=== PATIENT | female | born 1965 | race Caucasian/White ===

== ENCOUNTER 2017-11-12 02:37 | Inpatient (IN) | payer SELFPAY ==
[~2017-11-12] VITALS: Ht 167.6 cm; Wt 82.9 kg
[2017-11-12] VITALS (7 sets, daily range): BP systolic 87–134; BP diastolic 57–77; PULSE 89–107; RESP 18–20; TEMP 97.2–99.3; O2SAT 90–98
[~2017-11-12 02:37] MED LIST: FOLI400T PO; LEVA500T33 PO; METH2.5T PO; METO1TAB42 PO; PRED1 PO
[2017-11-12] MEDS ORDERED: NALOXONE HCL 0.4 MG/ML AMP IV PUSH PRN (02:45)
[2017-11-12] MEDS ORDERED: ACETAMINOPHEN 325 MG TAB PO PRN (02:45)
[2017-11-12] MEDS ORDERED: LEVOFLOXACIN 750 MG PREMIX INJ 150 ML IV SCH (02:45)
[2017-11-12] MEDS ORDERED: PILL SPLITTER OTHER PRN (03:15)
[2017-11-12] MEDS: RESP: ALBUTEROL 2.5 MG/IPRATROPIUM 0.5 MG NEB (SCH) NEB ×4 (04:00→21:08)
[2017-11-12] MEDS ORDERED: methylPREDNISolone SOD SUCC 40 MG/1 ML VIAL IV PUSH SCH (06:00)
[2017-11-12] MEDS: SODIUM CHLORIDE 0.9% FLUSH 10 ML FLUSH IV FLUSH SCH ×2 (08:05→19:53)
[2017-11-12] MEDS: FAMOTIDINE 20 MG TAB PO SCH ×2 (08:08→21:22)
[2017-11-12] MEDS: METOPROLOL SUCCINATE 25 MG EXTENDED RELEASE TAB PO SCH (08:25)
[2017-11-12] MEDS: SODIUM CHLOR 0.9% 1000 ML INJ 1,000 ML IV SCH ×3 (08:29→22:42)
[2017-11-12] MEDS ORDERED: AZTREONAM INJ 2,000 MG in SODIUM CHLORIDE 0.9% INJ 100 ML IV SCH (09:00)
[2017-11-12] MEDS ORDERED: ENOXAPARIN SODIUM 40 MG/0.4 ML SYRINGE SQ SCH (09:00)
[2017-11-12 09:07] LABS: AUTOMATED NEUTROPHIL # 9.4 TH/MM3 (1.8-7.7); BASOPHIL % 0.3 % (0.0-2.0); HEMATOCRIT 45.2 % (35.0-46.0); LYMPH % 11.7 % (9.0-44.0); LYMPHOCYTE # 1.3 TH/MM3 (1.0-4.8); MEAN CELL VOLUME 89.7 FL (80.0-100.0); MEAN CORPUSCULAR HEMOGLOBIN 29.8 PG (27.0-34.0); MEAN CORPUSCULAR HGB CONC 33.2 % (32.0-36.0); MEAN PLATELET VOLUME 8.8 FL (7.0-11.0); MONO % 4.1 % (0.0-8.0); MONOCYTE # 0.5 TH/MM3 (0-0.9); NEUT % 83.9 % (16.0-70.0); PLATELET COUNT 138 TH/MM3 (150-450); RED BLOOD COUNT 5.03 MIL/MM3 (4.00-5.30); RED CELL DISTRIBUTION WIDTH 13.4 % (11.6-17.2); WHITE BLOOD COUNT 11.2 TH/MM3 (4.0-11.0)
[2017-11-12 09:10] LABS: CALCIUM 8.3 MG/DL (8.5-10.1)
[2017-11-12 09:11] LABS: BICARBONATE 22.7 MEQ/L (21.0-32.0)
[2017-11-12 09:14] LABS: CREATININE 0.76 MG/DL (0.50-1.00)
--- NOTE | 2017-11-12 09:28 | HHI.HP ---
[facility] No Primary Care Physician Admission Diagnosis Diagnoses: Chief Complaint: Fever Travel History International Travel<30 Days: No Contact w/Intl Traveler <30 Da: No History of Present Illness 52-year-old female admitted for sepsis secondary to pneumonia. Patient was in her usual state of health until about a week ago when she began experiencing subjective fevers chills sweats as well as URI symptoms including rhinorrhea. This was associated with increasing shortness of breath and wheezing. The patient states that she has asthma and started taking her albuterol inhaler to no avail. She says that she took some prednisone that she had left over (for her rheumatoid arthritis) 5 mg for 2 days again providing no avail. This she went to the urgent care where she was diagnosed with the flu apparently without getting a flu swab. She was sent home with Tamiflu which she took for the next 3 days but due to the persistence in her symptoms she decided to come to the ER department. She does report having some nausea but no vomiting. In the emergency department to obtain a chest x-ray which I am attempting to review independently but the film was not showing up; radiology read reports patchy infiltrates suggestive of bronchopneumonia. Was reported to have saturations of 89-90% on room air and was placed on oxygen. Patient was started on Levaquin and aztreonam. Received 2 L of normal saline bolus as well as Solu- Medrol. Past medical history includes rheumatoid arthritis and asthma. Social history includes that the patient has been smoking for over 20 years. 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 No significant family history per patient. Review of Systems Except as stated in HPI: all other systems reviewed are Neg Past Family Social History Allergies: Coded Allergies: Penicillins (Verified Allergy, Severe, 11/11/17) aspirin (Verified Allergy, Severe, 11/11/17) morphine (Verified Adverse Reaction, Mild, Itching, 11/12/17) Physical Exam Physical Exam VS: afebrile GENERAL: Lying in bed, no acute distress SKIN: Warm and dry. EYES: No scleral icterus. No injection or drainage. ENT: No nasal bleeding or discharge. CARDIOVASCULAR: Regular rate and rhythm. no murmurs RESPIRATORY: No accessory muscle use. Rhonchi crackles and wheezing heard in the expiratory phase in the left lung field, right side sounds almost clear GASTROINTESTINAL: Abdomen soft, non-tender, nondistended. Extremities: No clubbing, cyanosis, or edema. No obvious deformities. MUSCULOSKELETAL: adequate muscle bulk and tone for age and habitus NEUROLOGICAL: Awake and alert. No obvious cranial nerve deficits. No facial droop nor slurred speech noted. PSYCHIATRIC: Appropriate mood and affect; insight and judgment normal. Laboratory Laboratory Tests Test 11/12/17 08:40 White Blood Count 11.2 Red Blood Count 5.03 Hemoglobin 15.0 Hematocrit 45.2 Mean Corpuscular Volume 89.7 Mean Corpuscular Hemoglobin 29.8 Mean Corpuscular Hemoglobin Concent 33.2 Red Cell Distribution Width 13.4 Platelet Count 138 Mean Platelet Volume 8.8 Neutrophils (%) (Auto) 83.9 Lymphocytes (%) (Auto) 11.7 Monocytes (%) (Auto) 4.1 Eosinophils (%) (Auto) 0.0 Basophils (%) (Auto) 0.3 Neutrophils # (Auto) 9.4 Lymphocytes # (Auto) 1.3 Monocytes # (Auto) 0.5 Eosinophils # (Auto) 0.0 Basophils # (Auto) 0.0 CBC Comment DIFF FINAL Differential Comment Blood Urea Nitrogen 14 Creatinine 0.76 Random Glucose 135 Calcium Level 8.3 Sodium Level 137 Potassium Level 4.1 Chloride Level 106 Carbon Dioxide Level 22.7 Anion Gap 8 Estimat Glomerular Filtration Rate 80 Date/Time Source Procedure Growth Status 11/12/17 08:40 Blood Peripheral Aerobic Blood Culture Pending Received 11/12/17 08:40 Blood Peripheral Anaerobic Blood Culture Pending Received Caprini VTE Risk Assessment Caprini VTE Risk Assessment: Mod/High Risk (score >= 2) Caprini Risk Assessment Model Point Value = 1 Point Value = 2 Point Value = 3 Point Value = 5 Age 41-60 Minor surgery BMI > 25 kg/m2 Swollen legs Varicose veins or History of unexplained or recurrent spontaneous Oral contraceptives or hormone replacement Sepsis (< 1 month) Serious lung disease, including pneumonia (< 1 month) Abnormal pulmonary function Acute myocardial infarction Congestive heart failure (< 1 month) History of inflammatory bowel disease Medical patient at bed rest Age 61-74 Arthroscopic surgery Major open surgery (> 45 min) Laparoscopic surgery (> 45 min) Malignancy Confined to bed (> 72 hours) Immobilizing plaster cast Central venous access Age >= 75 History of VTE Family history of VTE Factor V Leiden Prothrombin [id number] Lupus anticoagulant Anticardiolipin antibodies Elevated serum homocysteine Heparin-induced thrombocytopenia Other congenital or acquired thrombophilia Stroke (< 1 month) Elective arthroplasty Hip, pelvis, or leg fracture Acute spinal cord injury (< 1 month) Prophylaxis Regimen Total Risk Factor Score Risk Level Prophylaxis Regimen 0-1 Low Early ambulation 2 Moderate Order ONE of the following: *Sequential Compression Device (SCD) *Heparin 5000 units SQ BID 3-4 Higher Order ONE of the following medications: *Heparin 5000 units SQ TID *Enoxaparin/Lovenox 40 mg SQ daily (WT < 150 kg, CrCl > 30 mL/min) *Enoxaparin/Lovenox 30 mg SQ daily (WT < 150 kg, CrCl > 10-29 mL/min) *Enoxaparin/Lovenox 30 mg SQ BID (WT < 150 kg, CrCl > 30 mL/min) AND/OR *Sequential Compression Device (SCD) 5 or more Highest Order ONE of the following medications: *Heparin 5000 units SQ TID (Preferred with Epidurals) *Enoxaparin/Lovenox 40 mg SQ daily (WT < 150 kg, CrCl > 30 mL/min) *Enoxaparin/Lovenox 30 mg SQ daily (WT < 150 kg, CrCl > 10-29 mL/min) *Enoxaparin/Lovenox 30 mg SQ BID (WT < 150 kg, CrCl > 30 mL/min) AND *Sequential Compression Device (SCD) Assessment and Plan Assessment and Plan Sepsis secondary to bronchopneumonia resulting in asthma exacerbation - Received 2 L normal saline bolus, continue with IV fluids and IV antibiotics - Blood cultures ordered (were obtained after abx administered at ER) - See treatment below for pneumonia; fevers have stopped. Initially had temps > 102 in [place] ER w/ HR > 100. Pneumonia - Continue with Levaquin, obtaining urinary pneumococcal antigen, stopping aztreonam Asthma exacerbation - Likely from pneumonia/viral bronchitis, continue with IV Solu-Medrol and DuoNeb's Hypoxia - Possibly from pneumonia and sloughing; continue duo nebs and possible Mucomyst HTN - continue home toprol Lovenox Addendum: Patient complaining of a possible knot in her abdomen as well as abdominal pain with coughing. I palpated the abdomen, actually has multiple diffuse scattered depressible masses that are very suggestive of stool retention. Patient does affirm that she has a bowel movement about once or twice a week. Starting the patient on promethazine/codeine for cough suppressant and oral MiraLAX and rectal suppository. Physician Certification 2 Midnight Certification Type: Admission for Inpatient Services Order for Inpatient Services The services are ordered in accordance with Medicare regulations or non- Medicare payer requirements, as applicable. In the case of services not specified as inpatient-only, they are appropriately provided as inpatient services in accordance with the 2-midnight benchmark. Estimated LOS (days): 2 2 days is the estimated time the patient will need to remain in the hospital, assuming treatment plan goals are met and no additional complications. Post-Hospital Plan: Home Bishop Xiao MD Nov 12, 2017 09:28
[2017-11-12] MEDS ORDERED: RESP: ACETYLCYSTEINE 10% 10 ML NEB NEB PRN (09:30)
[2017-11-12] MEDS ORDERED: methylPREDNISolone SOD SUCC 125 MG/2 ML VIAL IV PUSH ONE ×2 (10:00→19:00)
[2017-11-12] MEDS ORDERED: BENZONATATE 100 MG CAP PO PRN (13:00)
[2017-11-12] MEDS ORDERED: METHOTREXATE 2.5 MG TAB PO SCH (15:00)
[2017-11-12] MEDS: RESP: ACETYLCYSTEINE 10% 30 ML NEB NEB PRN ×2 (15:56→21:08)
[2017-11-12] MEDS ORDERED: PROMETHAZINE/CODEINE 6.25 MG/10 MG/5 ML CUP PO PRN (16:30)
[2017-11-12] MEDS ORDERED: METH2.5T PO (16:36)
[2017-11-12] MEDS ORDERED: BISACODYL 10 MG SUPP RECTAL ONE (17:00)
[2017-11-12] MEDS ORDERED: METHYLNALTREXONE BROMIDE 12 MG/0.6 ML VIAL SQ ONE (17:00)
[2017-11-12] MEDS: POLYETHYLENE GLYCOL 17 GM PKG PO SCH (17:00)
[2017-11-13] VITALS (17 sets, daily range): BP systolic 106–130; BP diastolic 62–72; PULSE 88–109; RESP 18–42; TEMP 97.7–100.3; O2SAT 88–100
[2017-11-13] MEDS: LEVOFLOXACIN 750 MG PREMIX INJ 150 ML IV SCH (01:00)
[2017-11-13] MEDS: RESP: ALBUTEROL 2.5 MG/IPRATROPIUM 0.5 MG NEB (SCH) NEB ×4 (03:06→22:00)
[2017-11-13] MEDS: ACETAMINOPHEN 325 MG TAB PO PRN ×2 (03:27→16:53)
[2017-11-13] MEDS ORDERED: IOHEXOL 350 MG/ML 10 ML VIAL (for RAD DIAG) IVCONTRAST ONE (03:54)
--- NOTE | 2017-11-13 04:09 | RADRPT ---
EXAM DATE/TIME: 11/13/2017 03:47 [place] COMPARISON: No previous studies available for comparison. INDICATIONS : Short of breath. IV CONTRAST: 75 cc Omnipaque 350 (iohexol) IV RADIATION DOSE: 19.74 CTDIvol (mGy) MEDICAL HISTORY : Asthma. SURGICAL HISTORY : Appendectomy. section. ENCOUNTER: Initial ACUITY: 1 week PAIN SCALE: 0/10 LOCATION: Bilateral chest TECHNIQUE: Volumetric scanning of the chest was performed using a pulmonary embolism protocol MIP images were re constructed. Using automated exposure control and adjustment of the mA and/or kV according to patien t size, radiation dose was kept as low as reasonably achievable to obtain optimal diagnostic quality images. DICOM format image data is available electronically for review and comparison. Follow-up recommendations for detected pulmonary nodules are based at a minimum on nodule size and pa tient risk factors according to Fleischner Society Guidelines. FINDINGS: There is bilateral airspace disease which is predominantly groundglass and slightly worse in the omid hilar regions and upper lungs. There is mediastinal and hilar adenopathy with AP window lymph node me asuring up to 1.2 x 2.3 cm. No filling defects to suggest pulmonary embolism. No pleural or pericardial effusion. No acute findin gs in the upper abdomen. CONCLUSION: 1. Negative for pulmonary embolus. 2. Bilateral airspace disease, predominantly groundglass slight upper lobe predominance with adenopat hy. Differential diagnosis includes bronchopneumonia or. Recommend short-term followup to follow adeline opathy and ensure resolution. Elieser Villalobos MD on November 13, 2017 at 4:03 Board Certified Radiologist. This report was verified electronically.
[2017-11-13] MEDS ORDERED: methylPREDNISolone SOD SUCC 125 MG/2 ML VIAL IV PUSH SCH (06:00)
[2017-11-13] MEDS: RESP: ALBUTEROL 2.5 MG/IPRATROPIUM 0.5 MG NEB (PRN) NEB (07:25)
[2017-11-13] MEDS ORDERED: Vancomycin Consult Pharmacy 1 EA OTHER SCH (08:15)
[2017-11-13] MEDS: SODIUM CHLOR 0.9% 1000 ML INJ 1,000 ML IV SCH ×2 (08:34→16:53)
[2017-11-13] MEDS: SODIUM CHLORIDE 0.9% FLUSH 10 ML FLUSH IV FLUSH SCH ×2 (08:35→20:45)
[2017-11-13] MEDS: METOPROLOL SUCCINATE 25 MG EXTENDED RELEASE TAB PO SCH (08:35)
[2017-11-13] MEDS: ENOXAPARIN SODIUM 30 MG/0.3 ML SYRINGE SQ SCH (08:35)
[2017-11-13] MEDS: FAMOTIDINE 20 MG TAB PO SCH ×2 (08:36→20:45)
[2017-11-13] MEDS: POLYETHYLENE GLYCOL 17 GM PKG PO SCH (08:40)
[2017-11-13] MEDS ORDERED: BISACODYL 10 MG SUPP RECTAL ONE (09:00)
[2017-11-13] MEDS ORDERED: METHOTREXATE 2.5 MG TAB PO SCH (09:00)
--- NOTE | 2017-11-13 09:16 | HHI.PR ---
Subjective Remarks Nursing reports that the patient did have a deterioration since last night where she did have a desaturation and required more oxygen. RTC specified that she was down into the 80s on her saturations while on 6 L (yesterday she was on 2 L earlier in the morning in the mid 90s). Patient states that during this time at night however symptomatically she had no change in her symptoms. This morning she says she also felt okay, unchanged in her respiratory distress from admission, but says that whenever she exerts herself going to the bathroom or getting out of bed she is very winded. She did have some persistent abdominal pain yesterday that was mild with transient relief after having a bowel movement after receiving a suppository and oral laxatives. Objective Vital Signs Date Time Temp Pulse Resp B/P (MAP) Pulse Ox O2 Delivery O2 Flow Rate FiO2 11/13/17 07:50 99.0 98 20 114/72 (86) 95 11/13/17 07:28 95 Partial Rebreather 10.00 11/13/17 04:00 97.7 100 18 106/68 (81) 97 11/13/17 03:20 95 Partial Rebreather 15.00 11/13/17 02:18 91 11/13/17 00:00 100.1 106 18 129/67 (87) 88 11/12/17 21:08 91 Nasal Cannula 6.00 11/12/17 20:00 99.3 100 18 126/77 (93) 90 11/12/17 15:50 98.1 107 20 134/71 (92) 91 11/12/17 11:50 98.9 90 20 101/57 (72) 92 I/O 11/12/17 11/12/17 11/12/17 11/13/17 11/13/17 11/13/17 07:00 15:00 23:00 07:00 15:00 23:00 Intake Total 785 ml 781 ml 960 ml Balance 785 ml 781 ml 960 ml Intake Oral 300 ml 960 ml IV Total 785 ml 481 ml # Voids 21 4 # Bowel Movements 3 Result Diagram: 11/12/1740 11/12/17 0840 Objective Remarks Junky breath sounds bilaterally with minimally labored breathing On nonrebreather currently Abdomen soft, nondistended, no rebound, minimal tenderness to palpation on the left side upper and lower quadrants A/P Assessment and Plan Sepsis secondary to pneumonia - CT angiogram which was obtained since last night showed no pulmonary malaise and, I independently reviewed it and see severe infiltrates bilaterally all throughout lung reese. Discussed case with intensivists, will do stat transfer to [facility]. I have added on Azactam and vancomycin. Continuing Tamiflu ( for previously made clinical diagnosis of flu). continue duonebs, steroids Abdominal pain - Continue with oral laxatives and rectal suppository, if no improvement, can consider CT abdomen continue home methotrexate for RA/lupus Bishop Cabral MD Nov 13, 2017 09:16
[2017-11-13 09:37] LABS: AUTOMATED NEUTROPHIL # 15.3 TH/MM3 (1.8-7.7); BASOPHIL # 0.1 TH/MM3 (0-0.2); BASOPHIL % 0.7 % (0.0-2.0); LYMPH % 7.4 % (9.0-44.0); LYMPHOCYTE # 1.3 TH/MM3 (1.0-4.8); MEAN CELL VOLUME 89.9 FL (80.0-100.0); MEAN CORPUSCULAR HEMOGLOBIN 29.9 PG (27.0-34.0); MEAN CORPUSCULAR HGB CONC 33.3 % (32.0-36.0); MEAN PLATELET VOLUME 8.7 FL (7.0-11.0); MONO % 1.8 % (0.0-8.0); MONOCYTE # 0.3 TH/MM3 (0-0.9); NEUT % 90.1 % (16.0-70.0); PLATELET COUNT 129 TH/MM3 (150-450); RED BLOOD COUNT 4.68 MIL/MM3 (4.00-5.30); RED CELL DISTRIBUTION WIDTH 13.6 % (11.6-17.2)
[2017-11-13 09:47] LABS: CALCIUM 8.6 MG/DL (8.5-10.1)
[2017-11-13 09:48] LABS: BICARBONATE 26.6 MEQ/L (21.0-32.0)
[2017-11-13 09:52] LABS: CREATININE 0.76 MG/DL (0.50-1.00)
[2017-11-13] MEDS: OSELTAMIVIR PHOSPHATE 75 MG CAP PO SCH (09:52)
[2017-11-13] MEDS: RESP: ACETYLCYSTEINE 10% 30 ML NEB NEB PRN (09:58)
[2017-11-13] MEDS ORDERED: VANCOMYCIN INJ 2,000 MG in SODIUM CHLORID 0.9% 500 ML INJ 500 ML IV ONE (10:00)
[2017-11-13] MEDS ORDERED: AZTREONAM INJ 2,000 MG in SODIUM CHLORIDE 0.9% INJ 100 ML IV SCH (11:00)
--- NOTE | 2017-11-13 13:56 | PD.CONS ---
[facility] Service Critical Care Medicine Consult Requested By Dr. Xiao Reason for Consult Acute hypoxemic respiratory failure Bilateral pneumonia, ? 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 with week long history of fevers chills and URI symptoms. This was associated with increasing shortness of breath and wheezing. Not improving with inhaled albuterol or prednisone which patient takes intermittently for rheumatoid arthritis flare up. About 3 days prior to ER visit patient was placed on Tamiflu by urgent care facility based on clinical symptoms. CXR at [place] emergency department showed bilateral patchy infiltrates. Patient was admitted to the [facility] facility under the hospitalist and was placed on IV Solu- Medrol breathing treatments, IV Levaquin and Tamiflu. Overnight patient had clinical deterioration was on 6 L nasal cannula with desaturation into the low 80s and patient was placed on a nonrebreather. An ABG done on 6 L showed severe AA gradient and a PO2 of 55. 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 Because of hypoxemic respiratory failure, extensive pulmonary infiltrates and risk of worsening ARDS patient was emergently transferred to the [place] [facility] ICU I immediately evaluated the patient in the ICU. She is on partial nonrebreather oxygen saturation above 90%. The patient is tachypneic using accessory muscles. BiPAP ordered. Clinical presentation is concerning for influenza with secondary bacterial pneumonia. Because of her history of on and off chronic steroids and rheumatoid arthritis I will check for Pneumocystis jiroveci staining, LDH. Also ID consulted. A limited bedside echo showed normal ejection fraction. We will continue Tamiflu, IV Levaquin and vancomycin plus Azactam. If LDH is elevated start empiric coverage with IV Bactrim. Continue IV Solu-Medrol increased to 60 mg every 6 hours. ID consulted and discussed with Dr. Pinto Review of Systems ROS Limitations: Other ( PER HPI) Past Family Social History Allergies: Coded Allergies: Penicillins (Verified Allergy, Severe, 11/11/17) aspirin (Verified Allergy, Severe, 2/9/18) morphine (Verified Adverse Reaction, Mild, Itching, 11/12/17) Past Medical History Rheumatoid architis Probable Lupus Bronchial asthma Past Surgical History Appendectomy Fibroid removal Reported Medications Prednisone 1 Mg Tab 1 Mg PO DAILY Folic Acid 0.4 Mg Tab 400 Mcg PO DAILY Metoprolol Succinate ER 24 HR (Metoprolol Succinate) 25 Mg Tab 12.5 Mg PO DAILY Methotrexate 2.5 Mg Tab 2.5 Mg PO Q7D Active Ordered Medications Reviewed Family History Mother has diabetes Social History Smokes half packs of cigarettes a day No alcohol or tobacco Physical Exam Vital Signs Vital Signs Date Time Temp Pulse Resp B/P (MAP) Pulse Ox O2 Delivery O2 Flow Rate FiO2 11/13/17 12:00 100 11/13/17 12:00 100.0 100 24 123/62 (82) 95 11/13/17 11:08 100.0 109 28 130/70 (90) 96 11/13/17 11:04 95 Partial Rebreather 13.00 11/13/17 09:33 96 High Flow Nasal Cannula 30.00 11/13/17 07:50 99.0 98 20 114/72 (86) 95 11/13/17 07:28 95 Partial Rebreather 10.00 11/13/17 04:00 97.7 100 18 106/68 (81) 97 11/13/17 03:20 95 Partial Rebreather 15.00 11/13/17 02:18 91 11/13/17 00:00 100.1 106 18 129/67 (87) 88 11/12/17 21:08 91 Nasal Cannula 6.00 11/12/17 20:00 99.3 100 18 126/77 (93) 90 11/12/17 15:50 98.1 107 20 134/71 (92) 91 Physical Exam GENERAL: Lying in bed, moderate distress using accessory muscle SKIN: Warm and dry. EYES: No scleral icterus. No injection or drainage. ENT: No nasal bleeding or discharge. NECK: Supple, JVD plus CARDIOVASCULAR: Regular rate and rhythm. no murmurs RESPIRATORY: Tachypneic in mid 30s, using accessory muscle use. Fine crackles and wheezing heard in bilateral lung reese anteriorly and posteriorly GASTROINTESTINAL: Abdomen soft, non-tender, nondistended. EXT: No clubbing, cyanosis, or edema. No obvious deformities. NEUROLOGICAL: Awake and alert. No obvious cranial nerve deficits. Normal muscle strength Laboratory Laboratory Tests Test 11/13/17 02:58 11/13/17 09:25 Blood Gas Puncture Site RT BRACHIAL Blood Gas Patient Temperature 98.6 Blood Gas HCO3 22 Blood Gas Base Excess -2.2 Blood Gas Oxygen Saturation 87 Arterial Blood pH 7.39 Arterial Blood Partial Pressure CO2 37 Arterial Blood Partial Pressure O2 55 Arterial Blood Oxygen Content 17.1 Arterial Blood Carboxyhemoglobin 1.3 Arterial Blood Methemoglobin 1.2 Blood Gas Hemoglobin 14.0 Oxygen Delivery Device NASAL CANNULA Blood Gas Liter Flow 6 White Blood Count 17.0 Red Blood Count 4.68 Hemoglobin 14.0 Hematocrit 42.0 Mean Corpuscular Volume 89.9 Mean Corpuscular Hemoglobin 29.9 Mean Corpuscular Hemoglobin Concent 33.3 Red Cell Distribution Width 13.6 Platelet Count 129 Mean Platelet Volume 8.7 Neutrophils (%) (Auto) 90.1 Lymphocytes (%) (Auto) 7.4 Monocytes (%) (Auto) 1.8 Eosinophils (%) (Auto) 0.0 Basophils (%) (Auto) 0.7 Neutrophils # (Auto) 15.3 Lymphocytes # (Auto) 1.3 Monocytes # (Auto) 0.3 Eosinophils # (Auto) 0.0 Basophils # (Auto) 0.1 CBC Comment DIFF FINAL Differential Comment Blood Urea Nitrogen 8 Creatinine 0.76 Random Glucose 180 Calcium Level 8.6 Sodium Level 141 Potassium Level 4.1 Chloride Level 106 Carbon Dioxide Level 26.6 Anion Gap 8 Estimat Glomerular Filtration Rate 80 Date/Time Source Procedure Growth Status 11/12/17 08:40 Blood Peripheral Aerobic Blood Culture - Preliminary NO GROWTH IN 1 DAY Resulted 11/12/17 08:40 Blood Peripheral Anaerobic Blood Culture - Final QNS - SEE AEROBE REPORT Resulted 11/13/17 06:30 Urine Random Urine Legionella Antigen Pending Received Result Diagram: 11/13/1792411/13/[address] CHEST: Bilateral airspace disease, predominantly ground glass slight upper lobe predominance with adenopathy. Differential diagnosis includes bronchopneumonia or. Recommend short-term followup to follow adenopathy and ensure resolution. Septic Shock Reassessment Septic shock perfusion: reassessment completed Assessment and Plan Assessment and Plan ASSESSMENT: Acute hypoxemic respiratory failure Bilateral pneumonia, ? 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 ID: -Patient appears to have bilateral pneumonia most likely atypical -Check for repeat influenza, PGP stain, check LDH, sputum culture and blood culture, urine for Legionella and pneumococcal antigen -Continue broad-spectrum antibiotics with vancomycin, Azactam, Levaquin and Tamiflu -Infectious disease consult -LDH elevated start empiric Bactrim IV for PJP coverage HEME: -Monitor CBC, CMP, coags ENDO: -Mild hyperglycemia secondary to steroids -Sliding scale insulin if needed MSK -Hold methotrexate due to an acute infection -Continue IV Solu-Medrol PROPH: Bilateral lower extremity SCDs/JESSICA. Lovenox, Famotidine LINES: Utilize peripheral IVs, central line if needed CC time 45 min Code Status Full Discussed Condition With Phi Aguilera MD Nov 13, 2017 13:56
[2017-11-13] MEDS: AZTREONAM INJ 2,000 MG in SODIUM CHLORIDE 0.9% INJ 100 ML IV SCH ×2 (14:00→23:59)
[2017-11-13] MEDS: methylPREDNISolone SOD SUCC 125 MG/2 ML VIAL IV PUSH SCH ×2 (16:52→23:59)
[2017-11-13] MEDS: SULFAMETHOX IV SCH ×2 (20:45)
[2017-11-13] MEDS: TRIMETHOPRIM IV SCH ×2 (20:45)
[2017-11-13] MEDS: DEXTROSE 5% IV SCH ×2 (20:45)
[2017-11-13] MEDS: WATE IV SCH ×2 (20:45)
[2017-11-13] MEDS: ALPRAZolam 1 MG TAB PO PRN (21:03)
--- NOTE | 2017-11-13 21:43 | PD.ID.CON ---
History of Present Illness Service ID Consult Requested By Reason for Consult Evaluation and mment of Pneumonia in an Immune compromised patient. Primary Care Physician No Primary Care Physician Diagnoses: History of Present Illness Ms. Boyd is a 60 y/o female with PMHx significant for rheumatoid arthritis and possibly lupus who is on methotrexate and intermittently on steroids. Her PMHx is also significant for Bronchial asthma and she admits to smoking 1 ppd for many years. 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 She denies any fungal pneumonia. She denies exposure to people with TB or positive PPD. She thinks she uses a nebulizer which may have mold deposits. She reports her home is her truck. She lives in motels at times. Patient reports her symptoms started off with a fever she presented at an ED or urgent care was diagnosed with Flu and started on Tamiflu approximately 1 week TEST RIDER. She then presented to the [facility] ED with fever 103 F, tachycardia and Pneumonia on CXR on 11/11/2017. Flu antigen at this point after being treated with tamiflu was negative. She was transferred to [facility] due to increasing Shortness of breath and wheezing. She was reportedly getting worse despite taking her steroids at home which she intermittently takes for her RA. Patient was admitted to the [facility] facility under the hospitalist and was placed on IV Solu-Medrol breathing treatments, IV Levaquin and Tamiflu. Overnight patient had clinical deterioration was on 6 L nasal cannula with desaturation into the low 80s and patient was placed on a nonrebreather. An ABG done on 6 L showed severe AA gradient and a PO2 of 55. 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 Due to worsening shortness of breath, hypoxemic respiratory failure, extensive pulmonary infiltrates and risk of worsening ARDS patient was emergently transferred to the [place] [facility]. 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 The patient is tachypneic using accessory muscles. BiPAP ordered earlier but patient prefers not to use it. Patient is currently on Tamiflu, IV Levaquin, Azactam IV and IV vancomycin. Due to concern for PCP LDH was checked and patient started on empiric Bactrim IV.Patient is on IV Solu- Medrol increased to 60 mg every 6 hours. ID consulted for evaluation and Mment of Pneumonia in an Immune compromised patient. Review of Systems Constitutional: COMPLAINS OF: Fever, Chills, DENIES: Diaphoretic episodes, Fatigue, Weight gain, Weight loss, Dizziness, Change in appetite, Night Sweats Endocrine: DENIES: Abnorml menstrual pattern, Heat/cold intolerance, Polydipsia , Polyuria, Polyphagia Eyes: DENIES: Blurred vision, Diplopia, Eye inflammation, Eye pain, Vision loss , Photosensitivity, Double Vision Ears, nose, mouth, throat: DENIES: Tinnitus, Hearing loss, Vertigo, Nasal discharge, Oral lesions, Throat pain, Hoarseness, Ear Pain, Running Nose, Epistaxis, Sinus Pain, Toothache, Odynophagia Respiratory: COMPLAINS OF: Cough, Wheezing, Shortness of breath, DENIES: Apneas , Snoring, Hemoptysis, Sputum production Cardiovascular: DENIES: Chest pain, Palpitations, Syncope, Dyspnea on Exertion , PND, Lower Extremity Edema, Orthopnea, Claudication Gastrointestinal: DENIES: Abdominal pain, Black stools, Bloody stools, Constipation, Diarrhea, Nausea, Vomiting, Difficulty Swallowing, Anorexia Genitourinary: DENIES: Abnormal vaginal bleeding, Dysmenorrhea, Dyspareunia, Sexual dysfunction, Urinary frequency, Urinary incontinence, Urgency, Hematuria , Dysuria, Nocturia, Vaginal discharge Musculoskeletal: COMPLAINS OF: Joint pain, DENIES: Muscle aches, Stiffness, Joint Swelling, Back pain, Neck pain Integumentary: DENIES: Abnormal pigmentation, Pruritus, Rash, Nail changes, Breast masses, Breast skin changes, Nipple discharge Hematologic/lymphatic: DENIES: Bruising, Lymphadenopathy Immunologic/allergic: DENIES: Eczema, Urticaria Neurologic: DENIES: Abnormal gait, Headache, Localized weakness, Paresthesias, Seizures, Speech Problems, Tremor, Poor Balance Psychiatric: DENIES: Anxiety, Confusion, Mood changes, Depression, Hallucinations, Agitation, Suicidal Ideation, Homicidal Ideation, Delusions Except as stated in HPI: all other systems reviewed are Neg Past Family Social History Allergies: Coded Allergies: Penicillins (Verified Allergy, Severe, Swelling, 11/13/17) Has tolerated Keflex as outpatient. aspirin (Verified Allergy, Severe, 11/11/17) morphine (Verified Adverse Reaction, Mild, Itching, 11/12/17) Past Medical History Rheumatoid arthritis Probable Lupus Bronchial asthma Past Surgical History Appendectomy Fibroid removal Reported Medications Reported Meds & Active Scripts Active Reported Methotrexate 2.5 Mg Tab 15 Mg PO Q7D Prednisone 1 Mg Tab 1 Mg PO DAILY Folic Acid 0.4 Mg Tab 400 Mcg PO DAILY Metoprolol Succinate ER 24 HR (Metoprolol Succinate) 25 Mg Tab 12.5 Mg PO DAILY Active Ordered Medications Current Medications Medications (Trade) Dose Ordered Sig/Maribell Route Start Time Stop Time Status Last Admin Sodium Chloride 1,000 ml @ 100 mls/hr Q10H IV 11/12/17 02:42 11/13/17 16:53 (NS Flush) 2 ml UNSCH PRN IV FLUSH 11/12/17 02:45 (NS Flush) 2 ml BID IV FLUSH 11/12/17 09:00 11/13/17 20:45 (Narcan Inj) 0.4 mg UNSCH PRN IV PUSH 11/12/17 02:45 (Duoneb Neb) 1 ampule Q4HR NEB PRN NEB 11/12/17 02:45 11/13/17 07:25 (Duoneb Neb) 1 ampule Q6HR NEB NEB 11/12/17 04:00 11/13/17 14:40 (Pepcid) 20 mg BID PO 11/12/17 09:00 11/13/17 20:45 (Toprol Xl) 12.5 mg DAILY PO 11/12/17 09:00 11/13/17 08:35 Levofloxacin/ Dextrose 150 ml @ 100 mls/hr Q24H IV 11/13/17 01:00 11/13/17 01:00 (Pill Splitter) 1 ea UNSCH PRN OTHER 11/12/17 03:15 (Lovenox Inj) 30 mg Q24H SQ 11/13/17 09:00 11/13/17 08:35 (Mucomyst 10% Neb) 2 ml Q4HR WHILE AWAKE NEB PRN NEB 11/12/17 11:00 11/13/17 09:58 (Tessalon) 100 mg TID PRN PO 11/12/17 13:00 11/12/17 13:15 (Phenergan-Codeine Liq) 5 ml Q4H PRN PO 11/12/17 16:30 (Miralax) 17 gm DAILY PO 11/12/17 17:00 11/13/17 08:40 (Rheumatrex) 15 mg Q7D PO 11/13/17 09:00 Future Hold 11/13/17 08:37 (Tylenol) 650 mg Q4H PRN PO 11/13/17 02:30 11/13/17 16:53 (Tamiflu) 75 mg DAILY PO 11/13/17 09:00 11/13/17 09:52 Aztreonam 2000 mg/ Sodium Chloride 100 ml @ 200 mls/hr Q8H IV 11/13/17 14:00 11/13/17 14:00 (Folate) 0.5 mg DAILY PO 11/14/17 09:00 (SoluMEDROL INJ) 60 mg Q6H IV PUSH 11/13/17 18:00 11/13/17 16:52 Miscellaneous Information SPECIFIC LAB TO BE ... ONCE ONCE .XX 11/14/17 21:45 11/14/17 21:46 Trimethoprim/ Sulfamethoxazole 464 mg/Dextrose 529 ml @ 352.667 mls/hr Q6H IV 11/13/17 20:00 11/13/17 20:45 (Xanax) 1 mg Q8H PRN PO 11/13/17 20:45 11/13/17 21:03 Family History Mother has diabetes. Social History Smokes half packs of cigarettes a day for many years. No alcohol or tobacco. 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 She remembers going to [place] most recently. She denies any illicit drugs. is on way from [place] where he went for a . She has 3 children who are in different states. She would like her to be notified in an emergency. Physical Exam Vital Signs Vital Signs Date Time Temp Pulse Resp B/P (MAP) Pulse Ox O2 Delivery O2 Flow Rate FiO2 11/13/17 18:00 88 11/13/17 17:56 20 11/13/17 16:00 95 11/13/17 16:00 100.3 95 42 130/71 (90) 92 11/13/17 14:51 100 40 11/13/17 14:00 105 11/13/17 12:00 100 11/13/17 12:00 100.0 100 24 123/62 (82) 95 11/13/17 11:08 100.0 109 28 130/70 (90) 96 11/13/17 11:04 95 Partial Rebreather 13.00 11/13/17 09:33 96 High Flow Nasal Cannula 30.00 11/13/17 07:50 99.0 98 20 114/72 (86) 95 11/13/17 07:28 95 Partial Rebreather 10.00 11/13/17 04:00 97.7 100 18 106/68 (81) 97 11/13/17 03:20 95 Partial Rebreather 15.00 11/13/17 02:18 91 11/13/17 00:00 100.1 106 18 129/67 (87) 88 Physical Exam GENERAL: This is a well-nourished, well-developed patient, in moderately severe resp distress, using accessory muscles of respiration, nasal flaring. SKIN: No rashes, ecchymoses or lesions. Cool and dry. HEAD: Atraumatic. Normocephalic. No temporal or scalp tenderness. EYES: Pupils equal round and reactive. Extraocular motions intact. No scleral icterus. No injection or drainage. ENT: Nose without bleeding, purulent drainage or septal hematoma. Throat without erythema, tonsillar hypertrophy or exudate. Uvula midline. Airway patent. NECK: Trachea midline. Supple, nontender, no meningeal signs. CARDIOVASCULAR: HS audible. RESPIRATORY: AE decreased bilaterally. Bilateral wheezes. GASTROINTESTINAL: Abdomen soft, non-tender, nondistended. MUSCULOSKELETAL: Extremities without clubbing, cyanosis, or edema. No joint tenderness, effusion, or edema noted. No calf tenderness. Negative Homans sign bilaterally. NEUROLOGICAL: Awake and alert. Non focal exam Psych cooperative IV line sites with no e.o infection. Laboratory Laboratory Tests Test 11/13/17 02:58 11/13/17 09:25 11/13/17 15:20 11/13/17 15:39 Blood Gas Puncture Site RT BRACHIAL Blood Gas Patient Temperature 98.6 Blood Gas HCO3 22 Blood Gas Base Excess -2.2 Blood Gas Oxygen Saturation 87 Arterial Blood pH 7.39 Arterial Blood Partial Pressure CO2 37 Arterial Blood Partial Pressure O2 55 Arterial Blood Oxygen Content 17.1 Arterial Blood Carboxyhemoglobin 1.3 Arterial Blood Methemoglobin 1.2 Blood Gas Hemoglobin 14.0 Oxygen Delivery Device NASAL CANNULA Blood Gas Liter Flow 6 White Blood Count 17.0 Red Blood Count 4.68 Hemoglobin 14.0 Hematocrit 42.0 Mean Corpuscular Volume 89.9 Mean Corpuscular Hemoglobin 29.9 Mean Corpuscular Hemoglobin Concent 33.3 Red Cell Distribution Width 13.6 Platelet Count 129 Mean Platelet Volume 8.7 Neutrophils (%) (Auto) 90.1 Lymphocytes (%) (Auto) 7.4 Monocytes (%) (Auto) 1.8 Eosinophils (%) (Auto) 0.0 Basophils (%) (Auto) 0.7 Neutrophils # (Auto) 15.3 Lymphocytes # (Auto) 1.3 Monocytes # (Auto) 0.3 Eosinophils # (Auto) 0.0 Basophils # (Auto) 0.1 CBC Comment DIFF FINAL Differential Comment Blood Urea Nitrogen 8 Creatinine 0.76 Random Glucose 180 Calcium Level 8.6 Sodium Level 141 Potassium Level 4.1 Chloride Level 106 Carbon Dioxide Level 26.6 Anion Gap 8 Estimat Glomerular Filtration Rate 80 Lactate Dehydrogenase 568 Lactic Acid Level 2.0 Date/Time Source Procedure Growth Status 11/12/17 08:40 Blood Peripheral Aerobic Blood Culture - Preliminary NO GROWTH IN 1 DAY Resulted 11/12/17 08:40 Blood Peripheral Anaerobic Blood Culture - Final QNS - SEE AEROBE REPORT Resulted 11/13/17 14:45 Nasal Washing Influenza Types A,B Antigen (BEN) - Final NEGATIVE FOR FLU A AND B ANTIGEN.... Complete 11/13/17 06:30 Urine Random Urine Legionella Antigen - Final PRESUMPTIVE NEGATIVE FOR LEGIONELLA P... Complete Result Diagram: 11/13/1725 11/13/[address] Angiography 11/13/17 0000 Signed Impressions: Service Date/Time: Monday, November 13, 2017 03:47 - CONCLUSION: 1. Negative for pulmonary embolus. 2. Bilateral airspace disease, predominantly groundglass slight upper lobe predominance with adenopathy. Differential diagnosis includes bronchopneumonia or. Recommend short-term followup to follow adenopathy and ensure resolution. Elieser Villalobos MD Assessment and Plan Assessment and Plan Severe Sepsis present on admission. Pneumonia in an Immune compromised patient. Ground glass opacities of lung: DDX acute infections, Fungal (crypto, histo), PCP, CMV are some other differentials that will be considered if not responsive to first line treatment. Acute respiratory failure on NRB 100% FiO2. H/o RA, Lupus on MTX and steroids off and on. Immune compromised host Thrombocytopenia: sepsis, meds related. Penicillin Allergy: has tolerated keflex in past. High grade leucocytosis: infection, steroids. Recs: STAT ABG (reviewed and d.w clinically deteriorating and appears to be fatigued: intubation) Continue Azactam IV Vanco IV Dced. Will start Zyvox IV (patient at risk for post influenza necrotizing pneumonia from MSSA and MRSA, Strep. Zyvox has exotoxin neutralizing effect like clindamycin in addition to MRSA coverage) Continue Bactrim IV for now (for PCP) Continue Levaquin IV Check Fungal Abs Check Aspergillus serology Check Crypto serum Ag Check Ur Histo Ag Check Blastomyces Ab. Check viral resp panel PCR (includes influenza PCR). [place] for I/O tracking on potential nephrotoxic agents (bactrim and Vanco IV) UA with reflex to C/S Patient consented to HIV and Hepatitis profile testing prior to intubation in presence of RN taking care of the patient. Check sputum gram stain and Cx, AFB and Fungal with GMS stain for PCP. Recommend a bronchoscopy to assess mediastinal LN etiology appears to have a chronic infectious or Granulomatous process (underlying Rheum conditions) Consult pulmonology for endobronchial biopsies and other workup. Needs outpatient pulmonology established. Critical thinking and decision making. June Pinto MD Nov 13, 2017 21:43
[2017-11-13] MEDS ORDERED: VANCOMYCIN INJ 1,750 MG in SODIUM CHLORID 0.9% 500 ML INJ 500 ML IV SCH (22:00)
[2017-11-13] MEDS ORDERED: SUCCINYLCHOLINE CHLORIDE 200 MG/10 ML VIAL ONE (22:05)
[2017-11-13] MEDS ORDERED: ETOMIDATE 40 MG/20 ML VIAL ONE (22:05)
[2017-11-13] MEDS ORDERED: PROPOFOL 500 MG/50 ML INJ 50 ML ONE (22:10)
--- NOTE | 2017-11-13 22:26 | PD.PROCEDR ---
Procedure Note Procedure Endotracheal Intubation A time-out was completed verifying correct patient, procedure, site, positioning , and special equipment if applicable. The patient was placed in a flat position. Sedation was obtained using Etomidate 20mg. The patient was easily ventilated using an ambu bag. The [employer]/ MAC 4 BLADE was used and inserted into the oropharynx at which time there was a Grade 1 view of the vocal cords. A 8-urdu endotracheal tube was inserted and visualized going through the vocal cords. The stylette was removed. Colorimetric change was visualized on the CO2 meter. Breath sounds were heard in both lung reese equally. The endotracheal tube was placed at 23 cm, measured at the teeth. A chest x-ray was ordered to assess for pneumothorax and verify endotrachealtube placement. Estimated Blood Loss: 0 The patient tolerated the procedure well and there were no complications. Gustavo Anderson MD Nov 13, 2017 10:26 pm
[2017-11-13] MEDS ORDERED: MIDAZOLAM HCL 5 MG/ML VIAL (1 ML) ONE (22:30)
[2017-11-13] MEDS: fentaNYL DRIP 250 ML IV PRN (22:45)
[2017-11-13] MEDS: PROPOFOL 1000 MG/100 ML INJ 100 ML IV PRN (22:46)
[2017-11-13] MEDS ORDERED: MIDAZOLAM HCL 5 MG/5 ML VIAL IV ONE (23:00)
--- NOTE | 2017-11-13 23:00 | RADRPT ---
EXAM DATE/TIME: 11/13/2017 22:32 [facility] COMPARISON: CHEST PA & LAT, November 11, 2017, 23:33. INDICATIONS : E-T tube placement. MEDICAL HISTORY : Rheumatoid arthritis. Lupus. Asthma SURGICAL HISTORY : Appendectomy. ENCOUNTER: Initial ACUITY: 1 day PAIN SCORE: Non-responsive. LOCATION: Bilateral chest FINDINGS: Endotracheal tube tip 1 cm above the zander. Interval development of diffuse patchy airspace opaciti es throughout both lungs without loss of delineation of either hemidiaphragm or in either heart borde r. The heart is normal in size. CONCLUSION: 1. ET tube tip is 1 cm above the zander and needs to be withdrawn at least 1.5 cm. 2. Diffuse patchy airspace opacities throughout both lungs. Armando Donald MD on November 13, 2017 at 22:56 Board Certified Radiologist. This report was verified electronically.
[2017-11-13 23:36] LABS: BILIRUBIN, URINE NEG (NEG); BLOOD, URINE TRACE (NEG); GLUCOSE,URINE NEG (NEG); KETONE, URINE NEG (NEG); NITRITE,URINE NEG (NEG); PH, URINE 6.5 (5.0-8.5); TRANSITIONAL EPI CELLS, URINE <1 /hpf; URINE COLOR LIGHT-YELLOW (YELLW/STRAW); URINE LEUKOCYTE ESTERASE NEG (NEG)
[2017-11-13] MEDS: LINEZOLID 600 MG PREMIX 300 ML IV SCH (23:59)
[2017-11-14] VITALS (19 sets, daily range): BP systolic 86–112; BP diastolic 49–67; PULSE 60–97; RESP 18–25; TEMP 96.5–98.7; O2SAT 92–100
[2017-11-14] MEDS: LEVOFLOXACIN 750 MG PREMIX INJ 150 ML IV SCH (01:46)
[2017-11-14] MEDS: DEXTROSE 5% IV SCH ×8 (02:00→20:30)
[2017-11-14] MEDS: TRIMETHOPRIM IV SCH ×8 (02:00→20:30)
[2017-11-14] MEDS: WATE IV SCH ×8 (02:00→20:30)
[2017-11-14] MEDS: SULFAMETHOX IV SCH ×8 (02:00→20:30)
[2017-11-14] MEDS: PROPOFOL 1000 MG/100 ML INJ 100 ML IV PRN ×3 (03:15→20:42)
[2017-11-14] MEDS: RESP: ALBUTEROL 2.5 MG/IPRATROPIUM 0.5 MG NEB (SCH) NEB ×4 (03:49→20:54)
[2017-11-14] MEDS: SODIUM CHLOR 0.9% 1000 ML INJ 1,000 ML IV SCH ×2 (04:42→14:42)
[2017-11-14] MEDS: methylPREDNISolone SOD SUCC 125 MG/2 ML VIAL IV PUSH SCH ×4 (05:01→23:46)
[2017-11-14] MEDS: AZTREONAM INJ 2,000 MG in SODIUM CHLORIDE 0.9% INJ 100 ML IV SCH ×3 (05:01→20:35)
[2017-11-14] MEDS ORDERED: DEXTROSE 50% IN WATER 50 ML VIAL(D50) IV PUSH PRN (07:45)
[2017-11-14] MEDS ORDERED: GLUCAGON 1 MG/ML VIAL OTHER PRN (07:45)
--- NOTE | 2017-11-14 07:46 | HHI.CCPN ---
Subjective Remarks/Hospital Course Patient is a 60-year-old female with past medical history significant for rheumatoid arthritis on methotrexate and intermittently on steroids, Bronchial asthma, tobacco abuse who was admitted to [facility] with week long history of fevers chills and URI symptoms. This was associated with increasing shortness of breath and wheezing. Not improving with inhaled albuterol or prednisone which patient takes intermittently for rheumatoid arthritis flare up. About 3 days prior to ER visit patient was placed on Tamiflu by urgent care facility based on clinical symptoms. CXR at [place] emergency department showed bilateral patchy infiltrates. Patient was admitted to the [facility] facility under the hospitalist and was placed on IV Solu- Medrol breathing treatments, IV Levaquin and Tamiflu. Overnight patient had clinical deterioration was on 6 L nasal cannula with desaturation into the low 80s and patient was placed on a nonrebreather. An ABG done on 6 L showed severe AA gradient and a PO2 of 55. 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 Because of hypoxemic respiratory failure, extensive pulmonary infiltrates and risk of worsening ARDS patient was emergently transferred to the [place] [facility] I immediately evaluated the patient in the ICU. She is on partial nonrebreather oxygen saturation above 90%. The patient is tachypneic using accessory muscles. BiPAP ordered. Clinical presentation is concerning for influenza with secondary bacterial pneumonia. Because of her history of on and off chronic steroids and rheumatoid arthritis I will check for Pneumocystis jiroveci staining, LDH. Also ID consulted. A limited bedside echo showed normal ejection fraction. We will continue Tamiflu, IV Levaquin and vancomycin plus Azactam. If LDH is elevated start empiric coverage with IV Bactrim. Continue IV Solu-Medrol increased to 60 mg every 6 hours. ID consulted and discussed with Dr. Pinto SUBJ 11/14: Patient was intubated overnight for severe worsening hypoxemic respiratory failure. Chest x-ray postintubation showed worsening bilateral infiltrates. Currently on Zyvox, Azactam, IV Bactrim for PCP, and Levaquin. Pulmonology consulted for BAL if clinical condition permits. Start Nimbex infusion as the patient is on 100% FiO2 to maintain oxygen saturation. PEEP increased to 10. After obtaining BAL consider prolotherapy, if not improving Objective Vital Signs Date Time Temp Pulse Resp B/P (MAP) Pulse Ox O2 Delivery O2 Flow Rate FiO2 11/14/17 06:00 69 11/14/17 04:00 100 11/14/17 04:00 97.9 24 86/53 (64) 97 11/13/17 11:04 Partial Rebreather 13.00 Intake and Output 11/14/17 11/14/17 11/15/17 08:00 16:00 00:00 Intake Total 2798 ml Output Total 1300 ml Balance 1498 ml Result Diagram: 11/13/1792411/13/17924 Other Results Microbiology Date/Time Source Procedure Growth Status 11/13/17 14:45 Nasal Washing Influenza Types A,B Antigen (BEN) - Final NEGATIVE FOR FLU A AND B ANTIGEN.... Complete 11/13/17 06:30 Urine Random Urine Legionella Antigen - Final PRESUMPTIVE NEGATIVE FOR LEGIONELLA P... Complete 11/13/17 06:30 Urine Random Urine Streptococcus pneumoniae Antigen (M - Final PRESUMPTIVE NEGATIVE FOR STREPTOCOCCU... Complete Laboratory Tests Test 11/13/17 21:49 11/14/17 00:46 11/14/17 01:51 11/14/17 07:10 Blood Gas Puncture Site RT RADIAL RT RADIAL RT RADIAL RT RADIAL Blood Gas Patient Temperature 98.6 98.6 98.6 98.6 Blood Gas HCO3 23 mmol/L (22-26) 24 mmol/L (22-26) 22 mmol/L (22-26) 21 mmol/L (22-26) Blood Gas Base Excess -1.5 mmol/L (-2-2) -2.1 mmol/L (-2-2) -2.7 mmol/L (-2-2) -3.3 mmol/L (-2-2) Blood Gas Oxygen Saturation 88 % (90-100) 92 % (90-100) 95 % (90-100) 93 % ( 90-100) Arterial Blood pH 7.35 (7.380-7.420) 7.26 (7.380-7.420) 7.33 (7.380-7.420) 7.37 (7.380-7.420) Arterial Blood Partial Pressure CO2 44 mmHg (38-42) 55 mmHg (38-42) 44 mmHg (38-42) 37 mmHg (38-42) Arterial Blood Partial Pressure O2 60 mmHg (61-120) 77 mmHg (61-120) 90 mmHg (61-120) 71 mmHg (61-120) Arterial Blood Oxygen Content 17.7 Vol % (12.0-20.0) 17.3 Vol % (12.0-20.0) 17.3 Vol % (12.0-20.0) 16.6 Vol % (12.0-20.0) Arterial Blood Carboxyhemoglobin 0.7 % (0-4) 0.8 % (0-4) 0.8 % (0-4) 0.9 % (0-4) Arterial Blood Methemoglobin 1.3 % (0-2) 1.6 % (0-2) 1.4 % (0-2) 1.3 % (0-2) Blood Gas Hemoglobin 14.3 G/DL (12.0-16.0) 13.4 G/DL (12.0-16.0) 13.0 G/DL (12.0-16.0) 12.7 G/DL (12.0-16.0) Oxygen Delivery Device Partial Rebreather VENTILATOR VENTILATOR Blood Gas Ventilator Setting SEE COMMENT SEE COMMENT PC/ACIP26,RATE 20 Blood Gas Inspired Oxygen 100 % 100 % 100 % Imaging CT CHEST: Bilateral airspace disease, predominantly ground glass slight upper lobe predominance with adenopathy. Differential diagnosis includes bronchopneumonia or. Recommend short-term followup to follow adenopathy and ensure resolution. Chest x-ray shows bilateral patchy infiltrates Objective Remarks GENERAL: Lying in bed, intubated heavily sedated slightly hypotensive, clinically SKIN: Warm and dry. EYES: No scleral icterus. No injection or drainage. ENT: No nasal bleeding or discharge. Orotracheally intubated NECK: Supple, + CARDIOVASCULAR: Regular rate and rhythm. no murmurs. Hypotensive RESPIRATORY: On PRVC vent mode, PEEP increased to 10. Fine crackles and wheezing heard in bilateral lung reese anteriorly GASTROINTESTINAL: Abdomen soft, non-tender, nondistended. EXT: No clubbing, cyanosis, or edema. No obvious deformities. NEUROLOGICAL: Intubated heavily sedated for vent synchrony and hypoxia. Moving extremities spontaneously, cough plus A/P Assessment and Plan ASSESSMENT: Acute hypoxemic respiratory failure Severe ARDS Bilateral pneumonia, rule out atypical pneumonia, opportunistic infection Severe sepsis Hypotension Serum LDH elevated at 568 Immunosuppression due to methotrexate and chronic (intermittent) steroid use Bronchial asthma with exacerbation History of rheumatoid arthritis PLAN: NEURO: -Tylenol for fever -Propofol and fentanyl for sedation and intervention pending -Start Nimbex and continue for at least 24 hours for severe ARDS RESP: -Intubated 11/13/17 night due to worsening hypoxemia, severe ARDS -PC/AC. Increase PEEP to 10, increase nighttime to 1 second titrate oxygen to keep saturations more than 90% -Pulmonology Dr. Kuhn consulted for bronch with BAL -Consider prone therapy if not improving the next 12-24 hours, after completion of bronchoscopy -DuoNeb every 6 hours scheduled and as needed -IV Solu Medrol to 60 every 6 -Repeat influenza negative, f/u PJP stain, serum LDH elevated at 568 -See ID section for ABX CV: -Normal saline IV fluids 100 ml per hour, 500 ml bolus -Bedside echo shows normal ejection fraction, check formal echo -Check CVP after central line placemen -Levophed to keep map above 60 GI: -NPO, IV famotidine -Start tube feeds in 24 hours : -Monitor renal function closely. -Machado catheter. Strict I's and O's ID: -Patient appears to have bilateral pneumonia, atypical, she needs to confections needs to be ruled out -Repeat influenza test negative, F/u PJP stain, LDH elevated aqt 568 -F/U sputum culture and blood culture, urine for Legionella and pneumococcal antigen -Pulmonology consulted for BAL -Continue broad-spectrum antibiotics with Zyvox, IV Bactrim, Azactam, Levaquin and Tamiflu -Infectious disease HEME: -Monitor CBC, CMP, coags ENDO: -Mild hyperglycemia secondary to steroids -Sliding scale insulin MSK -Hold methotrexate due to an acute infection -Continue IV Solu-Medrol PROPH: Bilateral lower extremity SCDs/JESSICA. Lovenox, Famotidine LINES: Utilize peripheral IVs, place central line and arterial line today CC time 85 min continuously excluding procedure time Patient discussed extensively with Dr. Pinto and Dr. Rich. Her updated at the bedside Patient remains critically ill currently on full ventilator support and 100% FiO2 and high ventilator setting. made aware of the critical situation. Patient may need roto-prone therapy. Phi Gaston MD Nov 14, 2017 07:46
--- NOTE | 2017-11-14 07:54 | RADRPT ---
EXAM DATE/TIME: 11/14/2017 07:07 [facility] COMPARISON: CT PULMONARY ANGIOGRAM, November 13, 2017, 3:47. CHEST SINGLE AP, November 13, 2017, 22:32. INDICATIONS : Respiratory disease. MEDICAL HISTORY : Rheumatoid arthritis. Lupus. Asthma SURGICAL HISTORY : Appendectomy. ENCOUNTER: Subsequent ACUITY: 2 days PAIN SCORE: Non-responsive. LOCATION: Bilateral chest FINDINGS: Stable ETT. No placement of NGT with tip in the distal stomach. Redemonstration of diffuse patchy air space disease bilaterally. Cardiomedi cell contours are stable. Remainder of the exam is unchanged. CONCLUSION: 1. Stable ETT. NGT in the distal stomach. 2. Stable diffuse patchy airspace disease bilaterally. Gigi Sigala MD on November 14, 2017 at 7:51 Board Certified Radiologist. This report was verified electronically.
[2017-11-14] MEDS: INSULIN ASPART SUPPLEMENTAL SCALE SQ SCH ×5 (08:00→20:30)
[2017-11-14] MEDS ORDERED: TERBUTALINE INJ 1 MG/ML AMP SQ PRN (08:00)
[2017-11-14] MEDS ORDERED: NOREPINEPHRINE INJ 4 MG in SODIUM CHLOR 0.9% 250 ML INJ 246 ML IV PRN (08:00)
[2017-11-14] MEDS: METOPROLOL SUCCINATE 25 MG EXTENDED RELEASE TAB PO SCH (08:22)
[2017-11-14] MEDS: POLYETHYLENE GLYCOL 17 GM PKG PO SCH (08:38)
[2017-11-14] MEDS: OSELTAMIVIR PHOSPHATE 75 MG CAP PO SCH (08:38)
[2017-11-14] MEDS: FAMOTIDINE 20 MG/2 ML VIAL IV PUSH SCH ×2 (08:38→20:35)
[2017-11-14] MEDS: FOLIC ACID 1 MG TAB PO SCH (08:38)
[2017-11-14] MEDS: CHLORHEXIDINE 0.12% (ORAL KIT) 15 ML CUP MT SCH ×2 (08:39→20:30)
[2017-11-14] MEDS: BENEPROTEIN POWDER 1 PACK G-TUBE SCH ×3 (08:39→18:00)
[2017-11-14] MEDS: SODIUM CHLORIDE 0.9% FLUSH 10 ML FLUSH IV FLUSH SCH ×2 (08:39→20:35)
[2017-11-14] MEDS: ENOXAPARIN SODIUM 30 MG/0.3 ML SYRINGE SQ SCH (08:39)
[2017-11-14 09:12] LABS: AUTOMATED NEUTROPHIL # 13.9 TH/MM3 (1.8-7.7); HEMATOCRIT 37.1 % (35.0-46.0); HEMOGLOBIN 12.6 GM/DL (11.6-15.3); LYMPH % 8.6 % (9.0-44.0); LYMPHOCYTE # 1.3 TH/MM3 (1.0-4.8); MEAN CORPUSCULAR HEMOGLOBIN 30.9 PG (27.0-34.0); MEAN PLATELET VOLUME 8.9 FL (7.0-11.0); MONO % 1.7 % (0.0-8.0); MONOCYTE # 0.3 TH/MM3 (0-0.9); NEUT % 89.7 % (16.0-70.0); PLATELET COUNT 137 TH/MM3 (150-450); RED BLOOD COUNT 4.08 MIL/MM3 (4.00-5.30); RED CELL DISTRIBUTION WIDTH 14.8 % (11.6-17.2); WHITE BLOOD COUNT 15.5 TH/MM3 (4.0-11.0)
[2017-11-14 09:35] LABS: ALBUMIN 2.3 GM/DL (3.4-5.0); AST (GOT) 53 U/L (15-37); BLOOD UREA NITROGEN 14 MG/DL (7-18); CALCIUM 8.1 MG/DL (8.5-10.1); CHLORIDE 109 MEQ/L (98-107); CREATININE 1.01 MG/DL (0.50-1.00); GLOMERULAR FILTRATION RATE 58 ML/MIN (>89); GLUCOSE,RANDOM 170 MG/DL (74-106); SODIUM (NA) 142 MEQ/L (136-145)
[2017-11-14 09:39] LABS: ALKALINE PHOSPHATASE 51 U/L (45-117); ALT (GPT) 39 U/L (10-53); TOTAL BILIRUBIN ADULT 0.3 MG/DL (0.2-1.0); TOTAL PROTEIN 5.9 GM/DL (6.4-8.2)
[2017-11-14] MEDS: CISATRACURIUM INJ 100 MG in SODIUM CHLOR 0.9% 250 ML INJ 250 ML IV PRN ×2 (10:00→18:12)
[2017-11-14 10:35] LABS: IMMUNOGLOBULIN A 162 MG/DL (81-446); IMMUNOGLOBULIN G 555 MG/DL (660-1620); IMMUNOGLOBULIN M 88 MG/DL (49-302)
--- NOTE | 2017-11-14 10:42 | PD.PROCEDR ---
Central Line Procedure REASON FOR PROCEDURE Central venous access PROCEDURE PERFORMED Central line placement: R subclavian central line CONSENT Informed consent for procedure was obtained from . The risks and benefits of the procedure were discussed to include but limited to bleeding, clot formation, infection, and even . ANESTHESIA Local injection of 1% Lidocaine DESCRIPTION OF THE PROCEDURE The patient was placed in supine, mild Trendelenburg position. The area was exposed and cleansed with ChloraPrep, times two. Large sterile drape was used to cover the patient, with the site exposed, under sterile conditions including cap, face mask, sterile gown, and sterile gloves. On single attempt, the introducer needle was inserted with negative pressure in syringe and venous flash was obtained. The guide wire was then advanced without any restriction and the needle was removed. The dilator was used without any complications. Using Seldinger technique the 20 CM 7 F catheter was advanced over the guide wire to a depth of 17 centimeters. The guide wire was removed. All ports were aspirated with dark venous blood return and flushed easily with sterile saline. All ports were capped. Antibiotic disc was placed around central line at puncture site. The central line was secured to the skin with two interrupted 2.0 silk sutures. The area was bandaged with sterile see-through central line bandage. COMPLICATIONS: No apparent complications ESTIMATED BLOOD LOSS: Less than 1 cc. Phi Gaston MD Nov 14, 2017 10:42
--- NOTE | 2017-11-14 10:48 | HHI.IDPN ---
Subjective Subjective Remarks Ms. Boyd is a 60 y/o female with PMHx significant for rheumatoid arthritis and possibly lupus who is on methotrexate and intermittently on steroids. Her PMHx is also significant for Bronchial asthma and she admits to smoking 1 ppd for many years. 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 She denies any fungal pneumonia. She denies exposure to people with TB or positive PPD. She thinks she uses a nebulizer which may have mold deposits. She reports her home is her truck. She lives in motels at times. Patient reports her symptoms started off with a fever she presented at an ED or urgent care was diagnosed with Flu and started on Tamiflu approximately 1 week DIETARY COOK. She then presented to the [facility] ED with fever 103 F, tachycardia and Pneumonia on CXR on 11/11/2017. Flu antigen at this point after being treated with tamiflu was negative. She was transferred to [facility] due to increasing Shortness of breath and wheezing. She was reportedly getting worse despite taking her steroids at home which she intermittently takes for her RA. Patient was admitted to the [facility] facility under the hospitalist and was placed on IV Solu-Medrol breathing treatments, IV Levaquin and Tamiflu. Overnight patient had clinical deterioration was on 6 L nasal cannula with desaturation into the low 80s and patient was placed on a nonrebreather. An ABG done on 6 L showed severe AA gradient and a PO2 of 55. 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 Due to worsening shortness of breath, hypoxemic respiratory failure, extensive pulmonary infiltrates and risk of worsening ARDS patient was emergently transferred to the [facility]. 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 The patient is tachypneic using accessory muscles. BiPAP ordered earlier but patient prefers not to use it. Patient is currently on Tamiflu, IV Levaquin, Azactam IV and IV vancomycin. Due to concern for PCP LDH was checked and patient started on empiric Bactrim IV.Patient is on IV Solu- Medrol increased to 60 mg every 6 hours. ID consulted for evaluation and Mment of Pneumonia in an Immune compromised patient. Overnight events reviewed. Intubated overnight for resp distress. Not on pressors. Remains on 100% FiO2, PEEP 10. May need Rotaprone bed. No fever No rash No diarrhea Antibiotics Azactam IV Levaquin Zyvox IV Bactrim IV Tamiflu Lines Line sites with no e.o infection Past Medical History reviewed Allergies: Coded Allergies: Penicillins (Verified Allergy, Severe, Swelling, 11/13/17) Has tolerated Keflex as outpatient. aspirin (Verified Allergy, Severe, 11/11/17) morphine (Verified Adverse Reaction, Mild, Itching, 11/12/17) Objective . Vital Signs Date Time Temp Pulse Resp B/P (MAP) Pulse Ox O2 Delivery O2 Flow Rate FiO2 11/14/17 09:00 90 11/14/17 08:08 97 90 11/14/17 08:00 100 11/14/17 08:00 62 11/14/17 08:00 97.7 62 20 96/52 (67) 98 11/14/17 06:00 69 11/14/17 04:00 66 11/14/17 04:00 100 11/14/17 04:00 97.9 66 24 86/53 (64) 97 11/14/17 03:49 97 100 11/14/17 02:00 71 11/14/17 00:00 98.7 97 25 87/54 (65) 95 11/14/17 00:00 100 11/14/17 00:00 97 11/13/17 23:35 95 100 11/13/17 23:17 100 11/13/17 22:00 99 11/13/17 20:00 98.5 97 41 124/68 (86) 100 11/13/17 20:00 97 11/13/17 18:00 88 11/13/17 17:56 20 11/13/17 16:00 95 11/13/17 16:00 100.3 95 42 130/71 (90) 92 11/13/17 14:51 100 40 11/13/17 14:00 105 11/13/17 12:00 100 11/13/17 12:00 100.0 100 24 123/62 (82) 95 11/13/17 11:08 100.0 109 28 130/70 (90) 96 11/13/17 11:04 95 Partial Rebreather 13.00 . Laboratory Tests Test 11/13/17 09:25 11/14/17 07:05 White Blood Count 17.0 TH/MM3 15.5 TH/MM3 Red Blood Count 4.68 MIL/MM3 4.08 MIL/MM3 Hemoglobin 14.0 GM/DL 12.6 GM/DL Hematocrit 42.0 % 37.1 % Mean Corpuscular Volume 89.9 FL 91.0 FL Mean Corpuscular Hemoglobin 29.9 PG 30.9 PG Mean Corpuscular Hemoglobin Concent 33.3 % 34.0 % Red Cell Distribution Width 13.6 % 14.8 % Platelet Count 129 TH/MM3 137 TH/MM3 Mean Platelet Volume 8.7 FL 8.9 FL Neutrophils (%) (Auto) 90.1 % 89.7 % Lymphocytes (%) (Auto) 7.4 % 8.6 % Monocytes (%) (Auto) 1.8 % 1.7 % Eosinophils (%) (Auto) 0.0 % 0.0 % Basophils (%) (Auto) 0.7 % 0.0 % Neutrophils # (Auto) 15.3 TH/MM3 13.9 TH/MM3 Lymphocytes # (Auto) 1.3 TH/MM3 1.3 TH/MM3 Monocytes # (Auto) 0.3 TH/MM3 0.3 TH/MM3 Eosinophils # (Auto) 0.0 TH/MM3 0.0 TH/MM3 Basophils # (Auto) 0.1 TH/MM3 0.0 TH/MM3 CBC Comment DIFF FINAL DIFF FINAL Differential Comment Laboratory Tests Test 11/13/17 09:25 11/13/17 15:39 11/14/17 07:05 Blood Urea Nitrogen 8 MG/DL 14 MG/DL Creatinine 0.76 MG/DL 1.01 MG/DL Random Glucose 180 MG/DL 170 MG/DL Calcium Level 8.6 MG/DL 8.1 MG/DL Sodium Level 141 MEQ/L 142 MEQ/L Potassium Level 4.1 MEQ/L 3.5 MEQ/L Chloride Level 106 MEQ/L 109 MEQ/L Carbon Dioxide Level 26.6 MEQ/L 23.0 MEQ/L Anion Gap 8 MEQ/L 10 MEQ/L Estimat Glomerular Filtration Rate 80 ML/MIN 58 ML/MIN Lactate Dehydrogenase 568 U/L Lactic Acid Level 2.0 mmol/L Total Protein 5.9 GM/DL Albumin 2.3 GM/DL Alkaline Phosphatase 51 U/L Aspartate Amino Transf (AST/SGOT) 53 U/L Alanine Aminotransferase (ALT/SGPT) 39 U/L Total Bilirubin 0.3 MG/DL Magnesium Level 2.4 MG/DL B-Type Natriuretic Peptide 89 PG/ML Microbiology Date/Time Source Procedure Growth Status 11/12/17 08:40 Blood Peripheral Aerobic Blood Culture - Preliminary NO GROWTH IN 1 DAY Resulted 11/12/17 08:40 Blood Peripheral Anaerobic Blood Culture - Final QNS - SEE AEROBE REPORT Resulted 11/12/17 08:35 Blood Peripheral Aerobic Blood Culture - Preliminary NO GROWTH IN 1 DAY Resulted 11/12/17 08:35 Blood Peripheral Anaerobic Blood Culture - Preliminary NO GROWTH IN 1 DAY Resulted 11/13/17 23:00 Sputum Endotracheal Fungal Smear Pending Received 11/13/17 23:00 Sputum Endotracheal Fungal Culture Pending Received 11/13/17 23:00 Sputum Endotracheal Acid Fast Stain Pending Received 11/13/17 23:00 Sputum Endotracheal Mycobacterial Culture Pending Received 11/13/17 23:00 Sputum Endotracheal Gram Stain - Final Resulted 11/13/17 23:00 Sputum Endotracheal Sputum Culture Pending Resulted 11/13/17 14:45 Nasal Washing Influenza Types A,B Antigen (BEN) - Final NEGATIVE FOR FLU A AND B ANTIGEN.... Complete 11/13/17 06:30 Urine Random Urine Legionella Antigen - Final PRESUMPTIVE NEGATIVE FOR LEGIONELLA P... Complete 11/13/17 06:30 Urine Random Urine Streptococcus pneumoniae Antigen (M - Final PRESUMPTIVE NEGATIVE FOR STREPTOCOCCU... Complete Imaging Last Impressions Chest X-Ray 11/14/17 0000 Signed Impressions: Service Date/Time: Tuesday, November 14, 2017 07:07 - CONCLUSION: 1. Stable ETT. NGT in the distal stomach. 2. Stable diffuse patchy airspace disease bilaterally. Gigi Sigala MD CT Angiography 11/13/17 0000 Signed Impressions: Service Date/Time: Monday, November 13, 2017 03:47 - CONCLUSION: 1. Negative for pulmonary embolus. 2. Bilateral airspace disease, predominantly groundglass slight upper lobe predominance with adenopathy. Differential diagnosis includes bronchopneumonia or. Recommend short-term followup to follow adenopathy and ensure resolution. Elieser Villalobos MD Physical Exam GENERAL: This is a well-nourished, well-developed patient. SKIN: No rashes, ecchymoses or lesions. Cool and dry. HEAD: Atraumatic. Normocephalic. No temporal or scalp tenderness. EYES: Pupils equal round and reactive. Extraocular motions intact. No scleral icterus. No injection or drainage. ENT: Intubated. NECK: Trachea midline. Supple, nontender, no meningeal signs. CARDIOVASCULAR: HS audible. RESPIRATORY: AE decreased bilaterally. Bilateral wheezes. GASTROINTESTINAL: Abdomen soft, non-tender, nondistended. MUSCULOSKELETAL: Extremities without clubbing, cyanosis, or edema. No joint tenderness, effusion, or edema noted. No calf tenderness. Negative Homans sign bilaterally. NEUROLOGICAL: Sedated on vent. Psych cooperative IV line sites with no e.o infection. Assessment & Plan Remarks Severe Sepsis present on admission. Pneumonia in an Immune compromised patient. Ground glass opacities of lung: DDX acute infections, Fungal (crypto, histo), PCP, CMV are some other differentials that are being considered. Acute respiratory failure on NRB 100% FiO2. H/o RA, Lupus on MTX and steroids off and on. Immune compromised host Thrombocytopenia: sepsis, meds related. Penicillin Allergy: has tolerated keflex in past. High grade leucocytosis: infection, steroids. Recs: Continue Azactam IV Continue Zyvox IV (patient at risk for post influenza necrotizing pneumonia from MSSA and MRSA, Strep. Zyvox has exotoxin neutralizing effect like clindamycin in addition to MRSA coverage) Continue Bactrim IV for now (for PCP) Continue Levaquin IV (atypical coverage) Continue Tamiflu oral Follow Fungal Abs, Aspergillus serology. Follow Crypto serum Ag, Ur Histo Ag, Blastomyces Ab. Follow viral resp panel PCR (includes influenza PCR). Follow Hepatitis profile and HIV screen. Recommend a bronchoscopy to assess mediastinal LN etiology appears to have a chronic infectious or Granulomatous process (underlying Rheum conditions) Consult pulmonology for endobronchial biopsies and other workup at some point. guerrero [facility] Critical thinking and decision making. June Pinto MD Nov 14, 2017 10:48
--- NOTE | 2017-11-14 10:57 | RADRPT ---
EXAM DATE/TIME: 11/14/2017 10:31 [facility] COMPARISON: CHEST SINGLE AP, November 14, 2017, 7:07. INDICATIONS : Post central line placement. MEDICAL HISTORY : Rheumatoid arthritis. Lupus. Asthma SURGICAL HISTORY : Appendectomy. ENCOUNTER: Subsequent ACUITY: 2 days PAIN SCORE: Non-responsive. LOCATION: Bilateral chest FINDINGS: Central line in the right in good position. ET tube and nasogastric tube in good position. Patchy a irspace disease in both lungs with minimal improvement. There is no pneumothorax. CONCLUSION: Line in good position. No pneumothorax. Patchy air space disease both lungs. Randy Roberto MD FACR on November 14, 2017 at 10:55 Board Certified Radiologist. This report was verified electronically.
[2017-11-14] MEDS: LINEZOLID 600 MG PREMIX 300 ML IV SCH ×2 (12:31→23:46)
[2017-11-14] MEDS: fentaNYL DRIP 250 ML IV PRN (13:24)
[2017-11-14 13:50] LABS: HEPATITIS A AB IGM NEGATIVE (NEGATIVE); HEPATITIS B CORE AB IGM NEGATIVE (NEGATIVE); HEPATITIS B SURFACE ANTIGEN NEGATIVE (NEGATIVE); HEPATITIS C AB IgG NEGATIVE (NEGATIVE)
--- NOTE | 2017-11-14 18:56 | ECHRPT ---
Indication: SHORTNESS OF BREATH CONCLUSIONS Normal left ventricular size. Wall thickness is normal. Normal LV systolic function (EF 65%). The left atrial size is jour-bo-zxixhjnvyi dilated. The right atrial size is irkq-bh-pfuwvcdzfg dilated. Mild mitral valve regurgitation. There is trace tricuspid valve regurgitation. The estimated pulmonary arterial pressure is 34 mmHg. BP: 86 / 53 HR: 66 Rhythm: Sinus MEASUREMENTS (Male / Female) Normal Values Technical Quality:Fair 2D ECHO LV Diastolic Diameter PLAX 4.6 cm 4.2 - 5.9 / 3.9 - 5.3 cm LV Systolic Diameter PLAX 3.3 cm IVS Diastolic Thickness 0.8 cm 0.6 - 1.0 / 0.6 - 0.9 cm LVPW Diastolic Thickness 0.8 cm 0.6 - 1.0 / 0.6 - 0.9 cm LV Relative Wall Thickness 0.4 RV Internal Dim ED PLAX 2.7 cm LVOT Diameter 2.1 cm Aortic Root Diameter 2.9 cm LA Systolic Diameter LX 3.1 cm 3.0 - 4.0 / 2.7 - 3.8 cm DOPPLER AV Peak Velocity 114.0 cm/s AV Peak Gradient 5.2 mmHg AV Mean Gradient 3.0 mmHg AV Velocity Time Integral 25.0 cm LVOT Peak Velocity 103.0 cm/s LVOT Peak Gradient 4.2 mmHg LVOT Velocity Time Integral 18.5 cm AV Area Cont Eq vti 2.6 cm AV Area Cont Eq pk 3.1 cm Mitral E Point Velocity 103.0 cm/s Mitral A Point Velocity 77.5 cm/s Mitral E to A Ratio 1.3 LV E' Lateral Velocity 10.1 cm/s Mitral E to LV E' Lateral Ratio 10.2 LV E' Septal Velocity 9.1 cm/s Mitral E to LV E' Septal Ratio 11.4 TR Peak Velocity 243.0 cm/s TR Peak Gradient 24.0 mmHg Right Atrial Pressure 10.0 mmHg Pulmonary Artery Systolic Pressu 33.6 mmHg Right Ventricular Systolic Press 33.6 mmHg PV Peak Velocity 45.1 cm/s PV Peak Gradient 0.8 mmHg FINDINGS LEFT VENTRICLE Normal left ventricular size. Wall thickness is normal. The left ventricular systolic function is normal with an estimated ejection fraction in the range of 60-65%. RIGHT VENTRICLE Normal right ventricular size and systolic function. LEFT ATRIUM The left atrial size is iwws-fx-tesdflmikh dilated. RIGHT ATRIUM The right atrial size is mgje-bf-bjlyglhwcq dilated. ATRIAL SEPTUM No atrial level shunt is demonstrated by color flow Doppler interrogation. AORTA The aortic root and proximal ascending aorta are normal in size on limited imaging. MITRAL VALVE Mild mitral valve regurgitation. AORTIC VALVE Trileaflet aortic valve. No aortic valve stenosis or regurgitation. TRICUSPID VALVE There is trace tricuspid valve regurgitation. The estimated pulmonary arterial pressure is 33.6 mmHg. PULMONARY VALVE No pulmonary valve regurgitation or stenosis. VESSELS The inferior vena cava is normal in size. PERICARDIUM No pericardial effusion. Dae Cox MD, FACC (Electronically Signed) Final Date:14 November 2017 18:56
[2017-11-14] MEDS: SODIUM CHLORIDE 0.9% FLUSH 10 ML FLUSH IV FLUSH PRN (20:35)
[2017-11-14] MEDS ORDERED: PHARMACY ORDERED LAB ONE (21:45)
[2017-11-15] VITALS (19 sets, daily range): BP systolic 105–127; BP diastolic 49–78; PULSE 59–91; RESP 18–100; TEMP 97.1–97.8; O2SAT 92–100
[2017-11-15] MEDS: PROPOFOL 1000 MG/100 ML INJ 100 ML IV PRN ×7 (00:04→19:51)
[2017-11-15] MEDS: SODIUM CHLOR 0.9% 1000 ML INJ 1,000 ML IV SCH (00:36)
[2017-11-15] MEDS: LEVOFLOXACIN 750 MG PREMIX INJ 150 ML IV SCH (01:07)
[2017-11-15] MEDS: DEXTROSE 5% IV SCH ×8 (01:56→19:34)
[2017-11-15] MEDS: WATE IV SCH ×8 (01:56→19:34)
[2017-11-15] MEDS: SULFAMETHOX IV SCH ×8 (01:56→19:34)
[2017-11-15] MEDS: TRIMETHOPRIM IV SCH ×8 (01:56→19:34)
[2017-11-15] MEDS: RESP: ALBUTEROL 2.5 MG/IPRATROPIUM 0.5 MG NEB (SCH) NEB ×4 (03:41→20:19)
[2017-11-15] MEDS: CISATRACURIUM INJ 100 MG in SODIUM CHLOR 0.9% 250 ML INJ 250 ML IV PRN ×2 (03:54→05:26)
[2017-11-15] MEDS: INSULIN ASPART SUPPLEMENTAL SCALE SQ SCH ×6 (04:00→20:00)
--- NOTE | 2017-11-15 05:07 | RADRPT ---
EXAM DATE/TIME: 11/15/2017 03:44 [facility] COMPARISON: CHEST SINGLE AP, November 14, 2017, 10:31. INDICATIONS : Short of breath. MEDICAL HISTORY : Rheumatoid arthritis. Lupus. Asthma SURGICAL HISTORY : Appendectomy. ENCOUNTER: Subsequent ACUITY: 1 week PAIN SCORE: 0/10 LOCATION: Bilateral chest FINDINGS: There is no significant interval change in appearance of the chest with bilateral nodular and conflue nt infiltrates bilaterally throughout both lungs. Right subclavian line, endotracheal tube and enteri c tube are noted. Osseous structures are intact. CONCLUSION: No significant change has occurred. Rajiv Llanes MD on November 15, 2017 at 5:04 Board Certified Radiologist. This report was verified electronically.
[2017-11-15] MEDS: fentaNYL DRIP 250 ML IV PRN ×2 (05:26→17:05)
--- NOTE | 2017-11-15 06:47 | MB ---
cc: ErinnFERNANDODEMETRIA DATE OF CONSULTATION 11/14/2017 REASON FOR CONSULTATION Respiratory failure and bilateral pulmonary infiltrates. HISTORY OF PRESENT ILLNESS This is a 60-year-old lady who was admitted through the emergency room with complaints of wheezing, shortness of breath and fevers and upper respiratory symptoms. The patient apparently had these symptoms for more than three days and she started to have increasing shortness of breath with wheezing and does have a history for bronchial asthma. She was treated with prednisone, but failed to improve and was given Tamiflu under the suspicion of flu, but she got worse and thus returned to the emergency room and was noted to be an severe respiratory distress, as well as the chest x-ray showing bilateral pulmonary infiltrates. The patient deteriorated following admission and in spite of being on the nasal cannula, desaturated into the 80's and thus was intubated, and placed on ventilator support. Chest x-ray showed bilateral extensive pulmonary infiltrates consistent with ARDS. The patient is now on 100% FIO2 and PEEP of 10. She is sedated and all the information was obtained from the chart. PAST HISTORY Has included a history of: 1. Bronchial asthma 2. History of rheumatoid arthritis on methotrexate as well as on oral steroids. 3. She has had an appendectomy in the past. 4. 5. A history of removal of fibroids. MEDICATIONS 1. Methotrexate five tablets weekly 2. Metoprolol 4-1/2 mg daily 3. Prednisone 1 mg daily FAMILY HISTORY Significant for diabetes in her mother. HABITS The patient smokes a half pack per day and has done so for 20 years. No significant alcohol. 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 REVIEW OF SYSTEMS The patient is intubated on ventilator support. PHYSICAL EXAMINATION This is a moderately obese middle-aged lady who is intubated, assisting the ventilator, sedated. VITAL SIGNS: Blood pressure 126/80, pulse is 105, respirations 24, temperature 100.2. HEENT: Head normocephalic. Pupils reactive. Sclerae were injected. Throat has secretions. Ears and nose have no inflammation. NECK: Supple. No bruits or thyroid enlargement. CHEST: Equal movements with coarse wheezes throughout both lung reese with crackles extensively in both lung field. HEART: Heart sounds are regular S1 and S2. No S3. No murmur. ABDOMEN: The abdomen soft, obese without masses or organomegaly or tenderness. Bowel sounds are active. EXTREMITIES: No edema. Peripheral pulses are diminished. Reflexes not elicited. The patient is sedated. SKIN: Dry and cool. IMPRESSION 1. Acute hypoxemic respiratory failure. 2. ARDS with possible bilateral pneumonia. 3. History of for rheumatoid arthritis with possible interstitial lung disease. 4. Asthmatic bronchitis with exacerbation. PLAN The patient will be maintained on ventilator support, sedated with propofol and . She has extensive infiltrates and maybe immune compromised and may have atypical infections like Pneumocystis and/or fungal disease and thus a bronchoscopy will be scheduled. The procedure was explained and discussed with Dr. Pinto and Dr. Gaston and we go ahead with bronchoscopy and lavage. Thank you Dr. Gsaton for this consultation. MD ZARI Lawson/IVONNE /7:23 PM /6:29 AM
[2017-11-15 06:50] LABS: BASOPHIL % 0.2 % (0.0-2.0); HEMATOCRIT 36.3 % (35.0-46.0); HEMOGLOBIN 12.6 GM/DL (11.6-15.3); LYMPH % 7.9 % (9.0-44.0); MEAN CELL VOLUME 89.9 FL (80.0-100.0); MEAN CORPUSCULAR HEMOGLOBIN 31.1 PG (27.0-34.0); MEAN CORPUSCULAR HGB CONC 34.6 % (32.0-36.0); MEAN PLATELET VOLUME 9.1 FL (7.0-11.0); MONO % 1.9 % (0.0-8.0); MONOCYTE # 0.2 TH/MM3 (0-0.9); PLATELET COUNT 133 TH/MM3 (150-450); RED BLOOD COUNT 4.04 MIL/MM3 (4.00-5.30); RED CELL DISTRIBUTION WIDTH 14.8 % (11.6-17.2); WHITE BLOOD COUNT 12.2 TH/MM3 (4.0-11.0)
[2017-11-15 07:02] LABS: ALBUMIN 2.3 GM/DL (3.4-5.0); AST (GOT) 35 U/L (15-37); BICARBONATE 19.2 MEQ/L (21.0-32.0); BLOOD UREA NITROGEN 10 MG/DL (7-18); CALCIUM 8.3 MG/DL (8.5-10.1); CHLORIDE 112 MEQ/L (98-107); CREATININE 0.98 MG/DL (0.50-1.00); GLOMERULAR FILTRATION RATE 60 ML/MIN (>89); GLUCOSE,RANDOM 206 MG/DL (74-106); MAGNESIUM 2.5 MG/DL (1.5-2.5); SODIUM (NA) 142 MEQ/L (136-145)
[2017-11-15 07:03] LABS: ALT (GPT) 45 U/L (10-53)
[2017-11-15 07:05] LABS: ALKALINE PHOSPHATASE 65 U/L (45-117); TOTAL BILIRUBIN ADULT 0.2 MG/DL (0.2-1.0); TOTAL PROTEIN 5.8 GM/DL (6.4-8.2)
[2017-11-15] MEDS: AZTREONAM INJ 2,000 MG in SODIUM CHLORIDE 0.9% INJ 100 ML IV SCH ×3 (07:23→21:14)
[2017-11-15] MEDS: methylPREDNISolone SOD SUCC 125 MG/2 ML VIAL IV PUSH SCH ×3 (07:23→17:04)
--- NOTE | 2017-11-15 08:21 | HHI.CCPN ---
Subjective Remarks/Hospital Course Patient is a 60-year-old female with past medical history significant for rheumatoid arthritis on methotrexate and intermittently on steroids, Bronchial asthma, tobacco abuse who was admitted to [facility] with week long history of fevers chills and URI symptoms. This was associated with increasing shortness of breath and wheezing. Not improving with inhaled albuterol or prednisone which patient takes intermittently for rheumatoid arthritis flare up. About 3 days prior to ER visit patient was placed on Tamiflu by urgent care facility based on clinical symptoms. CXR at [place] emergency department showed bilateral patchy infiltrates. Patient was admitted to the [facility] facility under the hospitalist and was placed on IV Solu- Medrol breathing treatments, IV Levaquin and Tamiflu. Overnight patient had clinical deterioration was on 6 L nasal cannula with desaturation into the low 80s and patient was placed on a nonrebreather. An ABG done on 6 L showed severe AA gradient and a PO2 of 55. 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 Because of hypoxemic respiratory failure, extensive pulmonary infiltrates and risk of worsening ARDS patient was emergently transferred to the [facility] ICU I immediately evaluated the patient in the ICU. She is on partial nonrebreather oxygen saturation above 90%. The patient is tachypneic using accessory muscles. BiPAP ordered. Clinical presentation is concerning for influenza with secondary bacterial pneumonia. Because of her history of on and off chronic steroids and rheumatoid arthritis I will check for Pneumocystis jiroveci staining, LDH. Also ID consulted. A limited bedside echo showed normal ejection fraction. We will continue Tamiflu, IV Levaquin and vancomycin plus Azactam. If LDH is elevated start empiric coverage with IV Bactrim. Continue IV Solu-Medrol increased to 60 mg every 6 hours. ID consulted and discussed with Dr. Pinto SUBJ 11/14: Patient was intubated overnight for severe worsening hypoxemic respiratory failure. Chest x-ray postintubation showed worsening bilateral infiltrates. Currently on Zyvox, Azactam, IV Bactrim for PCP, and Levaquin. Pulmonology consulted for BAL if clinical condition permits. Start Nimbex infusion as the patient is on 100% FiO2 to maintain oxygen saturation. PEEP increased to 10. After obtaining BAL consider prolotherapy, if not improving 11/15: Remains intubated sedated and neuromuscularly paralyzed. Remains critical but stabilizing. FiO2 down to 60%. I will attempt weaning PEEP to 10. Discontinue neuromuscular paralysis due to risk of severe neuromuscular weakness, as patient is also on steroids. Chest x-ray remains unchanged. Bronchoscopy and BAL 11/14/17 results pending Objective Vital Signs Date Time Temp Pulse Resp B/P (MAP) Pulse Ox O2 Delivery O2 Flow Rate FiO2 11/15/17 06:00 63 121/76 (91) 122/64 (83) 11/15/17 04:42 60 11/15/17 04:34 98 11/15/17 04:00 97.4 18 11/13/17 11:04 Partial Rebreather 13.00 Intake and Output 11/15/17 11/15/17 11/16/17 08:00 16:00 00:00 Intake Total 3256 ml Output Total 2500 ml Balance 756 ml Result Diagram: 11/15/17 0448 11/15/17 0448 Other Results Microbiology Date/Time Source Procedure Growth Status 11/13/17 14:45 Nasal Washing Influenza Types A,B Antigen (BEN) - Final NEGATIVE FOR FLU A AND B ANTIGEN.... Complete 11/13/17 06:30 Urine Random Urine Legionella Antigen - Final PRESUMPTIVE NEGATIVE FOR LEGIONELLA P... Complete 11/13/17 06:30 Urine Random Urine Streptococcus pneumoniae Antigen (M - Final PRESUMPTIVE NEGATIVE FOR STREPTOCOCCU... Complete Laboratory Tests Test 11/15/17 07:36 Blood Gas Puncture Site ART LINE Blood Gas Patient Temperature 98.6 Blood Gas HCO3 18 mmol/L (22-26) Blood Gas Base Excess -6.2 mmol/L (-2-2) Blood Gas Oxygen Saturation 89 % (90-100) Arterial Blood pH 7.41 (7.380-7.420) Arterial Blood Partial Pressure CO2 28 mmHg (38-42) Arterial Blood Partial Pressure O2 54 mmHG (61-120) Arterial Blood Oxygen Content 14.5 Vol % (12.0-20.0) Arterial Blood Carboxyhemoglobin 1.1 % (0-4) Arterial Blood Methemoglobin 0.8 % (0-2) Blood Gas Hemoglobin 11.6 G/DL (12.0-16.0) Oxygen Delivery Device VENTILATOR Blood Gas Ventilator Setting PC/AC/18/P26/1.2/+12 Blood Gas Inspired Oxygen 50 % Imaging CT CHEST: Bilateral airspace disease, predominantly ground glass slight upper lobe predominance with adenopathy. Differential diagnosis includes bronchopneumonia or. Recommend short-term followup to follow adenopathy and ensure resolution. Chest x-ray shows bilateral patchy infiltrates Objective Remarks GENERAL: Lying in bed, intubated heavily sedated, neuromuscularly paralyzed SKIN: Warm and dry. EYES: No scleral icterus. No injection or drainage. ENT: No nasal bleeding or discharge. Orotracheally intubated NECK: Supple CARDIOVASCULAR: Regular rate and rhythm. no murmurs. Hypotensive RESPIRATORY: On PRVC vent mode, PEEP 12, FiO2 60%. Fine crackles and wheezing heard in bilateral lung reese anteriorly GASTROINTESTINAL: Abdomen soft, non-tender, nondistended. EXT: No clubbing, cyanosis, or edema. No obvious deformities. NEUROLOGICAL: Intubated heavily sedated for vent synchrony and hypoxia. Currently neuromuscularly paralyzed A/P Assessment and Plan ASSESSMENT: Acute hypoxemic respiratory failure Severe ARDS Bilateral pneumonia, rule out atypical pneumonia, opportunistic infection Severe sepsis Hypotension Serum LDH elevated at 568 Immunosuppression due to methotrexate and chronic (intermittent) steroid use Bronchial asthma with exacerbation History of rheumatoid arthritis, possible Lupus PLAN: NEURO: -Tylenol for fever -Propofol and fentanyl for sedation and intervention pending -Discontinue Nimbex 09/14 RESP: -Intubated 11/13/17 night due to worsening hypoxemia, severe ARDS -PC/AC, attempt mode change to ACV. Decrease PEEP to 10, titrate oxygen to keep saturations more than 90% -Pulmonology Dr. Kuhn consulted. s/p Bronch with BAL 11/14 -No prone therapy due to some clinical improvement -DuoNeb every 6 hours scheduled and as needed -IV Solu Medrol to 60 every 6 -Repeat influenza negative, f/u PJP stain, serum LDH elevated at 568 -See ID section for ABX CV: -DCd Normal saline IV fluids -Bedside echo shows normal ejection fraction, 2D Echo EF normal -Diurese to dry weight, currently auto diuresing well GI: -NPO, IV famotidine -Start tube feeds with Glucerna, bowel regimen : -Monitor renal function closely. -Machado catheter. Strict I's and O's ID: -Patient appears to have bilateral pneumonia, atypical, opportunistic infections needs to be ruled out -Repeat influenza test negative, F/u PJP stain, LDH elevated aqt 568. F/u BAL from 11/14 -Neg sputum culture and blood culture, urine for Legionella and pneumococcal antigen -Pulmonology consulted for BAL Dr. Kuhn -Continue broad-spectrum antibiotics with Zyvox, IV Bactrim, Azactam, Levaquin and Tamiflu -Infectious disease HEME: -Monitor CBC, CMP, coags ENDO: -Mild hyperglycemia secondary to steroids -Sliding scale insulin MSK -Hold methotrexate due to an acute infection -Continue IV Solu-Medrol PROPH: Bilateral lower extremity SCDs/JESSICA. Lovenox, Famotidine LINES: Utilize peripheral IVs, place central line and arterial line today CC time 45 min continuously excluding procedure time Patient discussed extensively with Dr. Pinto and Dr. Rich. Her updated at the bedside Patient remains critically ill currently on full ventilator support and 60% FiO2 and high ventilator setting, PEEP 10. made aware of the critical situation. Phi Gaston MD Nov 15, 2017 08:21
[2017-11-15] MEDS: METOPROLOL SUCCINATE 25 MG EXTENDED RELEASE TAB PO SCH (08:23)
[2017-11-15 08:44] LABS: TOXIC GRANULATION 1+ (NORMAL)
[2017-11-15] MEDS: BENEPROTEIN POWDER 1 PACK G-TUBE SCH ×3 (09:00→17:06)
[2017-11-15] MEDS: POLYETHYLENE GLYCOL 17 GM PKG PO SCH (09:00)
[2017-11-15] MEDS: CHLORHEXIDINE 0.12% (ORAL KIT) 15 ML CUP MT SCH ×2 (09:01→20:25)
[2017-11-15] MEDS: FOLIC ACID 1 MG TAB PO SCH (09:02)
[2017-11-15] MEDS: FAMOTIDINE 20 MG/2 ML VIAL IV PUSH SCH ×2 (09:02→19:51)
[2017-11-15] MEDS: OSELTAMIVIR PHOSPHATE 75 MG CAP PO SCH (09:02)
[2017-11-15] MEDS: ENOXAPARIN SODIUM 30 MG/0.3 ML SYRINGE SQ SCH (09:03)
[2017-11-15] MEDS: SODIUM CHLORIDE 0.9% FLUSH 10 ML FLUSH IV FLUSH SCH ×2 (09:03→20:24)
[2017-11-15] MEDS ORDERED: ROCURONIUM INJ 50 MG/5 ML VIAL ONE (09:32)
[2017-11-15] MEDS: MIDAZOLAM 100 MG/100 ML INJ 100 ML IV PRN (11:26)
--- NOTE | 2017-11-15 11:26 | HHI.IDPN ---
Subjective Subjective Remarks Ms. Boyd is a 60 y/o female with PMHx significant for rheumatoid arthritis and possibly lupus who is on methotrexate and intermittently on steroids. Her PMHx is also significant for Bronchial asthma and she admits to smoking 1 ppd for many years. 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 She denies any fungal pneumonia. She denies exposure to people with TB or positive PPD. She thinks she uses a nebulizer which may have mold deposits. She reports her home is her truck. She lives in motels at times. Patient reports her symptoms started off with a fever she presented at an ED or urgent care was diagnosed with Flu and started on Tamiflu approximately 1 week STEWARD/STEW[employer]. She then presented to the [facility] ED with fever 103 F, tachycardia and Pneumonia on CXR on 11/11/2017. Flu antigen at this point after being treated with tamiflu was negative. She was transferred to [facility] due to increasing Shortness of breath and wheezing. She was reportedly getting worse despite taking her steroids at home which she intermittently takes for her RA. Patient was admitted to the [facility] facility under the hospitalist and was placed on IV Solu-Medrol breathing treatments, IV Levaquin and Tamiflu. Overnight patient had clinical deterioration was on 6 L nasal cannula with desaturation into the low 80s and patient was placed on a nonrebreather. An ABG done on 6 L showed severe AA gradient and a PO2 of 55. 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 Due to worsening shortness of breath, hypoxemic respiratory failure, extensive pulmonary infiltrates and risk of worsening ARDS patient was emergently transferred to the [facility]. 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 The patient is tachypneic using accessory muscles. BiPAP ordered earlier but patient prefers not to use it. Patient is currently on Tamiflu, IV Levaquin, Azactam IV and IV vancomycin. Due to concern for PCP LDH was checked and patient started on empiric Bactrim IV.Patient is on IV Solu- Medrol increased to 60 mg every 6 hours. ID consulted for evaluation and Mment of Pneumonia in an Immune compromised patient. Overnight events reviewed. Remains intubated. Resp physiology better today. Secretions small white to whitney. No fever No rash No diarrhea Antibiotics Azactam IV Levaquin Zyvox IV Bactrim IV Tamiflu Lines Line sites with no e.o infection Past Medical History reviewed Allergies: Coded Allergies: Penicillins (Verified Allergy, Severe, Swelling, 11/13/17) Has tolerated Keflex as outpatient. aspirin (Verified Allergy, Severe, 11/11/17) morphine (Verified Adverse Reaction, Mild, Itching, 11/12/17) Objective . Vital Signs Date Time Temp Pulse Resp B/P (MAP) Pulse Ox O2 Delivery O2 Flow Rate FiO2 11/15/17 08:23 92 50 11/15/17 08:00 62 11/15/17 08:00 97.7 62 18 124/78 (93) 92 124/65 (84) 11/15/17 08:00 50 11/15/17 06:00 63 121/76 (91) 122/64 (83) 11/15/17 06:00 63 11/15/17 05:46 63 11/15/17 05:46 64 124/63 (83) 105/50 (68) 11/15/17 04:42 60 11/15/17 04:34 98 65 11/15/17 04:00 65 11/15/17 04:00 65 11/15/17 04:00 97.4 66 18 121/68 (85) 98 116/58 (77) 11/15/17 03:39 96 70 11/15/17 02:00 61 11/15/17 00:00 59 11/15/17 00:00 97.8 61 18 113/73 (86) 96 116/62 (80) 11/15/17 00:00 70 11/14/17 22:00 62 11/14/17 20:13 98 70 11/14/17 20:00 64 106/67 (80) 105/50 (68) 11/14/17 20:00 64 11/14/17 20:00 97.2 64 18 106/67 (80) 100 105/50 (68) 11/14/17 20:00 70 11/14/17 19:10 92 100 11/14/17 18:00 63 11/14/17 18:00 63 102/61 (75) 100/49 (66) 11/14/17 16:40 94 70 11/14/17 16:00 62 11/14/17 16:00 70 11/14/17 16:00 96.5 62 18 111/66 (81) 95 112/53 (72) 11/14/17 14:45 70 11/14/17 14:00 62 11/14/17 12:45 80 11/14/17 12:00 100 11/14/17 12:00 97.5 60 20 99/58 (72) 98 96/49 (65) 11/14/17 12:00 60 11/14/17 11:27 98 100 11/15/17 11/15/17 11/16/17 15:00 23:00 07:00 Intake Total 254 ml Balance 254 ml IV Total 254 ml . Laboratory Tests Test 11/14/17 07:05 11/15/17 04:48 White Blood Count 15.5 TH/MM3 12.2 TH/MM3 Red Blood Count 4.08 MIL/MM3 4.04 MIL/MM3 Hemoglobin 12.6 GM/DL 12.6 GM/DL Hematocrit 37.1 % 36.3 % Mean Corpuscular Volume 91.0 FL 89.9 FL Mean Corpuscular Hemoglobin 30.9 PG 31.1 PG Mean Corpuscular Hemoglobin Concent 34.0 % 34.6 % Red Cell Distribution Width 14.8 % 14.8 % Platelet Count 137 TH/MM3 133 TH/MM3 Mean Platelet Volume 8.9 FL 9.1 FL Neutrophils (%) (Auto) 89.7 % 90.0 % Lymphocytes (%) (Auto) 8.6 % 7.9 % Monocytes (%) (Auto) 1.7 % 1.9 % Eosinophils (%) (Auto) 0.0 % 0.0 % Basophils (%) (Auto) 0.0 % 0.2 % Neutrophils # (Auto) 13.9 TH/MM3 11.0 TH/MM3 Lymphocytes # (Auto) 1.3 TH/MM3 1.0 TH/MM3 Monocytes # (Auto) 0.3 TH/MM3 0.2 TH/MM3 Eosinophils # (Auto) 0.0 TH/MM3 0.0 TH/MM3 Basophils # (Auto) 0.0 TH/MM3 0.0 TH/MM3 CBC Comment DIFF FINAL AUTO DIFF Differential Comment AUTO DIFF CONFIRMED Toxic Granulation 1+ Platelet Estimate LOW Platelet Morphology Comment ENLARGED Laboratory Tests Test 11/13/17 15:39 11/14/17 07:05 11/15/17 04:48 Lactic Acid Level 2.0 mmol/L Blood Urea Nitrogen 14 MG/DL 10 MG/DL Creatinine 1.01 MG/DL 0.98 MG/DL Random Glucose 170 MG/DL 206 MG/DL Total Protein 5.9 GM/DL 5.8 GM/DL Albumin 2.3 GM/DL 2.3 GM/DL Calcium Level 8.1 MG/DL 8.3 MG/DL Alkaline Phosphatase 51 U/L 65 U/L Aspartate Amino Transf (AST/SGOT) 53 U/L 35 U/L Alanine Aminotransferase (ALT/SGPT) 39 U/L 45 U/L Total Bilirubin 0.3 MG/DL 0.2 MG/DL Sodium Level 142 MEQ/L 142 MEQ/L Potassium Level 3.5 MEQ/L 3.2 MEQ/L Chloride Level 109 MEQ/L 112 MEQ/L Carbon Dioxide Level 23.0 MEQ/L 19.2 MEQ/L Anion Gap 10 MEQ/L 11 MEQ/L Estimat Glomerular Filtration Rate 58 ML/MIN 60 ML/MIN Magnesium Level 2.4 MG/DL 2.5 MG/DL B-Type Natriuretic Peptide 89 PG/ML Microbiology Date/Time Source Procedure Growth Status 11/14/17 19:17 Bronchial Washings Bronchial Fungal Smear - Final NO FUNGAL ELEMENTS SEEN. Resulted 11/14/17 19:17 Bronchial Washings Bronchial Fungal Culture Pending Resulted 11/14/17 19:17 Bronchial Washings Bronchial Acid Fast Stain Pending Received 11/14/17 19:17 Bronchial Washings Bronchial Mycobacterial Culture Pending Received 11/14/17 19:17 Bronchial Washings Bronchial Gram Stain - Final Resulted 11/14/17 19:17 Bronchial Washings Bronchial Bronchial Culture Pending Resulted 11/13/17 23:00 Sputum Endotracheal Fungal Smear Pending Received 11/13/17 23:00 Sputum Endotracheal Fungal Culture Pending Received 11/13/17 23:00 Sputum Endotracheal Acid Fast Stain Pending Received 11/13/17 23:00 Sputum Endotracheal Mycobacterial Culture Pending Received 11/13/17 23:00 Sputum Endotracheal Gram Stain - Final Complete 11/13/17 23:00 Sputum Endotracheal Sputum Culture - Final HEAVY GROWTH NORMAL RESPIRATORY MARTÍN Complete 11/13/17 14:45 Nasal Washing Influenza Types A,B Antigen (BEN) - Final NEGATIVE FOR FLU A AND B ANTIGEN.... Complete 11/13/17 06:30 Urine Random Urine Legionella Antigen - Final PRESUMPTIVE NEGATIVE FOR LEGIONELLA P... Complete 11/13/17 06:30 Urine Random Urine Streptococcus pneumoniae Antigen (M - Final PRESUMPTIVE NEGATIVE FOR STREPTOCOCCU... Complete Imaging Last Impressions Chest X-Ray 11/14/17 0000 Signed Impressions: Service Date/Time: Tuesday, November 14, 2017 07:07 - CONCLUSION: 1. Stable ETT. NGT in the distal stomach. 2. Stable diffuse patchy airspace disease bilaterally. Gigi Sigala MD CT Angiography 11/13/17 0000 Signed Impressions: Service Date/Time: Monday, November 13, 2017 03:47 - CONCLUSION: 1. Negative for pulmonary embolus. 2. Bilateral airspace disease, predominantly groundglass slight upper lobe predominance with adenopathy. Differential diagnosis includes bronchopneumonia or. Recommend short-term followup to follow adenopathy and ensure resolution. Elieser Villalobos MD Physical Exam GENERAL: This is a well-nourished, well-developed patient. SKIN: No rashes, ecchymoses or lesions. Cool and dry. HEAD: Atraumatic. Normocephalic. No temporal or scalp tenderness. EYES: Pupils equal round and reactive. Extraocular motions intact. No scleral icterus. No injection or drainage. ENT: Intubated. NECK: Trachea midline. Supple, nontender, no meningeal signs. CARDIOVASCULAR: HS audible. RESPIRATORY: AE decreased bilaterally. Bilateral wheezes. GASTROINTESTINAL: Abdomen soft, non-tender, nondistended. MUSCULOSKELETAL: Extremities without clubbing, cyanosis, or edema. No joint tenderness, effusion, or edema noted. No calf tenderness. Negative Homans sign bilaterally. NEUROLOGICAL: Sedated on vent. Psych cooperative IV line sites with no e.o infection. Assessment & Plan Remarks Severe Sepsis present on admission. Pneumonia in an Immune compromised patient. Influenza pneumonia: PCR positive. Ground glass opacities of lung: DDX acute infections, Fungal (crypto, histo), PCP, CMV are some other differentials that are being considered. Acute respiratory failure on NRB 100% FiO2. H/o RA, Lupus on MTX and steroids off and on. Immune compromised host Thrombocytopenia: sepsis, meds related. Penicillin Allergy: has tolerated keflex in past. High grade leucocytosis: infection, steroids. Recs: Continue Azactam IV Continue Zyvox IV (patient at risk for post influenza necrotizing pneumonia from MSSA and MRSA, Strep. Zyvox has exotoxin neutralizing effect like clindamycin in addition to MRSA coverage) Continue Bactrim IV for now (for PCP) Continue Levaquin IV (atypical coverage) Continue Tamiflu oral Follow Fungal Abs, Aspergillus serology. Follow Crypto serum Ag, Ur Histo Ag, Blastomyces Ab. Follow viral resp panel PCR (includes influenza PCR). Follow Hepatitis profile and HIV screen. Recommend a bronchoscopy to assess mediastinal LN etiology appears to have a chronic infectious or Granulomatous process (underlying Rheum conditions) Consult pulmonology for endobronchial biopsies and other workup at some point. guerrero Dkue Critical thinking and decision making. June Pinto MD Nov 15, 2017 11:26
[2017-11-15] MEDS ORDERED: ROCURONIUM INJ 50 MG/5 ML VIAL IV ONE (11:30)
[2017-11-15] MEDS: LINEZOLID 600 MG PREMIX 300 ML IV SCH ×2 (11:35→22:11)
--- NOTE | 2017-11-15 12:45 | MP ---
cc: DEMETRIA SAM DATE OF SURGERY 11/14/2017 PROCEDURE Fiberoptic bronchoscopy with bronchoalveolar lavage. ANESTHESIA IV propofol and the patient is on Nimbex and is on ventilator support and is intubated. PROCEDURAL PHYSICIAN Dr. Demetria Sam PREOPERATIVE DIAGNOSIS Bilateral lung infiltrates. POSTOPERATIVE DIAGNOSIS Bilateral lung infiltrates. PROCEDURE AND FINDINGS The patient was already intubated with a #8 endotracheal tube and the Olympus IT180 bronchoscope was used to visualize the bronchi. The scope was advanced via the endotracheal tube into the trachea. The trachea and zander appeared normal. The scope was then advanced towards the right mainstem and right upper lobe segmental bronchi. These bronchi demonstrated moderate endobronchitis with mucosal edema and mucoid secretions and plugs. These were suctioned out. Saline washings and lavage were done. There were no endobronchial masses seen here. The scope was then advanced towards the right middle lobe segmental bronchi which demonstrated mucosal edema and moderate endobronchitis with mucoid secretions and plugs. These were suctioned out. Saline lavage was carried out until clear. No endobronchial mass was seen. Next, the right lower lobe segmental bronchi were visualized. These bronchi demonstrated mucoid secretions and mucous plugs with ridging of the mucosa and mucosal edema. No masses were seen. No bleeding was observed. Saline washings and lavage was carried out. The scope was then withdrawn and advanced into the left mainstem and left upper lobe segmental bronchi. These bronchi demonstrated mucoid secretions with mucous plugs and moderate endobronchitis. Saline washings and lavage were done. Next, the left lower lobe segmental bronchi were visualized which demonstrated mucoid secretions and mucous plugs and mucosal edema. Mucoid secretions were suctioned out, lavage was done and the procedure was then terminated. The patient tolerated procedure well and was kept on 100% FIO2 during the procedure. A chest x-ray will be obtained. MD ZARI Lawson/IVONNE /7:28 PM /12:37 PM
[2017-11-15 14:15] LABS: MYCOPLASMA PNEUMONIAE IGG Negative (Negative); MYCOPLASMA PNEUMONIAE IGM Negative (Negative)
--- NOTE | 2017-11-15 19:42 | HHI.PR ---
Subjective Remarks Sedated and on 60 % FIO2 today. Chest Xray shows bilateral infiltrates.Has Flu Positive. Labs weer stable.ABG's improved Objective Vital Signs Date Time Temp Pulse Resp B/P (MAP) Pulse Ox O2 Delivery O2 Flow Rate FiO2 11/15/17 18:00 84 114/58 (76) 109/49 (69) 11/15/17 18:00 84 11/15/17 17:34 70 11/15/17 17:25 100 70 11/15/17 16:00 97.1 80 18 110/64 (79) 100 110/56 (74) 11/15/17 16:00 80 11/15/17 16:00 100 11/15/17 14:00 70 11/15/17 12:00 50 11/15/17 12:00 68 11/15/17 12:00 97.1 68 18 112/65 (81) 95 111/57 (75) 11/15/17 11:43 95 50 11/15/17 10:00 75 11/15/17 08:23 92 50 11/15/17 08:00 62 11/15/17 08:00 97.7 62 18 124/78 (93) 92 124/65 (84) 11/15/17 08:00 50 11/15/17 06:00 63 121/76 (91) 122/64 (83) 11/15/17 06:00 63 11/15/17 05:46 63 11/15/17 05:46 64 124/63 (83) 105/50 (68) 11/15/17 04:42 60 11/15/17 04:34 98 65 11/15/17 04:00 65 11/15/17 04:00 65 11/15/17 04:00 97.4 66 18 121/68 (85) 98 116/58 (77) 11/15/17 03:39 96 70 11/15/17 02:00 61 11/15/17 00:00 59 11/15/17 00:00 97.8 61 18 113/73 (86) 96 116/62 (80) 11/15/17 00:00 70 11/14/17 22:00 62 11/14/17 20:13 98 70 11/14/17 20:00 64 106/67 (80) 105/50 (68) 11/14/17 20:00 64 11/14/17 20:00 97.2 64 18 106/67 (80) 100 105/50 (68) 11/14/17 20:00 70 I/O 11/14/17 11/14/17 11/14/17 11/15/17 11/15/17 11/15/17 06:59 14:59 22:59 06:59 14:59 22:59 Intake Total 3377 ml 608 ml 1877 ml 3256 ml 554 ml 1245 ml Output Total 1300 ml 1475 ml 950 ml 2500 ml 2200 ml Balance 2077 ml -867 ml 927 ml 756 ml 554 ml -955 ml Intake Oral 400 ml 0 ml IV Total 2977 ml 608 ml 1697 ml 3256 ml 554 ml 996 ml Tube Feeding 69 ml Tube Irrigant 180 ml 180 ml Other 0 ml Output Urine Total 1300 ml 1475 ml 950 ml 2500 ml 2200 ml # Bowel Movements 0 0 0 Result Diagram: 11/15/17 0448 11/15/17 1518 Objective Remarks This is a moderately obese middle-aged lady who is intubated, assisting the ventilator, sedated. HEENT: Head normocephalic. Pupils reactive. Sclerae were injected. Throat has secretions. Ears and nose have no inflammation. NECK: Supple. No bruits or thyroid enlargement. CHEST: Equal movements with coarse wheezes throughout both lung reese with crackles in both lung field. HEART: Heart sounds are regular S1 and S2. No S3. No murmur. ABDOMEN: The abdomen soft, obese without masses or organomegaly . Bowel sounds are active. EXTREMITIES: No edema. Peripheral pulses are diminished. Reflexes not elicited. The patient is sedated. SKIN: Dry and cool. Assessment and Plan Assessment and Plan IMPRESSION 1. Acute hypoxemic respiratory failure. 2. ARDS with possible bilateral pneumonia. 3. History of for rheumatoid arthritis with possible interstitial lung disease. 4. Asthmatic bronchitis with exacerbation. 5. Influenza A Plan : 1. Wean Fio2 to Keep sat >92. 2. Nebs q6h , duoneb 3. Keep sedated with Fentanyl/Propofol 4. Continue antibiotics and Tamiflu 5. Wean Paralytics. 6. CXR ,CBC,BMP in am 7. Await Bronch results. Liz Sam MD Nov 15, 2017 19:42
[2017-11-15] MEDS: ROCURONIUM INJ 50 MG/5 ML VIAL IV PUSH PRN (20:24)
[2017-11-16] VITALS (20 sets, daily range): BP systolic 108–137; BP diastolic 52–74; PULSE 86–111; RESP 18–101; TEMP 97.9–98.8; O2SAT 91–100
[2017-11-16] MEDS: PROPOFOL 1000 MG/100 ML INJ 100 ML IV PRN ×7 (00:11→22:39)
[2017-11-16] MEDS: methylPREDNISolone SOD SUCC 125 MG/2 ML VIAL IV PUSH SCH ×5 (00:11→23:57)
[2017-11-16] MEDS: LEVOFLOXACIN 750 MG PREMIX INJ 150 ML IV SCH ×2 (00:13→23:57)
[2017-11-16] MEDS: MIDAZOLAM 100 MG/100 ML INJ 100 ML IV PRN ×2 (01:50→17:41)
[2017-11-16] MEDS: ROCURONIUM INJ 50 MG/5 ML VIAL IV PUSH PRN ×4 (01:56→20:00)
[2017-11-16] MEDS: DEXTROSE 5% IV SCH ×6 (03:15→13:54)
[2017-11-16] MEDS: WATE IV SCH ×6 (03:15→13:54)
[2017-11-16] MEDS: TRIMETHOPRIM IV SCH ×6 (03:15→13:54)
[2017-11-16] MEDS: SULFAMETHOX IV SCH ×6 (03:15→13:54)
[2017-11-16] MEDS: fentaNYL DRIP 250 ML IV PRN ×2 (03:15→14:01)
[2017-11-16] MEDS: RESP: ALBUTEROL 2.5 MG/IPRATROPIUM 0.5 MG NEB (SCH) NEB ×4 (03:56→20:26)
[2017-11-16] MEDS: INSULIN ASPART SUPPLEMENTAL SCALE SQ SCH ×7 (04:00→23:57)
--- NOTE | 2017-11-16 04:34 | RADRPT ---
EXAM DATE/TIME: 11/16/2017 02:45 [facility] COMPARISON: CHEST SINGLE AP, November 15, 2017, 3:44. INDICATIONS : Short of breath. MEDICAL HISTORY : Rheumatoid arthritis. Lupus. Asthma SURGICAL HISTORY : Appendectomy. ENCOUNTER: Subsequent ACUITY: 1 week PAIN SCORE: 0/10 LOCATION: Bilateral chest FINDINGS: Increasing consolidation bilaterally in a diffuse pattern. Endotracheal tube and enteric tube again s een. Right subclavian line again noted. No effusion. Cardiomegaly. CONCLUSION: Worsening appearance of the chest. Rajiv Llanes MD on November 16, 2017 at 4:31 Board Certified Radiologist. This report was verified electronically.
[2017-11-16] MEDS: SODIUM CHLORIDE 0.9% FLUSH 10 ML FLUSH IV FLUSH PRN ×2 (05:20→11:09)
[2017-11-16] MEDS: AZTREONAM INJ 2,000 MG in SODIUM CHLORIDE 0.9% INJ 100 ML IV SCH ×3 (05:21→22:03)
[2017-11-16 05:42] LABS: AUTOMATED NEUTROPHIL # 10.7 TH/MM3 (1.8-7.7); BASOPHIL % 0.1 % (0.0-2.0); HEMATOCRIT 34.2 % (35.0-46.0); HEMOGLOBIN 11.6 GM/DL (11.6-15.3); LYMPH % 6.4 % (9.0-44.0); LYMPHOCYTE # 0.7 TH/MM3 (1.0-4.8); MEAN CELL VOLUME 91.3 FL (80.0-100.0); MEAN CORPUSCULAR HGB CONC 33.9 % (32.0-36.0); MONO % 2.5 % (0.0-8.0); MONOCYTE # 0.3 TH/MM3 (0-0.9); PLATELET COUNT 179 TH/MM3 (150-450); RED BLOOD COUNT 3.75 MIL/MM3 (4.00-5.30); WHITE BLOOD COUNT 11.7 TH/MM3 (4.0-11.0)
[2017-11-16 05:59] LABS: ALBUMIN 2.1 GM/DL (3.4-5.0); ALT (GPT) 45 U/L (10-53); AST (GOT) 22 U/L (15-37); BICARBONATE 19.6 MEQ/L (21.0-32.0); BLOOD UREA NITROGEN 12 MG/DL (7-18); CHLORIDE 111 MEQ/L (98-107); CREATININE 0.97 MG/DL (0.50-1.00); GLOMERULAR FILTRATION RATE 61 ML/MIN (>89); GLUCOSE,RANDOM 263 MG/DL (74-106); SODIUM (NA) 141 MEQ/L (136-145)
[2017-11-16 06:01] LABS: ALKALINE PHOSPHATASE 62 U/L (45-117); TOTAL BILIRUBIN ADULT 0.1 MG/DL (0.2-1.0); TOTAL PROTEIN 5.5 GM/DL (6.4-8.2)
[2017-11-16] MEDS ORDERED: RESP: ACETYLCYSTEINE 10% 30 ML NEB NEB PRN (07:30)
--- NOTE | 2017-11-16 07:40 | HHI.CCPN ---
Subjective Remarks/Hospital Course Patient is a 60-year-old female with past medical history significant for rheumatoid arthritis on methotrexate and intermittently on steroids, Bronchial asthma, tobacco abuse who was admitted to [facility] with week long history of fevers chills and URI symptoms. This was associated with increasing shortness of breath and wheezing. Not improving with inhaled albuterol or prednisone which patient takes intermittently for rheumatoid arthritis flare up. About 3 days prior to ER visit patient was placed on Tamiflu by urgent care facility based on clinical symptoms. CXR at [place] emergency department showed bilateral patchy infiltrates. Patient was admitted to the [facility] facility under the hospitalist and was placed on IV Solu- Medrol breathing treatments, IV Levaquin and Tamiflu. Overnight patient had clinical deterioration was on 6 L nasal cannula with desaturation into the low 80s and patient was placed on a nonrebreather. An ABG done on 6 L showed severe AA gradient and a PO2 of 55. 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 Because of hypoxemic respiratory failure, extensive pulmonary infiltrates and risk of worsening ARDS patient was emergently transferred to the [place] [facility] ICU I immediately evaluated the patient in the ICU. She is on partial nonrebreather oxygen saturation above 90%. The patient is tachypneic using accessory muscles. BiPAP ordered. Clinical presentation is concerning for influenza with secondary bacterial pneumonia. Because of her history of on and off chronic steroids and rheumatoid arthritis I will check for Pneumocystis jiroveci staining, LDH. Also ID consulted. A limited bedside echo showed normal ejection fraction. We will continue Tamiflu, IV Levaquin and vancomycin plus Azactam. If LDH is elevated start empiric coverage with IV Bactrim. Continue IV Solu-Medrol increased to 60 mg every 6 hours. ID consulted and discussed with Dr. Pinto SUBJ 11/14: Patient was intubated overnight for severe worsening hypoxemic respiratory failure. Chest x-ray postintubation showed worsening bilateral infiltrates. Currently on Zyvox, Azactam, IV Bactrim for PCP, and Levaquin. Pulmonology consulted for BAL if clinical condition permits. Start Nimbex infusion as the patient is on 100% FiO2 to maintain oxygen saturation. PEEP increased to 10. After obtaining BAL consider prolotherapy, if not improving 11/15: Remains intubated sedated and neuromuscularly paralyzed. Remains critical but stabilizing. FiO2 down to 60%. I will attempt weaning PEEP to 10. Discontinue neuromuscular paralysis due to risk of severe neuromuscular weakness, as patient is also on steroids. Chest x-ray remains unchanged. Bronchoscopy and BAL 11/14/17 results pending 11/16: Remains intubated sedated. Intermittent ventilatory synchrony with hypoxia worsening requiring rocuronium for neuromuscular paralysis. Currently FiO2 at 55% PEEP at 10. Chest x-ray shows worsening infiltrate and fluid overload. Start careful diuresis with IV Lasix. Influenza pneumonia, PCR positive. Objective Vital Signs Date Time Temp Pulse Resp B/P (MAP) Pulse Ox O2 Delivery O2 Flow Rate FiO2 11/16/17 06:47 50 11/16/17 06:00 98 11/16/17 06:00 115/57 (76) 113/55 (74) 11/16/17 06:00 18 98 11/16/17 04:00 98.1 11/13/17 11:04 Partial Rebreather 13.00 Intake and Output 11/16/17 11/16/17 11/17/17 08:00 16:00 00:00 Intake Total 890 ml Output Total 1400 ml Balance -510 ml Result Diagram: 11/16/17 0430 11/16/17 0430 Other Results Microbiology Date/Time Source Procedure Growth Status 11/13/17 23:00 Sputum Endotracheal Gram Stain - Final Complete 11/13/17 23:00 Sputum Endotracheal Sputum Culture - Final HEAVY GROWTH NORMAL RESPIRATORY MARTÍN Complete 11/13/17 14:45 Nasal Washing Influenza Types A,B Antigen (BEN) - Final NEGATIVE FOR FLU A AND B ANTIGEN.... Complete Laboratory Tests Test 11/15/17 07:36 Blood Gas Puncture Site ART LINE Blood Gas Patient Temperature 98.6 Blood Gas HCO3 18 mmol/L (22-26) Blood Gas Base Excess -6.2 mmol/L (-2-2) Blood Gas Oxygen Saturation 89 % (90-100) Arterial Blood pH 7.41 (7.380-7.420) Arterial Blood Partial Pressure CO2 28 mmHg (38-42) Arterial Blood Partial Pressure O2 54 mmHG (61-120) Arterial Blood Oxygen Content 14.5 Vol % (12.0-20.0) Arterial Blood Carboxyhemoglobin 1.1 % (0-4) Arterial Blood Methemoglobin 0.8 % (0-2) Blood Gas Hemoglobin 11.6 G/DL (12.0-16.0) Oxygen Delivery Device VENTILATOR Blood Gas Ventilator Setting PC/AC/18/P26/1.2/+12 Blood Gas Inspired Oxygen 50 % Imaging CT CHEST: Bilateral airspace disease, predominantly ground glass slight upper lobe predominance with adenopathy. Differential diagnosis includes bronchopneumonia or. Recommend short-term followup to follow adenopathy and ensure resolution. Chest x-ray shows bilateral patchy infiltrates Objective Remarks GENERAL: Lying in bed, intubated heavily sedated SKIN: Warm and dry. EYES: No scleral icterus. No injection or drainage. ENT: No nasal bleeding or discharge. Orotracheally intubated NECK: Supple CARDIOVASCULAR: Regular rate and rhythm. no murmurs. Hypotensive RESPIRATORY: On PRVC vent mode, PEEP 10, FiO2 55%. Fine crackles and wheezing heard in bilateral lung reese anteriorly GASTROINTESTINAL: Abdomen soft, non-tender, nondistended. EXT: No clubbing, cyanosis, or edema. No obvious deformities. NEUROLOGICAL: Intubated heavily sedated for vent synchrony and hypoxia. Intermittently neuromuscularly paralyzed A/P Assessment and Plan ASSESSMENT: Acute hypoxemic respiratory failure Severe ARDS Influenza pneumonia PCR positive. 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 Decreased PEEP to 10, titrate oxygen to keep saturations more than 90% -Pulmonology Dr. Rich consulted. s/p Bronch with BAL 11/14 -No prone therapy due to some clinical improvement -DuoNeb every 6 hours scheduled and as needed -IV Solu Medrol to 60 every 6-reduce to 40 q6h. budesonide inhaled started -Influenza PCR positive, f/u PJP stain, serum LDH elevated at 568 -See ID section for ABX CV: -DCd Normal saline IV fluids -Bedside echo shows normal ejection fraction, 2D Echo EF normal -Diurese to dry weight, start IV Lasix 20 mg every 12 hours GI: -IV famotidine -Tube feeds with Glucerna, bowel regimen with Colace and lactulose : -Monitor renal function closely. IV Lasix as above -Machado catheter. Strict I's and O's ID: -Patient appears to have bilateral pneumonia, atypical, opportunistic infections needs to be ruled out -Influenza PCR positive, F/u PJP stain, LDH elevated aqt 568. F/u BAL from 11/14 -Neg sputum culture and blood culture, urine for Legionella and pneumococcal antigen -Pulmonology Dr. Kuhn -Continue broad-spectrum antibiotics with Zyvox, IV Bactrim, Azactam, Levaquin and Tamiflu -Infectious disease HEME: -Monitor CBC, CMP, coags ENDO: -Mild hyperglycemia secondary to steroids -Sliding scale insulin MSK -Hold methotrexate due to an acute infection -Continue IV Solu-Medrol, reduce to 40 q6 PROPH: Bilateral lower extremity SCDs/JESSICA. Lovenox, Famotidine LINES: Utilize peripheral IVs, placed central line and arterial line CC time 45 min continuously excluding procedure time Patient discussed extensively with Dr. Pinto and Dr. Rich. Her updated at the bedside Patient remains critically ill currently on full ventilator support and 55% FiO2 and high ventilator setting, PEEP 10. made aware of the critical situation. Phi Gaston MD Nov 16, 2017 07:40
[2017-11-16 07:48] LABS: LYMPHOCYTES 1 % (9-44); MONOCYTES 3 % (0-8); MYELOCYTES 2 % (0-0); NEUTROPHIL # MANUAL DIFF 11.2 TH/MM3 (1.8-7.7); POLYS (SEG NEUTROPHILS) 94 % (16-70)
[2017-11-16] MEDS: METOPROLOL SUCCINATE 25 MG EXTENDED RELEASE TAB PO SCH (09:18)
[2017-11-16] MEDS ORDERED: SODIUM BICARBONATE 8.4% SOLN 50 MEQ/50 ML VIAL ONE (09:45)
--- NOTE | 2017-11-16 10:12 | HHI.IDPN ---
Subjective Subjective Remarks Ms. Boyd is a 60 y/o female with PMHx significant for rheumatoid arthritis and possibly lupus who is on methotrexate and intermittently on steroids. Her PMHx is also significant for Bronchial asthma and she admits to smoking 1 ppd for many years. 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 She denies any fungal pneumonia. She denies exposure to people with TB or positive PPD. She thinks she uses a nebulizer which may have mold deposits. She reports her home is her truck. She lives in motels at times. 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 She then presented to the [facility] ED with fever 103 F, tachycardia and Pneumonia on CXR on 11/11/2017. Flu antigen at this point after being treated with tamiflu was negative. She was transferred to [facility] due to increasing Shortness of breath and wheezing. She was reportedly getting worse despite taking her steroids at home which she intermittently takes for her RA. Patient was admitted to the [facility] facility under the hospitalist and was placed on IV Solu-Medrol breathing treatments, IV Levaquin and Tamiflu. Overnight patient had clinical deterioration was on 6 L nasal cannula with desaturation into the low 80s and patient was placed on a nonrebreather. An ABG done on 6 L showed severe AA gradient and a PO2 of 55. 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 Due to worsening shortness of breath, hypoxemic respiratory failure, extensive pulmonary infiltrates and risk of worsening ARDS patient was emergently transferred to the [place] [facility] ICU. 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 The patient is tachypneic using accessory muscles. BiPAP ordered earlier but patient prefers not to use it. Patient is currently on Tamiflu, IV Levaquin, Azactam IV and IV vancomycin. Due to concern for PCP LDH was checked and patient started on empiric Bactrim IV.Patient is on IV Solu- Medrol increased to 60 mg every 6 hours. ID consulted for evaluation and Mment of Pneumonia in an Immune compromised patient. Overnight events reviewed. Remains intubated. FIO2 40%, PEEP 8. Secretions small white to whitney. No fever No rash No diarrhea Antibiotics Azactam IV Levaquin Zyvox IV Bactrim IV Tamiflu Lines Line sites with no e.o infection Past Medical History reviewed Allergies: Coded Allergies: Penicillins (Verified Allergy, Severe, Swelling, 11/13/17) Has tolerated Keflex as outpatient. aspirin (Verified Allergy, Severe, 11/11/17) morphine (Verified Adverse Reaction, Mild, Itching, 11/12/17) Objective . Vital Signs Date Time Temp Pulse Resp B/P (MAP) Pulse Ox O2 Delivery O2 Flow Rate FiO2 11/16/17 08:11 97 50 11/16/17 06:47 50 11/16/17 06:00 98 11/16/17 06:00 98 115/57 (76) 113/55 (74) 11/16/17 06:00 98 18 115/57 (76) 98 113/55 (74) 11/16/17 04:17 95 55 11/16/17 04:00 98.1 91 101 113/58 (76) 95 108/53 (71) 11/16/17 04:00 91 11/16/17 04:00 55 11/16/17 02:00 96 89 116/59 (78) 100 109/55 (73) 11/16/17 02:00 96 11/16/17 01:11 97 55 11/16/17 00:00 86 68 112/57 (75) 99 108/52 (70) 11/16/17 00:00 86 11/16/17 00:00 55 11/15/17 22:00 91 95 115/57 (76) 100 111/52 (71) 11/15/17 22:00 91 11/15/17 22:00 60 11/15/17 20:19 100 70 11/15/17 20:00 97.7 80 100 116/61 (79) 100 127/65 (85) 11/15/17 20:00 70 11/15/17 20:00 80 11/15/17 18:00 84 114/58 (76) 109/49 (69) 11/15/17 18:00 84 11/15/17 17:34 70 11/15/17 17:25 100 70 2/13/18 16:00 97.1 80 18 110/64 (79) 100 110/56 (74) 11/15/17 16:00 80 11/15/17 16:00 100 11/15/17 14:00 70 11/15/17 12:00 50 11/15/17 12:00 68 11/15/17 12:00 97.1 68 18 112/65 (81) 95 111/57 (75) 11/15/17 11:43 95 50 . Laboratory Tests Test 11/15/17 04:48 11/16/17 04:30 White Blood Count 12.2 TH/MM3 11.7 TH/MM3 Red Blood Count 4.04 MIL/MM3 3.75 MIL/MM3 Hemoglobin 12.6 GM/DL 11.6 GM/DL Hematocrit 36.3 % 34.2 % Mean Corpuscular Volume 89.9 FL 91.3 FL Mean Corpuscular Hemoglobin 31.1 PG 31.0 PG Mean Corpuscular Hemoglobin Concent 34.6 % 33.9 % Red Cell Distribution Width 14.8 % 15.0 % Platelet Count 133 TH/MM3 179 TH/MM3 Mean Platelet Volume 9.1 FL 9.0 FL Neutrophils (%) (Auto) 90.0 % 91.0 % Lymphocytes (%) (Auto) 7.9 % 6.4 % Monocytes (%) (Auto) 1.9 % 2.5 % Eosinophils (%) (Auto) 0.0 % 0.0 % Basophils (%) (Auto) 0.2 % 0.1 % Neutrophils # (Auto) 11.0 TH/MM3 10.7 TH/MM3 Lymphocytes # (Auto) 1.0 TH/MM3 0.7 TH/MM3 Monocytes # (Auto) 0.2 TH/MM3 0.3 TH/MM3 Eosinophils # (Auto) 0.0 TH/MM3 0.0 TH/MM3 Basophils # (Auto) 0.0 TH/MM3 0.0 TH/MM3 CBC Comment AUTO DIFF AUTO DIFF Differential Comment AUTO DIFF CONFIRMED FINAL DIFF MANUAL Toxic Granulation 1+ Platelet Estimate LOW NORMAL Platelet Morphology Comment ENLARGED NORMAL Differential Total Cells Counted 100 Neutrophils % (Manual) 94 % Lymphocytes % 1 % Monocytes % 3 % Neutrophils # (Manual) 11.2 TH/MM3 Myelocytes 2 % Red Cell Morphology Comment NORMAL Laboratory Tests Test 11/15/17 04:48 11/15/17 15:18 11/16/17 04:30 Blood Urea Nitrogen 10 MG/DL 12 MG/DL Creatinine 0.98 MG/DL 0.97 MG/DL Random Glucose 206 MG/DL 263 MG/DL Total Protein 5.8 GM/DL 5.5 GM/DL Albumin 2.3 GM/DL 2.1 GM/DL Calcium Level 8.3 MG/DL 8.0 MG/DL Magnesium Level 2.5 MG/DL Alkaline Phosphatase 65 U/L 62 U/L Aspartate Amino Transf (AST/SGOT) 35 U/L 22 U/L Alanine Aminotransferase (ALT/SGPT) 45 U/L 45 U/L Total Bilirubin 0.2 MG/DL 0.1 MG/DL Sodium Level 142 MEQ/L 141 MEQ/L Potassium Level 3.2 MEQ/L 3.7 MEQ/L 3.8 MEQ/L Chloride Level 112 MEQ/L 111 MEQ/L Carbon Dioxide Level 19.2 MEQ/L 19.6 MEQ/L Anion Gap 11 MEQ/L 10 MEQ/L Estimat Glomerular Filtration Rate 60 ML/MIN 61 ML/MIN Microbiology Date/Time Source Procedure Growth Status 11/14/17 19:17 Bronchial Washings Bronchial Fungal Smear - Final NO FUNGAL ELEMENTS SEEN. Resulted 11/14/17 19:17 Bronchial Washings Bronchial Fungal Culture Pending Resulted 11/14/17 19:17 Bronchial Washings Bronchial Acid Fast Stain Pending Received 11/14/17 19:17 Bronchial Washings Bronchial Mycobacterial Culture Pending Received 11/14/17 19:17 Bronchial Washings Bronchial Gram Stain - Final Complete 11/14/17 19:17 Bronchial Washings Bronchial Bronchial Culture - Final NO GROWTH IN 48 HOURS. Complete 11/13/17 23:00 Sputum Endotracheal Fungal Smear - Final NO FUNGAL ELEMENTS SEEN. Resulted 11/13/17 23:00 Sputum Endotracheal Fungal Culture Pending Resulted 11/13/17 23:00 Sputum Endotracheal Acid Fast Stain - Final NO ACID FAST BACILLI SEEN Resulted 11/13/17 23:00 Sputum Endotracheal Mycobacterial Culture Pending Resulted 11/13/17 23:00 Sputum Endotracheal Gram Stain - Final Complete 11/13/17 23:00 Sputum Endotracheal Sputum Culture - Final HEAVY GROWTH NORMAL RESPIRATORY MARTÍN Complete 11/13/17 14:45 Nasal Washing Influenza Types A,B Antigen (BEN) - Final NEGATIVE FOR FLU A AND B ANTIGEN.... Complete Imaging Last Impressions Chest X-Ray 11/14/17 0000 Signed Impressions: Service Date/Time: Tuesday, November 14, 2017 07:07 - CONCLUSION: 1. Stable ETT. NGT in the distal stomach. 2. Stable diffuse patchy airspace disease bilaterally. Gigi Sigala MD CT Angiography 11/13/17 0000 Signed Impressions: Service Date/Time: Monday, November 13, 2017 03:47 - CONCLUSION: 1. Negative for pulmonary embolus. 2. Bilateral airspace disease, predominantly groundglass slight upper lobe predominance with adenopathy. Differential diagnosis includes bronchopneumonia or. Recommend short-term followup to follow adenopathy and ensure resolution. Elieser Villalobos MD Physical Exam GENERAL: This is a well-nourished, well-developed patient. SKIN: No rashes, ecchymoses or lesions. Cool and dry. HEAD: Atraumatic. Normocephalic. No temporal or scalp tenderness. EYES: Pupils equal round and reactive. Extraocular motions intact. No scleral icterus. No injection or drainage. ENT: Intubated. NECK: Trachea midline. Supple, nontender, no meningeal signs. CARDIOVASCULAR: HS audible. RESPIRATORY: AE decreased bilaterally. Bilateral wheezes. GASTROINTESTINAL: Abdomen soft, non-tender, nondistended. MUSCULOSKELETAL: Extremities without clubbing, cyanosis, or edema. No joint tenderness, effusion, or edema noted. No calf tenderness. Negative Homans sign bilaterally. NEUROLOGICAL: Sedated on vent. Psych cooperative IV line sites with no e.o infection. Assessment & Plan Remarks Severe Sepsis present on admission. Pneumonia in an Immune compromised patient. Influenza pneumonia: PCR positive. Ground glass opacities of lung: DDX acute infections, Fungal (crypto, histo), PCP, CMV are some other differentials that are being considered. Acute respiratory failure on NRB 100% FiO2. H/o RA, Lupus on MTX and steroids off and on. Immune compromised host Thrombocytopenia: sepsis, meds related. Penicillin Allergy: has tolerated keflex in past. High grade leucocytosis: infection, steroids. Recs: Continue Azactam IV Continue Bactrim IV for now (for PCP) Continue Levaquin IV (atypical coverage) Continue Tamiflu oral Follow cultures Follow clinically DC Zyvox IV guerrero [facility] Addendum 11/16/2017: GMS stain negative. DC Bactrim IV June Pinto MD Nov 16, 2017 10:12
[2017-11-16] MEDS: OSELTAMIVIR PHOSPHATE 75 MG CAP PO SCH (11:06)
[2017-11-16] MEDS: DOCUSATE SODIUM 100 MG/10 ML UDC PO SCH ×2 (11:06→19:59)
[2017-11-16] MEDS: POTASSIUM CHLORIDE 25 MEQ EFFERVESCENT TAB PO SCH ×2 (11:06→19:59)
[2017-11-16] MEDS: ENOXAPARIN SODIUM 30 MG/0.3 ML SYRINGE SQ SCH (11:06)
[2017-11-16] MEDS: LACTULOSE SYRUP 20 GM/30 ML CUP PO SCH (11:06)
[2017-11-16] MEDS: POLYETHYLENE GLYCOL 17 GM PKG PO SCH (11:06)
[2017-11-16] MEDS: FUROSEMIDE 20 MG/2 ML VIAL IV PUSH SCH ×2 (11:08→17:02)
[2017-11-16] MEDS: BENEPROTEIN POWDER 1 PACK G-TUBE SCH ×3 (11:08→17:13)
[2017-11-16] MEDS: FOLIC ACID 1 MG TAB PO SCH (11:08)
[2017-11-16] MEDS: SODIUM CHLORIDE 0.9% FLUSH 10 ML FLUSH IV FLUSH SCH ×2 (11:09→19:59)
[2017-11-16] MEDS: FAMOTIDINE 20 MG/2 ML VIAL IV PUSH SCH ×2 (11:10→19:58)
[2017-11-16] MEDS: CHLORHEXIDINE 0.12% (ORAL KIT) 15 ML CUP MT SCH ×2 (11:12→20:01)
[2017-11-16 17:23] LABS: HISTOPLASMA ANTIGEN UR RESULT Negative (Negative)
--- NOTE | 2017-11-16 18:54 | HHI.PR ---
Subjective Remarks Sedated and on 45 % FIO2 today.Was on Nimbex. Chest Xray shows bilateral infiltrates. ABG's improved Objective Vital Signs Date Time Temp Pulse Resp B/P (MAP) Pulse Ox O2 Delivery O2 Flow Rate FiO2 11/16/17 18:46 96 40 11/16/17 16:00 98.4 97 20 119/62 (81) 98 116/59 (78) 11/16/17 15:45 91 40 11/16/17 12:00 97.9 100 20 132/74 (93) 100 137/66 (89) 11/16/17 11:48 93 40 11/16/17 08:11 97 50 11/16/17 08:00 98.3 93 20 118/66 (83) 94 117/58 (77) 11/16/17 06:47 50 11/16/17 06:00 98 11/16/17 06:00 98 115/57 (76) 113/55 (74) 11/16/17 06:00 98 18 115/57 (76) 98 113/55 (74) 11/16/17 04:17 95 55 11/16/17 04:00 98.1 91 101 113/58 (76) 95 108/53 (71) 11/16/17 04:00 91 11/16/17 04:00 55 11/16/17 02:00 96 89 116/59 (78) 100 109/55 (73) 11/16/17 02:00 96 11/16/17 01:11 97 55 11/16/17 00:00 86 68 112/57 (75) 99 108/52 (70) 11/16/17 00:00 86 11/16/17 00:00 55 11/15/17 22:00 91 95 115/57 (76) 100 111/52 (71) 11/15/17 22:00 91 11/15/17 22:00 60 11/15/17 20:19 100 70 11/15/17 20:00 97.7 80 100 116/61 (79) 100 127/65 (85) 11/15/17 20:00 70 11/15/17 20:00 80 I/O 11/15/17 11/15/17 11/15/17 11/16/17 11/16/17 11/16/17 07:00 15:00 23:00 07:00 15:00 23:00 Intake Total 3256 ml 554 ml 1974 ml 1190 ml 531 ml Output Total 2500 ml 2200 ml 1400 ml 1500 ml 1050 ml Balance 756 ml 554 ml -226 ml -210 ml -1500 ml -519 ml Intake Oral 0 ml 0 ml 0 ml IV Total 3256 ml 554 ml 1725 ml 750 ml Tube Feeding 69 ml 380 ml 381 ml Tube Irrigant 180 ml 60 ml 150 ml Other 0 ml Output Urine Total 2500 ml 2200 ml 1400 ml 1500 ml 1050 ml # Bowel Movements 0 0 0 0 Result Diagram: 11/16/1742911/16/17429 Objective Remarks This is a moderately obese middle-aged lady who is intubated, assisting the ventilator, sedated. HEENT: Head normocephalic. Pupils reactive. Sclerae were clear. Throat has secretions. Ears and nose have no inflammation. NECK: Supple. No bruits or thyroid enlargement. CHEST: Equal movements with wheezes over both lung reese with crackles in both lung field. HEART: Heart sounds are regular S1 and S2. No S3. No murmur. ABDOMEN: The abdomen soft, obese without masses or organomegaly . Bowel sounds are active. EXTREMITIES: No edema. Peripheral pulses are diminished. Reflexes not elicited. The patient is sedated. SKIN: Dry and cool. Assessment and Plan Assessment and Plan IMPRESSION 1. Acute hypoxemic respiratory failure. 2. ARDS with possible bilateral pneumonia. 3. History of for rheumatoid arthritis with possible interstitial lung disease. 4. Asthmatic bronchitis with exacerbation. 5. Influenza A Plan : 1. Wean Fio2 to Keep sat >92. 2. Nebs q6h , duoneb 3. Keep sedated till am. 4. Continue antibiotics 5. CPAP trial in am. 6. CXR ,CBC,BMP in am 7. Tube feeds at 55 CC 8. Lasix 20 MG IV Liz Sam MD Nov 16, 2017 18:54
[2017-11-16] MEDS: RESP: BUDESONIDE 0.5 MG/2 ML NEB NEB SCH ×2 (20:00→20:26)
[2017-11-17] VITALS (19 sets, daily range): BP systolic 113–132; BP diastolic 56–70; PULSE 88–112; RESP 20–29; TEMP 98.7–99; O2SAT 91–100
[2017-11-17] MEDS: ROCURONIUM INJ 50 MG/5 ML VIAL IV PUSH PRN ×2 (00:52→04:52)
[2017-11-17] MEDS: fentaNYL DRIP 250 ML IV PRN ×3 (01:01→19:53)
[2017-11-17] MEDS: PROPOFOL 1000 MG/100 ML INJ 100 ML IV PRN ×6 (02:23→20:37)
[2017-11-17 03:50] LABS: C PNEUMO IGA <1:16 (<1:16); C PNEUMO IGM <1:10 (<1:10); C PNEUMO INTERPRETATION PAST INFECTION
[2017-11-17] MEDS: INSULIN ASPART SUPPLEMENTAL SCALE SQ SCH ×6 (04:00→23:33)
[2017-11-17] MEDS: RESP: ALBUTEROL 2.5 MG/IPRATROPIUM 0.5 MG NEB (SCH) NEB ×4 (04:18→20:39)
[2017-11-17] MEDS: MIDAZOLAM 100 MG/100 ML INJ 100 ML IV PRN ×2 (04:34→15:55)
[2017-11-17 04:36] LABS: AUTOMATED NEUTROPHIL # 10.2 TH/MM3 (1.8-7.7); BASOPHIL % 0.1 % (0.0-2.0); HEMATOCRIT 35.3 % (35.0-46.0); LYMPH % 7.3 % (9.0-44.0); LYMPHOCYTE # 0.8 TH/MM3 (1.0-4.8); MEAN CELL VOLUME 90.6 FL (80.0-100.0); MEAN CORPUSCULAR HEMOGLOBIN 30.9 PG (27.0-34.0); MEAN CORPUSCULAR HGB CONC 34.1 % (32.0-36.0); MEAN PLATELET VOLUME 8.4 FL (7.0-11.0); MONO % 3.7 % (0.0-8.0); MONOCYTE # 0.4 TH/MM3 (0-0.9); NEUT % 88.9 % (16.0-70.0); PLATELET COUNT 216 TH/MM3 (150-450); RED CELL DISTRIBUTION WIDTH 14.8 % (11.6-17.2); WHITE BLOOD COUNT 11.5 TH/MM3 (4.0-11.0)
--- NOTE | 2017-11-17 04:52 | RADRPT ---
EXAM DATE/TIME: 11/17/2017 03:44 [place] COMPARISON: CHEST SINGLE AP, November 16, 2017, 2:45. INDICATIONS : Shortness of breath, possible pulmonary disease. MEDICAL HISTORY : Rheumatoid arthritis. Lupus. asthma SURGICAL HISTORY : Appendectomy. ENCOUNTER: Subsequent ACUITY: 1 week PAIN SCORE: Non-responsive. LOCATION: Bilateral chest FINDINGS: There is slight improved aeration of both lungs the patchy bilateral diffuse infiltrates remain. Righ t subclavian line and endotracheal tube and enteric tube again seen. Cardiomegaly. CONCLUSION: Improved aeration. Rajiv Llanes MD on November 17, 2017 at 4:50 Board Certified Radiologist. This report was verified electronically.
[2017-11-17 04:55] LABS: ALBUMIN 2.4 GM/DL (3.4-5.0); ALKALINE PHOSPHATASE 66 U/L (45-117); ALT (GPT) 64 U/L (10-53); AST (GOT) 35 U/L (15-37); BICARBONATE 27.5 MEQ/L (21.0-32.0); BLOOD UREA NITROGEN 23 MG/DL (7-18); CALCIUM 8.4 MG/DL (8.5-10.1); CHLORIDE 109 MEQ/L (98-107); CREATININE 0.87 MG/DL (0.50-1.00); GLOMERULAR FILTRATION RATE 69 ML/MIN (>89); GLUCOSE,RANDOM 141 MG/DL (74-106); MAGNESIUM 2.7 MG/DL (1.5-2.5); SODIUM (NA) 142 MEQ/L (136-145); TOTAL BILIRUBIN ADULT 0.2 MG/DL (0.2-1.0)
[2017-11-17] MEDS: AZTREONAM INJ 2,000 MG in SODIUM CHLORIDE 0.9% INJ 100 ML IV SCH ×3 (05:03→22:06)
[2017-11-17] MEDS: methylPREDNISolone SOD SUCC 125 MG/2 ML VIAL IV PUSH SCH (05:03)
[2017-11-17 07:03] LABS: BANDS 3 % (0-6); LYMPHOCYTES 6 % (9-44); METAMYELOCYTES 1 % (0-1); MONOCYTES 5 % (0-8); MYELOCYTES 2 % (0-0); NEUTROPHIL # MANUAL DIFF 10.2 TH/MM3 (1.8-7.7); POLYS (SEG NEUTROPHILS) 83 % (16-70)
[2017-11-17] MEDS: CHLORHEXIDINE 0.12% (ORAL KIT) 15 ML CUP MT SCH ×2 (08:00→20:00)
[2017-11-17] MEDS: RESP: BUDESONIDE 0.5 MG/2 ML NEB NEB SCH ×2 (08:06→20:39)
--- NOTE | 2017-11-17 08:33 | HHI.CCPN ---
Subjective Remarks/Hospital Course Patient is a 60-year-old female with past medical history significant for rheumatoid arthritis on methotrexate and intermittently on steroids, Bronchial asthma, tobacco abuse who was admitted to [facility] with week long history of fevers chills and URI symptoms. This was associated with increasing shortness of breath and wheezing. Not improving with inhaled albuterol or prednisone which patient takes intermittently for rheumatoid arthritis flare up. About 3 days prior to ER visit patient was placed on Tamiflu by urgent care facility based on clinical symptoms. CXR at [place] emergency department showed bilateral patchy infiltrates. Patient was admitted to the [facility] facility under the hospitalist and was placed on IV Solu- Medrol breathing treatments, IV Levaquin and Tamiflu. Overnight patient had clinical deterioration was on 6 L nasal cannula with desaturation into the low 80s and patient was placed on a nonrebreather. An ABG done on 6 L showed severe AA gradient and a PO2 of 55. 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 Because of hypoxemic respiratory failure, extensive pulmonary infiltrates and risk of worsening ARDS patient was emergently transferred to the [facility] I immediately evaluated the patient in the ICU. She is on partial nonrebreather oxygen saturation above 90%. The patient is tachypneic using accessory muscles. BiPAP ordered. Clinical presentation is concerning for influenza with secondary bacterial pneumonia. Because of her history of on and off chronic steroids and rheumatoid arthritis I will check for Pneumocystis jiroveci staining, LDH. Also ID consulted. A limited bedside echo showed normal ejection fraction. We will continue Tamiflu, IV Levaquin and vancomycin plus Azactam. If LDH is elevated start empiric coverage with IV Bactrim. Continue IV Solu-Medrol increased to 60 mg every 6 hours. ID consulted and discussed with Dr. Pinto SUBJ 11/14: Patient was intubated overnight for severe worsening hypoxemic respiratory failure. Chest x-ray postintubation showed worsening bilateral infiltrates. Currently on Zyvox, Azactam, IV Bactrim for PCP, and Levaquin. Pulmonology consulted for BAL if clinical condition permits. Start Nimbex infusion as the patient is on 100% FiO2 to maintain oxygen saturation. PEEP increased to 10. After obtaining BAL consider prolotherapy, if not improving 11/15: Remains intubated sedated and neuromuscularly paralyzed. Remains critical but stabilizing. FiO2 down to 60%. I will attempt weaning PEEP to 10. Discontinue neuromuscular paralysis due to risk of severe neuromuscular weakness, as patient is also on steroids. Chest x-ray remains unchanged. Bronchoscopy and BAL 11/14/17 results pending 11/16: Remains intubated sedated. Intermittent ventilatory synchrony with hypoxia worsening requiring rocuronium for neuromuscular paralysis. Currently FiO2 at 55% PEEP at 10. Chest x-ray shows worsening infiltrate and fluid overload. Start careful diuresis with IV Lasix. Influenza pneumonia, PCR positive. 11/17: Remains intubated heavily sedated intermittently neuromuscularly paralyzed on ventilator synchrony. Chest x-ray shows slight improvement in bilateral infiltrates. FiO2 down to 45%. Urine output adequate on Lasix. K 5.2 , KCL discontinued. Vent changed to ACV from PC/AC. Remains hypercapnic on ABG Objective Vital Signs Date Time Temp Pulse Resp B/P (MAP) Pulse Ox O2 Delivery O2 Flow Rate FiO2 11/17/17 08:08 100 45 11/17/17 06:00 109 120/60 (80) 127/64 (85) 11/17/17 04:00 98.8 23 11/13/17 11:04 Partial Rebreather 13.00 Intake and Output 11/17/17 11/17/17 11/18/17 08:00 16:00 00:00 Intake Total 1482 ml Output Total 1100 ml Balance 382 ml Result Diagram: 11/17/17 0400 11/17/17 0400 Other Results Microbiology Date/Time Source Procedure Growth Status 11/14/17 19:17 Bronchial Washings Bronchial Gram Stain - Final Complete 11/14/17 19:17 Bronchial Washings Bronchial Bronchial Culture - Final NO GROWTH IN 48 HOURS. Complete Laboratory Tests Test 11/16/17 09:02 11/16/17 11:52 11/17/17 08:10 Blood Gas Puncture Site ART LINE ART LINE ART LINE Blood Gas Patient Temperature 98.6 98.6 98.6 Blood Gas HCO3 18 mmol/L (22-26) 22 mmol/L (22-26) 24 mmol/L (22-26) Blood Gas Base Excess -8.7 mmol/L (-2-2) -3.3 mmol/L (-2-2) -1.8 mmol/L (-2-2) Blood Gas Oxygen Saturation 93 % (90-100) 87 % (90-100) 91 % (90-100) Arterial Blood pH 7.19 (7.380-7.420) 7.31 (7.380-7.420) 7.27 (7.380-7.420) Arterial Blood Partial Pressure CO2 49 mmHg (38-42) 45 mmHg (38-42) 55 mmHg (38-42) Arterial Blood Partial Pressure O2 90 mmHg (61-120) 57 mmHg (61-120) 75 mmHg (61-120) Arterial Blood Oxygen Content 16.0 Vol % (12.0-20.0) 14.8 Vol % (12.0-20.0) 16.5 Vol % (12.0-20.0) Arterial Blood Carboxyhemoglobin 0.6 % (0-4) 0.9 % (0-4) 1.1 % (0-4) Arterial Blood Methemoglobin 1.8 % (0-2) 1.7 % (0-2) 1.7 % (0-2) Blood Gas Hemoglobin 12.2 G/DL (12.0-16.0) 12.0 G/DL (12.0-16.0) 12.8 G/DL (12.0-16.0) Oxygen Delivery Device VENTILATOR VENTILATOR VENTILATOR Blood Gas Ventilator Setting PC/18/PS22/1.2/+8 PC: 18/P 22/1.2/+8 AC/18/500/+7/45% Blood Gas Inspired Oxygen 40 % 40 % 45 % Imaging CT CHEST: Bilateral airspace disease, predominantly ground glass slight upper lobe predominance with adenopathy. Differential diagnosis includes bronchopneumonia or. Recommend short-term followup to follow adenopathy and ensure resolution. Chest x-ray shows bilateral patchy infiltrates Objective Remarks GENERAL: Lying in bed, intubated heavily sedated, intermittently paralyzed SKIN: Warm and dry. EYES: No scleral icterus. No injection or drainage. ENT: No nasal bleeding or discharge. Orotracheally intubated NECK: Supple. No JVD CARDIOVASCULAR: Regular rate and rhythm. no murmurs. Hypotensive RESPIRATORY: On PC/AC vent mode, PEEP , FiO2 45%. Fine crackles and wheezing heard in bilateral lung reese anteriorly GASTROINTESTINAL: Abdomen soft, non-tender, nondistended. EXT: No clubbing, cyanosis, or edema. No obvious deformities. NEUROLOGICAL: Intubated heavily sedated for vent synchrony and hypoxia. Intermittently neuromuscularly paralyzed A/P Assessment and Plan ASSESSMENT: Acute hypoxemic respiratory failure Severe ARDS Influenza pneumonia Severe sepsis Bronchial asthma with exacerbation Serum LDH elevated at 568, PJP stain negative Fluid overload Immunosuppression due to methotrexate and chronic (intermittent) steroid use History of rheumatoid arthritis, possible Lupus PLAN: NEURO: -Propofol, Versed and fentanyl for sedation and ventilator synchrony -Discontinued Nimbex 09/14, used as needed rocuronium for ventilator synchrony -Tylenol for fever RESP: -Intubated 11/13/17 night due to worsening hypoxemia, severe ARDS -PC/AC, change to AC/VC. Decreased PEEP to 7, titrate oxygen to keep saturations more than 90%, now at 45% -Pulmonology Dr. Rich. s/p Bronch with BAL 11/14. -Influenza PCR positive -DuoNeb every 6 hours scheduled and as needed -IV Solu Medrol to 40 every q8h. budesonide inhaled started -PJP stain negative, serum LDH elevated at 568 -See ID section for ABX CV: -Bedside echo shows normal ejection fraction, 2D Echo EF normal -Diurese to dry weight, IV Lasix 20 mg every 12 hours, reduce to daily GI: -IV famotidine -Tube feeds with Glucerna, bowel regimen with Colace and lactulose : -Monitor renal function closely. IV Lasix as above -Machado catheter. Strict I's and O's ID: -Patient appears to have bilateral pneumonia, atypical, opportunistic infections needs to be ruled out -Influenza PCR positive, PJP stain negative -Neg sputum culture and blood culture, urine for Legionella and pneumococcal antigen -Continue broad-spectrum antibiotics with Azactam, Levaquin and Tamiflu. Zyvox , and Bactrim DCd 11/16 -Infectious disease HEME: -Monitor CBC, CMP, coags ENDO: -Mild hyperglycemia secondary to steroids -Sliding scale insulin MSK -Holding methotrexate due to an acute infection -Continue IV Solu-Medrol, reduce to 40 q8 PROPH: Bilateral lower extremity SCDs/JESSICA. Lovenox, Famotidine LINES: Utilize peripheral IVs, placed central line and arterial line CC time 35 min continuously excluding procedure time Patient discussed extensively with Dr. Pinto and Dr. Rich. Her updated at the bedside Patient remains critically ill currently on full ventilator support and 45% FiO2 PEEP 7. Remains hypercapnic requiring high minute ventilation. Neuromuscular blockade for ventilator synchrony Phi Gaston MD Nov 17, 2017 08:33
[2017-11-17] MEDS: BENEPROTEIN POWDER 1 PACK G-TUBE SCH ×3 (09:00→17:01)
[2017-11-17] MEDS: SODIUM CHLORIDE 0.9% FLUSH 10 ML FLUSH IV FLUSH SCH ×2 (09:00→21:21)
[2017-11-17] MEDS: FAMOTIDINE 20 MG/2 ML VIAL IV PUSH SCH ×2 (09:16→21:20)
[2017-11-17] MEDS: FUROSEMIDE 20 MG/2 ML VIAL IV PUSH SCH (09:17)
[2017-11-17] MEDS: DOCUSATE SODIUM 100 MG/10 ML UDC PO SCH ×2 (09:17→21:00)
[2017-11-17] MEDS: POLYETHYLENE GLYCOL 17 GM PKG PO SCH (09:18)
[2017-11-17] MEDS: METOPROLOL SUCCINATE 25 MG EXTENDED RELEASE TAB PO SCH (09:18)
[2017-11-17] MEDS: OSELTAMIVIR PHOSPHATE 75 MG CAP PO SCH (09:18)
[2017-11-17] MEDS: LACTULOSE SYRUP 20 GM/30 ML CUP PO SCH (09:18)
[2017-11-17] MEDS: FOLIC ACID 1 MG TAB PO SCH (09:18)
[2017-11-17] MEDS: ENOXAPARIN SODIUM 40 MG/0.4 ML SYRINGE SQ SCH (09:19)
--- NOTE | 2017-11-17 12:55 | HHI.IDPN ---
Subjective Subjective Remarks Ms. Boyd is a 60 y/o female with PMHx significant for rheumatoid arthritis and possibly lupus who is on methotrexate and intermittently on steroids. Her PMHx is also significant for Bronchial asthma and she admits to smoking 1 ppd for many years. 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 She denies any fungal pneumonia. She denies exposure to people with TB or positive PPD. She thinks she uses a nebulizer which may have mold deposits. She reports her home is her truck. She lives in motels at times. 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 She then presented to the [facility] ED with fever 103 F, tachycardia and Pneumonia on CXR on 11/11/2017. Flu antigen at this point after being treated with tamiflu was negative. She was transferred to [facility] due to increasing Shortness of breath and wheezing. She was reportedly getting worse despite taking her steroids at home which she intermittently takes for her RA. Patient was admitted to the [facility] facility under the hospitalist and was placed on IV Solu-Medrol breathing treatments, IV Levaquin and Tamiflu. Overnight patient had clinical deterioration was on 6 L nasal cannula with desaturation into the low 80s and patient was placed on a nonrebreather. An ABG done on 6 L showed severe AA gradient and a PO2 of 55. 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 Due to worsening shortness of breath, hypoxemic respiratory failure, extensive pulmonary infiltrates and risk of worsening ARDS patient was emergently transferred to the [facility]. Patient is currently under the transmitter chief service and is on a partial nonrebreather on 100% FiO2. The patient is tachypneic using accessory muscles. BiPAP ordered earlier but patient prefers not to use it. Patient is currently on Tamiflu, IV Levaquin, Azactam IV and IV vancomycin. Due to concern for PCP LDH was checked and patient started on empiric Bactrim IV.Patient is on IV Solu- Medrol increased to 60 mg every 6 hours. ID consulted for evaluation and Mment of Pneumonia in an Immune compromised patient. Overnight events reviewed. Remains intubated. Secretions small white to whitney. No fever No rash No diarrhea Antibiotics Azactam IV Levaquin Zyvox IV Bactrim IV Tamiflu Lines Line sites with no e.o infection Past Medical History reviewed Allergies: Coded Allergies: Penicillins (Verified Allergy, Severe, Swelling, 11/13/17) Has tolerated Keflex as outpatient. aspirin (Verified Allergy, Severe, 11/11/17) morphine (Verified Adverse Reaction, Mild, Itching, 11/12/17) Objective . Vital Signs Date Time Temp Pulse Resp B/P (MAP) Pulse Ox O2 Delivery O2 Flow Rate FiO2 11/17/17 12:00 45 11/17/17 10:41 95 45 11/17/17 08:26 96 45 11/17/17 08:08 100 45 11/17/17 08:00 45 11/17/17 06:00 109 120/60 (80) 127/64 (85) 11/17/17 06:00 109 11/17/17 04:57 94 45 11/17/17 04:00 112 11/17/17 04:00 45 11/17/17 04:00 98.8 112 23 120/57 (78) 95 125/62 (83) 11/17/17 02:04 91 40 11/17/17 02:00 96 11/17/17 02:00 45 11/17/17 00:00 99 11/17/17 00:00 40 11/17/17 00:00 98.8 99 23 121/69 (86) 94 120/64 (82) 11/16/17 23:29 93 40 11/16/17 22:00 99 11/16/17 20:23 92 40 11/16/17 20:00 40 11/16/17 20:00 98.8 99 20 119/67 (84) 96 116/63 (80) 11/16/17 20:00 99 11/16/17 18:46 96 40 11/16/17 18:00 100 121/68 (85) 120/63 (82) 11/16/17 18:00 100 11/16/17 16:00 40 11/16/17 16:00 97 11/16/17 16:00 98.4 97 20 119/62 (81) 98 116/59 (78) 11/16/17 15:45 91 40 11/16/17 14:00 111 . Laboratory Tests Test 11/16/17 04:30 11/17/17 04:00 White Blood Count 11.7 TH/MM3 11.5 TH/MM3 Red Blood Count 3.75 MIL/MM3 3.90 MIL/MM3 Hemoglobin 11.6 GM/DL 12.0 GM/DL Hematocrit 34.2 % 35.3 % Mean Corpuscular Volume 91.3 FL 90.6 FL Mean Corpuscular Hemoglobin 31.0 PG 30.9 PG Mean Corpuscular Hemoglobin Concent 33.9 % 34.1 % Red Cell Distribution Width 15.0 % 14.8 % Platelet Count 179 TH/MM3 216 TH/MM3 Mean Platelet Volume 9.0 FL 8.4 FL Neutrophils (%) (Auto) 91.0 % 88.9 % Lymphocytes (%) (Auto) 6.4 % 7.3 % Monocytes (%) (Auto) 2.5 % 3.7 % Eosinophils (%) (Auto) 0.0 % 0.0 % Basophils (%) (Auto) 0.1 % 0.1 % Neutrophils # (Auto) 10.7 TH/MM3 10.2 TH/MM3 Lymphocytes # (Auto) 0.7 TH/MM3 0.8 TH/MM3 Monocytes # (Auto) 0.3 TH/MM3 0.4 TH/MM3 Eosinophils # (Auto) 0.0 TH/MM3 0.0 TH/MM3 Basophils # (Auto) 0.0 TH/MM3 0.0 TH/MM3 CBC Comment AUTO DIFF AUTO DIFF Differential Total Cells Counted 100 100 Neutrophils % (Manual) 94 % 83 % Lymphocytes % 1 % 6 % Monocytes % 3 % 5 % Neutrophils # (Manual) 11.2 TH/MM3 10.2 TH/MM3 Myelocytes 2 % 2 % Differential Comment FINAL DIFF MANUAL FINAL DIFF MANUAL Platelet Estimate NORMAL NORMAL Platelet Morphology Comment NORMAL NORMAL Red Cell Morphology Comment NORMAL NORMAL Band Neutrophils % 3 % Metamyelocytes 1 % Laboratory Tests Test 11/15/17 15:18 11/16/17 04:30 11/17/17 04:00 Potassium Level 3.7 MEQ/L 3.8 MEQ/L 5.2 MEQ/L Blood Urea Nitrogen 12 MG/DL 23 MG/DL Creatinine 0.97 MG/DL 0.87 MG/DL Random Glucose 263 MG/DL 141 MG/DL Total Protein 5.5 GM/DL 6.0 GM/DL Albumin 2.1 GM/DL 2.4 GM/DL Calcium Level 8.0 MG/DL 8.4 MG/DL Alkaline Phosphatase 62 U/L 66 U/L Aspartate Amino Transf (AST/SGOT) 22 U/L 35 U/L Alanine Aminotransferase (ALT/SGPT) 45 U/L 64 U/L Total Bilirubin 0.1 MG/DL 0.2 MG/DL Sodium Level 141 MEQ/L 142 MEQ/L Chloride Level 111 MEQ/L 109 MEQ/L Carbon Dioxide Level 19.6 MEQ/L 27.5 MEQ/L Anion Gap 10 MEQ/L 6 MEQ/L Estimat Glomerular Filtration Rate 61 ML/MIN 69 ML/MIN Magnesium Level 2.7 MG/DL Microbiology Date/Time Source Procedure Growth Status 11/14/17 19:17 Bronchial Washings Bronchial Fungal Smear - Final NO FUNGAL ELEMENTS SEEN. Resulted 11/14/17 19:17 Bronchial Washings Bronchial Fungal Culture Pending Resulted 11/14/17 19:17 Bronchial Washings Bronchial Acid Fast Stain - Final NO ACID FAST BACILLI SEEN Resulted 11/14/17 19:17 Bronchial Washings Bronchial Mycobacterial Culture Pending Resulted 11/14/17 19:17 Bronchial Washings Bronchial Gram Stain - Final Complete 11/14/17 19:17 Bronchial Washings Bronchial Bronchial Culture - Final NO GROWTH IN 48 HOURS. Complete Imaging Last Impressions Chest X-Ray 11/14/17 0000 Signed Impressions: Service Date/Time: Tuesday, November 14, 2017 07:07 - CONCLUSION: 1. Stable ETT. NGT in the distal stomach. 2. Stable diffuse patchy airspace disease bilaterally. Gigi Sigala MD CT Angiography 11/13/17 0000 Signed Impressions: Service Date/Time: Monday, November 13, 2017 03:47 - CONCLUSION: 1. Negative for pulmonary embolus. 2. Bilateral airspace disease, predominantly groundglass slight upper lobe predominance with adenopathy. Differential diagnosis includes bronchopneumonia or. Recommend short-term followup to follow adenopathy and ensure resolution. Elieser Villalobos MD Physical Exam GENERAL: This is a well-nourished, well-developed patient. SKIN: No rashes, ecchymoses or lesions. Cool and dry. HEAD: Atraumatic. Normocephalic. No temporal or scalp tenderness. EYES: Pupils equal round and reactive. Extraocular motions intact. No scleral icterus. No injection or drainage. ENT: Intubated. NECK: Trachea midline. Supple, nontender, no meningeal signs. CARDIOVASCULAR: HS audible. RESPIRATORY: AE decreased bilaterally. Bilateral wheezes. GASTROINTESTINAL: Abdomen soft, non-tender, nondistended. MUSCULOSKELETAL: Extremities without clubbing, cyanosis, or edema. No joint tenderness, effusion, or edema noted. No calf tenderness. Negative Homans sign bilaterally. NEUROLOGICAL: Sedated on vent. Psych cooperative IV line sites with no e.o infection. Assessment & Plan Remarks Severe Sepsis present on admission. Pneumonia in an Immune compromised patient. Influenza pneumonia: PCR positive. Ground glass opacities of lung: DDX acute infections, Fungal (crypto, histo), PCP, CMV are some other differentials that are being considered. Acute respiratory failure on NRB 100% FiO2. H/o RA, Lupus on MTX and steroids off and on. Immune compromised host Thrombocytopenia: sepsis, meds related. Penicillin Allergy: has tolerated keflex in past. High grade leucocytosis: infection, steroids. Recs: Continue Azactam IV Continue Levaquin IV (atypical coverage) Continue Tamiflu oral Follow cultures Follow clinically June Puri MD Nov 17, 2017 12:55
[2017-11-17] MEDS: NAPHAZOLINE HCL 0.012% OPHT SOLN 15 ML BOTTLE EACH EYE SCH ×2 (13:00→23:26)
[2017-11-17] MEDS: methylPREDNISolone SOD SUCC 40 MG/1 ML VIAL IV PUSH SCH (16:12)
[2017-11-17] MEDS ORDERED: methylPREDNISolone SOD SUCC 125 MG/2 ML VIAL IV PUSH SCH (18:00)
--- NOTE | 2017-11-17 18:47 | HHI.PR ---
Subjective Remarks Sedated and on 45 % FIO2 and PEEP +8.On A/C rate 20. Chest Xray shows bilateral infiltrates. ABG's show hypercapnia. Objective Vital Signs Date Time Temp Pulse Resp B/P (MAP) Pulse Ox O2 Delivery O2 Flow Rate FiO2 11/17/17 18:00 88 11/17/17 16:07 94 45 11/17/17 16:00 98.8 100 21 113/56 (75) 94 114/62 (79) 11/17/17 16:00 97 11/17/17 16:00 45 11/17/17 14:00 104 11/17/17 12:00 45 11/17/17 12:00 98.9 109 20 117/59 (78) 95 118/67 (84) 11/17/17 12:00 109 11/17/17 10:41 95 45 11/17/17 10:00 110 11/17/17 08:26 96 45 11/17/17 08:08 100 45 11/17/17 08:00 109 11/17/17 08:00 99.0 110 29 129/69 (89) 95 123/64 (83) 11/17/17 08:00 45 11/17/17 06:00 109 120/60 (80) 127/64 (85) 11/17/17 06:00 109 11/17/17 04:57 94 45 11/17/17 04:00 112 11/17/17 04:00 45 11/17/17 04:00 98.8 112 23 120/57 (78) 95 125/62 (83) 11/17/17 02:04 91 40 11/17/17 02:00 96 11/17/17 02:00 45 11/17/17 00:00 99 11/17/17 00:00 40 11/17/17 00:00 98.8 99 23 121/69 (86) 94 120/64 (82) 11/16/17 23:29 93 40 11/16/17 22:00 99 11/16/17 20:23 92 40 11/16/17 20:00 40 11/16/17 20:00 98.8 99 20 119/67 (84) 96 116/63 (80) 11/16/17 20:00 99 11/16/17 18:46 96 40 I/O 11/16/17 11/16/17 11/16/17 11/17/17 11/17/17 11/17/17 07:00 15:00 23:00 07:00 15:00 23:00 Intake Total 1190 ml 100 ml 1360 ml 1482 ml 870 ml Output Total 1400 ml 1500 ml 1050 ml 1100 ml 2550 ml Balance -210 ml -1400 ml 310 ml 382 ml -1680 ml Intake Oral 0 ml 0 ml 0 ml IV Total 750 ml 100 ml 829 ml 911 ml 100 ml Tube Feeding 380 ml 381 ml 471 ml 420 ml Tube Irrigant 60 ml 150 ml 100 ml Other 100 ml 250 ml Output Urine Total 1400 ml 1500 ml 1050 ml 1100 ml 2550 ml # Bowel Movements 0 0 0 2 Result Diagram: 11/17/1739911/17/17399 Objective Remarks This is a moderately obese middle-aged lady who is intubated, assisting the ventilator, sedated. HEENT: Head normocephalic. Pupils reactive. Sclerae were clear. Throat clear. Ears and nose have no inflammation. NECK: Supple. No bruits or thyroid enlargement. CHEST: Equal movements with wheezes over both lung reese with crackles over both lung reese. HEART: Heart sounds are regular S1 and S2. No S3. No murmur. ABDOMEN: The abdomen soft, obese without masses or organomegaly . Bowel sounds are active. EXTREMITIES: No edema. Peripheral pulses are diminished. Reflexes not elicited. The patient is sedated. SKIN: Dry and cool. Assessment and Plan Assessment and Plan IMPRESSION 1. Acute hypoxemic respiratory failure. 2. ARDS with possible bilateral pneumonia. 3. History of for rheumatoid arthritis with possible interstitial lung disease. 4. Asthmatic bronchitis with exacerbation. 5. Influenza A Plan : 1. Wean Fio2 to Keep sat >92. 2. Nebs q6h , duoneb 3. Keep sedated and wean Paralytics 4. Continue antibiotics 5. CPAP trial if tolerating in am 6. CXR ,CBC,BMP in am 7. Tube feeds at 60 CC 8. Lasix 20 MG IV BID Liz Sam MD Nov 17, 2017 18:47
[2017-11-18] VITALS (17 sets, daily range): BP systolic 122–186; BP diastolic 66–102; PULSE 83–120; RESP 20–23; TEMP 98.8–99.4; O2SAT 95–99
[2017-11-18] MEDS: PROPOFOL 1000 MG/100 ML INJ 100 ML IV PRN ×2 (00:20→03:28)
[2017-11-18] MEDS: methylPREDNISolone SOD SUCC 40 MG/1 ML VIAL IV PUSH SCH ×2 (00:20→14:46)
[2017-11-18] MEDS: LEVOFLOXACIN 750 MG PREMIX INJ 150 ML IV SCH (00:20)
[2017-11-18] MEDS: MIDAZOLAM 100 MG/100 ML INJ 100 ML IV PRN (01:44)
[2017-11-18] MEDS: INSULIN ASPART SUPPLEMENTAL SCALE SQ SCH ×4 (04:00→20:00)
[2017-11-18] MEDS: RESP: ALBUTEROL 2.5 MG/IPRATROPIUM 0.5 MG NEB (SCH) NEB ×4 (04:12→22:47)
[2017-11-18] MEDS: AZTREONAM INJ 2,000 MG in SODIUM CHLORIDE 0.9% INJ 100 ML IV SCH ×3 (05:12→23:00)
[2017-11-18] MEDS: fentaNYL DRIP 250 ML IV PRN ×2 (05:46→22:07)
[2017-11-18] MEDS: CHLORHEXIDINE 0.12% (ORAL KIT) 15 ML CUP MT SCH ×2 (08:00→20:00)
[2017-11-18] MEDS: FAMOTIDINE 20 MG/2 ML VIAL IV PUSH SCH ×2 (08:03→20:12)
[2017-11-18] MEDS: SODIUM CHLORIDE 0.9% FLUSH 10 ML FLUSH IV FLUSH SCH ×2 (08:03→20:13)
[2017-11-18] MEDS: NAPHAZOLINE HCL 0.012% OPHT SOLN 15 ML BOTTLE EACH EYE SCH ×4 (08:03→20:13)
[2017-11-18] MEDS: FUROSEMIDE 20 MG/2 ML VIAL IV PUSH SCH (08:03)
[2017-11-18] MEDS: BENEPROTEIN POWDER 1 PACK G-TUBE SCH ×3 (08:03→18:00)
[2017-11-18] MEDS: FOLIC ACID 1 MG TAB PO SCH (08:04)
[2017-11-18] MEDS: OSELTAMIVIR PHOSPHATE 75 MG CAP PO SCH (08:05)
[2017-11-18] MEDS: METOPROLOL SUCCINATE 25 MG EXTENDED RELEASE TAB PO SCH (08:05)
[2017-11-18] MEDS: ENOXAPARIN SODIUM 40 MG/0.4 ML SYRINGE SQ SCH (08:06)
[2017-11-18] MEDS: RESP: BUDESONIDE 0.5 MG/2 ML NEB NEB SCH ×2 (08:12→22:47)
[2017-11-18] MEDS: POLYETHYLENE GLYCOL 17 GM PKG PO SCH (08:32)
[2017-11-18] MEDS: DOCUSATE SODIUM 100 MG/10 ML UDC PO SCH ×2 (08:32→20:13)
[2017-11-18] MEDS: LACTULOSE SYRUP 20 GM/30 ML CUP PO SCH (08:32)
--- NOTE | 2017-11-18 08:52 | RADRPT ---
EXAM DATE/TIME: 11/18/2017 08:21 [place] COMPARISON: CHEST SINGLE AP, November 17, 2017, 3:44. INDICATIONS : Respiratory disease. MEDICAL HISTORY : Rheumatoid arthritis. Lupus. asthma SURGICAL HISTORY : Appendectomy. ENCOUNTER: Subsequent ACUITY: 1 day PAIN SCORE: Non-responsive. LOCATION: Bilateral chest FINDINGS: Stable ETT, right subclavian central line and NGT coursing beyond the GE junction. Mild diffuse inter stitial prominence and patchy perihilar airspace opacities, mildly improved. Cardiomediastinal contou rs are stable. Remainder of exam is unchanged. CONCLUSION: 1. Stable tubes and lines. 2. Improving pulmonary edema pattern. Gigi Sigala MD on November 18, 2017 at 8:49 Board Certified Radiologist. This report was verified electronically.
[2017-11-18] MEDS ORDERED: DEXMEDETOMIDINE INJ 200 MCG in SODIUM CHLORIDE 0.9% INJ 50 ML IV PRN (09:00)
[2017-11-18 09:28] LABS: ALBUMIN 2.6 GM/DL (3.4-5.0); ALKALINE PHOSPHATASE 69 U/L (45-117); ALT (GPT) 59 U/L (10-53); AST (GOT) 21 U/L (15-37); BICARBONATE 33.9 MEQ/L (21.0-32.0); BLOOD UREA NITROGEN 28 MG/DL (7-18); CHLORIDE 99 MEQ/L (98-107); CREATININE 0.78 MG/DL (0.50-1.00); GLOMERULAR FILTRATION RATE 78 ML/MIN (>89); GLUCOSE,RANDOM 123 MG/DL (74-106); SODIUM (NA) 137 MEQ/L (136-145); TOTAL BILIRUBIN ADULT 0.4 MG/DL (0.2-1.0); TOTAL PROTEIN 6.3 GM/DL (6.4-8.2)
--- NOTE | 2017-11-18 09:32 | HHI.CCPN ---
Subjective Remarks/Hospital Course Patient is a 60-year-old female with past medical history significant for rheumatoid arthritis on methotrexate and intermittently on steroids, Bronchial asthma, tobacco abuse who was admitted to [facility] with week long history of fevers chills and URI symptoms. This was associated with increasing shortness of breath and wheezing. Not improving with inhaled albuterol or prednisone which patient takes intermittently for rheumatoid arthritis flare up. About 3 days prior to ER visit patient was placed on Tamiflu by urgent care facility based on clinical symptoms. CXR at [place] emergency department showed bilateral patchy infiltrates. [facility] under the hospitalist and was placed on IV Solu- Medrol breathing treatments, IV Levaquin and Tamiflu. Overnight patient had clinical deterioration was on 6 L nasal cannula with desaturation into the low 80s and patient was placed on a nonrebreather. An ABG done on 6 L showed severe AA gradient and a PO2 of 55. 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 Because of hypoxemic respiratory failure, extensive pulmonary infiltrates and risk of worsening ARDS patient was emergently transferred to the [place] [facility] ICU I immediately evaluated the patient in the ICU. She is on partial nonrebreather oxygen saturation above 90%. The patient is tachypneic using accessory muscles. BiPAP ordered. Clinical presentation is concerning for influenza with secondary bacterial pneumonia. Because of her history of on and off chronic steroids and rheumatoid arthritis I will check for Pneumocystis jiroveci staining, LDH. Also ID consulted. A limited bedside echo showed normal ejection fraction. We will continue Tamiflu, IV Levaquin and vancomycin plus Azactam. If LDH is elevated start empiric coverage with IV Bactrim. Continue IV Solu-Medrol increased to 60 mg every 6 hours. ID consulted and discussed with Dr. Pinto SUBJ 11/14: Patient was intubated overnight for severe worsening hypoxemic respiratory failure. Chest x-ray postintubation showed worsening bilateral infiltrates. Currently on Zyvox, Azactam, IV Bactrim for PCP, and Levaquin. Pulmonology consulted for BAL if clinical condition permits. Start Nimbex infusion as the patient is on 100% FiO2 to maintain oxygen saturation. PEEP increased to 10. After obtaining BAL consider prolotherapy, if not improving 11/15: Remains intubated sedated and neuromuscularly paralyzed. Remains critical but stabilizing. FiO2 down to 60%. I will attempt weaning PEEP to 10. Discontinue neuromuscular paralysis due to risk of severe neuromuscular weakness, as patient is also on steroids. Chest x-ray remains unchanged. Bronchoscopy and BAL 11/14/17 results pending 11/16: Remains intubated sedated. Intermittent ventilatory synchrony with hypoxia worsening requiring rocuronium for neuromuscular paralysis. Currently FiO2 at 55% PEEP at 10. Chest x-ray shows worsening infiltrate and fluid overload. Start careful diuresis with IV Lasix. Influenza pneumonia, PCR positive. 11/17: Remains intubated heavily sedated intermittently neuromuscularly paralyzed on ventilator synchrony. Chest x-ray shows slight improvement in bilateral infiltrates. FiO2 down to 45%. Urine output adequate on Lasix. K 5.2 , KCL discontinued. Vent changed to ACV from PC/AC. Remains hypercapnic on ABG 11/18: Remains intubated chest x-ray shows improving pulmonary edema pattern. remain heavily sedated. K 5.7. Will give 40 mg IV lasix and 30 Gm Kayexalate and repeat at 1500. Start CPAP today Objective Vital Signs Date Time Temp Pulse Resp B/P (MAP) Pulse Ox O2 Delivery O2 Flow Rate FiO2 11/18/17 08:37 40 11/18/17 08:14 96 11/18/17 06:00 85 11/18/17 06:00 131/70 (90) 131/67 (88) 11/18/17 04:00 98.8 20 Intake and Output 11/18/17 11/18/17 11/19/17 08:00 16:00 00:00 Intake Total 1332 ml Output Total 2200 ml Balance -868 ml Result Diagram: 11/17/17 0400 11/18/17 0830 Other Results Laboratory Tests Test 11/17/17 10:40 Blood Gas Puncture Site ART LINE Blood Gas Patient Temperature 98.6 Blood Gas HCO3 25 mmol/L (22-26) Blood Gas Base Excess -0.5 mmol/L (-2-2) Blood Gas Oxygen Saturation 91 % (90-100) Arterial Blood pH 7.31 (7.380-7.420) Arterial Blood Partial Pressure CO2 51 mmHg (38-42) Arterial Blood Partial Pressure O2 73 mmHg (61-120) Arterial Blood Oxygen Content 16.2 Vol % (12.0-20.0) Arterial Blood Carboxyhemoglobin 1.2 % (0-4) Arterial Blood Methemoglobin 1.7 % (0-2) Blood Gas Hemoglobin 12.5 G/DL (12.0-16.0) Oxygen Delivery Device VENTILATOR Blood Gas Ventilator Setting AC RR20/VT550/ PEEP7 Blood Gas Inspired Oxygen 45 % Imaging CT CHEST: Bilateral airspace disease, predominantly ground glass slight upper lobe predominance with adenopathy. Differential diagnosis includes bronchopneumonia or. Recommend short-term followup to follow adenopathy and ensure resolution. Chest x-ray shows bilateral patchy infiltrates Objective Remarks GENERAL: Lying in bed, intubated heavily sedated, SKIN: Warm and dry. EYES: No scleral icterus. No injection or drainage. ENT: No nasal bleeding or discharge. Orotracheally intubated NECK: Supple. No JVD CARDIOVASCULAR: Regular rate and rhythm. no murmurs. Hypotensive RESPIRATORY: On ACV vent mode, PEEP 7, FiO2 40%. Fine crackles and wheezing improved GASTROINTESTINAL: Abdomen soft, non-tender, nondistended. EXT: No clubbing, cyanosis, or edema. No obvious deformities. NEUROLOGICAL: Intubated heavily sedated for vent synchrony and hypoxia. Moves extremities Urinary Catheter: Yes Assessment to: Continue Vascular Central Line Catheter: Yes Assessment to: Continue A/P Assessment and Plan ASSESSMENT: Acute hypoxemic respiratory failure Severe ARDS-improving Influenza pneumonia Severe sepsis Bronchial asthma with exacerbation Serum LDH elevated at 568, PJP stain negative Fluid overload Immunosuppression due to methotrexate and chronic (intermittent) steroid use History of rheumatoid arthritis, possible Lupus PLAN: NEURO: -Propofol, Versed and fentanyl for sedation and ventilator synchrony. -DC Versed and start Precedex to facilitate ventilator weaning -Continue as needed rocuronium for ventilator synchrony -Tylenol for fever RESP: -Intubated 11/13/17 night due to worsening hypoxemia, severe ARDS -AC/VC. Decreased PEEP to 5, titrate oxygen to keep saturations more than 90% -Pulmonology Dr. Rich. s/p Bronch with BAL 11/14. -Influenza PCR positive -DuoNeb every 6 hours scheduled and as needed -IV Solu Medrol to 40 every q12h. budesonide inhaled -PJP stain negative, serum LDH elevated at 568 -See ID section for ABX -CPAP trial starting today CV: -Bedside echo shows normal ejection fraction, 2D Echo EF normal -Diurese to dry weight, IV Lasix 20 mg every daily -Additional 20 mg IV today GI: -IV famotidine -Tube feeds with Glucerna, bowel regimen with Colace and lactulose : -Monitor renal function closely. IV Lasix as above -Machado catheter. Strict I's and O's ID: -Patient appears to have bilateral pneumonia, atypical, opportunistic infections needs to be ruled out -Influenza PCR positive, PJP stain negative -Neg sputum culture and blood culture, urine for Legionella and pneumococcal antigen -Continue broad-spectrum antibiotics with Azactam, Levaquin and Tamiflu. Zyvox , and Bactrim DCd 11/16 -Infectious disease HEME: -Monitor CBC, CMP, coags ENDO: -Mild hyperglycemia secondary to steroids -Sliding scale insulin MSK -Holding methotrexate due to an acute infection -Continue IV Solu-Medrol, reduce to 40 q12 PROPH: Bilateral lower extremity SCDs/JESSICA. Lovenox, Famotidine LINES: Utilize peripheral IVs, placed central line and arterial line Level 3 Phi Gaston MD Nov 18, 2017 09:32
[2017-11-18] MEDS ORDERED: FUROSEMIDE 20 MG/2 ML VIAL IV PUSH ONE (09:45)
[2017-11-18] MEDS ORDERED: SODIUM POLYSTYRENE SULFONATE SUSP 15 GM/60 ML CUP PO ONE (09:45)
--- NOTE | 2017-11-18 14:05 | HHI.IDPN ---
Subjective Subjective Remarks Ms. Boyd is a 60 y/o female with PMHx significant for rheumatoid arthritis and possibly lupus who is on methotrexate and intermittently on steroids. Her PMHx is also significant for Bronchial asthma and she admits to smoking 1 ppd for many years. 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 She denies any fungal pneumonia. She denies exposure to people with TB or positive PPD. She thinks she uses a nebulizer which may have mold deposits. She reports her home is her truck. She lives in motels at times. Patient reports her symptoms started off with a fever she presented at an ED or urgent care was diagnosed with Flu and started on Tamiflu approximately 1 week SANDBLASTER GLASS. She then presented to the [facility] ED with fever 103 F, tachycardia and Pneumonia on CXR on 11/11/2017. Flu antigen at this point after being treated with tamiflu was negative. She was transferred to [facility] due to increasing Shortness of breath and wheezing. She was reportedly getting worse despite taking her steroids at home which she intermittently takes for her RA. Patient was admitted to the [facility] facility under the hospitalist and was placed on IV Solu-Medrol breathing treatments, IV Levaquin and Tamiflu. Overnight patient had clinical deterioration was on 6 L nasal cannula with desaturation into the low 80s and patient was placed on a nonrebreather. An ABG done on 6 L showed severe AA gradient and a PO2 of 55. 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 Due to worsening shortness of breath, hypoxemic respiratory failure, extensive pulmonary infiltrates and risk of worsening ARDS patient was emergently transferred to the [place] [facility] ICU. Patient is currently under the case work aide service and is on a partial nonrebreather on 100% FiO2. The patient is tachypneic using accessory muscles. BiPAP ordered earlier but patient prefers not to use it. Patient is currently on Tamiflu, IV Levaquin, Azactam IV and IV vancomycin. Due to concern for PCP LDH was checked and patient started on empiric Bactrim IV.Patient is on IV Solu- Medrol increased to 60 mg every 6 hours. ID consulted for evaluation and Mment of Pneumonia in an Immune compromised patient. Overnight events reviewed. Remains intubated. On CPAP trials. Secretions small white to whitney. No fever No rash No diarrhea Antibiotics Azactam IV Levaquin Tamiflu Lines Line sites with no e.o infection Past Medical History reviewed Allergies: Coded Allergies: Penicillins (Verified Allergy, Severe, Swelling, 11/13/17) Has tolerated Keflex as outpatient. aspirin (Verified Allergy, Severe, 11/11/17) morphine (Verified Adverse Reaction, Mild, Itching, 11/12/17) Objective . Vital Signs Date Time Temp Pulse Resp B/P (MAP) Pulse Ox O2 Delivery O2 Flow Rate FiO2 11/18/17 12:00 111 11/18/17 12:00 40 11/18/17 12:00 98.8 111 22 130/80 (97) 95 153/88 (109) 11/18/17 11:45 40 11/18/17 11:35 96 40 11/18/17 10:15 40 11/18/17 10:12 40 11/18/17 10:00 92 11/18/17 08:37 40 11/18/17 08:14 96 40 11/18/17 08:00 98.9 83 20 130/69 (89) 97 129/73 (91) 11/18/17 08:00 83 11/18/17 08:00 40 11/18/17 06:00 85 11/18/17 06:00 89 131/70 (90) 131/67 (88) 11/18/17 04:12 95 40 11/18/17 04:00 40 11/18/17 04:00 85 11/18/17 04:00 98.8 85 20 131/70 (90) 95 134/69 (90) 11/18/17 02:00 83 11/18/17 01:12 40 11/18/17 00:00 87 11/18/17 00:00 98.9 87 22 122/66 (84) 96 124/66 (85) 11/18/17 00:00 45 11/17/17 22:00 99 11/17/17 20:39 95 45 11/17/17 20:00 90 11/17/17 20:00 45 11/17/17 20:00 98.7 90 22 125/63 (83) 95 127/64 (85) 11/17/17 18:00 88 11/17/17 18:00 89 125/70 (88) 132/67 (88) 11/17/17 16:07 94 45 11/17/17 16:00 98.8 100 21 113/56 (75) 94 114/62 (79) 11/17/17 16:00 97 11/17/17 16:00 45 . Laboratory Tests Test 11/17/17 04:00 White Blood Count 11.5 TH/MM3 Red Blood Count 3.90 MIL/MM3 Hemoglobin 12.0 GM/DL Hematocrit 35.3 % Mean Corpuscular Volume 90.6 FL Mean Corpuscular Hemoglobin 30.9 PG Mean Corpuscular Hemoglobin Concent 34.1 % Red Cell Distribution Width 14.8 % Platelet Count 216 TH/MM3 Mean Platelet Volume 8.4 FL Neutrophils (%) (Auto) 88.9 % Lymphocytes (%) (Auto) 7.3 % Monocytes (%) (Auto) 3.7 % Eosinophils (%) (Auto) 0.0 % Basophils (%) (Auto) 0.1 % Neutrophils # (Auto) 10.2 TH/MM3 Lymphocytes # (Auto) 0.8 TH/MM3 Monocytes # (Auto) 0.4 TH/MM3 Eosinophils # (Auto) 0.0 TH/MM3 Basophils # (Auto) 0.0 TH/MM3 CBC Comment AUTO DIFF Differential Total Cells Counted 100 Neutrophils % (Manual) 83 % Band Neutrophils % 3 % Lymphocytes % 6 % Monocytes % 5 % Neutrophils # (Manual) 10.2 TH/MM3 Metamyelocytes 1 % Myelocytes 2 % Differential Comment FINAL DIFF MANUAL Platelet Estimate NORMAL Platelet Morphology Comment NORMAL Red Cell Morphology Comment NORMAL Laboratory Tests Test 11/17/17 04:00 11/17/17 15:20 11/18/17 08:30 Blood Urea Nitrogen 23 MG/DL 28 MG/DL Creatinine 0.87 MG/DL 0.78 MG/DL Random Glucose 141 MG/DL 123 MG/DL Total Protein 6.0 GM/DL 6.3 GM/DL Albumin 2.4 GM/DL 2.6 GM/DL Calcium Level 8.4 MG/DL 9.0 MG/DL Magnesium Level 2.7 MG/DL Alkaline Phosphatase 66 U/L 69 U/L Aspartate Amino Transf (AST/SGOT) 35 U/L 21 U/L Alanine Aminotransferase (ALT/SGPT) 64 U/L 59 U/L Total Bilirubin 0.2 MG/DL 0.4 MG/DL Sodium Level 142 MEQ/L 137 MEQ/L Potassium Level 5.2 MEQ/L 5.7 MEQ/L Chloride Level 109 MEQ/L 99 MEQ/L Carbon Dioxide Level 27.5 MEQ/L 33.9 MEQ/L Anion Gap 6 MEQ/L 4 MEQ/L Estimat Glomerular Filtration Rate 69 ML/MIN 78 ML/MIN Procalcitonin 0.05 ng/mL Imaging Last Impressions Chest X-Ray 11/14/17 0000 Signed Impressions: Service Date/Time: Tuesday, November 14, 2017 07:07 - CONCLUSION: 1. Stable ETT. NGT in the distal stomach. 2. Stable diffuse patchy airspace disease bilaterally. Gigi Sigala MD CT Angiography 11/13/17 0000 Signed Impressions: Service Date/Time: Monday, November 13, 2017 03:47 - CONCLUSION: 1. Negative for pulmonary embolus. 2. Bilateral airspace disease, predominantly groundglass slight upper lobe predominance with adenopathy. Differential diagnosis includes bronchopneumonia or. Recommend short-term followup to follow adenopathy and ensure resolution. Elieser Villalobos MD Physical Exam GENERAL: This is a well-nourished, well-developed patient. SKIN: No rashes, ecchymoses or lesions. Cool and dry. HEAD: Atraumatic. Normocephalic. No temporal or scalp tenderness. EYES: Pupils equal round and reactive. Extraocular motions intact. No scleral icterus. No injection or drainage. ENT: Intubated. NECK: Trachea midline. Supple, nontender, no meningeal signs. CARDIOVASCULAR: HS audible. RESPIRATORY: AE decreased bilaterally. Bilateral wheezes. GASTROINTESTINAL: Abdomen soft, non-tender, nondistended. MUSCULOSKELETAL: Extremities without clubbing, cyanosis, or edema. No joint tenderness, effusion, or edema noted. No calf tenderness. Negative Homans sign bilaterally. NEUROLOGICAL: Sedated on vent. Opens eyes spontaneously. Moves all 4 extremities. Psych cooperative IV line sites with no e.o infection. Assessment & Plan Remarks Severe Sepsis present on admission. Pneumonia in an Immune compromised patient. Influenza pneumonia: PCR positive. Ground glass opacities of lung: DDX acute infections, Fungal (crypto, histo), PCP, CMV are some other differentials that are being considered. Acute respiratory failure on NRB 100% FiO2. H/o RA, Lupus on MTX and steroids off and on. Immune compromised host Thrombocytopenia: sepsis, meds related. Penicillin Allergy: has tolerated keflex in past. High grade leucocytosis: infection, steroids. Recs: Continue Azactam IV Continue Levaquin IV (atypical coverage) Continue Tamiflu oral Follow cultures Follow clinically dw Dr.John Mallory covering for me this weekend and available prn. June Pinto MD Nov 18, 2017 14:05
[2017-11-18 19:52] LABS: ASPERGILLUS FLAVUS AB NEGATIVE (NEGATIVE); ASPERGILLUS FUMIGATUS AB NEGATIVE (NEGATIVE); ASPERGILLUS NIGER AB NEGATIVE (NEGATIVE)
--- NOTE | 2017-11-18 20:05 | HHI.PR ---
Subjective Remarks Off Sedation and on 40 % FIO2 and CPAP with PEEP+7.. Chest Xray shows bilateral infiltrates. She seems more awake . Objective Vital Signs Date Time Temp Pulse Resp B/P (MAP) Pulse Ox O2 Delivery O2 Flow Rate FiO2 11/18/17 18:00 89 167/82 (110) 166/89 (114) 11/18/17 18:00 99.4 120 22 186/102 (130) 95 166/89 (114) 11/18/17 18:00 118 11/18/17 16:30 45 11/18/17 16:21 99 45 11/18/17 16:00 40 11/18/17 16:00 120 11/18/17 14:00 110 11/18/17 12:00 111 11/18/17 12:00 40 11/18/17 12:00 98.8 111 22 130/80 (97) 95 153/88 (109) 11/18/17 11:45 40 11/18/17 11:35 96 40 11/18/17 10:15 40 11/18/17 10:12 40 11/18/17 10:00 92 11/18/17 08:37 40 11/18/17 08:14 96 40 11/18/17 08:00 98.9 83 20 130/69 (89) 97 129/73 (91) 11/18/17 08:00 83 11/18/17 08:00 40 11/18/17 06:00 85 11/18/17 06:00 89 131/70 (90) 131/67 (88) 11/18/17 04:12 95 40 11/18/17 04:00 40 11/18/17 04:00 85 11/18/17 04:00 98.8 85 20 131/70 (90) 95 134/69 (90) 11/18/17 02:00 83 11/18/17 01:12 40 11/18/17 00:00 87 11/18/17 00:00 98.9 87 22 122/66 (84) 96 124/66 (85) 11/18/17 00:00 45 11/17/17 22:00 99 11/17/17 20:39 95 45 I/O 11/17/17 11/17/17 11/17/17 11/18/17 11/18/17 11/18/17 07:00 15:00 23:00 07:00 15:00 23:00 Intake Total 1482 ml 1320 ml 1332 ml 784 ml Output Total 1100 ml 2550 ml 2200 ml 4300 ml Balance 382 ml -1230 ml -868 ml -3516 ml Intake Oral 0 ml IV Total 911 ml 550 ml 783 ml 100 ml Tube Feeding 471 ml 420 ml 449 ml 584 ml Tube Irrigant 100 ml Other 100 ml 250 ml 100 ml 100 ml Output Urine Total 1100 ml 2550 ml 2200 ml 4300 ml # Bowel Movements 0 2 2 1 Result Diagram: 11/17/17 0400 11/18/17 1547 Objective Remarks This is a moderately obese middle-aged lady who is intubated, assisting the ventilator. HEENT: Head normocephalic. Pupils reactive. Sclerae were clear. Throat clear. Ears and nose have no inflammation. NECK: Supple. No bruits or thyroid enlargement. CHEST: Equal movements with crackles over both lung bases. HEART: Heart sounds are regular S1 and S2. No S3. No murmur. ABDOMEN: The abdomen soft, obese without masses or organomegaly . Bowel sounds are active. EXTREMITIES: No edema. Peripheral pulses are good . Reflexes not elicited. SKIN: Dry and cool. Assessment and Plan Assessment and Plan IMPRESSION 1. Acute hypoxemic respiratory failure. 2. ARDS with possible bilateral pneumonia. 3. History of for rheumatoid arthritis with possible interstitial lung disease. 4. Asthmatic bronchitis with exacerbation. 5. Influenza A Plan : 1. Wean Fio2 to Keep sat >92. 2. Nebs q6h , duoneb 3. CPAP daily and Resp parameters . 4. Continue antibiotics 5. Reduce sedation 6. CXR ,CBC,BMP in am 7. Tube feeds at 60 CC 8. Lasix 20 MG IV BID Liz Sam MD Nov 18, 2017 20:05
[2017-11-18] MEDS: DEXMEDETOMIDINE INJ 400 MCG in SODIUM CHLORIDE 0.9% INJ 96 ML IV PRN (22:07)
[2017-11-19] VITALS (19 sets, daily range): BP systolic 127–172; BP diastolic 69–93; PULSE 85–110; RESP 18–22; TEMP 99.3; O2SAT 96–99
[2017-11-19] MEDS: methylPREDNISolone SOD SUCC 40 MG/1 ML VIAL IV PUSH SCH ×2 (01:46→13:52)
[2017-11-19] MEDS: LEVOFLOXACIN 750 MG PREMIX INJ 150 ML IV SCH (01:47)
[2017-11-19] MEDS: DEXMEDETOMIDINE INJ 400 MCG in SODIUM CHLORIDE 0.9% INJ 96 ML IV PRN ×3 (01:47→16:03)
[2017-11-19] MEDS: RESP: ALBUTEROL 2.5 MG/IPRATROPIUM 0.5 MG NEB (SCH) NEB ×2 (03:37→07:50)
[2017-11-19] MEDS: INSULIN ASPART SUPPLEMENTAL SCALE SQ SCH ×6 (04:00→20:00)
--- NOTE | 2017-11-19 04:37 | RADRPT ---
EXAM DATE/TIME: 11/19/2017 03:23 [place] COMPARISON: CHEST SINGLE AP, November 18, 2017, 8:21. INDICATIONS : Shortness of breath, possible pulmonary disease. MEDICAL HISTORY : Rheumatoid arthritis. Lupus. Asthma SURGICAL HISTORY : Appendectomy. ENCOUNTER: Subsequent ACUITY: 1 week PAIN SCORE: Non-responsive. LOCATION: Bilateral chest FINDINGS: Lines and tubes are present not significantly changed. There is mild prominence of the interstitial m arkings, however focal consolidation is not seen. CONCLUSION: Overall improvement in pulmonary edema with minimal interstitial process remaining. Tayla Valderrama MD on November 19, 2017 at 4:34 Board Certified Radiologist. This report was verified electronically.
[2017-11-19] MEDS: fentaNYL DRIP 250 ML IV PRN ×3 (05:13→21:22)
[2017-11-19] MEDS: AZTREONAM INJ 2,000 MG in SODIUM CHLORIDE 0.9% INJ 100 ML IV SCH ×3 (05:13→20:32)
[2017-11-19 05:23] LABS: EOSINOPHIL % 0.2 % (0.0-4.0); HEMATOCRIT 38.2 % (35.0-46.0); HEMOGLOBIN 13.2 GM/DL (11.6-15.3); LYMPH % 14.6 % (9.0-44.0); MEAN CELL VOLUME 89.3 FL (80.0-100.0); MEAN CORPUSCULAR HEMOGLOBIN 30.9 PG (27.0-34.0); MEAN CORPUSCULAR HGB CONC 34.6 % (32.0-36.0); MONOCYTE # 0.7 TH/MM3 (0-0.9); NEUT % 80.2 % (16.0-70.0); PLATELET COUNT 242 TH/MM3 (150-450); RED BLOOD COUNT 4.27 MIL/MM3 (4.00-5.30); RED CELL DISTRIBUTION WIDTH 13.6 % (11.6-17.2); WHITE BLOOD COUNT 13.7 TH/MM3 (4.0-11.0)
[2017-11-19 05:46] LABS: ALBUMIN 2.5 GM/DL (3.4-5.0); ALT (GPT) 50 U/L (10-53); AST (GOT) 21 U/L (15-37); BICARBONATE 37.6 MEQ/L (21.0-32.0); CHLORIDE 96 MEQ/L (98-107); CREATININE 0.75 MG/DL (0.50-1.00); GLOMERULAR FILTRATION RATE 81 ML/MIN (>89); GLUCOSE,RANDOM 132 MG/DL (74-106); MAGNESIUM 2.3 MG/DL (1.5-2.5); SODIUM (NA) 138 MEQ/L (136-145)
[2017-11-19 05:52] LABS: ALKALINE PHOSPHATASE 67 U/L (45-117); BLOOD UREA NITROGEN 31 MG/DL (7-18); TOTAL PROTEIN 6.6 GM/DL (6.4-8.2)
[2017-11-19 05:56] LABS: TOTAL BILIRUBIN ADULT 0.5 MG/DL (0.2-1.0)
[2017-11-19] MEDS: RESP: BUDESONIDE 0.5 MG/2 ML NEB NEB SCH ×2 (07:50→20:04)
[2017-11-19] MEDS: CHLORHEXIDINE 0.12% (ORAL KIT) 15 ML CUP MT SCH ×2 (07:56→20:31)
[2017-11-19] MEDS: FAMOTIDINE 20 MG/2 ML VIAL IV PUSH SCH ×2 (07:56→20:32)
[2017-11-19] MEDS: BENEPROTEIN POWDER 1 PACK G-TUBE SCH ×3 (07:57→18:00)
[2017-11-19] MEDS: NAPHAZOLINE HCL 0.012% OPHT SOLN 15 ML BOTTLE EACH EYE SCH ×4 (07:57→20:33)
[2017-11-19] MEDS: SODIUM CHLORIDE 0.9% FLUSH 10 ML FLUSH IV FLUSH SCH ×2 (07:57→20:32)
[2017-11-19] MEDS: OSELTAMIVIR PHOSPHATE 75 MG CAP PO SCH (07:58)
[2017-11-19] MEDS: DOCUSATE SODIUM 100 MG/10 ML UDC PO SCH ×2 (07:58→20:32)
[2017-11-19] MEDS: FUROSEMIDE 20 MG/2 ML VIAL IV PUSH SCH (07:58)
[2017-11-19] MEDS: METOPROLOL SUCCINATE 25 MG EXTENDED RELEASE TAB PO SCH ×2 (07:59→09:00)
[2017-11-19] MEDS: FOLIC ACID 1 MG TAB PO SCH (07:59)
[2017-11-19] MEDS: LACTULOSE SYRUP 20 GM/30 ML CUP PO SCH (08:00)
[2017-11-19] MEDS: ENOXAPARIN SODIUM 40 MG/0.4 ML SYRINGE SQ SCH (08:00)
[2017-11-19] MEDS: POLYETHYLENE GLYCOL 17 GM PKG PO SCH (08:00)
[2017-11-19 09:01] LABS: BANDS 2 % (0-6); LYMPHOCYTES 11 % (9-44); METAMYELOCYTES 4 % (0-1); MONOCYTES 2 % (0-8); MYELOCYTES 5 % (0-0); NEUTROPHIL # MANUAL DIFF 11.9 TH/MM3 (1.8-7.7); POLYS (SEG NEUTROPHILS) 75 % (16-70); PROMYELOCYTES 1 % (0-0)
[2017-11-19] MEDS: RESP: ALBUTEROL 2.5 MG/IPRATROPIUM 0.5 MG NEB (PRN) NEB ×2 (11:14→20:04)
[2017-11-19] MEDS: METOPROLOL TARTRATE 25 MG TAB PO SCH ×2 (13:51→20:32)
--- NOTE | 2017-11-19 14:14 | HHI.CCPN ---
Subjective Remarks/Hospital Course Patient is a 60-year-old female with past medical history significant for rheumatoid arthritis on methotrexate and intermittently on steroids, Bronchial asthma, tobacco abuse who was admitted to [facility] with week long history of fevers chills and URI symptoms. This was associated with increasing shortness of breath and wheezing. Not improving with inhaled albuterol or prednisone which patient takes intermittently for rheumatoid arthritis flare up. About 3 days prior to ER visit patient was placed on Tamiflu by urgent care facility based on clinical symptoms. CXR at [place] emergency department showed bilateral patchy infiltrates. Patient was admitted to the [facility] facility under the hospitalist and was placed on IV Solu- Medrol breathing treatments, IV Levaquin and Tamiflu. Overnight patient had clinical deterioration was on 6 L nasal cannula with desaturation into the low 80s and patient was placed on a nonrebreather. An ABG done on 6 L showed severe AA gradient and a PO2 of 55. 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 Because of hypoxemic respiratory failure, extensive pulmonary infiltrates and risk of worsening ARDS patient was emergently transferred to the [place] [facility] I immediately evaluated the patient in the ICU. She is on partial nonrebreather oxygen saturation above 90%. The patient is tachypneic using accessory muscles. BiPAP ordered. Clinical presentation is concerning for influenza with secondary bacterial pneumonia. Because of her history of on and off chronic steroids and rheumatoid arthritis I will check for Pneumocystis jiroveci staining, LDH. Also ID consulted. A limited bedside echo showed normal ejection fraction. We will continue Tamiflu, IV Levaquin and vancomycin plus Azactam. If LDH is elevated start empiric coverage with IV Bactrim. Continue IV Solu-Medrol increased to 60 mg every 6 hours. ID consulted and discussed with Dr. Pinto SUBJ 11/14: Patient was intubated overnight for severe worsening hypoxemic respiratory failure. Chest x-ray postintubation showed worsening bilateral infiltrates. Currently on Zyvox, Azactam, IV Bactrim for PCP, and Levaquin. Pulmonology consulted for BAL if clinical condition permits. Start Nimbex infusion as the patient is on 100% FiO2 to maintain oxygen saturation. PEEP increased to 10. After obtaining BAL consider prolotherapy, if not improving 11/15: Remains intubated sedated and neuromuscularly paralyzed. Remains critical but stabilizing. FiO2 down to 60%. I will attempt weaning PEEP to 10. Discontinue neuromuscular paralysis due to risk of severe neuromuscular weakness, as patient is also on steroids. Chest x-ray remains unchanged. Bronchoscopy and BAL 11/14/17 results pending 11/16: Remains intubated sedated. Intermittent ventilatory synchrony with hypoxia worsening requiring rocuronium for neuromuscular paralysis. Currently FiO2 at 55% PEEP at 10. Chest x-ray shows worsening infiltrate and fluid overload. Start careful diuresis with IV Lasix. Influenza pneumonia, PCR positive. 11/17: Remains intubated heavily sedated intermittently neuromuscularly paralyzed on ventilator synchrony. Chest x-ray shows slight improvement in bilateral infiltrates. FiO2 down to 45%. Urine output adequate on Lasix. K 5.2 , KCL discontinued. Vent changed to ACV from PC/AC. Remains hypercapnic on ABG 11/18: Remains intubated chest x-ray shows improving pulmonary edema pattern. remain heavily sedated. K 5.7. Will give 40 mg IV lasix and 30 Gm Kayexalate and repeat at 1500. Start CPAP today. 11/19: CPAP trials initiated today, patient initially lasted 1 hour, off all sedation this morning. Precedex and fentanyl continued CPAP trials reinitiated , pressure support of 15 more successful. Chest x-ray improving. Extensive discussion with family regarding possibility of tracheostomy between day 7 and 10. Objective Vital Signs Date Time Temp Pulse Resp B/P (MAP) Pulse Ox O2 Delivery O2 Flow Rate FiO2 11/19/17 13:04 45 11/19/17 12:00 102 11/19/17 12:00 99.3 21 135/69 (91) 98 127/70 (89) Intake and Output 11/19/17 11/19/17 11/20/17 08:00 16:00 00:00 Intake Total 1043 ml Output Total 1100 ml Balance -57 ml Result Diagram: 11/19/17 0440 11/19/17 0440 Imaging Last Impressions Chest X-Ray 11/19/17 0600 Signed Impressions: Service Date/Time: Sunday, November 19, 2017 03:23 - CONCLUSION: Overall improvement in pulmonary edema with minimal interstitial process remaining. KLuis Valderrama MD CT Angiography 11/13/17 0000 Signed Impressions: Service Date/Time: Monday, November 13, 2017 03:47 - CONCLUSION: 1. Negative for pulmonary embolus. 2. Bilateral airspace disease, predominantly groundglass slight upper lobe predominance with adenopathy. Differential diagnosis includes bronchopneumonia or. Recommend short-term followup to follow adenopathy and ensure resolution. Elieser Villalobos MD CT CHEST: Bilateral airspace disease, predominantly ground glass slight upper lobe predominance with adenopathy. Differential diagnosis includes bronchopneumonia or. Recommend short-term followup to follow adenopathy and ensure resolution. Chest x-ray shows bilateral patchy infiltrates Objective Remarks GENERAL: Lying in bed, intubated lightly sedated, family at bedside interacting patient remains on dexmedetomidine infusion SKIN: Warm and dry. EYES: No scleral icterus. No injection or drainage. ENT: No nasal bleeding or discharge. Orotracheally intubated NECK: Supple. No JVD CARDIOVASCULAR: Regular rate and rhythm. no murmurs. Hypotensive RESPIRATORY: On CPAP 15/5/.50, PEEP 7, FiO2 40%. Mild expiratory wheezing . GASTROINTESTINAL: Abdomen soft, non-tender, nondistended. EXT: No clubbing, cyanosis, or edema. No obvious deformities. NEUROLOGICAL: RASS -2. 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 -Continue Precedex and Fent infusion to facilitate ventilator weaning -Continue as needed rocuronium for ventilator synchrony -Tylenol for fever RESP: -Intubated 11/13/17 night due to worsening hypoxemia, severe ARDS -AC/VC. Decreased PEEP to 5, titrate oxygen to keep saturations more than 90% -Pulmonology Dr. Rich. s/p Bronch with BAL 11/14. -Influenza PCR positive -DuoNeb every 6 hours scheduled and as needed -IV Solu Medrol to 40 every q12h. budesonide inhaled -PJP stain negative, serum LDH elevated at 568 -See ID section for ABX -11/18 CPAP trial initiated, be continued with elevated pressure support of 15 CV: -Bedside echo shows normal ejection fraction, 2D Echo EF normal -Diurese to dry weight, IV Lasix 20 mg every daily -Patient normally on extended release 12.5 metoprolol changed to, metoprolol 6.25 mg twice a day GI: -IV famotidine -Tube feeds with Glucerna, bowel regimen with Colace and lactulose : -Monitor renal function closely. IV Lasix as above -Machado catheter. Strict I's and O's ID: -Patient appears to have bilateral pneumonia, atypical, opportunistic infections needs to be ruled out -Influenza PCR positive, PJP stain negative -Neg sputum culture and blood culture, urine for Legionella and pneumococcal antigen -Continue broad-spectrum antibiotics with Azactam, Levaquin and Tamiflu. Zyvox , and Bactrim DCd 11/16 -Infectious disease HEME: -Monitor CBC, CMP, coags ENDO: -Mild hyperglycemia secondary to steroids -Sliding scale insulin MSK -Holding methotrexate due to an acute infection -Continue IV Solu-Medrol, reduce to 40 q12 PROPH: Bilateral lower extremity SCDs/JESSICA. Lovenox, Famotidine LINES: Utilize peripheral IVs, placed central line and arterial line Dispo: Discussed with ASTROPHYSICS TEACHER and patient's and family at bedside. Discussion regarding ventilator associated pneumonia with prolonged intubation with ETT, rated and 7-10 days. Plan for continuous CPAP trials. All questions answered regarding possible tracheostomy if unable to wean. Level 3 Physician Amy Caro MD Nov 19, 2017 14:14
[2017-11-19] MEDS: LABETALOL HCL 100 MG/20 ML VIAL IV PUSH PRN (15:16)
[2017-11-20] VITALS (19 sets, daily range): BP systolic 106–210; BP diastolic 53–120; PULSE 79–127; RESP 13–40; TEMP 98.2–99.3; O2SAT 92–100
[2017-11-20] MEDS: LEVOFLOXACIN 750 MG PREMIX INJ 150 ML IV SCH ×2 (00:38→23:24)
[2017-11-20] MEDS: methylPREDNISolone SOD SUCC 40 MG/1 ML VIAL IV PUSH SCH ×2 (00:38→14:25)
[2017-11-20] MEDS: INSULIN ASPART SUPPLEMENTAL SCALE SQ SCH ×7 (04:00→23:06)
[2017-11-20] MEDS: AZTREONAM INJ 2,000 MG in SODIUM CHLORIDE 0.9% INJ 100 ML IV SCH ×3 (04:53→21:03)
--- NOTE | 2017-11-20 04:56 | RADRPT ---
EXAM DATE/TIME: 11/20/2017 04:02 [facility] COMPARISON: CHEST SINGLE AP, November 19, 2017, 3:23. INDICATIONS : Shortness of breath, possible pulmonary disease. MEDICAL HISTORY : Rheumatoid arthritis. Lupus. Asthma SURGICAL HISTORY : Appendectomy. ENCOUNTER: Subsequent ACUITY: 1 week PAIN SCORE: Non-responsive. LOCATION: Bilateral chest FINDINGS: A single view of the chest demonstrates right central line in superior vena cava. NG enters stomach. Mild airspace disease pattern similar to November 19. Endotracheal tube in good position. No effusion or pneumothorax. CONCLUSION: 1. Air space disease in the lungs similar to November 19. Support apparatus unchanged. Elieser Villalobos MD on November 20, 2017 at 4:54 Board Certified Radiologist. This report was verified electronically.
[2017-11-20 06:01] LABS: AUTOMATED NEUTROPHIL # 12.7 TH/MM3 (1.8-7.7); BASOPHIL % 0.1 % (0.0-2.0); EOSINOPHIL % 0.3 % (0.0-4.0); HEMATOCRIT 38.5 % (35.0-46.0); HEMOGLOBIN 13.4 GM/DL (11.6-15.3); LYMPH % 12.9 % (9.0-44.0); MEAN CELL VOLUME 88.9 FL (80.0-100.0); MEAN CORPUSCULAR HGB CONC 34.9 % (32.0-36.0); MEAN PLATELET VOLUME 7.7 FL (7.0-11.0); MONO % 5.3 % (0.0-8.0); MONOCYTE # 0.8 TH/MM3 (0-0.9); NEUT % 81.4 % (16.0-70.0); PLATELET COUNT 260 TH/MM3 (150-450); RED BLOOD COUNT 4.33 MIL/MM3 (4.00-5.30); RED CELL DISTRIBUTION WIDTH 13.3 % (11.6-17.2); WHITE BLOOD COUNT 15.6 TH/MM3 (4.0-11.0)
[2017-11-20 06:31] LABS: BICARBONATE 36.3 MEQ/L (21.0-32.0); CALCIUM 9.3 MG/DL (8.5-10.1); CREATININE 0.62 MG/DL (0.50-1.00); MAGNESIUM 2.1 MG/DL (1.5-2.5)
[2017-11-20 06:33] LABS: PHOSPHORUS 4.6 MG/DL (2.5-4.9)
[2017-11-20] MEDS: DEXMEDETOMIDINE INJ 400 MCG in SODIUM CHLORIDE 0.9% INJ 96 ML IV PRN (06:56)
[2017-11-20] MEDS: fentaNYL DRIP 250 ML IV PRN (06:56)
[2017-11-20] MEDS: RESP: BUDESONIDE 0.5 MG/2 ML NEB NEB SCH ×2 (07:30→20:50)
[2017-11-20] MEDS: CHLORHEXIDINE 0.12% (ORAL KIT) 15 ML CUP MT SCH ×2 (08:00→21:02)
[2017-11-20] MEDS: METOPROLOL TARTRATE 25 MG TAB PO SCH ×2 (08:14→21:02)
[2017-11-20] MEDS: DOCUSATE SODIUM 100 MG/10 ML UDC PO SCH ×2 (08:14→21:00)
[2017-11-20] MEDS: POLYETHYLENE GLYCOL 17 GM PKG PO SCH (08:14)
[2017-11-20] MEDS: FOLIC ACID 1 MG TAB PO SCH (08:14)
[2017-11-20] MEDS: LACTULOSE SYRUP 20 GM/30 ML CUP PO SCH (08:14)
[2017-11-20] MEDS: OSELTAMIVIR PHOSPHATE 75 MG CAP PO SCH (08:15)
[2017-11-20] MEDS: BENEPROTEIN POWDER 1 PACK G-TUBE SCH ×3 (08:15→17:09)
[2017-11-20] MEDS: SODIUM CHLORIDE 0.9% FLUSH 10 ML FLUSH IV FLUSH SCH ×2 (08:15→21:02)
[2017-11-20] MEDS: ENOXAPARIN SODIUM 40 MG/0.4 ML SYRINGE SQ SCH (08:15)
[2017-11-20] MEDS: FUROSEMIDE 20 MG/2 ML VIAL IV PUSH SCH (08:15)
[2017-11-20] MEDS: FAMOTIDINE 20 MG/2 ML VIAL IV PUSH SCH ×2 (08:15→21:02)
[2017-11-20] MEDS: NAPHAZOLINE HCL 0.012% OPHT SOLN 15 ML BOTTLE EACH EYE SCH ×4 (08:16→21:02)
[2017-11-20 08:18] LABS: BANDS 4 % (0-6); LYMPHOCYTES 11 % (9-44); METAMYELOCYTES 11 % (0-1); MONOCYTES 2 % (0-8); MYELOCYTES 1 % (0-0); NEUTROPHIL # MANUAL DIFF 13.6 TH/MM3 (1.8-7.7); POLYS (SEG NEUTROPHILS) 71 % (16-70)
--- NOTE | 2017-11-20 13:34 | HHI.CCPN ---
Subjective Remarks/Hospital Course Patient is a 60-year-old female with past medical history significant for rheumatoid arthritis on methotrexate and intermittently on steroids, Bronchial asthma, tobacco abuse who was admitted to [facility] with week long history of fevers chills and URI symptoms. This was associated with increasing shortness of breath and wheezing. Not improving with inhaled albuterol or prednisone which patient takes intermittently for rheumatoid arthritis flare up. About 3 days prior to ER visit patient was placed on Tamiflu by urgent care facility based on clinical symptoms. CXR at [place] emergency department showed bilateral patchy infiltrates. Patient was admitted to the [facility] facility under the hospitalist and was placed on IV Solu- Medrol breathing treatments, IV Levaquin and Tamiflu. Overnight patient had clinical deterioration was on 6 L nasal cannula with desaturation into the low 80s and patient was placed on a nonrebreather. An ABG done on 6 L showed severe AA gradient and a PO2 of 55. 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 Because of hypoxemic respiratory failure, extensive pulmonary infiltrates and risk of worsening ARDS patient was emergently transferred to the [place] [facility] I immediately evaluated the patient in the ICU. She is on partial nonrebreather oxygen saturation above 90%. The patient is tachypneic using accessory muscles. BiPAP ordered. Clinical presentation is concerning for influenza with secondary bacterial pneumonia. Because of her history of on and off chronic steroids and rheumatoid arthritis I will check for Pneumocystis jiroveci staining, LDH. Also ID consulted. A limited bedside echo showed normal ejection fraction. We will continue Tamiflu, IV Levaquin and vancomycin plus Azactam. If LDH is elevated start empiric coverage with IV Bactrim. Continue IV Solu-Medrol increased to 60 mg every 6 hours. ID consulted and discussed with Dr. Pinto SUBJ 11/14: Patient was intubated overnight for severe worsening hypoxemic respiratory failure. Chest x-ray postintubation showed worsening bilateral infiltrates. Currently on Zyvox, Azactam, IV Bactrim for PCP, and Levaquin. Pulmonology consulted for BAL if clinical condition permits. Start Nimbex infusion as the patient is on 100% FiO2 to maintain oxygen saturation. PEEP increased to 10. After obtaining BAL consider prolotherapy, if not improving 11/15: Remains intubated sedated and neuromuscularly paralyzed. Remains critical but stabilizing. FiO2 down to 60%. I will attempt weaning PEEP to 10. Discontinue neuromuscular paralysis due to risk of severe neuromuscular weakness, as patient is also on steroids. Chest x-ray remains unchanged. Bronchoscopy and BAL 11/14/17 results pending 11/16: Remains intubated sedated. Intermittent ventilatory synchrony with hypoxia worsening requiring rocuronium for neuromuscular paralysis. Currently FiO2 at 55% PEEP at 10. Chest x-ray shows worsening infiltrate and fluid overload. Start careful diuresis with IV Lasix. Influenza pneumonia, PCR positive. 11/17: Remains intubated heavily sedated intermittently neuromuscularly paralyzed on ventilator synchrony. Chest x-ray shows slight improvement in bilateral infiltrates. FiO2 down to 45%. Urine output adequate on Lasix. K 5.2 , KCL discontinued. Vent changed to ACV from PC/AC. Remains hypercapnic on ABG 11/18: Remains intubated chest x-ray shows improving pulmonary edema pattern. remain heavily sedated. K 5.7. Will give 40 mg IV lasix and 30 Gm Kayexalate and repeat at 1500. Start CPAP today. 11/19: CPAP trials initiated today, patient initially lasted 1 hour, off all sedation this morning. Precedex and fentanyl continued CPAP trials reinitiated , pressure support of 15 more successful. Chest x-ray improving. Extensive discussion with family regarding possibility of tracheostomy between day 7 and 10. 11/20: Afebrile .Tolerated CPAP trials throughout the night. The patient continues on CPAP, ABGs have been obtained all sedation has been discontinued in anticipation of an SBT trial this afternoon. The white count continues to be elevated, and bands increased. Objective Vital Signs Date Time Temp Pulse Resp B/P (MAP) Pulse Ox O2 Delivery O2 Flow Rate FiO2 11/20/17 12:00 45 11/20/17 12:00 112 11/20/17 11:40 99 11/20/17 08:00 98.2 18 140/92 (108) 157/86 (109) Intake and Output 11/20/17 11/20/17 11/20/17 07:59 15:59 23:59 Intake Total 200 ml 491 ml Output Total 500 ml 1650 ml Balance -300 ml -1159 ml Result Diagram: 11/20/17 0504 11/20/17 0504 Other Results Laboratory Tests Test 11/20/17 05:46 11/20/17 12:10 Blood Gas Puncture Site ART LINE ART LINE Blood Gas Patient Temperature 98.6 98.6 Blood Gas HCO3 34 mmol/L (22-26) 34 mmol/L (22-26) Blood Gas Base Excess 9.3 mmol/L (-2-2) 9.6 mmol/L (-2-2) Blood Gas Oxygen Saturation 95 % (90-100) 94 % (90-100) Arterial Blood pH 7.44 (7.380-7.420) 7.48 (7.380-7.420) Arterial Blood Partial Pressure CO2 50 mmHg (38-42) 45 mmHg (38-42) Arterial Blood Partial Pressure O2 93 mmHg (61-120) 86 mmHg (61-120) Arterial Blood Oxygen Content 18.3 Vol % (12.0-20.0) 19.4 Vol % (12.0-20.0) Arterial Blood Carboxyhemoglobin 1.3 % (0-4) 1.4 % (0-4) Arterial Blood Methemoglobin 1.3 % (0-2) 1.3 % (0-2) Blood Gas Hemoglobin 13.7 G/DL (12.0-16.0) 14.6 G/DL (12.0-16.0) Oxygen Delivery Device VENTILATOR VENTILATOR Blood Gas Ventilator Setting CPAP [id number]/[id number] CPAP 5/10PS Blood Gas Inspired Oxygen 45 % 45 % Imaging Last Impressions Chest X-Ray 11/20/17 0600 Signed Impressions: Service Date/Time: Monday, November 20, 2017 04:02 - CONCLUSION: 1. Air space disease in the lungs similar to November 19. Support apparatus unchanged. Elieser Villalobos MD CT Angiography 11/13/17 0000 Signed Impressions: Service Date/Time: Monday, November 13, 2017 03:47 - CONCLUSION: 1. Negative for pulmonary embolus. 2. Bilateral airspace disease, predominantly groundglass slight upper lobe predominance with adenopathy. Differential diagnosis includes bronchopneumonia or. Recommend short-term followup to follow adenopathy and ensure resolution. Elieser Villalobos MD Last Impressions Chest X-Ray 11/19/17 0600 Signed Impressions: Service Date/Time: Sunday, November 19, 2017 03:23 - CONCLUSION: Overall improvement in pulmonary edema with minimal interstitial process remaining. Tayla Valderrama MD CT Angiography 11/13/17 0000 Signed Impressions: Service Date/Time: Monday, November 13, 2017 03:47 - CONCLUSION: 1. Negative for pulmonary embolus. 2. Bilateral airspace disease, predominantly groundglass slight upper lobe predominance with adenopathy. Differential diagnosis includes bronchopneumonia or. Recommend short-term followup to follow adenopathy and ensure resolution. Elieser Villalobos MD CT CHEST: Bilateral airspace disease, predominantly ground glass slight upper lobe predominance with adenopathy. Differential diagnosis includes bronchopneumonia or. Recommend short-term followup to follow adenopathy and ensure resolution. Chest x-ray shows bilateral patchy infiltrates Objective Remarks GENERAL: Lying in bed, intubated, all sedation discontinued, family at bedside , currently not following commands SKIN: Warm and dry. EYES: No scleral icterus. No injection or drainage. ENT: No nasal bleeding or discharge. Orotracheally intubated NECK: Supple. No JVD CARDIOVASCULAR: Regular rate and rhythm. no murmurs. Hypotensive RESPIRATORY: On CPAP 15/5/.50, PEEP 7, FiO2 40%. Mild expiratory wheezing . GASTROINTESTINAL: Abdomen soft, non-tender, nondistended. EXT: No clubbing, cyanosis, or edema. No obvious deformities. NEUROLOGICAL: RASS -2. Spontaneous movement of extremities 4. 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 Decreased PEEP to 5, titrate oxygen to keep saturations more than 90% -Pulmonology Dr. Rich. s/p Bronch with BAL 11/14. -Influenza PCR positive -DuoNeb every 6 hours scheduled and as needed -IV Solu Medrol to 40 every q12h. budesonide inhaled -PJP stain negative, serum LDH elevated at 568 -See ID section for ABX -11/18 CPAP trial initiated, be continued with elevated pressure support of 07/07/ .40 -11/20-chest x-ray unchanged CV: -Bedside echo shows normal ejection fraction, 2D Echo EF normal -Diurese to dry weight, IV Lasix 20 mg every daily -11/19 normally on extended release 12.5 metoprolol changed to, metoprolol 6.25 mg twice a day GI: -IV famotidine -Tube feeds with Glucerna, bowel regimen with Colace and lactulose -Tube feeds currently on hold, in anticipation of possible extubation : -Monitor renal function closely. IV Lasix as above -Machado catheter. Strict I's and O's ID: -Patient appears to have bilateral pneumonia, atypical, opportunistic infections needs to be ruled out -Influenza PCR positive, PJP stain negative -Neg sputum culture and blood culture, urine for Legionella and pneumococcal antigen -Continue broad-spectrum antibiotics with Azactam, Levaquin and Tamiflu. Zyvox , and Bactrim DCd 11/16 -Infectious disease HEME: -Monitor CBC, CMP, coags ENDO: -Mild hyperglycemia secondary to steroids -Sliding scale insulin MSK -Holding methotrexate due to an acute infection -Continue IV Solu-Medrol, reduce to 40 q12 PROPH: Bilateral lower extremity SCDs/JESSICA. Lovenox, Famotidine LINES: Utilize peripheral IVs, placed central line and arterial line Dispo: Discussed with GENERAL PEDIATRICIAN and patient's and family at bedside. Level 3 Physician Amy Caro MD Nov 20, 2017 13:34
[2017-11-20] MEDS: LABETALOL HCL 100 MG/20 ML VIAL IV PUSH PRN (15:45)
[2017-11-20] MEDS ORDERED: ETOMIDATE 40 MG/20 ML VIAL ONE (16:38)
[2017-11-20] MEDS ORDERED: ROCURONIUM INJ 100 MG/10 ML VIAL IV PUSH ONE (17:00)
[2017-11-20] MEDS ORDERED: ETOMIDATE 20 MG/10 ML VIAL IV PUSH ONE (17:00)
[2017-11-20] MEDS: fentaNYL 2,500 MCG/NS 250 ML IV PRN (17:00)
[2017-11-20] MEDS ORDERED: fentaNYL CITRATE 250 MCG/5 ML AMP IV PUSH SCH (17:00)
[2017-11-20] MEDS ORDERED: ROCURONIUM INJ 100 MG/10 ML VIAL IV PUSH SCH (17:00)
[2017-11-20] MEDS ORDERED: ETOMIDATE 20 MG/10 ML VIAL IV PUSH SCH (17:00)
[2017-11-20] MEDS ORDERED: fentaNYL CITRATE 250 MCG/5 ML AMP IV PUSH ONE (17:00)
--- NOTE | 2017-11-20 17:19 | PD.PROCEDR ---
Procedure Note Procedure Endotracheal Intubation Diagnosis: Hypoxemic respiratory failure Indications: Hypoxemic respiratory failure Consent: Emergent Anesthesia: see MAR Description of the Procedure: The patient was positioned in the sniffing position. Pre-oxygenation was performed using a 7.5. Anesthesia was induced via rapid sequence. A Glidescope 4 was used for laryngoscopy and a Grade 1 view was obtained. A 7.5 cuffed endotracheal tube was inserted atraumatically through the vocal cords. Confirmation of correct endotracheal tube placement was made by equal and bilateral breath sounds and colorimetric CO2 detection. The endotracheal tube was secured at 24 cm at the teeth. There were no immediate complications noted. The patient remained hemodynamically stable throughout the procedure. A chest x-ray has been ordered. I personally performed the procedure. Amy Mccray MD Nov 20, 2017 17:19
[2017-11-20] MEDS ORDERED: DEXMEDETOMIDINE 200 MCG in NS 48 ML IV PRN (17:30)
[2017-11-20] MEDS ORDERED: RASS Change Order XX ONE (17:30)
--- NOTE | 2017-11-20 18:15 | RADRPT ---
EXAM DATE/TIME: 11/20/2017 17:48 [facility] COMPARISON: CHEST SINGLE AP, November 20, 2017, 4:02. INDICATIONS : Evaluate intubation MEDICAL HISTORY : Rheumatoid arthritis. Lupus. Asthma SURGICAL HISTORY : Appendectomy. ENCOUNTER: Initial ACUITY: 1 week PAIN SCORE: Non-responsive. LOCATION: chest FINDINGS: A single view of the chest demonstrates the endotracheal tube, nasogastric are both in good position. Right subclavian central line. Mild pulmonary vascular congestion. The cardiomediastinal contours a re unremarkable. Osseous structures are intact. CONCLUSION: Stable appearance of the chest. Mild pulmonary vascular congestion. Freddy Crook MD on November 20, 2017 at 18:12 Board Certified Radiologist. This report was verified electronically.
[2017-11-20] MEDS: DEXMEDETOMIDINE INJ 1,000 MCG in SODIUM CHLOR 0.9% 250 ML INJ 240 ML IV PRN (18:49)
--- NOTE | 2017-11-20 18:55 | HHI.IDPN ---
Subjective Subjective Remarks ID X cover for Erinn schreiber was reviewed , dw Dr Mccray Ms. Boyd is a 60 y/o female with PMHx significant for rheumatoid arthritis and possibly lupus who is on methotrexate and intermittently on steroids. Her PMHx is also significant for Bronchial asthma and she admits to smoking 1 ppd for many years. 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 She denies any fungal pneumonia. She denies exposure to people with TB or positive PPD. She thinks she uses a nebulizer which may have mold deposits. She reports her home is her truck. She lives in motels at times. 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 She then presented to the [facility] ED with fever 103 F, tachycardia and Pneumonia on CXR on 11/11/2017. Flu antigen at this point after being treated with tamiflu was negative. She was transferred to [facility] due to increasing Shortness of breath and wheezing. She was reportedly getting worse despite taking her steroids at home which she intermittently takes for her RA. Patient was admitted to the [facility] facility under the hospitalist and was placed on IV Solu-Medrol breathing treatments, IV Levaquin and Tamiflu. Overnight patient had clinical deterioration was on 6 L nasal cannula with desaturation into the low 80s and patient was placed on a nonrebreather. An ABG done on 6 L showed severe AA gradient and a PO2 of 55. 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 Due to worsening shortness of breath, hypoxemic respiratory failure, extensive pulmonary infiltrates and risk of worsening ARDS patient was emergently transferred to the [facility]. Patient is currently under the provider network analyst service and is on a partial nonrebreather on 100% FiO2. The patient is tachypneic using accessory muscles. BiPAP ordered earlier but patient prefers not to use it. Patient is currently on Tamiflu, IV Levaquin, Azactam IV and IV vancomycin. Due to concern for PCP LDH was checked and patient started on empiric Bactrim IV.Patient is on IV Solu- Medrol increased to 60 mg every 6 hours. ID consulted for evaluation and Mment of Pneumonia in an Immune compromised patient. Pt was extubated 3 pm and within 1 hr she decompensated requiring re-intubation She was on BIPAP atr the time I saw her around 4 pm No fever No rash No diarrhea Antibiotics Azactam IV Levaquin Tamiflu Lines Line sites with no e.o infection Past Medical History reviewed Allergies: Coded Allergies: Penicillins (Verified Allergy, Severe, Swelling, 11/13/17) Has tolerated Keflex as outpatient. aspirin (Verified Allergy, Severe, 11/11/17) morphine (Verified Adverse Reaction, Mild, Itching, 11/12/17) Objective . Vital Signs Date Time Temp Pulse Resp B/P (MAP) Pulse Ox O2 Delivery O2 Flow Rate FiO2 11/20/17 18:00 123 133/76 (95) 109/72 (84) 11/20/17 18:00 27 11/20/17 18:00 123 11/20/17 17:00 50 11/20/17 16:45 97 50 11/20/17 16:09 97 50 11/20/17 16:00 99.0 124 40 203/113 (143) 92 11/20/17 16:00 124 11/20/17 15:10 95 Nasal Cannula 4 11/20/17 15:10 95 Nasal Cannula 4.00 11/20/17 14:00 127 11/20/17 12:00 45 11/20/17 12:00 98.9 112 23 133/83 (100) 99 142/84 (103) 11/20/17 12:00 112 11/20/17 11:40 99 45 11/20/17 10:30 45 11/20/17 10:00 98 11/20/17 09:30 45 11/20/17 08:00 99 11/20/17 08:00 98.2 99 18 140/92 (108) 100 157/86 (109) 11/20/17 08:00 45 11/20/17 08:00 100 45 11/20/17 06:00 79 127/74 (91) 106/53 (70) 11/20/17 06:00 99 11/20/17 04:00 99.3 97 22 155/87 (109) 99 144/75 (98) 11/20/17 04:00 45 11/20/17 04:00 97 11/20/17 03:54 98 45 11/20/17 02:00 88 11/20/17 01:05 98 45 11/20/17 00:00 99.2 87 13 138/86 (103) 98 136/78 (97) 11/20/17 00:00 45 11/20/17 00:00 87 11/19/17 22:19 98 45 11/19/17 22:00 90 11/19/17 20:02 98 45 11/19/17 20:00 45 11/19/17 20:00 99.3 92 22 142/82 (102) 98 131/70 (90) 11/19/17 20:00 92 11/20/17 11/20/17 11/21/17 15:00 23:00 07:00 Intake Total 491 ml 150 ml Output Total 1650 ml 550 ml Balance -1159 ml -400 ml IV Total 81 ml 150 ml Tube Feeding 230 ml Tube Irrigant 180 ml Output Urine Total 1650 ml 550 ml # Bowel Movements 1 5 . Laboratory Tests Test 11/19/17 04:40 11/20/17 05:04 White Blood Count 13.7 TH/MM3 15.6 TH/MM3 Red Blood Count 4.27 MIL/MM3 4.33 MIL/MM3 Hemoglobin 13.2 GM/DL 13.4 GM/DL Hematocrit 38.2 % 38.5 % Mean Corpuscular Volume 89.3 FL 88.9 FL Mean Corpuscular Hemoglobin 30.9 PG 31.0 PG Mean Corpuscular Hemoglobin Concent 34.6 % 34.9 % Red Cell Distribution Width 13.6 % 13.3 % Platelet Count 242 TH/MM3 260 TH/MM3 Mean Platelet Volume 8.0 FL 7.7 FL Neutrophils (%) (Auto) 80.2 % 81.4 % Lymphocytes (%) (Auto) 14.6 % 12.9 % Monocytes (%) (Auto) 5.0 % 5.3 % Eosinophils (%) (Auto) 0.2 % 0.3 % Basophils (%) (Auto) 0.0 % 0.1 % Neutrophils # (Auto) 11.0 TH/MM3 12.7 TH/MM3 Lymphocytes # (Auto) 2.0 TH/MM3 2.0 TH/MM3 Monocytes # (Auto) 0.7 TH/MM3 0.8 TH/MM3 Eosinophils # (Auto) 0.0 TH/MM3 0.0 TH/MM3 Basophils # (Auto) 0.0 TH/MM3 0.0 TH/MM3 CBC Comment AUTO DIFF AUTO DIFF Differential Total Cells Counted 100 100 Neutrophils % (Manual) 75 % 71 % Band Neutrophils % 2 % 4 % Lymphocytes % 11 % 11 % Monocytes % 2 % 2 % Neutrophils # (Manual) 11.9 TH/MM3 13.6 TH/MM3 Metamyelocytes 4 % 11 % Myelocytes 5 % 1 % Promyelocytes 1 % Differential Comment FINAL DIFF MANUAL FINAL DIFF MANUAL Platelet Estimate NORMAL NORMAL Platelet Morphology Comment NORMAL NORMAL Red Cell Morphology Comment NORMAL NORMAL Laboratory Tests Test 11/19/17 04:40 11/20/17 05:04 Blood Urea Nitrogen 31 MG/DL 28 MG/DL Creatinine 0.75 MG/DL 0.62 MG/DL Random Glucose 132 MG/DL 130 MG/DL Total Protein 6.6 GM/DL Albumin 2.5 GM/DL Calcium Level 9.0 MG/DL 9.3 MG/DL Magnesium Level 2.3 MG/DL 2.1 MG/DL Alkaline Phosphatase 67 U/L Aspartate Amino Transf (AST/SGOT) 21 U/L Alanine Aminotransferase (ALT/SGPT) 50 U/L Total Bilirubin 0.5 MG/DL Sodium Level 138 MEQ/L 134 MEQ/L Potassium Level 4.6 MEQ/L 4.9 MEQ/L Chloride Level 96 MEQ/L 91 MEQ/L Carbon Dioxide Level 37.6 MEQ/L 36.3 MEQ/L Anion Gap 4 MEQ/L 7 MEQ/L Estimat Glomerular Filtration Rate 81 ML/MIN 101 ML/MIN Phosphorus Level 4.6 MG/DL Imaging Last Impressions Chest X-Ray 11/20/17 0600 Signed Impressions: Service Date/Time: Monday, November 20, 2017 04:02 - CONCLUSION: 1. Air space disease in the lungs similar to November 19. Support apparatus unchanged. Elieser Villalobos MD CT Angiography 11/13/17 0000 Signed Impressions: Service Date/Time: Monday, November 13, 2017 03:47 - CONCLUSION: 1. Negative for pulmonary embolus. 2. Bilateral airspace disease, predominantly groundglass slight upper lobe predominance with adenopathy. Differential diagnosis includes bronchopneumonia or. Recommend short-term followup to follow adenopathy and ensure resolution. Elieser Villalobos MD Physical Exam GENERAL: This is a well-nourished, well-developed patient. Severe resp distress , breathing 40s/min BP in 180s/120s SKIN: No rashes, ecchymoses or lesions. Cool and dry. HEAD: Atraumatic. Normocephalic. No temporal or scalp tenderness. EYES: Pupils equal round and reactive. Extraocular motions intact. No scleral icterus. No injection or drainage. ENT: partial face BIPAP mask NECK: Trachea midline. Supple, nontender, no meningeal signs. CARDIOVASCULAR: HS audible. RESPIRATORY: AE decreased bilaterally. Bilateral rhonchi GASTROINTESTINAL: Abdomen soft, non-tender, nondistended. MUSCULOSKELETAL: Extremities without clubbing, cyanosis, or edema. No joint tenderness, effusion, or edema noted. No calf tenderness. Negative Homans sign bilaterally. NEUROLOGICAL: Alert anxious Opens eyes spontaneously. Moves all 4 extremities. Psych very anxious IV line sites with no e.o infection. Assessment & Plan Remarks Severe Sepsis present on admission. Pneumonia in an Immune compromised patient. Influenza pneumonia: PCR positive. Ground glass opacities of lung: DDX acute infections, Fungal (crypto, histo), PCP, CMV are some other differentials that are being considered. Acute respiratory failure on NRB 100% FiO2. H/o RA, Lupus on MTX and steroids off and on. Immune compromised host Thrombocytopenia: sepsis, meds related. Penicillin Allergy: has tolerated keflex in past. High grade leucocytosis: infection, steroids. Recurrent acute respiratory failure, resp decompensation immediately after extubation Recs: Continue Azactam IV Continue Levaquin IV (atypical coverage) Continue Tamiflu oral repeat resp cultures Follow clinically dw Sarah Friedman MD Nov 20, 2017 18:55
[2017-11-20] MEDS: RESP: ALBUTEROL 2.5 MG/IPRATROPIUM 0.5 MG NEB (PRN) NEB (20:50)
[2017-11-20] MEDS ORDERED: NOREPINEPHRINE 4 MG/D5W 250 ML IV PRN (23:30)
[2017-11-21] VITALS (19 sets, daily range): BP systolic 107–136; BP diastolic 65–87; PULSE 97–115; RESP 21–28; TEMP 97.6–100; O2SAT 97–100
[2017-11-21] MEDS: methylPREDNISolone SOD SUCC 40 MG/1 ML VIAL IV PUSH SCH (02:04)
[2017-11-21] MEDS: fentaNYL 2,500 MCG/NS 250 ML IV PRN (03:51)
[2017-11-21] MEDS: INSULIN ASPART SUPPLEMENTAL SCALE SQ SCH ×5 (04:00→20:00)
--- NOTE | 2017-11-21 04:36 | RADRPT ---
EXAM DATE/TIME: 11/21/2017 03:18 [place] COMPARISON: CHEST SINGLE AP, November 20, 2017, 17:48. INDICATIONS : Shortness of breath, pneumonia. MEDICAL HISTORY : Rheumatoid arthritis. Lupus. Asthma SURGICAL HISTORY : Appendectomy. ENCOUNTER: Subsequent ACUITY: 1 week PAIN SCORE: Non-responsive. LOCATION: Bilateral chest FINDINGS: A single AP semierect view of the chest was obtained and again demonstrates endotracheal tube in plac e. The tip is not well visualized due to multiple overlying electrocardiogram leads appears above the level the zander. The right subclavian central venous line remains in place. The nasogastric tube re anna in place as well. No confluent infiltrates or effusions are present. The heart size at the uppe r limits of normal. CONCLUSION: No significant change. The patient remains intubated and the endotracheal tube tip is not well-visual ized due to overlying electrocardiogram leads. aPtrice Conley MD on November 21, 2017 at 4:32 Board Certified Radiologist. This report was verified electronically.
[2017-11-21] MEDS: DEXMEDETOMIDINE INJ 1,000 MCG in SODIUM CHLOR 0.9% 250 ML INJ 240 ML IV PRN ×3 (05:11→18:21)
[2017-11-21] MEDS: AZTREONAM INJ 2,000 MG in SODIUM CHLORIDE 0.9% INJ 100 ML IV SCH ×3 (05:11→21:26)
[2017-11-21 07:06] LABS: AUTOMATED NEUTROPHIL # 15.8 TH/MM3 (1.8-7.7); BASOPHIL % 0.1 % (0.0-2.0); EOSINOPHIL # 0.1 TH/MM3 (0-0.4); EOSINOPHIL % 0.3 % (0.0-4.0); HEMATOCRIT 37.7 % (35.0-46.0); LYMPHOCYTE # 1.7 TH/MM3 (1.0-4.8); MEAN CELL VOLUME 89.1 FL (80.0-100.0); MEAN CORPUSCULAR HEMOGLOBIN 30.6 PG (27.0-34.0); MEAN CORPUSCULAR HGB CONC 34.3 % (32.0-36.0); MEAN PLATELET VOLUME 7.7 FL (7.0-11.0); MONO % 6.5 % (0.0-8.0); MONOCYTE # 1.2 TH/MM3 (0-0.9); NEUT % 84.1 % (16.0-70.0); PLATELET COUNT 262 TH/MM3 (150-450); RED BLOOD COUNT 4.24 MIL/MM3 (4.00-5.30); RED CELL DISTRIBUTION WIDTH 13.4 % (11.6-17.2); WHITE BLOOD COUNT 18.8 TH/MM3 (4.0-11.0)
[2017-11-21 07:36] LABS: BICARBONATE 32.8 MEQ/L (21.0-32.0); CREATININE 0.54 MG/DL (0.50-1.00); PHOSPHORUS 2.7 MG/DL (2.5-4.9)
--- NOTE | 2017-11-21 07:42 | HHI.CCPN ---
Subjective Remarks/Hospital Course Patient is a 60-year-old female with past medical history significant for rheumatoid arthritis on methotrexate and intermittently on steroids, Bronchial asthma, tobacco abuse who was admitted to [facility] with week long history of fevers chills and URI symptoms. This was associated with increasing shortness of breath and wheezing. Not improving with inhaled albuterol or prednisone which patient takes intermittently for rheumatoid arthritis flare up. About 3 days prior to ER visit patient was placed on Tamiflu by urgent care facility based on clinical symptoms. CXR at [place] emergency department showed bilateral patchy infiltrates. Patient was admitted to the [facility] facility under the hospitalist and was placed on IV Solu- Medrol breathing treatments, IV Levaquin and Tamiflu. Overnight patient had clinical deterioration was on 6 L nasal cannula with desaturation into the low 80s and patient was placed on a nonrebreather. An ABG done on 6 L showed severe AA gradient and a PO2 of 55. 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 Because of hypoxemic respiratory failure, extensive pulmonary infiltrates and risk of worsening ARDS patient was emergently transferred to the [place] [facility] I immediately evaluated the patient in the ICU. She is on partial nonrebreather oxygen saturation above 90%. The patient is tachypneic using accessory muscles. BiPAP ordered. Clinical presentation is concerning for influenza with secondary bacterial pneumonia. Because of her history of on and off chronic steroids and rheumatoid arthritis I will check for Pneumocystis jiroveci staining, LDH. Also ID consulted. A limited bedside echo showed normal ejection fraction. We will continue Tamiflu, IV Levaquin and vancomycin plus Azactam. If LDH is elevated start empiric coverage with IV Bactrim. Continue IV Solu-Medrol increased to 60 mg every 6 hours. ID consulted and discussed with Dr. Pinto SUBJ 11/14: Patient was intubated overnight for severe worsening hypoxemic respiratory failure. Chest x-ray postintubation showed worsening bilateral infiltrates. Currently on Zyvox, Azactam, IV Bactrim for PCP, and Levaquin. Pulmonology consulted for BAL if clinical condition permits. Start Nimbex infusion as the patient is on 100% FiO2 to maintain oxygen saturation. PEEP increased to 10. After obtaining BAL consider prolotherapy, if not improving 11/15: Remains intubated sedated and neuromuscularly paralyzed. Remains critical but stabilizing. FiO2 down to 60%. I will attempt weaning PEEP to 10. Discontinue neuromuscular paralysis due to risk of severe neuromuscular weakness, as patient is also on steroids. Chest x-ray remains unchanged. Bronchoscopy and BAL 11/14/17 results pending 11/16: Remains intubated sedated. Intermittent ventilatory synchrony with hypoxia worsening requiring rocuronium for neuromuscular paralysis. Currently FiO2 at 55% PEEP at 10. Chest x-ray shows worsening infiltrate and fluid overload. Start careful diuresis with IV Lasix. Influenza pneumonia, PCR positive. 11/17: Remains intubated heavily sedated intermittently neuromuscularly paralyzed on ventilator synchrony. Chest x-ray shows slight improvement in bilateral infiltrates. FiO2 down to 45%. Urine output adequate on Lasix. K 5.2 , KCL discontinued. Vent changed to ACV from PC/AC. Remains hypercapnic on ABG 11/18: Remains intubated chest x-ray shows improving pulmonary edema pattern. remain heavily sedated. K 5.7. Will give 40 mg IV lasix and 30 Gm Kayexalate and repeat at 1500. Start CPAP today. 11/19: CPAP trials initiated today, patient initially lasted 1 hour, off all sedation this morning. Precedex and fentanyl continued CPAP trials reinitiated , pressure support of 15 more successful. Chest x-ray improving. Extensive discussion with family regarding possibility of tracheostomy between day 7 and 10. 11/20: Afebrile .Tolerated CPAP trials throughout the night. The patient continues on CPAP, ABGs have been obtained all sedation has been discontinued in anticipation of an SBT trial this afternoon. The white count continues to be elevated, and bands increased. 11/21: Extubated yesterday but had to be reintubated and 45 minutes approximately 4 respiratory distress. Currently on full vent support on Precedex and fentanyl for sedation, wakes up easily follows commands. FiO2 down to 45% again. CXR unchanged. Objective Vital Signs Date Time Temp Pulse Resp B/P (MAP) Pulse Ox O2 Delivery O2 Flow Rate FiO2 11/21/17 06:00 101 121/76 (91) 120/72 (88) 11/21/17 04:10 99 45 11/21/17 04:00 98.9 22 11/20/17 15:10 Nasal Cannula 4 Intake and Output 11/21/17 11/21/17 11/22/17 08:00 16:00 00:00 Intake Total 150 ml Output Total 1100 ml Balance -950 ml Result Diagram: 11/21/17 0611 11/20/17 0504 Other Results Laboratory Tests Test 11/20/17 12:10 Blood Gas Puncture Site ART LINE Blood Gas Patient Temperature 98.6 Blood Gas HCO3 34 mmol/L (22-26) Blood Gas Base Excess 9.6 mmol/L (-2-2) Blood Gas Oxygen Saturation 94 % (90-100) Arterial Blood pH 7.48 (7.380-7.420) Arterial Blood Partial Pressure CO2 45 mmHg (38-42) Arterial Blood Partial Pressure O2 86 mmHg (61-120) Arterial Blood Oxygen Content 19.4 Vol % (12.0-20.0) Arterial Blood Carboxyhemoglobin 1.4 % (0-4) Arterial Blood Methemoglobin 1.3 % (0-2) Blood Gas Hemoglobin 14.6 G/DL (12.0-16.0) Oxygen Delivery Device VENTILATOR Blood Gas Ventilator Setting CPAP 5/10PS Blood Gas Inspired Oxygen 45 % Imaging Last Impressions Chest X-Ray 11/20/17 06 Signed Impressions: Service Date/Time: Monday, November 20, 2017 04:02 - CONCLUSION: 1. Air space disease in the lungs similar to November 19. Support apparatus unchanged. Elieser Villalobos MD CT Angiography 11/13/17 0000 Signed Impressions: Service Date/Time: Monday, November 13, 2017 03:47 - CONCLUSION: 1. Negative for pulmonary embolus. 2. Bilateral airspace disease, predominantly groundglass slight upper lobe predominance with adenopathy. Differential diagnosis includes bronchopneumonia or. Recommend short-term followup to follow adenopathy and ensure resolution. Elieser Villalobos MD Last Impressions Chest X-Ray 11/19/17 06 Signed Impressions: Service Date/Time: Sunday, November 19, 2017 03:23 - CONCLUSION: Overall improvement in pulmonary edema with minimal interstitial process remaining. Tayla Valderrama MD CT Angiography 11/13/17 0000 Signed Impressions: Service Date/Time: Monday, November 13, 2017 03:47 - CONCLUSION: 1. Negative for pulmonary embolus. 2. Bilateral airspace disease, predominantly groundglass slight upper lobe predominance with adenopathy. Differential diagnosis includes bronchopneumonia or. Recommend short-term followup to follow adenopathy and ensure resolution. Elieser Villalobos MD CT CHEST: Bilateral airspace disease, predominantly ground glass slight upper lobe predominance with adenopathy. Differential diagnosis includes bronchopneumonia or. Recommend short-term followup to follow adenopathy and ensure resolution. Chest x-ray shows bilateral patchy infiltrates Objective Remarks GENERAL: Lying in bed, intubated, following commands SKIN: Warm and dry. EYES: No scleral icterus. No injection or drainage. ENT: No nasal bleeding or discharge. Orotracheally intubated NECK: Supple. No JVD CARDIOVASCULAR: Regular rate and rhythm. no murmurs. Hypotensive RESPIRATORY: PRVC/AC, FiO2 45%. Clear to auscultation bilaterally GASTROINTESTINAL: Abdomen soft, non-tender, nondistended. EXT: No clubbing, cyanosis, or edema. No obvious deformities. NEUROLOGICAL: RASS -1. Spontaneous movement of extremities 4. Visual tracking noted, the patient following commands Urinary Catheter: Yes Assessment to: Continue A/P Assessment and Plan ASSESSMENT: Acute hypoxemic respiratory failure ARDS-improving Influenza pneumonia Sepsis Bronchial asthma with exacerbation Serum LDH elevated at 568, PJP stain negative Fluid overload Immunosuppression due to methotrexate and chronic (intermittent) steroid use History of rheumatoid arthritis, possible Lupus Persistent leukocytosis PLAN: NEURO: -Precedex and fentanyl for sedation and ventilator synchrony -Daily sedation vacation -Tylenol for fever RESP: -Intubated 11/13/17 night due to worsening hypoxemia, severe ARDS -AC/VC. PEEP to 5, titrate oxygen to keep saturations more than 90% -Extubated yesterday 11/20/17, but had to be reintubated in approximately 45 minutes due to respiratory distress -Pulmonology Dr. Rich. s/p Bronch with BAL 11/14. -Influenza PCR positive -DuoNeb every 6 hours scheduled and as needed -IV Solu Medrol to 40 every [id number] to 20 q12. budesonide inhaled -PJP stain negative, serum LDH elevated at 568 -See ID section for ABX -Attempt CPAP again CV: -Bedside echo shows normal ejection fraction, 2D Echo EF normal -Diurese to dry weight, IV Lasix 20 mg every daily, Diamox 500 mg IV x1 duw to metabolic acidosis -11/19 normally on extended release 12.5 metoprolol changed to, metoprolol 6.25 mg twice a day GI: -IV famotidine -Tube feeds with Glucerna, bowel regimen with Colace and lactulose -Having BM : -Monitor renal function closely. IV Lasix as above -Machado catheter. Strict I's and O's ID: -Influenza PCR positive, PJP stain negative -Neg sputum culture and blood culture, urine for Legionella and pneumococcal antigen. F/U sputum cx 11/20 -Continue broad-spectrum antibiotics with Azactam, Levaquin and Tamiflu. (Zyvox , and Bactrim DCd 11/16) -Infectious disease HEME: -Monitor CBC, CMP, coags ENDO: -Mild hyperglycemia secondary to steroids -Sliding scale insulin MSK -Holding methotrexate due to an acute infection -Continue IV Solu-Medrol, reduce to 20 q12 PROPH: Bilateral lower extremity SCDs/JESSICA. Lovenox, Famotidine LINES: Utilize peripheral IVs, placed central line and arterial line Dispo: Discussed with CUP MACHINE OPERATOR and patient's and family at bedside. CCT 32 min excluding procedures Phi Gaston MD Nov 21, 2017 07:42
[2017-11-21] MEDS: DOCUSATE SODIUM 100 MG/10 ML UDC PO SCH ×2 (07:46→20:07)
[2017-11-21] MEDS: LACTULOSE SYRUP 20 GM/30 ML CUP PO SCH (07:47)
[2017-11-21] MEDS: POLYETHYLENE GLYCOL 17 GM PKG PO SCH (07:48)
[2017-11-21] MEDS: CHLORHEXIDINE 0.12% (ORAL KIT) 15 ML CUP MT SCH ×2 (08:00→20:00)
[2017-11-21] MEDS: RESP: ALBUTEROL 2.5 MG/IPRATROPIUM 0.5 MG NEB (PRN) NEB ×3 (08:04→12:13)
[2017-11-21] MEDS: RESP: BUDESONIDE 0.5 MG/2 ML NEB NEB SCH ×2 (08:04→19:24)
[2017-11-21] MEDS: FAMOTIDINE 20 MG/2 ML VIAL IV PUSH SCH ×2 (08:27→20:06)
[2017-11-21] MEDS: OSELTAMIVIR PHOSPHATE 75 MG CAP PO SCH (08:28)
[2017-11-21] MEDS: METOPROLOL TARTRATE 25 MG TAB PO SCH (08:28)
[2017-11-21] MEDS: FOLIC ACID 1 MG TAB PO SCH (08:29)
[2017-11-21] MEDS: FUROSEMIDE 20 MG/2 ML VIAL IV PUSH SCH (08:29)
[2017-11-21] MEDS: ENOXAPARIN SODIUM 40 MG/0.4 ML SYRINGE SQ SCH (08:31)
[2017-11-21] MEDS: NAPHAZOLINE HCL 0.012% OPHT SOLN 15 ML BOTTLE EACH EYE SCH ×4 (08:32→20:07)
[2017-11-21] MEDS: BENEPROTEIN POWDER 1 PACK G-TUBE SCH ×3 (08:33→18:00)
[2017-11-21] MEDS: SODIUM CHLORIDE 0.9% FLUSH 10 ML FLUSH IV FLUSH SCH ×2 (08:33→20:07)
[2017-11-21 08:51] LABS: BANDS 3 % (0-6); LYMPHOCYTES 9 % (9-44); METAMYELOCYTES 6 % (0-1); MONOCYTES 5 % (0-8); MYELOCYTES 2 % (0-0); NEUTROPHIL # MANUAL DIFF 16.2 TH/MM3 (1.8-7.7); POLYS (SEG NEUTROPHILS) 75 % (16-70)
[2017-11-21] MEDS: ALPRAZolam 1 MG TAB PO PRN (09:30)
[2017-11-21] MEDS ORDERED: RESP: RACEPINEPHRINE 2.25% 0.5 ML NEB ONE ×4 (10:12→23:15)
[2017-11-21] MEDS ORDERED: LORazepam 2 MG/ML VIAL ONE ×3 (10:42→11:15)
[2017-11-21] MEDS ORDERED: DEXAMETHASONE SOD PHOS 20 MG/5 ML VIAL ONE (10:50)
[2017-11-21] MEDS ORDERED: DEXAMETHASONE SOD PHOS 4 MG/ML VIAL IV ONE (11:00)
--- NOTE | 2017-11-21 11:21 | HHI.IDPN ---
Subjective Subjective Remarks Ms. Boyd is a 60 y/o female with PMHx significant for rheumatoid arthritis and possibly lupus who is on methotrexate and intermittently on steroids. Her PMHx is also significant for Bronchial asthma and she admits to smoking 1 ppd for many years. 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 She denies any fungal pneumonia. She denies exposure to people with TB or positive PPD. She thinks she uses a nebulizer which may have mold deposits. She reports her home is her truck. She lives in motels at times. 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 She then presented to the [facility] ED with fever 103 F, tachycardia and Pneumonia on CXR on 11/11/2017. Flu antigen at this point after being treated with tamiflu was negative. She was transferred to [facility] due to increasing Shortness of breath and wheezing. She was reportedly getting worse despite taking her steroids at home which she intermittently takes for her RA. Patient was admitted to the [facility] facility under the hospitalist and was placed on IV Solu-Medrol breathing treatments, IV Levaquin and Tamiflu. Overnight patient had clinical deterioration was on 6 L nasal cannula with desaturation into the low 80s and patient was placed on a nonrebreather. An ABG done on 6 L showed severe AA gradient and a PO2 of 55. 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 Due to worsening shortness of breath, hypoxemic respiratory failure, extensive pulmonary infiltrates and risk of worsening ARDS patient was emergently transferred to the [facility]. Patient is currently under the executive relations specialist service and is on a partial nonrebreather on 100% FiO2. The patient is tachypneic using accessory muscles. BiPAP ordered earlier but patient prefers not to use it. Patient is currently on Tamiflu, IV Levaquin, Azactam IV and IV vancomycin. Due to concern for PCP LDH was checked and patient started on empiric Bactrim IV.Patient is on IV Solu- Medrol increased to 60 mg every 6 hours. ID consulted for evaluation and Mment of Pneumonia in an Immune compromised patient. Overnight events reviewed. No fevers No rash No diarrhea Extubated but gets anxious and appears to have increased work of breathing during anxiety spells. Antibiotics Azactam IV Levaquin Tamiflu Lines Line sites with no e.o infection Past Medical History reviewed Allergies: Coded Allergies: Penicillins (Verified Allergy, Severe, Swelling, 11/13/17) Has tolerated Keflex as outpatient. aspirin (Verified Allergy, Severe, 11/11/17) morphine (Verified Adverse Reaction, Mild, Itching, 11/12/17) Objective . Vital Signs Date Time Temp Pulse Resp B/P (MAP) Pulse Ox O2 Delivery O2 Flow Rate FiO2 11/21/17 10:37 100 Venturi Mask 6.00 50 11/21/17 08:06 40 11/21/17 08:06 100 40 11/21/17 06:00 101 121/76 (91) 120/72 (88) 11/21/17 06:00 97 11/21/17 04:10 99 45 11/21/17 04:00 98.9 107 22 127/80 (96) 100 134/78 (96) 11/21/17 04:00 107 11/21/17 04:00 50 11/21/17 02:00 115 11/21/17 01:06 97 45 11/21/17 00:00 50 11/21/17 00:00 103 11/21/17 00:00 98.9 103 21 132/87 (102) 100 126/75 (92) 11/20/17 23:41 103 74/48 11/20/17 23:30 98 74/49 11/20/17 22:00 99 11/20/17 20:48 95 50 11/20/17 20:00 100 11/20/17 20:00 99.0 100 22 210/120 (150) 94 11/20/17 20:00 50 11/20/17 18:00 123 133/76 (95) 109/72 (84) 11/20/17 18:00 27 11/20/17 18:00 123 11/20/17 17:00 50 11/20/17 16:45 97 50 11/20/17 16:45 100 Venturi Mask 6 50 11/20/17 16:09 97 50 11/20/17 16:00 99.0 124 40 203/113 (143) 92 11/20/17 16:00 124 11/20/17 15:10 95 Nasal Cannula 4 11/20/17 15:10 95 Nasal Cannula 4.00 11/20/17 14:00 127 11/20/17 12:00 45 11/20/17 12:00 98.9 112 23 133/83 (100) 99 142/84 (103) 11/20/17 12:00 112 11/20/17 11:40 99 45 . Laboratory Tests Test 11/20/17 05:04 11/21/17 06:11 White Blood Count 15.6 TH/MM3 18.8 TH/MM3 Red Blood Count 4.33 MIL/MM3 4.24 MIL/MM3 Hemoglobin 13.4 GM/DL 13.0 GM/DL Hematocrit 38.5 % 37.7 % Mean Corpuscular Volume 88.9 FL 89.1 FL Mean Corpuscular Hemoglobin 31.0 PG 30.6 PG Mean Corpuscular Hemoglobin Concent 34.9 % 34.3 % Red Cell Distribution Width 13.3 % 13.4 % Platelet Count 260 TH/MM3 262 TH/MM3 Mean Platelet Volume 7.7 FL 7.7 FL Neutrophils (%) (Auto) 81.4 % 84.1 % Lymphocytes (%) (Auto) 12.9 % 9.0 % Monocytes (%) (Auto) 5.3 % 6.5 % Eosinophils (%) (Auto) 0.3 % 0.3 % Basophils (%) (Auto) 0.1 % 0.1 % Neutrophils # (Auto) 12.7 TH/MM3 15.8 TH/MM3 Lymphocytes # (Auto) 2.0 TH/MM3 1.7 TH/MM3 Monocytes # (Auto) 0.8 TH/MM3 1.2 TH/MM3 Eosinophils # (Auto) 0.0 TH/MM3 0.1 TH/MM3 Basophils # (Auto) 0.0 TH/MM3 0.0 TH/MM3 CBC Comment AUTO DIFF AUTO DIFF Differential Total Cells Counted 100 100 Neutrophils % (Manual) 71 % 75 % Band Neutrophils % 4 % 3 % Lymphocytes % 11 % 9 % Monocytes % 2 % 5 % Neutrophils # (Manual) 13.6 TH/MM3 16.2 TH/MM3 Metamyelocytes 11 % 6 % Myelocytes 1 % 2 % Differential Comment FINAL DIFF MANUAL FINAL DIFF MANUAL Platelet Estimate NORMAL NORMAL Platelet Morphology Comment NORMAL NORMAL Red Cell Morphology Comment NORMAL Laboratory Tests Test 11/20/17 05:04 11/21/17 06:11 Blood Urea Nitrogen 28 MG/DL 25 MG/DL Creatinine 0.62 MG/DL 0.54 MG/DL Random Glucose 130 MG/DL 112 MG/DL Calcium Level 9.3 MG/DL 9.0 MG/DL Phosphorus Level 4.6 MG/DL 2.7 MG/DL Magnesium Level 2.1 MG/DL 2.0 MG/DL Sodium Level 134 MEQ/L 136 MEQ/L Potassium Level 4.9 MEQ/L 4.2 MEQ/L Chloride Level 91 MEQ/L 97 MEQ/L Carbon Dioxide Level 36.3 MEQ/L 32.8 MEQ/L Anion Gap 7 MEQ/L 6 MEQ/L Estimat Glomerular Filtration Rate 101 ML/MIN 119 ML/MIN Microbiology Date/Time Source Procedure Growth Status 11/21/17 04:45 Sputum Endotracheal Gram Stain - Final Resulted 11/21/17 04:45 Sputum Endotracheal Sputum Culture Pending Resulted Imaging Last Impressions Chest X-Ray 11/20/17 0600 Signed Impressions: Service Date/Time: Monday, November 20, 2017 04:02 - CONCLUSION: 1. Air space disease in the lungs similar to November 19. Support apparatus unchanged. Elieser Villalobos MD CT Angiography 11/13/17 0000 Signed Impressions: Service Date/Time: Monday, November 13, 2017 03:47 - CONCLUSION: 1. Negative for pulmonary embolus. 2. Bilateral airspace disease, predominantly groundglass slight upper lobe predominance with adenopathy. Differential diagnosis includes bronchopneumonia or. Recommend short-term followup to follow adenopathy and ensure resolution. Elieser Villalobos MD Physical Exam GENERAL: This is a well-nourished, well-developed patient. Severe resp distress , breathing 40s/min BP in 180s/120s SKIN: No rashes, ecchymoses or lesions. Cool and dry. HEAD: Atraumatic. Normocephalic. No temporal or scalp tenderness. EYES: Pupils equal round and reactive. Extraocular motions intact. No scleral icterus. No injection or drainage. ENT: partial face BIPAP mask NECK: Trachea midline. Supple, nontender, no meningeal signs. CARDIOVASCULAR: HS audible. RESPIRATORY: AE decreased bilaterally. Bilateral rhonchi GASTROINTESTINAL: Abdomen soft, non-tender, nondistended. MUSCULOSKELETAL: Extremities without clubbing, cyanosis, or edema. No joint tenderness, effusion, or edema noted. No calf tenderness. Negative Homans sign bilaterally. NEUROLOGICAL: Alert anxious Opens eyes spontaneously. Moves all 4 extremities. Follows commands. Psych very anxious IV line sites with no e.o infection. Assessment & Plan Remarks Severe Sepsis present on admission. Pneumonia in an Immune compromised patient. Influenza pneumonia: PCR positive. Ground glass opacities of lung: DDX acute infections, Fungal (crypto, histo), PCP, CMV are some other differentials that are being considered. Acute respiratory failure on NRB 100% FiO2. H/o RA, Lupus on MTX and steroids off and on. Immune compromised host Thrombocytopenia: sepsis, meds related. Penicillin Allergy: has tolerated keflex in past. High grade leucocytosis: infection, steroids. Recurrent acute respiratory failure, resp decompensation immediately after extubation Recs: Continue Azactam IV Continue Levaquin IV (atypical coverage) Continue Tamiflu oral Follow cultures Follow clinically guerrero Duke and RN June Pinto MD Nov 21, 2017 11:21
--- NOTE | 2017-11-21 13:07 | HHI.PR ---
Subjective Remarks Off the vent and on a BiPAP mask today. Chest Xray shows bilateral infiltrates. She is sleepy. On Precedex/ Ativan. Objective Vital Signs Date Time Temp Pulse Resp B/P (MAP) Pulse Ox O2 Delivery O2 Flow Rate FiO2 11/21/17 12:15 98 11/21/17 10:37 100 Venturi Mask 6.00 50 18 08:06 40 11/21/17 08:06 100 40 11/21/17 06:00 101 121/76 (91) 120/72 (88) 11/21/17 06:00 97 11/21/17 04:10 99 45 11/21/17 04:00 98.9 107 22 127/80 (96) 100 134/78 (96) 11/21/17 04:00 107 11/21/17 04:00 50 11/21/17 02:00 115 11/21/17 01:06 97 45 11/21/17 00:00 50 11/21/17 00:00 103 11/21/17 00:00 98.9 103 21 132/87 (102) 100 126/75 (92) 18 23:41 103 74/48 18 23:30 98 74/49 18 22:00 99 1818 20:48 95 50 18 20:00 100 18 20:00 99.0 100 22 210/120 (150) 94 18 20:00 50 18/18 18:00 123 133/76 (95) 109/72 (84) 18 18:00 27 18 18:00 123 18 17:00 50 11/20/18 16:45 97 50 218 16:45 100 Venturi Mask 6 50 18 16:09 97 50 18 16:00 99.0 124 40 203/113 (143) 92 18 16:00 124 218 15:10 95 Nasal Cannula 4 18 15:10 95 Nasal Cannula 4.00 11/20/17 14:00 127 I/O 11/20/17 218/18 2/18 218 2/1911/21/17 07:00 15:00 23:00 07:00 15:00 23:00 Intake Total 200 ml 491 ml 223 ml 250 ml Output Total 500 ml 1650 ml 550 ml 1100 ml Balance -300 ml -1159 ml -327 ml -850 ml IV Total 200 ml 81 ml 223 ml 250 ml Tube Feeding 230 ml Tube Irrigant 180 ml Output Urine Total 500 ml 1650 ml 550 ml 1100 ml # Bowel Movements 1 1 5 0 Result Diagram: 11/21/1761011/21/17610 Objective Remarks This is a moderately obese middle-aged lady who is sleepy. HEENT: Head normocephalic. Pupils reactive. Sclerae were clear. Throat clear. Ears and nose have no inflammation. NECK: Supple. No bruits or thyroid enlargement. CHEST: Equal movements with crackles over both lung bases. HEART: Heart sounds are regular S1 and S2. No S3. No murmur. ABDOMEN: The abdomen soft, obese without masses or organomegaly . Bowel sounds are active. EXTREMITIES: No edema. Peripheral pulses are good . Reflexes not elicited. SKIN: Dry and cool. Assessment and Plan Assessment and Plan IMPRESSION 1. Acute hypoxemic respiratory failure. 2. ARDS with possible bilateral pneumonia. 3. History of for rheumatoid arthritis with possible interstitial lung disease. 4. Asthmatic bronchitis with exacerbation. 5. Influenza A Plan : 1. Wean Fio2 to Keep sat >92. 2. Nebs q6h , duoneb 3. Continue on BiPAP and wean to Ventimask 50 % 4. Continue antibiotics 5. Reduce sedation 6. CXR ,CBC,BMP in am 7. Tube feeds at 60 CC 8. Lasix 20 MG IV Liz Sam MD Nov 21, 2017 13:07
[2017-11-21] MEDS ORDERED: FUROSEMIDE 20 MG/2 ML VIAL IV PUSH ONE (13:30)
[2017-11-21] MEDS: DEXAMETHASONE SOD PHOS 20 MG/5 ML VIAL IV PUSH SCH ×2 (13:51→17:01)
[2017-11-21] MEDS: RESP: ALBUTEROL 2.5 MG/IPRATROPIUM 0.5 MG NEB (SCH) NEB ×4 (13:54→23:17)
[2017-11-21] MEDS ORDERED: methylPREDNISolone SOD SUCC 40 MG/1 ML VIAL IV PUSH SCH (14:00)
--- NOTE | 2017-11-21 16:47 | OTSOAPIP ---
TIME SESSION COMPLETED: 1140 TREATMENT TIME: 0 MINS. CHART REVIEWED. ATTEMPTED TO SEE FOR OT EVALUATION, HOWEVER PT RECENTLY WEANED FROM VENT AND NOW ON BIPAP AND NURSE ASKED TO DEFER TODAY. WILL FOLLOW UP NEXT DAY. Therapist: MENA MAJOR OT/L Signature on file
[2017-11-22] VITALS (19 sets, daily range): BP systolic 115–138; BP diastolic 70–92; PULSE 68–105; RESP 16–28; TEMP 97.1–98.5; O2SAT 100
[2017-11-22] MEDS: LEVOFLOXACIN 750 MG PREMIX INJ 150 ML IV SCH (01:22)
[2017-11-22] MEDS: DEXAMETHASONE SOD PHOS 20 MG/5 ML VIAL IV PUSH SCH ×4 (01:23→18:07)
[2017-11-22] MEDS: DEXMEDETOMIDINE INJ 1,000 MCG in SODIUM CHLOR 0.9% 250 ML INJ 240 ML IV PRN ×3 (01:25→13:54)
[2017-11-22] MEDS: RESP: ALBUTEROL 2.5 MG/IPRATROPIUM 0.5 MG NEB (SCH) NEB ×6 (02:07→23:00)
[2017-11-22] MEDS: INSULIN ASPART SUPPLEMENTAL SCALE SQ SCH ×6 (04:00→20:00)
[2017-11-22 04:49] LABS: AUTOMATED NEUTROPHIL # 18.7 TH/MM3 (1.8-7.7); EOSINOPHIL % 0.1 % (0.0-4.0); HEMATOCRIT 38.7 % (35.0-46.0); HEMOGLOBIN 13.5 GM/DL (11.6-15.3); LYMPH % 7.6 % (9.0-44.0); LYMPHOCYTE # 1.6 TH/MM3 (1.0-4.8); MEAN CELL VOLUME 88.7 FL (80.0-100.0); MEAN PLATELET VOLUME 7.8 FL (7.0-11.0); MONO % 5.3 % (0.0-8.0); MONOCYTE # 1.1 TH/MM3 (0-0.9); PLATELET COUNT 282 TH/MM3 (150-450); RED BLOOD COUNT 4.36 MIL/MM3 (4.00-5.30); RED CELL DISTRIBUTION WIDTH 13.2 % (11.6-17.2); WHITE BLOOD COUNT 21.5 TH/MM3 (4.0-11.0)
[2017-11-22 05:04] LABS: ALBUMIN 2.7 GM/DL (3.4-5.0); AST (GOT) 25 U/L (15-37); BICARBONATE 25.7 MEQ/L (21.0-32.0); BLOOD UREA NITROGEN 27 MG/DL (7-18); CALCIUM 9.1 MG/DL (8.5-10.1); CHLORIDE 102 MEQ/L (98-107); CREATININE 0.59 MG/DL (0.50-1.00); GLOMERULAR FILTRATION RATE 107 ML/MIN (>89); GLUCOSE,RANDOM 134 MG/DL (74-106); SODIUM (NA) 137 MEQ/L (136-145)
[2017-11-22 05:09] LABS: ALKALINE PHOSPHATASE 60 U/L (45-117); ALT (GPT) 36 U/L (10-53); TOTAL BILIRUBIN ADULT 0.5 MG/DL (0.2-1.0)
[2017-11-22] MEDS ORDERED: RESP: RACEPINEPHRINE 2.25% 0.5 ML NEB ONE (05:12)
[2017-11-22] MEDS: AZTREONAM INJ 2,000 MG in SODIUM CHLORIDE 0.9% INJ 100 ML IV SCH ×2 (05:56→18:06)
[2017-11-22 07:18] LABS: BANDS 5 % (0-6); LYMPHOCYTES 6 % (9-44); METAMYELOCYTES 3 % (0-1); MONOCYTES 3 % (0-8); NEUTROPHIL # MANUAL DIFF 19.6 TH/MM3 (1.8-7.7); POLYS (SEG NEUTROPHILS) 83 % (16-70)
[2017-11-22] MEDS: CHLORHEXIDINE 0.12% (ORAL KIT) 15 ML CUP MT SCH ×2 (08:00→20:00)
[2017-11-22] MEDS: POLYETHYLENE GLYCOL 17 GM PKG PO SCH (08:22)
[2017-11-22] MEDS: FAMOTIDINE 20 MG/2 ML VIAL IV PUSH SCH ×2 (08:22→20:00)
[2017-11-22] MEDS: ENOXAPARIN SODIUM 40 MG/0.4 ML SYRINGE SQ SCH (08:24)
[2017-11-22] MEDS: FUROSEMIDE 20 MG/2 ML VIAL IV PUSH SCH (08:25)
[2017-11-22] MEDS: BENEPROTEIN POWDER 1 PACK G-TUBE SCH ×3 (08:25→18:00)
[2017-11-22] MEDS: SODIUM CHLORIDE 0.9% FLUSH 10 ML FLUSH IV FLUSH SCH ×2 (08:25→22:07)
[2017-11-22] MEDS: LACTULOSE SYRUP 20 GM/30 ML CUP PO SCH (08:27)
[2017-11-22] MEDS: NAPHAZOLINE HCL 0.012% OPHT SOLN 15 ML BOTTLE EACH EYE SCH ×4 (08:27→22:08)
[2017-11-22] MEDS: OSELTAMIVIR PHOSPHATE 75 MG CAP PO SCH (08:27)
[2017-11-22] MEDS: RESP: BUDESONIDE 0.5 MG/2 ML NEB NEB SCH ×2 (08:34→20:00)
[2017-11-22] MEDS: DOCUSATE SODIUM 100 MG/10 ML UDC PO SCH ×2 (08:51→21:00)
[2017-11-22] MEDS: FOLIC ACID 1 MG TAB PO SCH (08:51)
--- NOTE | 2017-11-22 10:28 | HHI.IDPN ---
Subjective Subjective Remarks Ms. Boyd is a 60 y/o female with PMHx significant for rheumatoid arthritis and possibly lupus who is on methotrexate and intermittently on steroids. Her PMHx is also significant for Bronchial asthma and she admits to smoking 1 ppd for many years. 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 She denies any fungal pneumonia. She denies exposure to people with TB or positive PPD. She thinks she uses a nebulizer which may have mold deposits. She reports her home is her truck. She lives in motels at times. Patient reports her symptoms started off with a fever she presented at an ED or urgent care was diagnosed with Flu and started on Tamiflu approximately 1 week IRONER HAND. She then presented to the [facility] ED with fever 103 F, tachycardia and Pneumonia on CXR on 11/11/2017. Flu antigen at this point after being treated with tamiflu was negative. She was transferred to [facility] due to increasing Shortness of breath and wheezing. She was reportedly getting worse despite taking her steroids at home which she intermittently takes for her RA. Patient was admitted to the [facility] facility under the hospitalist and was placed on IV Solu-Medrol breathing treatments, IV Levaquin and Tamiflu. Overnight patient had clinical deterioration was on 6 L nasal cannula with desaturation into the low 80s and patient was placed on a nonrebreather. An ABG done on 6 L showed severe AA gradient and a PO2 of 55. 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 Due to worsening shortness of breath, hypoxemic respiratory failure, extensive pulmonary infiltrates and risk of worsening ARDS patient was emergently transferred to the [facility]. Patient is currently under the contour sander service and is on a partial nonrebreather on 100% FiO2. The patient is tachypneic using accessory muscles. BiPAP ordered earlier but patient prefers not to use it. Patient is currently on Tamiflu, IV Levaquin, Azactam IV and IV vancomycin. Due to concern for PCP LDH was checked and patient started on empiric Bactrim IV.Patient is on IV Solu- Medrol increased to 60 mg every 6 hours. ID consulted for evaluation and Mment of Pneumonia in an Immune compromised patient. Overnight events reviewed. Low grade fevers. No rash No diarrhea Extubated but gets anxious and appears to have increased work of breathing during anxiety. Now on BiPaP. On lasix. Appears to have improved clinically from resp standpoint some compared to yday. Antibiotics Azactam IV Levaquin Tamiflu Lines Line sites with no e.o infection Past Medical History reviewed Allergies: Coded Allergies: Penicillins (Verified Allergy, Severe, Swelling, 11/13/17) Has tolerated Keflex as outpatient. aspirin (Verified Allergy, Severe, 11/11/17) morphine (Verified Adverse Reaction, Mild, Itching, 11/12/17) Objective . Vital Signs Date Time Temp Pulse Resp B/P (MAP) Pulse Ox O2 Delivery O2 Flow Rate FiO2 11/22/17 10:00 85 11/22/17 08:25 100 40 11/22/17 08:00 73 11/22/17 08:00 97.1 68 16 131/84 (100) 100 11/22/17 06:00 70 11/22/17 05:16 100 50 11/22/17 04:00 98.1 73 28 138/92 (107) 100 115/76 (89) 11/22/17 04:00 73 11/22/17 02:07 100 50 11/22/17 02:00 87 11/22/17 00:00 98.5 86 28 133/84 (100) 100 125/72 (89) 11/22/17 00:00 86 11/21/17 23:18 100 50 11/21/17 22:00 97 11/21/17 20:00 100.0 112 28 136/82 (100) 100 121/70 (87) 11/21/17 20:00 112 11/21/17 19:25 100 50 11/21/17 18:00 106 114/72 (86) 108/65 (79) 11/21/17 18:00 106 11/21/17 16:00 97.6 103 24 107/75 (86) 100 119/70 (86) 11/21/17 16:00 103 11/21/17 16:00 50 11/21/17 14:00 106 11/21/17 12:15 98 11/21/17 12:00 109 11/21/17 12:00 50 11/21/17 12:00 98.1 100 22 107/75 (86) 100 119/70 (86) 11/21/17 10:37 100 Venturi Mask 6.00 50 . Laboratory Tests Test 11/21/17 06:11 11/22/17 03:05 White Blood Count 18.8 TH/MM3 21.5 TH/MM3 Red Blood Count 4.24 MIL/MM3 4.36 MIL/MM3 Hemoglobin 13.0 GM/DL 13.5 GM/DL Hematocrit 37.7 % 38.7 % Mean Corpuscular Volume 89.1 FL 88.7 FL Mean Corpuscular Hemoglobin 30.6 PG 31.0 PG Mean Corpuscular Hemoglobin Concent 34.3 % 35.0 % Red Cell Distribution Width 13.4 % 13.2 % Platelet Count 262 TH/MM3 282 TH/MM3 Mean Platelet Volume 7.7 FL 7.8 FL Neutrophils (%) (Auto) 84.1 % 87.0 % Lymphocytes (%) (Auto) 9.0 % 7.6 % Monocytes (%) (Auto) 6.5 % 5.3 % Eosinophils (%) (Auto) 0.3 % 0.1 % Basophils (%) (Auto) 0.1 % 0.0 % Neutrophils # (Auto) 15.8 TH/MM3 18.7 TH/MM3 Lymphocytes # (Auto) 1.7 TH/MM3 1.6 TH/MM3 Monocytes # (Auto) 1.2 TH/MM3 1.1 TH/MM3 Eosinophils # (Auto) 0.1 TH/MM3 0.0 TH/MM3 Basophils # (Auto) 0.0 TH/MM3 0.0 TH/MM3 CBC Comment AUTO DIFF AUTO DIFF Differential Total Cells Counted 100 100 Neutrophils % (Manual) 75 % 83 % Band Neutrophils % 3 % 5 % Lymphocytes % 9 % 6 % Monocytes % 5 % 3 % Neutrophils # (Manual) 16.2 TH/MM3 19.6 TH/MM3 Metamyelocytes 6 % 3 % Myelocytes 2 % Differential Comment FINAL DIFF MANUAL FINAL DIFF MANUAL Platelet Estimate NORMAL NORMAL Platelet Morphology Comment NORMAL NORMAL Red Cell Morphology Comment NORMAL Laboratory Tests Test 11/21/17 06:11 11/22/17 03:05 Blood Urea Nitrogen 25 MG/DL 27 MG/DL Creatinine 0.54 MG/DL 0.59 MG/DL Random Glucose 112 MG/DL 134 MG/DL Calcium Level 9.0 MG/DL 9.1 MG/DL Phosphorus Level 2.7 MG/DL Magnesium Level 2.0 MG/DL Sodium Level 136 MEQ/L 137 MEQ/L Potassium Level 4.2 MEQ/L 3.9 MEQ/L Chloride Level 97 MEQ/L 102 MEQ/L Carbon Dioxide Level 32.8 MEQ/L 25.7 MEQ/L Anion Gap 6 MEQ/L 9 MEQ/L Estimat Glomerular Filtration Rate 119 ML/MIN 107 ML/MIN Total Protein 7.0 GM/DL Albumin 2.7 GM/DL Alkaline Phosphatase 60 U/L Aspartate Amino Transf (AST/SGOT) 25 U/L Alanine Aminotransferase (ALT/SGPT) 36 U/L Total Bilirubin 0.5 MG/DL Microbiology Date/Time Source Procedure Growth Status 11/21/17 04:45 Sputum Endotracheal Gram Stain - Final Resulted 11/21/17 04:45 Sputum Endotracheal Sputum Culture Pending Resulted Imaging Last Impressions Chest X-Ray 11/20/17 0600 Signed Impressions: Service Date/Time: Monday, November 20, 2017 04:02 - CONCLUSION: 1. Air space disease in the lungs similar to November 19. Support apparatus unchanged. Elieser Villalobos MD CT Angiography 11/13/17 0000 Signed Impressions: Service Date/Time: Monday, November 13, 2017 03:47 - CONCLUSION: 1. Negative for pulmonary embolus. 2. Bilateral airspace disease, predominantly groundglass slight upper lobe predominance with adenopathy. Differential diagnosis includes bronchopneumonia or. Recommend short-term followup to follow adenopathy and ensure resolution. Elieser Villalobos MD Physical Exam GENERAL: This is a well-nourished, well-developed patient. Severe resp distress , breathing 40s/min BP in 180s/120s SKIN: No rashes, ecchymoses or lesions. Cool and dry. HEAD: Atraumatic. Normocephalic. No temporal or scalp tenderness. EYES: Pupils equal round and reactive. Extraocular motions intact. No scleral icterus. No injection or drainage. ENT: partial face BIPAP mask NECK: Trachea midline. Supple, nontender, no meningeal signs. CARDIOVASCULAR: HS audible. RESPIRATORY: AE decreased bilaterally. Bilateral rhonchi GASTROINTESTINAL: Abdomen soft, non-tender, nondistended. MUSCULOSKELETAL: Extremities without clubbing, cyanosis, or edema. No joint tenderness, effusion, or edema noted. No calf tenderness. Negative Homans sign bilaterally. NEUROLOGICAL: Alert anxious Opens eyes spontaneously. Moves all 4 extremities. Follows commands. Psych anxious IV line sites with no e.o infection. Assessment & Plan Remarks Severe Sepsis present on admission. Pneumonia in an Immune compromised patient. Leucocytosis: infection, steroids. Influenza pneumonia: PCR positive. Ground glass opacities of lung: DDX acute infections, Fungal (crypto, histo), PCP, CMV are some other differentials that are being considered. Acute respiratory failure on NRB 100% FiO2. H/o RA, Lupus on MTX and steroids off and on. Immune compromised host Thrombocytopenia: sepsis, meds related. Penicillin Allergy: has tolerated keflex in past. High grade leucocytosis: infection, steroids. Recurrent acute respiratory failure, resp decompensation immediately after extubation Recs: Continue Azactam IV decrease dose to q12hrs as no PSAE identified. Continue Levaquin IV (atypical coverage) Continue Tamiflu oral Follow cultures Follow clinically guerrero Duke and RN June Pinto MD Nov 22, 2017 10:28
--- NOTE | 2017-11-22 12:26 | HHI.PR ---
Subjective Remarks Off the vent and on a BiPAP mask at 40 % FIo2 Chest Xray shows bilateral infiltrates. She is sleepy. On Precedex. Objective Vital Signs Date Time Temp Pulse Resp B/P (MAP) Pulse Ox O2 Delivery O2 Flow Rate FiO2 11/22/17 11:25 100 40 11/22/17 10:00 85 11/22/17 08:25 100 40 11/22/17 08:00 73 11/22/17 08:00 97.1 68 16 131/84 (100) 100 11/22/17 06:00 70 11/22/17 05:16 100 50 11/22/17 04:00 98.1 73 28 138/92 (107) 100 115/76 (89) 11/22/17 04:00 73 11/22/17 02:07 100 50 11/22/17 02:00 87 11/22/17 00:00 98.5 86 28 133/84 (100) 100 125/72 (89) 11/22/17 00:00 86 11/21/17 23:18 100 50 11/21/17 22:00 97 11/21/17 20:00 100.0 112 28 136/82 (100) 100 121/70 (87) 11/21/17 20:00 112 11/21/17 19:25 100 50 11/21/17 18:00 106 114/72 (86) 108/65 (79) 11/21/17 18:00 106 11/21/17 16:00 97.6 103 24 107/75 (86) 100 119/70 (86) 11/21/17 16:00 103 11/21/17 16:00 50 11/21/17 14:00 106 I/O 11/21/1718 11/21/17 11/22/17 11/22/17 11/22/17 07:00 15:00 23:00 07:00 15:00 23:00 Intake Total 260 ml 342.24 ml 324 ml 810 ml Output Total 1100 ml 2650 ml 1150 ml Balance -840 ml 342.24 ml -2326 ml -340 ml IV Total 260 ml 342.24 ml 324 ml 810 ml Output Urine Total 1100 ml 2650 ml 1150 ml # Bowel Movements 0 0 Result Diagram: 11/22/175 11/22/17304 Objective Remarks This is a moderately obese middle-aged lady who is awake HEENT: Head normocephalic. Pupils reactive. Sclerae were clear. Throat clear. Ears and nose have no inflammation. NECK: Supple. No bruits or thyroid enlargement. CHEST: Equal movements with wheezes over both lung bases. HEART: Heart sounds are regular S1 and S2. No S3. No murmur. ABDOMEN: The abdomen soft, obese without masses or organomegaly . Bowel sounds are active. EXTREMITIES: No edema. Peripheral pulses are good . Reflexes not elicited. SKIN: Dry and cool. Assessment and Plan Assessment and Plan IMPRESSION 1. Acute hypoxemic respiratory failure. 2. ARDS with possible bilateral pneumonia. 3. History of for rheumatoid arthritis with possible interstitial lung disease. 4. Asthmatic bronchitis with exacerbation. 5. Influenza A Plan : 1. Wean Fio2 to Keep sat >92. 2. Nebs q6h , duoneb 3. Continue on BiPAP and wean to Ventimask 50 % 4. Continue antibiotics 5. Reduce sedation 6. CXR ,CBC,BMP in am 7. Tube feeds at 60 CC 8. Lasix 20 MG IV daily. Liz Sam MD Nov 22, 2017 12:26
--- NOTE | 2017-11-22 18:10 | HHI.CCPN ---
Subjective Remarks/Hospital Course Patient is a 60-year-old female with past medical history significant for rheumatoid arthritis on methotrexate and intermittently on steroids, Bronchial asthma, tobacco abuse who was admitted to [facility] with week long history of fevers chills and URI symptoms. This was associated with increasing shortness of breath and wheezing. Not improving with inhaled albuterol or prednisone which patient takes intermittently for rheumatoid arthritis flare up. About 3 days prior to ER visit patient was placed on Tamiflu by urgent care facility based on clinical symptoms. CXR at [place] emergency department showed bilateral patchy infiltrates. Patient was admitted to the [facility] facility under the hospitalist and was placed on IV Solu- Medrol breathing treatments, IV Levaquin and Tamiflu. Overnight patient had clinical deterioration was on 6 L nasal cannula with desaturation into the low 80s and patient was placed on a nonrebreather. An ABG done on 6 L showed severe AA gradient and a PO2 of 55. 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 Because of hypoxemic respiratory failure, extensive pulmonary infiltrates and risk of worsening ARDS patient was emergently transferred to the [place] [facility] ICU I immediately evaluated the patient in the ICU. She is on partial nonrebreather oxygen saturation above 90%. The patient is tachypneic using accessory muscles. BiPAP ordered. Clinical presentation is concerning for influenza with secondary bacterial pneumonia. Because of her history of on and off chronic steroids and rheumatoid arthritis I will check for Pneumocystis jiroveci staining, LDH. Also ID consulted. A limited bedside echo showed normal ejection fraction. We will continue Tamiflu, IV Levaquin and vancomycin plus Azactam. If LDH is elevated start empiric coverage with IV Bactrim. Continue IV Solu-Medrol increased to 60 mg every 6 hours. ID consulted and discussed with Dr. Pinto SUBJ 11/14: Patient was intubated overnight for severe worsening hypoxemic respiratory failure. Chest x-ray postintubation showed worsening bilateral infiltrates. Currently on Zyvox, Azactam, IV Bactrim for PCP, and Levaquin. Pulmonology consulted for BAL if clinical condition permits. Start Nimbex infusion as the patient is on 100% FiO2 to maintain oxygen saturation. PEEP increased to 10. After obtaining BAL consider prolotherapy, if not improving 11/15: Remains intubated sedated and neuromuscularly paralyzed. Remains critical but stabilizing. FiO2 down to 60%. I will attempt weaning PEEP to 10. Discontinue neuromuscular paralysis due to risk of severe neuromuscular weakness, as patient is also on steroids. Chest x-ray remains unchanged. Bronchoscopy and BAL 11/14/17 results pending 11/16: Remains intubated sedated. Intermittent ventilatory synchrony with hypoxia worsening requiring rocuronium for neuromuscular paralysis. Currently FiO2 at 55% PEEP at 10. Chest x-ray shows worsening infiltrate and fluid overload. Start careful diuresis with IV Lasix. Influenza pneumonia, PCR positive. 11/17: Remains intubated heavily sedated intermittently neuromuscularly paralyzed on ventilator synchrony. Chest x-ray shows slight improvement in bilateral infiltrates. FiO2 down to 45%. Urine output adequate on Lasix. K 5.2 , KCL discontinued. Vent changed to ACV from PC/AC. Remains hypercapnic on ABG 11/18: Remains intubated chest x-ray shows improving pulmonary edema pattern. remain heavily sedated. K 5.7. Will give 40 mg IV lasix and 30 Gm Kayexalate and repeat at 1500. Start CPAP today. 11/19: CPAP trials initiated today, patient initially lasted 1 hour, off all sedation this morning. Precedex and fentanyl continued CPAP trials reinitiated , pressure support of 15 more successful. Chest x-ray improving. Extensive discussion with family regarding possibility of tracheostomy between day 7 and 10. 11/20: Afebrile .Tolerated CPAP trials throughout the night. The patient continues on CPAP, ABGs have been obtained all sedation has been discontinued in anticipation of an SBT trial this afternoon. The white count continues to be elevated, and bands increased. 11/21: Extubated yesterday but had to be reintubated and 45 minutes approximately 4 respiratory distress. Currently on full vent support on Precedex and fentanyl for sedation, wakes up easily follows commands. FiO2 down to 45% again. CXR unchanged. 11/22: No acute events overnight. Pt currently being weaned off Precedexfrancisco dc'amaury. WBC remains elevated. Pt alert and oriented, responding appropriately. Objective Vital Signs Date Time Temp Pulse Resp B/P (MAP) Pulse Ox O2 Delivery O2 Flow Rate FiO2 11/22/17 14:03 100 Nasal Cannula 4.00 11/22/17 14:00 88 11/22/17 12:47 35 11/22/17 12:00 97.4 16 118/70 (86) Intake and Output 11/22/17 11/22/17 11/23/17 08:00 16:00 00:00 Intake Total 810 ml Output Total 1150 ml Balance -340 ml Result Diagram: 11/22/17 0305 11/22/17 0305 Other Results Laboratory Tests Test 11/22/17 04:44 Blood Gas Puncture Site ART LINE Blood Gas Patient Temperature 98.6 Blood Gas HCO3 22 mmol/L (22-26) Blood Gas Base Excess -1.4 mmol/L (-2-2) Blood Gas Oxygen Saturation 96 % (90-100) Arterial Blood pH 7.43 (7.380-7.420) Arterial Blood Partial Pressure CO2 35 mmHg (38-42) Arterial Blood Partial Pressure O2 125 mmHg (61-120) Arterial Blood Oxygen Content 20.2 Vol % (12.0-20.0) Arterial Blood Carboxyhemoglobin 0.8 % (0-4) Arterial Blood Methemoglobin 1.3 % (0-2) Blood Gas Hemoglobin 14.8 G/DL (12.0-16.0) Oxygen Delivery Device BIPAP Blood Gas Ventilator Setting 17/04/ Blood Gas Inspired Oxygen 50 % Imaging Last Impressions Chest X-Ray 11/20/17599 Signed Impressions: Service Date/Time: Monday, November 20, 2017 04:02 - CONCLUSION: 1. Air space disease in the lungs similar to November 19. Support apparatus unchanged. Elieser Villalobos MD CT Angiography 11/13/17 0000 Signed Impressions: Service Date/Time: Monday, November 13, 2017 03:47 - CONCLUSION: 1. Negative for pulmonary embolus. 2. Bilateral airspace disease, predominantly groundglass slight upper lobe predominance with adenopathy. Differential diagnosis includes bronchopneumonia or. Recommend short-term followup to follow adenopathy and ensure resolution. Elieser Villalobos MD Last Impressions Chest X-Ray 11/19/17 06 Signed Impressions: Service Date/Time: Sunday, November 19, 2017 03:23 - CONCLUSION: Overall improvement in pulmonary edema with minimal interstitial process remaining. Tayla Valderrama MD CT Angiography 11/13/17 0000 Signed Impressions: Service Date/Time: Monday, November 13, 2017 03:47 - CONCLUSION: 1. Negative for pulmonary embolus. 2. Bilateral airspace disease, predominantly groundglass slight upper lobe predominance with adenopathy. Differential diagnosis includes bronchopneumonia or. Recommend short-term followup to follow adenopathy and ensure resolution. Elieser Villalobos MD CT CHEST: Bilateral airspace disease, predominantly ground glass slight upper lobe predominance with adenopathy. Differential diagnosis includes bronchopneumonia or. Recommend short-term followup to follow adenopathy and ensure resolution. Chest x-ray shows bilateral patchy infiltrates Objective Remarks GENERAL: Lying in bed, awke and responding appropriately SKIN: Warm and dry. EYES: No scleral icterus. No injection or drainage. ENT: No nasal bleeding or discharge. Orotracheally intubated NECK: Supple. No JVD CARDIOVASCULAR: Regular rate and rhythm. no murmurs. Hypotensive RESPIRATORY:Currently on N/C FiO2 33%. Clear to auscultation bilaterally GASTROINTESTINAL: Abdomen soft, non-tender, nondistended. EXT: No clubbing, cyanosis, or edema. No obvious deformities. NEUROLOGICAL: RASS 0. Movement of extremities x 4, the patient following commands. 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 PEEP to 5, titrate oxygen to keep saturations more than 90% -Extubated yesterday 11/20/17, but had to be reintubated in approximately 45 minutes due to respiratory distress -Pulmonology Dr. Rich. s/p Bronch with BAL 11/14. -Influenza PCR positive -DuoNeb every 6 hours scheduled and as needed -IV Solu Medrol to 40 every [id number] to 20 q12. budesonide inhaled -PJP stain negative, serum LDH elevated at 568 -See ID section for ABX -Attempt CPAP again CV: -Bedside echo shows normal ejection fraction, 2D Echo EF normal -Diurese to dry weight, IV Lasix 20 mg every daily, Diamox 500 mg IV x1 duw to metabolic acidosis -11/19 normally on extended release 12.5 metoprolol changed to, metoprolol 6.25 mg twice a day GI: -IV famotidine -Tube feeds with Glucerna, bowel regimen with Colace and lactulose -Having BM : -Monitor renal function closely. IV Lasix as above - D/C Machado catheter. Strict I's and O's ID: -Influenza PCR positive, PJP stain negative -Neg sputum culture and blood culture, urine for Legionella and pneumococcal antigen. F/U sputum cx 11/20 -Continue broad-spectrum antibiotics with Azactam, Levaquin and Tamiflu. (Zyvox , and Bactrim DCd 11/16) -Infectious disease HEME: -Monitor CBC, CMP, coags ENDO: -Mild hyperglycemia secondary to steroids -Sliding scale insulin MSK -Holding methotrexate due to an acute infection -Continue IV Solu-Medrol, reduce to 20 q12 PROPH: Bilateral lower extremity SCDs/JESSICA. Lovenox, Famotidine LINES: Utilize peripheral IVs, placed central line and arterial line Dispo: Discussed with GLASS LAMINATING OPERATOR and patient's and family at bedside. Level 3. Physician Amy Caro MD Nov 22, 2017 18:10
[2017-11-22] MEDS: LORazepam 2 MG/ML VIAL IV PUSH PRN (19:40)
[2017-11-23] VITALS (14 sets, daily range): BP systolic 103–130; BP diastolic 61–80; PULSE 82–134; RESP 17–24; TEMP 98.1–98.8; O2SAT 99–100
[2017-11-23] MEDS: DEXAMETHASONE SOD PHOS 20 MG/5 ML VIAL IV PUSH SCH ×3 (01:36→12:57)
[2017-11-23] MEDS: SODIUM CHLORIDE 0.9% FLUSH 10 ML FLUSH IV FLUSH PRN (01:36)
[2017-11-23] MEDS: LORazepam 2 MG/ML VIAL IV PUSH PRN ×3 (01:36→20:12)
[2017-11-23] MEDS: LEVOFLOXACIN 750 MG PREMIX INJ 150 ML IV SCH (01:36)
[2017-11-23] MEDS: DEXMEDETOMIDINE INJ 1,000 MCG in SODIUM CHLOR 0.9% 250 ML INJ 240 ML IV PRN (01:41)
[2017-11-23] MEDS: RESP: ALBUTEROL 2.5 MG/IPRATROPIUM 0.5 MG NEB (SCH) NEB ×10 (02:00→22:00)
[2017-11-23] MEDS: INSULIN ASPART SUPPLEMENTAL SCALE SQ SCH ×6 (04:00→20:00)
--- NOTE | 2017-11-23 04:56 | RADRPT ---
EXAM DATE/TIME: 11/23/2017 03:27 [place] COMPARISON: CHEST SINGLE AP, November 21, 2017, 3:18. INDICATIONS : Short of breath. Status post extubation. MEDICAL HISTORY : Rheumatoid arthritis. Lupus. Asthma SURGICAL HISTORY : Appendectomy. ENCOUNTER: Subsequent ACUITY: 1 week PAIN SCORE: 0/10 LOCATION: Bilateral chest FINDINGS: A single AP portable semierect view of the chest was obtained and demonstrates interval extubation an d removal of the nasogastric tube. The right-sided central venous line remains in place. No confluent infiltrates or effusions are identified. The heart size remains at the upper limits of normal. The b jefferson thorax is intact. CONCLUSION: 1. Interval extubation and removal nasogastric tube. 2. No confluent infiltrates. Patrice Conley MD on November 23, 2017 at 4:54 Board Certified Radiologist. This report was verified electronically.
[2017-11-23] MEDS: AZTREONAM INJ 2,000 MG in SODIUM CHLORIDE 0.9% INJ 100 ML IV SCH ×2 (05:46→18:43)
[2017-11-23 06:29] LABS: AUTOMATED NEUTROPHIL # 16.2 TH/MM3 (1.8-7.7); BASOPHIL % 0.1 % (0.0-2.0); HEMATOCRIT 38.7 % (35.0-46.0); HEMOGLOBIN 13.4 GM/DL (11.6-15.3); LYMPH % 6.7 % (9.0-44.0); LYMPHOCYTE # 1.2 TH/MM3 (1.0-4.8); MEAN CELL VOLUME 89.1 FL (80.0-100.0); MEAN CORPUSCULAR HEMOGLOBIN 30.9 PG (27.0-34.0); MEAN CORPUSCULAR HGB CONC 34.7 % (32.0-36.0); MEAN PLATELET VOLUME 7.7 FL (7.0-11.0); MONO % 5.7 % (0.0-8.0); MONOCYTE # 1.1 TH/MM3 (0-0.9); NEUT % 87.5 % (16.0-70.0); PLATELET COUNT 267 TH/MM3 (150-450); RED BLOOD COUNT 4.35 MIL/MM3 (4.00-5.30); RED CELL DISTRIBUTION WIDTH 13.3 % (11.6-17.2); WHITE BLOOD COUNT 18.6 TH/MM3 (4.0-11.0)
[2017-11-23 07:02] LABS: BICARBONATE 27.8 MEQ/L (21.0-32.0); CALCIUM 9.3 MG/DL (8.5-10.1); CREATININE 0.45 MG/DL (0.50-1.00)
[2017-11-23] MEDS: CHLORHEXIDINE 0.12% (ORAL KIT) 15 ML CUP MT SCH ×2 (08:00→20:00)
[2017-11-23 08:12] LABS: BANDS 3 % (0-6); LYMPHOCYTES 4 % (9-44); MONOCYTES 7 % (0-8); MYELOCYTES 3 % (0-0); NEUTROPHIL # MANUAL DIFF 16.6 TH/MM3 (1.8-7.7); POLYS (SEG NEUTROPHILS) 83 % (16-70)
[2017-11-23] MEDS: RESP: BUDESONIDE 0.5 MG/2 ML NEB NEB SCH ×2 (08:26→20:46)
[2017-11-23] MEDS: BENEPROTEIN POWDER 1 PACK G-TUBE SCH (09:00)
[2017-11-23] MEDS: ENOXAPARIN SODIUM 40 MG/0.4 ML SYRINGE SQ SCH (09:21)
[2017-11-23] MEDS: FOLIC ACID 1 MG TAB PO SCH (09:21)
[2017-11-23] MEDS: OSELTAMIVIR PHOSPHATE 75 MG CAP PO SCH (09:21)
[2017-11-23] MEDS: FAMOTIDINE 20 MG/2 ML VIAL IV PUSH SCH ×2 (09:22→20:12)
[2017-11-23] MEDS: POLYETHYLENE GLYCOL 17 GM PKG PO SCH (09:22)
[2017-11-23] MEDS: DOCUSATE SODIUM 100 MG/10 ML UDC PO SCH ×2 (09:22→20:12)
[2017-11-23] MEDS: LACTULOSE SYRUP 20 GM/30 ML CUP PO SCH (09:22)
[2017-11-23] MEDS: FUROSEMIDE 20 MG/2 ML VIAL IV PUSH SCH (09:22)
[2017-11-23] MEDS: SODIUM CHLORIDE 0.9% FLUSH 10 ML FLUSH IV FLUSH SCH ×2 (09:23→20:12)
[2017-11-23] MEDS: NAPHAZOLINE HCL 0.012% OPHT SOLN 15 ML BOTTLE EACH EYE SCH ×4 (10:51→20:12)
[2017-11-23] MEDS: ALPRAZolam 1 MG TAB PO PRN (10:53)
--- NOTE | 2017-11-23 10:56 | HHI.CCPN ---
Subjective Remarks/Hospital Course Patient is a 60-year-old female with past medical history significant for rheumatoid arthritis on methotrexate and intermittently on steroids, Bronchial asthma, tobacco abuse who was admitted to [facility] with week long history of fevers chills and URI symptoms. This was associated with increasing shortness of breath and wheezing. Not improving with inhaled albuterol or prednisone which patient takes intermittently for rheumatoid arthritis flare up. About 3 days prior to ER visit patient was placed on Tamiflu by urgent care facility based on clinical symptoms. CXR at [place] emergency department showed bilateral patchy infiltrates. Patient was admitted to the [facility] facility under the hospitalist and was placed on IV Solu- Medrol breathing treatments, IV Levaquin and Tamiflu. Overnight patient had clinical deterioration was on 6 L nasal cannula with desaturation into the low 80s and patient was placed on a nonrebreather. An ABG done on 6 L showed severe AA gradient and a PO2 of 55. 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 Because of hypoxemic respiratory failure, extensive pulmonary infiltrates and risk of worsening ARDS patient was emergently transferred to the [place] [facility] I immediately evaluated the patient in the ICU. She is on partial nonrebreather oxygen saturation above 90%. The patient is tachypneic using accessory muscles. BiPAP ordered. Clinical presentation is concerning for influenza with secondary bacterial pneumonia. Because of her history of on and off chronic steroids and rheumatoid arthritis I will check for Pneumocystis jiroveci staining, LDH. Also ID consulted. A limited bedside echo showed normal ejection fraction. We will continue Tamiflu, IV Levaquin and vancomycin plus Azactam. If LDH is elevated start empiric coverage with IV Bactrim. Continue IV Solu-Medrol increased to 60 mg every 6 hours. ID consulted and discussed with Dr. Pinto SUBJ 11/14: Patient was intubated overnight for severe worsening hypoxemic respiratory failure. Chest x-ray postintubation showed worsening bilateral infiltrates. Currently on Zyvox, Azactam, IV Bactrim for PCP, and Levaquin. Pulmonology consulted for BAL if clinical condition permits. Start Nimbex infusion as the patient is on 100% FiO2 to maintain oxygen saturation. PEEP increased to 10. After obtaining BAL consider prolotherapy, if not improving 11/15: Remains intubated sedated and neuromuscularly paralyzed. Remains critical but stabilizing. FiO2 down to 60%. I will attempt weaning PEEP to 10. Discontinue neuromuscular paralysis due to risk of severe neuromuscular weakness, as patient is also on steroids. Chest x-ray remains unchanged. Bronchoscopy and BAL 11/14/17 results pending 11/16: Remains intubated sedated. Intermittent ventilatory synchrony with hypoxia worsening requiring rocuronium for neuromuscular paralysis. Currently FiO2 at 55% PEEP at 10. Chest x-ray shows worsening infiltrate and fluid overload. Start careful diuresis with IV Lasix. Influenza pneumonia, PCR positive. 11/17: Remains intubated heavily sedated intermittently neuromuscularly paralyzed on ventilator synchrony. Chest x-ray shows slight improvement in bilateral infiltrates. FiO2 down to 45%. Urine output adequate on Lasix. K 5.2 , KCL discontinued. Vent changed to ACV from PC/AC. Remains hypercapnic on ABG 11/18: Remains intubated chest x-ray shows improving pulmonary edema pattern. remain heavily sedated. K 5.7. Will give 40 mg IV lasix and 30 Gm Kayexalate and repeat at 1500. Start CPAP today. 11/19: CPAP trials initiated today, patient initially lasted 1 hour, off all sedation this morning. Precedex and fentanyl continued CPAP trials reinitiated , pressure support of 15 more successful. Chest x-ray improving. Extensive discussion with family regarding possibility of tracheostomy between day 7 and 10. 11/20: Afebrile .Tolerated CPAP trials throughout the night. The patient continues on CPAP, ABGs have been obtained all sedation has been discontinued in anticipation of an SBT trial this afternoon. The white count continues to be elevated, and bands increased. 11/21: Extubated yesterday but had to be reintubated and 45 minutes approximately 4 respiratory distress. Currently on full vent support on Precedex and fentanyl for sedation, wakes up easily follows commands. FiO2 down to 45% again. CXR unchanged. 11/22: No acute events overnight. Pt currently being weaned off Precedex, francisco murillo. WBC remains elevated. Pt alert and oriented, responding appropriately. 11/23: Precedex currently being weaned off sputum results Aspergillus, discussed with . Patient's O2 sat 100%, on 2 LPM. Patient's diet advanced to clear liquid. Objective Vital Signs Date Time Temp Pulse Resp B/P (MAP) Pulse Ox O2 Delivery O2 Flow Rate FiO2 11/23/17 08:29 100 Nasal Cannula 2.00 11/23/17 06:00 82 20 112/68 (83) 11/23/17 04:00 98.3 11/22/17 12:47 35 Intake and Output 11/23/17 11/23/17 11/24/17 08:00 16:00 00:00 Intake Total 450 ml Output Total 400 ml Balance 50 ml Result Diagram: 11/23/1752411/23/17 05 Imaging Last Impressions Chest X-Ray 11/20/17 06 Signed Impressions: Service Date/Time: Monday, November 20, 2017 04:02 - CONCLUSION: 1. Air space disease in the lungs similar to November 19. Support apparatus unchanged. Elieser Villalobos MD CT Angiography 11/13/17 0000 Signed Impressions: Service Date/Time: Monday, November 13, 2017 03:47 - CONCLUSION: 1. Negative for pulmonary embolus. 2. Bilateral airspace disease, predominantly groundglass slight upper lobe predominance with adenopathy. Differential diagnosis includes bronchopneumonia or. Recommend short-term followup to follow adenopathy and ensure resolution. Elieser Villalobos MD Last Impressions Chest X-Ray 11/19/17599 Signed Impressions: Service Date/Time: Sunday, November 19, 2017 03:23 - CONCLUSION: Overall improvement in pulmonary edema with minimal interstitial process remaining. Tayla Valderrama MD CT Angiography 11/13/17 0000 Signed Impressions: Service Date/Time: Monday, November 13, 2017 03:47 - CONCLUSION: 1. Negative for pulmonary embolus. 2. Bilateral airspace disease, predominantly groundglass slight upper lobe predominance with adenopathy. Differential diagnosis includes bronchopneumonia or. Recommend short-term followup to follow adenopathy and ensure resolution. Elieser Villalobos MD CT CHEST: Bilateral airspace disease, predominantly ground glass slight upper lobe predominance with adenopathy. Differential diagnosis includes bronchopneumonia or. Recommend short-term followup to follow adenopathy and ensure resolution. Chest x-ray shows bilateral patchy infiltrates Objective Remarks GENERAL: Lying in bed, awke and responding appropriately, currently Precedex 0.5 mcg/kg/hr SKIN: Warm and dry. EYES: No scleral icterus. No injection or drainage. ENT: No nasal bleeding or discharge. Orotracheally intubated NECK: Supple. No JVD CARDIOVASCULAR: Regular rate and rhythm. no murmurs. Hypotensive RESPIRATORY:Currently on N/C FiO2 33%. Clear to auscultation bilaterally GASTROINTESTINAL: Abdomen soft, non-tender, nondistended. EXT: No clubbing, cyanosis, or edema. No obvious deformities. NEUROLOGICAL: RASS 0. Movement of extremities x 4, the patient following commands. 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 PEEP to 5, titrate oxygen to keep saturations more than 90% -Extubated yesterday 11/20/17, but had to be reintubated in approximately 45 minutes due to respiratory distress -Pulmonology Dr. Rich. s/p Bronch with BAL 11/14. -Influenza PCR positive -DuoNeb every 6 hours scheduled and as needed -IV Solu Medrol to 40 every [id number] to 20 q12. budesonide inhaled -PJP stain negative, serum LDH elevated at 568 -See ID section for ABX CV: -Bedside echo shows normal ejection fraction, 2D Echo EF normal -Diurese to dry weight, IV Lasix 20 mg every daily, Diamox 500 mg IV x1 duw to metabolic acidosis -11/19 normally on extended release 12.5 metoprolol changed to, metoprolol 6.25 mg twice a day GI: -IV famotidine -Clear liquid diet -Having BM : -Monitor renal function closely. IV Lasix as above - D/C Machado catheter. Strict I's and O's ID: -Influenza PCR positive, PJP stain negative -Neg sputum culture and blood culture, urine for Legionella and pneumococcal antigen. F/U sputum cx 11/20 -Continue broad-spectrum antibiotics with Azactam, Levaquin and Tamiflu. (Zyvox , and Bactrim DCd 11/16) -Infectious disease HEME: -Monitor CBC, CMP, coags ENDO: -Mild hyperglycemia secondary to steroids -Sliding scale insulin MSK -Holding methotrexate due to an acute infection -Continue IV Solu-Medrol, reduce to 20 q12 -PT evaluation and treat PROPH: Bilateral lower extremity SCDs/JESSICA. Lovenox, Famotidine LINES: Utilize peripheral IVs, placed central line and arterial line Dispo: Discussed with BANK VAULT ATTENDANT and patient's and family at bedside. Level 3. Physician Amy Caro MD Nov 23, 2017 10:56
--- NOTE | 2017-11-23 13:07 | HHI.IDPN ---
Subjective Subjective Remarks Ms. Boyd is a 60 y/o female with PMHx significant for rheumatoid arthritis and possibly lupus who is on methotrexate and intermittently on steroids. Her PMHx is also significant for Bronchial asthma and she admits to smoking 1 ppd for many years. 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 She denies any fungal pneumonia. She denies exposure to people with TB or positive PPD. She thinks she uses a nebulizer which may have mold deposits. She reports her home is her truck. She lives in motels at times. 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 She then presented to the [facility] ED with fever 103 F, tachycardia and Pneumonia on CXR on 11/11/2017. Flu antigen at this point after being treated with tamiflu was negative. She was transferred to [facility] due to increasing Shortness of breath and wheezing. She was reportedly getting worse despite taking her steroids at home which she intermittently takes for her RA. Patient was admitted to the [facility] facility under the hospitalist and was placed on IV Solu-Medrol breathing treatments, IV Levaquin and Tamiflu. Overnight patient had clinical deterioration was on 6 L nasal cannula with desaturation into the low 80s and patient was placed on a nonrebreather. An ABG done on 6 L showed severe AA gradient and a PO2 of 55. 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 Due to worsening shortness of breath, hypoxemic respiratory failure, extensive pulmonary infiltrates and risk of worsening ARDS patient was emergently transferred to the [place] [facility]. 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 The patient is tachypneic using accessory muscles. BiPAP ordered earlier but patient prefers not to use it. Patient is currently on Tamiflu, IV Levaquin, Azactam IV and IV vancomycin. Due to concern for PCP LDH was checked and patient started on empiric Bactrim IV.Patient is on IV Solu- Medrol increased to 60 mg every 6 hours. ID consulted for evaluation and Mment of Pneumonia in an Immune compromised patient. Overnight events reviewed. Low grade fevers. No rash No diarrhea Extubated but gets anxious and appears to have increased work of breathing during anxiety. Now on BiPaP. On lasix. Appears to have improved clinically from resp standpoint some compared to yday. Antibiotics Azactam IV Levaquin Tamiflu Lines Line sites with no e.o infection Past Medical History reviewed Allergies: Coded Allergies: Penicillins (Verified Allergy, Severe, Swelling, 11/13/17) Has tolerated Keflex as outpatient. aspirin (Verified Allergy, Severe, 11/11/17) morphine (Verified Adverse Reaction, Mild, Itching, 11/12/17) Objective . Vital Signs Date Time Temp Pulse Resp B/P (MAP) Pulse Ox O2 Delivery O2 Flow Rate FiO2 11/23/17 12:00 98.5 118 18 105/71 (82) 100 11/23/17 12:00 118 11/23/17 10:00 91 11/23/17 08:29 100 Nasal Cannula 2.00 11/23/17 08:00 82 11/23/17 08:00 98.2 82 20 111/69 (83) 100 11/23/17 06:00 82 20 112/68 (83) 100 11/23/17 06:00 82 11/23/17 04:00 98.3 96 19 110/71 (84) 100 11/23/17 04:00 96 11/23/17 02:00 86 18 103/61 (75) 100 11/23/17 02:00 86 11/23/17 00:00 98.1 83 17 107/68 (81) 100 11/23/17 00:00 83 11/22/17 22:00 105 11/22/17 21:31 100 Nasal Cannula 2.00 11/22/17 20:00 98.0 84 21 118/74 (89) 100 Arterial Line 11/22/17 20:00 84 11/22/17 18:00 93 11/22/17 16:00 104 11/22/17 16:00 97.5 104 21 128/70 (89) 100 11/22/17 14:03 100 Nasal Cannula 4.00 11/22/17 14:00 88 . Laboratory Tests Test 11/22/17 03:05 11/23/17 05:25 White Blood Count 21.5 TH/MM3 18.6 TH/MM3 Red Blood Count 4.36 MIL/MM3 4.35 MIL/MM3 Hemoglobin 13.5 GM/DL 13.4 GM/DL Hematocrit 38.7 % 38.7 % Mean Corpuscular Volume 88.7 FL 89.1 FL Mean Corpuscular Hemoglobin 31.0 PG 30.9 PG Mean Corpuscular Hemoglobin Concent 35.0 % 34.7 % Red Cell Distribution Width 13.2 % 13.3 % Platelet Count 282 TH/MM3 267 TH/MM3 Mean Platelet Volume 7.8 FL 7.7 FL Neutrophils (%) (Auto) 87.0 % 87.5 % Lymphocytes (%) (Auto) 7.6 % 6.7 % Monocytes (%) (Auto) 5.3 % 5.7 % Eosinophils (%) (Auto) 0.1 % 0.0 % Basophils (%) (Auto) 0.0 % 0.1 % Neutrophils # (Auto) 18.7 TH/MM3 16.2 TH/MM3 Lymphocytes # (Auto) 1.6 TH/MM3 1.2 TH/MM3 Monocytes # (Auto) 1.1 TH/MM3 1.1 TH/MM3 Eosinophils # (Auto) 0.0 TH/MM3 0.0 TH/MM3 Basophils # (Auto) 0.0 TH/MM3 0.0 TH/MM3 CBC Comment AUTO DIFF AUTO DIFF Differential Total Cells Counted 100 100 Neutrophils % (Manual) 83 % 83 % Band Neutrophils % 5 % 3 % Lymphocytes % 6 % 4 % Monocytes % 3 % 7 % Neutrophils # (Manual) 19.6 TH/MM3 16.6 TH/MM3 Metamyelocytes 3 % Differential Comment FINAL DIFF MANUAL FINAL DIFF MANUAL Platelet Estimate NORMAL NORMAL Platelet Morphology Comment NORMAL NORMAL Red Cell Morphology Comment NORMAL Myelocytes 3 % Laboratory Tests Test 11/22/17 03:05 11/23/17 05:25 Blood Urea Nitrogen 27 MG/DL 31 MG/DL Creatinine 0.59 MG/DL 0.45 MG/DL Random Glucose 134 MG/DL 123 MG/DL Total Protein 7.0 GM/DL Albumin 2.7 GM/DL Calcium Level 9.1 MG/DL 9.3 MG/DL Alkaline Phosphatase 60 U/L Aspartate Amino Transf (AST/SGOT) 25 U/L Alanine Aminotransferase (ALT/SGPT) 36 U/L Total Bilirubin 0.5 MG/DL Sodium Level 137 MEQ/L 140 MEQ/L Potassium Level 3.9 MEQ/L 3.8 MEQ/L Chloride Level 102 MEQ/L 104 MEQ/L Carbon Dioxide Level 25.7 MEQ/L 27.8 MEQ/L Anion Gap 9 MEQ/L 8 MEQ/L Estimat Glomerular Filtration Rate 107 ML/MIN 147 ML/MIN Microbiology Date/Time Source Procedure Growth Status 11/21/17 04:45 Sputum Endotracheal Gram Stain - Final Resulted 11/21/17 04:45 Sputum Culture - Preliminary Aspergillus Species Resulted Imaging Last Impressions Chest X-Ray 11/20/17 0600 Signed Impressions: Service Date/Time: Monday, November 20, 2017 04:02 - CONCLUSION: 1. Air space disease in the lungs similar to November 19. Support apparatus unchanged. Elieser Villalobos MD CT Angiography 11/13/17 0000 Signed Impressions: Service Date/Time: Monday, November 13, 2017 03:47 - CONCLUSION: 1. Negative for pulmonary embolus. 2. Bilateral airspace disease, predominantly groundglass slight upper lobe predominance with adenopathy. Differential diagnosis includes bronchopneumonia or. Recommend short-term followup to follow adenopathy and ensure resolution. Elieser Villalobos MD Physical Exam GENERAL: This is a well-nourished, well-developed patient. Severe resp distress , breathing 40s/min BP in 180s/120s SKIN: No rashes, ecchymoses or lesions. Cool and dry. HEAD: Atraumatic. Normocephalic. No temporal or scalp tenderness. EYES: Pupils equal round and reactive. Extraocular motions intact. No scleral icterus. No injection or drainage. ENT: partial face BIPAP mask NECK: Trachea midline. Supple, nontender, no meningeal signs. CARDIOVASCULAR: HS audible. RESPIRATORY: AE decreased bilaterally. Bilateral rhonchi GASTROINTESTINAL: Abdomen soft, non-tender, nondistended. MUSCULOSKELETAL: Extremities without clubbing, cyanosis, or edema. No joint tenderness, effusion, or edema noted. No calf tenderness. Negative Homans sign bilaterally. NEUROLOGICAL: Alert anxious Opens eyes spontaneously. Moves all 4 extremities. Follows commands. Psych anxious IV line sites with no e.o infection. Assessment & Plan Remarks Severe Sepsis present on admission. Pneumonia in an Immune compromised patient. Leucocytosis: infection, steroids. Influenza pneumonia: PCR positive. Ground glass opacities of lung: DDX acute infections, Fungal (crypto, histo), PCP, CMV are some other differentials that are being considered. Acute respiratory failure on NRB 100% FiO2. H/o RA, Lupus on MTX and steroids off and on. Immune compromised host Thrombocytopenia: sepsis, meds related. Penicillin Allergy: has tolerated keflex in past. High grade leucocytosis: infection, steroids. Recurrent acute respiratory failure, resp decompensation immediately after extubation Recs: Continue Azactam IV decrease dose to q12hrs as no PSAE identified. Continue Levaquin IV (atypical coverage) Continue Tamiflu oral Follow cultures Follow clinically guerrero Earl: aspergillus in sputum ? significance unless it grows in bronch cultures. dw the same. follow clinically to reassess need as she has improved even without treatment for aspergillus. June Pinto MD Nov 23, 2017 13:07
--- NOTE | 2017-11-23 15:45 | OTSOAPIP ---
TIME SESSION COMPLETED: 1414 TREATMENT TIME: 0 MINS. CHART REVIEWED. RECEIVED ANOTHER ORDER FOR OT FROM DR. NELSON. ATTEMPTED TO SEE FOR OT HOWEVER HAVING A PROCEDURE IN ROOM. WILL FOLLOW NEXT DAY. Therapist: MENA MAJOR OT/L Signature on file
--- NOTE | 2017-11-23 19:00 | HHI.PR ---
Subjective Remarks Off the vent and on a N/C 3 L Chest Xray shows improved bilateral infiltrates. Awake and talking Objective Vital Signs Date Time Temp Pulse Resp B/P (MAP) Pulse Ox O2 Delivery O2 Flow Rate FiO2 11/23/17 18:00 134 11/23/17 16:00 124 11/23/17 16:00 98.5 124 24 130/78 (95) 99 11/23/17 14:00 112 11/23/17 12:00 98.5 118 18 105/71 (82) 100 11/23/17 12:00 118 11/23/17 10:00 91 11/23/17 08:29 100 Nasal Cannula 2.00 11/23/17 08:00 82 11/23/17 08:00 98.2 82 20 111/69 (83) 100 11/23/17 06:00 82 20 112/68 (83) 100 11/23/17 06:00 82 11/23/17 04:00 98.3 96 19 110/71 (84) 100 11/23/17 04:00 96 11/23/17 02:00 86 18 103/61 (75) 100 11/23/17 02:00 86 11/23/17 00:00 98.1 83 17 107/68 (81) 100 11/23/17 00:00 83 11/22/17 22:00 105 11/22/17 21:31 100 Nasal Cannula 2.00 11/22/17 20:00 98.0 84 21 118/74 (89) 100 Arterial Line 11/22/17 20:00 84 I/O 11/22/17 11/22/17 11/22/17 11/23/17 11/23/17 11/23/17 07:00 15:00 23:00 07:00 15:00 23:00 Intake Total 810 ml 50 ml 550 ml 861 ml Output Total 1150 ml 1350 ml 400 ml 1125 ml Balance -340 ml -1300 ml 150 ml -264 ml Intake Oral 50 ml 50 ml 720 ml IV Total 810 ml 500 ml 141 ml Output Urine Total 1150 ml 1350 ml 400 ml 1125 ml # Voids 4 2 # Bowel Movements 0 0 0 0 Result Diagram: 11/23/1752411/23/1725 Objective Remarks This is a moderately obese middle-aged lady who is awake HEENT: Head normocephalic. Pupils reactive. Sclerae were clear. Throat clear. Ears and nose have no inflammation. NECK: Supple. No bruits or thyroid enlargement. CHEST: Equal movements with wheezes over both lung bases.Occ Crackles. HEART: Heart sounds are regular S1 and S2. No S3. No murmur. ABDOMEN: The abdomen soft, obese without masses or organomegaly . Bowel sounds are active. EXTREMITIES: No edema. Peripheral pulses are good . Reflexes not elicited. SKIN: Dry and cool. Assessment and Plan Assessment and Plan IMPRESSION 1. Acute hypoxemic respiratory failure. 2. ARDS with possible bilateral pneumonia. 3. History of for rheumatoid arthritis with possible interstitial lung disease. 4. Asthmatic bronchitis with exacerbation. 5. Influenza A Plan : 1. Wean Fio2 to Keep sat >92. 2. Nebs q6h , duoneb 3. Continue BiPAP at HS if Sat <90 4. Continue antibiotics Per ID 5. D/C sedation 6. CXR ,CBC,BMP in am 7. PT evaluation [facility] Liz Sam MD Nov 23, 2017 19:00
[2017-11-23] MEDS ORDERED: METOPROLOL TARTRATE 5 MG/5 ML VIAL IV PUSH ONE (21:30)
[2017-11-24] VITALS (20 sets, daily range): BP systolic 102–141; BP diastolic 56–81; PULSE 111–130; RESP 20–43; TEMP 98.5–99.3; O2SAT 92–100
[2017-11-24] MEDS: LEVOFLOXACIN 750 MG PREMIX INJ 150 ML IV SCH (00:12)
[2017-11-24] MEDS: LORazepam 2 MG/ML VIAL IV PUSH PRN ×3 (00:12→23:07)
[2017-11-24] MEDS: RESP: ALBUTEROL 2.5 MG/IPRATROPIUM 0.5 MG NEB (SCH) NEB ×4 (03:06→21:12)
[2017-11-24] MEDS: INSULIN ASPART SUPPLEMENTAL SCALE SQ SCH ×2 (04:00)
[2017-11-24] MEDS: AZTREONAM INJ 2,000 MG in SODIUM CHLORIDE 0.9% INJ 100 ML IV SCH ×2 (04:36→18:32)
[2017-11-24 05:26] LABS: AUTOMATED NEUTROPHIL # 15.9 TH/MM3 (1.8-7.7); BASOPHIL % 0.1 % (0.0-2.0); HEMATOCRIT 38.8 % (35.0-46.0); HEMOGLOBIN 13.3 GM/DL (11.6-15.3); LYMPH % 15.7 % (9.0-44.0); LYMPHOCYTE # 3.3 TH/MM3 (1.0-4.8); MEAN CELL VOLUME 88.8 FL (80.0-100.0); MEAN CORPUSCULAR HEMOGLOBIN 30.4 PG (27.0-34.0); MEAN CORPUSCULAR HGB CONC 34.2 % (32.0-36.0); MEAN PLATELET VOLUME 7.7 FL (7.0-11.0); MONO % 7.7 % (0.0-8.0); MONOCYTE # 1.6 TH/MM3 (0-0.9); NEUT % 76.5 % (16.0-70.0); PLATELET COUNT 283 TH/MM3 (150-450); RED BLOOD COUNT 4.37 MIL/MM3 (4.00-5.30); RED CELL DISTRIBUTION WIDTH 13.7 % (11.6-17.2); WHITE BLOOD COUNT 20.8 TH/MM3 (4.0-11.0)
[2017-11-24 05:41] LABS: BICARBONATE 26.3 MEQ/L (21.0-32.0); CALCIUM 9.2 MG/DL (8.5-10.1); CREATININE 0.62 MG/DL (0.50-1.00); PHOSPHORUS 1.7 MG/DL (2.5-4.9)
--- NOTE | 2017-11-24 05:50 | RADRPT ---
EXAM DATE/TIME: 11/24/2017 03:54 [place] COMPARISON: CHEST SINGLE AP, November 23, 2017, 3:27. INDICATIONS : Shortness of breath, possible pneumonia. MEDICAL HISTORY : Rheumatoid arthritis. Lupus. asthma SURGICAL HISTORY : Appendectomy. ENCOUNTER: Subsequent ACUITY: 2 weeks PAIN SCORE: Non-responsive. LOCATION: Bilateral chest FINDINGS: A single AP semierect view of the chest was obtained and again demonstrates the right-sided central v enous catheter in place. There are no confluent infiltrates or effusion. The bony thorax is intact wi th overlying electrocardiogram leads. The heart size is within normal limits. CONCLUSION: Stable appearance with no acute cardiopulmonary disease. Patrice Conley MD on November 24, 2017 at 5:48 Board Certified Radiologist. This report was verified electronically.
[2017-11-24] MEDS ORDERED: SODIUM PHOSPHATE INJ 30 MMOL in SODIUM CHLOR 0.9% 250 ML INJ 240 ML IV PRN (06:00)
[2017-11-24] MEDS ORDERED: POTASSIUM CHLOR 20 MEQ PREMIX 100 ML IV PRN ×2 (06:00)
[2017-11-24] MEDS ORDERED: POTASSIUM PHOSPHATE MONOBASIC 500 MG TAB PO/TUBE PRN (06:00)
[2017-11-24] MEDS ORDERED: MAGNESIUM SULFATE INJ 2 GM in SODIUM CHLORIDE 0.9% INJ 96 ML IV PRN (06:00)
[2017-11-24] MEDS ORDERED: POTASSIUM PHOSPHATE INJ 30 MMOL in SODIUM CHLOR 0.9% 250 ML INJ 250 ML IV PRN (06:00)
[2017-11-24] MEDS ORDERED: MAGNESIUM OXIDE 400 MG TAB PO PRN (06:00)
[2017-11-24] MEDS ORDERED: POTASSIUM CHLOR 40 MEQ PREMIX 100 ML IV PRN (06:00)
[2017-11-24] MEDS ORDERED: POTASSIUM PHOSPHATE MONOBASIC 500 MG TAB PO PRN (06:00)
[2017-11-24] MEDS ORDERED: POTASSIUM CHLORIDE 25 MEQ EFFERVESCENT TAB PO PRN (06:00)
[2017-11-24] MEDS ORDERED: MAGNESIUM SULFATE INJ 4 GM in SODIUM CHLORIDE 0.9% INJ 92 ML IV PRN (06:00)
[2017-11-24] MEDS: CHLORHEXIDINE 0.12% (ORAL KIT) 15 ML CUP MT SCH ×2 (08:00→19:48)
[2017-11-24] MEDS ORDERED: POTASSIUM CHLORIDE 25 MEQ EFFERVESCENT TAB PO ONE (08:15)
--- NOTE | 2017-11-24 08:21 | HHI.CCPN ---
Subjective Remarks/Hospital Course Patient is a 60-year-old female with past medical history significant for rheumatoid arthritis on methotrexate and intermittently on steroids, Bronchial asthma, tobacco abuse who was admitted to [facility] with week long history of fevers chills and URI symptoms. This was associated with increasing shortness of breath and wheezing. Not improving with inhaled albuterol or prednisone which patient takes intermittently for rheumatoid arthritis flare up. About 3 days prior to ER visit patient was placed on Tamiflu by urgent care facility based on clinical symptoms. CXR at [place] emergency department showed bilateral patchy infiltrates. Patient was admitted to the [facility] facility under the hospitalist and was placed on IV Solu- Medrol breathing treatments, IV Levaquin and Tamiflu. Overnight patient had clinical deterioration was on 6 L nasal cannula with desaturation into the low 80s and patient was placed on a nonrebreather. An ABG done on 6 L showed severe AA gradient and a PO2 of 55. 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 Because of hypoxemic respiratory failure, extensive pulmonary infiltrates and risk of worsening ARDS patient was emergently transferred to the [place] [facility] I immediately evaluated the patient in the ICU. She is on partial nonrebreather oxygen saturation above 90%. The patient is tachypneic using accessory muscles. BiPAP ordered. Clinical presentation is concerning for influenza with secondary bacterial pneumonia. Because of her history of on and off chronic steroids and rheumatoid arthritis I will check for Pneumocystis jiroveci staining, LDH. Also ID consulted. A limited bedside echo showed normal ejection fraction. We will continue Tamiflu, IV Levaquin and vancomycin plus Azactam. If LDH is elevated start empiric coverage with IV Bactrim. Continue IV Solu-Medrol increased to 60 mg every 6 hours. ID consulted and discussed with Dr. Pinto SUBJ 11/14: Patient was intubated overnight for severe worsening hypoxemic respiratory failure. Chest x-ray postintubation showed worsening bilateral infiltrates. Currently on Zyvox, Azactam, IV Bactrim for PCP, and Levaquin. Pulmonology consulted for BAL if clinical condition permits. Start Nimbex infusion as the patient is on 100% FiO2 to maintain oxygen saturation. PEEP increased to 10. After obtaining BAL consider prolotherapy, if not improving 11/15: Remains intubated sedated and neuromuscularly paralyzed. Remains critical but stabilizing. FiO2 down to 60%. I will attempt weaning PEEP to 10. Discontinue neuromuscular paralysis due to risk of severe neuromuscular weakness, as patient is also on steroids. Chest x-ray remains unchanged. Bronchoscopy and BAL 11/14/17 results pending 11/16: Remains intubated sedated. Intermittent ventilatory synchrony with hypoxia worsening requiring rocuronium for neuromuscular paralysis. Currently FiO2 at 55% PEEP at 10. Chest x-ray shows worsening infiltrate and fluid overload. Start careful diuresis with IV Lasix. Influenza pneumonia, PCR positive. 11/17: Remains intubated heavily sedated intermittently neuromuscularly paralyzed on ventilator synchrony. Chest x-ray shows slight improvement in bilateral infiltrates. FiO2 down to 45%. Urine output adequate on Lasix. K 5.2 , KCL discontinued. Vent changed to ACV from PC/AC. Remains hypercapnic on ABG 11/18: Remains intubated chest x-ray shows improving pulmonary edema pattern. remain heavily sedated. K 5.7. Will give 40 mg IV lasix and 30 Gm Kayexalate and repeat at 1500. Start CPAP today. 11/19: CPAP trials initiated today, patient initially lasted 1 hour, off all sedation this morning. Precedex and fentanyl continued CPAP trials reinitiated , pressure support of 15 more successful. Chest x-ray improving. Extensive discussion with family regarding possibility of tracheostomy between day 7 and 10. 11/20: Afebrile .Tolerated CPAP trials throughout the night. The patient continues on CPAP, ABGs have been obtained all sedation has been discontinued in anticipation of an SBT trial this afternoon. The white count continues to be elevated, and bands increased. 11/21: Extubated yesterday but had to be reintubated and 45 minutes approximately 4 respiratory distress. Currently on full vent support on Precedex and fentanyl for sedation, wakes up easily follows commands. FiO2 down to 45% again. CXR unchanged. 11/22: No acute events overnight. Pt currently being weaned off Precedex, francisco murillo. WBC remains elevated. Pt alert and oriented, responding appropriately. 11/23: Precedex currently being weaned off sputum results Aspergillus, discussed with . Patient's O2 sat 100%, on 2 LPM. Patient's diet advanced to clear liquid. 11/24: No acute events overnight, slightly tachypneic but good oxygen saturation on nasal cannula. Potassium is 2.8 phosphorus is 1.7 getting replaced..PT/OT ordered Objective Vital Signs Date Time Temp Pulse Resp B/P (MAP) Pulse Ox O2 Delivery O2 Flow Rate FiO2 11/24/17 06:00 121 11/24/17 04:00 99.1 29 128/81 (97) 100 11/23/17 20:45 Nasal Cannula 2.00 11/22/17 12:47 35 Intake and Output 11/24/17 11/24/17 11/25/17 08:00 16:00 00:00 Intake Total 240 ml Balance 240 ml Result Diagram: 11/24/17 0440 11/24/17 0440 Imaging Last Impressions Chest X-Ray 11/20/17 0600 Signed Impressions: Service Date/Time: Monday, November 20, 2017 04:02 - CONCLUSION: 1. Air space disease in the lungs similar to November 19. Support apparatus unchanged. Elieser Villalobos MD CT Angiography 11/13/17 0000 Signed Impressions: Service Date/Time: Monday, November 13, 2017 03:47 - CONCLUSION: 1. Negative for pulmonary embolus. 2. Bilateral airspace disease, predominantly groundglass slight upper lobe predominance with adenopathy. Differential diagnosis includes bronchopneumonia or. Recommend short-term followup to follow adenopathy and ensure resolution. Elieser Villalobos MD Last Impressions Chest X-Ray 11/19/17 0600 Signed Impressions: Service Date/Time: Sunday, November 19, 2017 03:23 - CONCLUSION: Overall improvement in pulmonary edema with minimal interstitial process remaining. Tayla Valderrama MD CT Angiography 11/13/17 0000 Signed Impressions: Service Date/Time: Monday, November 13, 2017 03:47 - CONCLUSION: 1. Negative for pulmonary embolus. 2. Bilateral airspace disease, predominantly groundglass slight upper lobe predominance with adenopathy. Differential diagnosis includes bronchopneumonia or. Recommend short-term followup to follow adenopathy and ensure resolution. Elieser Villalobos MD CT CHEST: Bilateral airspace disease, predominantly ground glass slight upper lobe predominance with adenopathy. Differential diagnosis includes bronchopneumonia or. Recommend short-term followup to follow adenopathy and ensure resolution. Chest x-ray shows bilateral patchy infiltrates Objective Remarks GENERAL: Lying in bed, awke and responding appropriately SKIN: Warm and dry. EYES: No scleral icterus. No injection or drainage. ENT: No nasal bleeding or discharge. NECK: Supple. No JVD CARDIOVASCULAR: Sinus tachycardia. no murmurs. Hypotensive RESPIRATORY:Currently on N/C. Clear to auscultation bilaterally GASTROINTESTINAL: Abdomen soft, non-tender, nondistended. EXT: No clubbing, cyanosis, or edema. No obvious deformities. NEUROLOGICAL: Alert awake oriented. Movement of extremities x 4, the patient following commands. A/P Assessment and Plan ASSESSMENT: Acute hypoxemic respiratory failure-resolved ARDS-resolved Influenza pneumonia Sepsis Bronchial asthma with exacerbation Serum LDH elevated at 568, PJP stain negative Fluid overload Immunosuppression due to methotrexate and chronic (intermittent) steroid use History of rheumatoid arthritis, possible Lupus Persistent leukocytosis PLAN: NEURO: -Ativan, and Xanax PRN for anxiety -Tylenol for fever RESP: -Intubated 11/13/17 night due to worsening hypoxemia, severe ARDS -AC/VC. PEEP to 5, titrate oxygen to keep saturations more than 90% -Extubated 11/20/17, but had to be reintubated in approximately 45 minutes due to respiratory distress -Extubated again 11/21/2017, treated with racemic epinephrine and Decadron on BiPAP improved over the next 24 hours -Pulmonology Dr. Rich. s/p Bronch with BAL 11/14. -Influenza PCR positive on Tamiflu -DuoNeb every 6 hours scheduled and as needed -Off IV steroids. budesonide inhaled -PJP stain negative, serum LDH elevated at 568 -See ID section for ABX CV: -Bedside echo shows normal ejection fraction, 2D Echo EF normal -Resume Metoprolol ER 12.5 mg daily starting 11/24 -DC IV Lasix 20 mg every daily GI: -IV famotidine-cahgne to PO -Clear liquid diet-change to regular diet -Having BM : -Monitor renal function closely. IV Lasix DC today -D/C Mach[place] catheter. Strict I's and O's ID: -Influenza PCR positive, PJP stain negative -Sputum culture with Aspergillus most likely colonization. Neg blood culture, urine for Legionella and pneumococcal antigen. F/U sputum cx 11/20 -Continue broad-spectrum antibiotics with Azactam, Tamiflu. (Zyvox, and Bactrim DCd 11/16, Levaquin discontinued 11/24/2017) -Infectious disease HEME: -Monitor CBC, CMP, coags ENDO: -Mild hyperglycemia secondary to steroids -Sliding scale insulin as needed MSK -Holding methotrexate due to an acute infection -Off IV Solu-Medrol -PT/OT evaluation and treat, OOB PROPH: Bilateral lower extremity SCDs/JESSICA. Lovenox, Famotidine LINES: Utilize peripheral IVs. DC central line Dispo: Discussed with [facility] and patient's and family at bedside. Level 3. Hospitalist to assume care in a.m 09/24. Transfer to stepdown if stable Phi Gaston MD Nov 24, 2017 08:21
[2017-11-24] MEDS: POLYETHYLENE GLYCOL 17 GM PKG PO SCH (09:00)
[2017-11-24] MEDS: NAPHAZOLINE HCL 0.012% OPHT SOLN 15 ML BOTTLE EACH EYE SCH ×5 (09:00→19:49)
[2017-11-24] MEDS: LACTULOSE SYRUP 20 GM/30 ML CUP PO SCH (09:00)
[2017-11-24] MEDS: DOCUSATE SODIUM 100 MG/10 ML UDC PO SCH ×2 (09:32→19:50)
[2017-11-24] MEDS: FAMOTIDINE 20 MG TAB PO SCH ×2 (09:32→19:50)
[2017-11-24] MEDS: METOPROLOL SUCCINATE 25 MG EXTENDED RELEASE TAB PO SCH (09:32)
[2017-11-24] MEDS: FOLIC ACID 1 MG TAB PO SCH (09:32)
[2017-11-24] MEDS: OSELTAMIVIR PHOSPHATE 75 MG CAP PO SCH (09:32)
[2017-11-24] MEDS: SODIUM CHLORIDE 0.9% FLUSH 10 ML FLUSH IV FLUSH PRN (09:33)
[2017-11-24] MEDS: ENOXAPARIN SODIUM 40 MG/0.4 ML SYRINGE SQ SCH (09:33)
[2017-11-24] MEDS: SODIUM CHLORIDE 0.9% FLUSH 10 ML FLUSH IV FLUSH SCH ×2 (09:33→19:50)
[2017-11-24] MEDS: RESP: BUDESONIDE 0.5 MG/2 ML NEB NEB SCH ×2 (10:01→21:12)
--- NOTE | 2017-11-24 12:58 | HHI.PR ---
Subjective Remarks Off the vent and on a N/C 2 L Chest X ray shows improved bilateral infiltrates. Awake and seems weak. Objective Vital Signs Date Time Temp Pulse Resp B/P (MAP) Pulse Ox O2 Delivery O2 Flow Rate FiO2 11/24/17 12:00 124 11/24/17 11:00 127 11/24/17 11:00 127 28 98 11/24/17 10:02 98 Nasal Cannula 2.00 11/24/17 10:00 121 29 138/78 (98) 100 11/24/17 10:00 121 11/24/17 09:00 122 33 141/81 (101) 100 11/24/17 09:00 122 11/24/17 08:00 122 11/24/17 08:00 98.9 122 31 126/72 (90) 97 11/24/17 07:00 114 11/24/17 07:00 114 43 138/76 (96) 98 11/24/17 06:00 121 11/24/17 04:00 99.1 116 29 128/81 (97) 100 11/24/17 04:00 116 11/24/17 02:00 115 11/24/17 00:00 113 11/24/17 00:00 98.5 113 20 136/73 (94) 100 11/23/17 22:00 113 11/23/17 20:45 100 Nasal Cannula 2.00 11/23/17 20:00 128 11/23/17 20:00 98.8 128 24 129/80 (96) 100 11/23/17 18:00 134 11/23/17 16:00 124 11/23/17 16:00 98.5 124 24 130/78 (95) 99 11/23/17 14:00 112 I/O 11/23/17 11/23/17 11/23/17 11/24/17 11/24/17 11/24/17 07:00 15:00 23:00 07:00 15:00 23:00 Intake Total 550 ml 861 ml 240 ml Output Total 400 ml 1125 ml Balance 150 ml -264 ml 240 ml Intake Oral 50 ml 720 ml 240 ml IV Total 500 ml 141 ml Output Urine Total 400 ml 1125 ml # Voids 4 2 4 # Bowel Movements 0 0 0 Result Diagram: 2/22/18 0440 2/22/18 0440 Objective Remarks This is a moderately obese middle-aged lady who is awake HEENT: Head normocephalic. Pupils reactive. Sclerae were clear. Throat clear. Ears and nose have no inflammation. NECK: Supple. No bruits or thyroid enlargement. CHEST: Equal movements with wheezes over both lung reese. HEART: Heart sounds are regular S1 and S2. No S3. No murmur. ABDOMEN: The abdomen soft, obese without masses or organomegaly . Bowel sounds are active. EXTREMITIES: No edema. Peripheral pulses are good . Reflexes 1 + SKIN: Dry and cool. Assessment and Plan Assessment and Plan IMPRESSION 1. Acute hypoxemic respiratory failure. 2. ARDS with possible bilateral pneumonia. 3. History of for rheumatoid arthritis with possible interstitial lung disease. 4. Asthmatic bronchitis with exacerbation. 5. Influenza . Plan : 1. Wean Fio2 to Keep sat >92. 2. Nebs q6h , duoneb 3. D/C BiPAP 4. Continue antibiotics Per ID 5. Transfer to tele 6. CBC,BMP in am 7. PT evaluation 8.PFT with Bronchodilator Liz Sam MD Nov 24, 2017 12:58
[2017-11-24 16:12] LABS: PHOSPHORUS 3.6 MG/DL (2.5-4.9)
[2017-11-24] MEDS: POTASSIUM CHLOR 40 MEQ PREMIX 100 ML IV PRN ×2 (16:39→18:33)
--- NOTE | 2017-11-24 18:00 | HHI.IDPN ---
Subjective Subjective Remarks Ms. Boyd is a 60 y/o female with PMHx significant for rheumatoid arthritis and possibly lupus who is on methotrexate and intermittently on steroids. Her PMHx is also significant for Bronchial asthma and she admits to smoking 1 ppd for many years. 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 She denies any fungal pneumonia. She denies exposure to people with TB or positive PPD. She thinks she uses a nebulizer which may have mold deposits. She reports her home is her truck. She lives in motels at times. 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 She then presented to the [facility] ED with fever 103 F, tachycardia and Pneumonia on CXR on 11/11/2017. Flu antigen at this point after being treated with tamiflu was negative. She was transferred to [facility] due to increasing Shortness of breath and wheezing. She was reportedly getting worse despite taking her steroids at home which she intermittently takes for her RA. Patient was admitted to the [facility] facility under the hospitalist and was placed on IV Solu-Medrol breathing treatments, IV Levaquin and Tamiflu. Overnight patient had clinical deterioration was on 6 L nasal cannula with desaturation into the low 80s and patient was placed on a nonrebreather. An ABG done on 6 L showed severe AA gradient and a PO2 of 55. 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 Due to worsening shortness of breath, hypoxemic respiratory failure, extensive pulmonary infiltrates and risk of worsening ARDS patient was emergently transferred to the [facility]. Patient is currently under the human resources training manager service and is on a partial nonrebreather on 100% FiO2. The patient is tachypneic using accessory muscles. BiPAP ordered earlier but patient prefers not to use it. Patient is currently on Tamiflu, IV Levaquin, Azactam IV and IV vancomycin. Due to concern for PCP LDH was checked and patient started on empiric Bactrim IV.Patient is on IV Solu- Medrol increased to 60 mg every 6 hours. ID consulted for evaluation and Mment of Pneumonia in an Immune compromised patient. Overnight events reviewed. No fevers No rash No diarrhea Wants to get her Central line out. Wants to shower. Antibiotics Azactam IV Levaquin Tamiflu Lines Line sites with no e.o infection Past Medical History reviewed Allergies: Coded Allergies: Penicillins (Verified Allergy, Severe, Swelling, 11/13/17) Has tolerated Keflex as outpatient. aspirin (Verified Allergy, Severe, 11/11/17) morphine (Verified Adverse Reaction, Mild, Itching, 11/12/17) Objective . Vital Signs Date Time Temp Pulse Resp B/P (MAP) Pulse Ox O2 Delivery O2 Flow Rate FiO2 11/24/17 16:00 130 11/24/17 16:00 99.1 130 34 134/71 (92) 93 11/24/17 15:00 123 27 114/58 (76) 97 11/24/17 15:00 123 11/24/17 14:00 114 28 102/56 (71) 97 11/24/17 14:00 114 11/24/17 13:00 119 11/24/17 13:00 119 26 136/72 (93) 92 11/24/17 12:00 98.8 124 30 138/78 (98) 97 11/24/17 12:00 124 11/24/17 11:00 127 11/24/17 11:00 127 28 98 11/24/17 10:02 98 Nasal Cannula 2.00 11/24/17 10:00 121 29 138/78 (98) 100 11/24/17 10:00 121 11/24/17 09:00 122 33 141/81 (101) 100 11/24/17 09:00 122 11/24/17 08:00 122 11/24/17 08:00 98.9 122 31 126/72 (90) 97 11/24/17 07:00 114 11/24/17 07:00 114 43 138/76 (96) 98 11/24/17 06:00 121 11/24/17 04:00 99.1 116 29 128/81 (97) 100 11/24/17 04:00 116 11/24/17 02:00 115 11/24/17 00:00 113 11/24/17 00:00 98.5 113 20 136/73 (94) 100 11/23/17 22:00 113 11/23/17 20:45 100 Nasal Cannula 2.00 11/23/17 20:00 128 11/23/17 20:00 98.8 128 24 129/80 (96) 100 11/23/17 18:00 134 . Laboratory Tests Test 11/23/17 05:25 11/24/17 04:40 White Blood Count 18.6 TH/MM3 20.8 TH/MM3 Red Blood Count 4.35 MIL/MM3 4.37 MIL/MM3 Hemoglobin 13.4 GM/DL 13.3 GM/DL Hematocrit 38.7 % 38.8 % Mean Corpuscular Volume 89.1 FL 88.8 FL Mean Corpuscular Hemoglobin 30.9 PG 30.4 PG Mean Corpuscular Hemoglobin Concent 34.7 % 34.2 % Red Cell Distribution Width 13.3 % 13.7 % Platelet Count 267 TH/MM3 283 TH/MM3 Mean Platelet Volume 7.7 FL 7.7 FL Neutrophils (%) (Auto) 87.5 % 76.5 % Lymphocytes (%) (Auto) 6.7 % 15.7 % Monocytes (%) (Auto) 5.7 % 7.7 % Eosinophils (%) (Auto) 0.0 % 0.0 % Basophils (%) (Auto) 0.1 % 0.1 % Neutrophils # (Auto) 16.2 TH/MM3 15.9 TH/MM3 Lymphocytes # (Auto) 1.2 TH/MM3 3.3 TH/MM3 Monocytes # (Auto) 1.1 TH/MM3 1.6 TH/MM3 Eosinophils # (Auto) 0.0 TH/MM3 0.0 TH/MM3 Basophils # (Auto) 0.0 TH/MM3 0.0 TH/MM3 CBC Comment AUTO DIFF DIFF FINAL Differential Total Cells Counted 100 Neutrophils % (Manual) 83 % Band Neutrophils % 3 % Lymphocytes % 4 % Monocytes % 7 % Neutrophils # (Manual) 16.6 TH/MM3 Myelocytes 3 % Differential Comment FINAL DIFF MANUAL Platelet Estimate NORMAL Platelet Morphology Comment NORMAL Laboratory Tests Test 11/23/17 05:25 11/24/17 04:40 11/24/17 13:12 Blood Urea Nitrogen 31 MG/DL 31 MG/DL Creatinine 0.45 MG/DL 0.62 MG/DL Random Glucose 123 MG/DL 83 MG/DL Calcium Level 9.3 MG/DL 9.2 MG/DL Sodium Level 140 MEQ/L 142 MEQ/L Potassium Level 3.8 MEQ/L 2.8 MEQ/L 3.1 MEQ/L Chloride Level 104 MEQ/L 107 MEQ/L Carbon Dioxide Level 27.8 MEQ/L 26.3 MEQ/L Anion Gap 8 MEQ/L 9 MEQ/L Estimat Glomerular Filtration Rate 147 ML/MIN 101 ML/MIN Phosphorus Level 1.7 MG/DL 3.6 MG/DL Magnesium Level 2.0 MG/DL Imaging Last Impressions Chest X-Ray 11/20/17 0600 Signed Impressions: Service Date/Time: Monday, November 20, 2017 04:02 - CONCLUSION: 1. Air space disease in the lungs similar to November 19. Support apparatus unchanged. Elieser Villalobos MD CT Angiography 11/13/17 0000 Signed Impressions: Service Date/Time: Monday, November 13, 2017 03:47 - CONCLUSION: 1. Negative for pulmonary embolus. 2. Bilateral airspace disease, predominantly groundglass slight upper lobe predominance with adenopathy. Differential diagnosis includes bronchopneumonia or. Recommend short-term followup to follow adenopathy and ensure resolution. Elieser Villalobos MD Physical Exam GENERAL: This is a well-nourished, well-developed patient. Severe resp distress , breathing 40s/min BP in 180s/120s SKIN: No rashes, ecchymoses or lesions. Cool and dry. HEAD: Atraumatic. Normocephalic. No temporal or scalp tenderness. EYES: Pupils equal round and reactive. Extraocular motions intact. No scleral icterus. No injection or drainage. ENT: NAD NECK: Trachea midline. Supple, nontender, no meningeal signs. CARDIOVASCULAR: HS audible. RESPIRATORY: AE decreased bilaterally. Bilateral rhonchi GASTROINTESTINAL: Abdomen soft, non-tender, nondistended. MUSCULOSKELETAL: Extremities without clubbing, cyanosis, or edema. No joint tenderness, effusion, or edema noted. No calf tenderness. Negative Homans sign bilaterally. NEUROLOGICAL: AAOx3, NF Psych anxious IV line sites with no e.o infection. Assessment & Plan Remarks Severe Sepsis present on admission. Pneumonia in an Immune compromised patient. Leucocytosis: infection, steroids. Influenza pneumonia: PCR positive. Ground glass opacities of lung: DDX acute infections, Fungal (crypto, histo), PCP, CMV are some other differentials that are being considered. Acute respiratory failure on NRB 100% FiO2. H/o RA, Lupus on MTX and steroids off and on. Immune compromised host Thrombocytopenia: sepsis, meds related. Penicillin Allergy: has tolerated keflex in past. High grade leucocytosis: infection, steroids. Recurrent acute respiratory failure, resp decompensation immediately after extubation Recs: Continue Azactam IV decrease dose to q12hrs as no PSAE identified. DC Levaquin IV (atypical coverage) DC Tamiflu oral Follow cultures Follow clinically guerrero Duke: aspergillus in sputum ? significance unless it grows in bronch cultures. dw the same. follow clinically to reassess need as she has improved even without treatment for aspergillus. I will be off 11/25/2017 to 11/27/2017. Other ID MDs covering for me. Please check with [facility] call center. June Pinto MD Nov 24, 2017 18:00
[2017-11-25] VITALS (22 sets, daily range): BP systolic 103–130; BP diastolic 61–83; PULSE 104–130; RESP 20–77; TEMP 98.6–99; O2SAT 90–98
[2017-11-25] MEDS: RESP: ALBUTEROL 2.5 MG/IPRATROPIUM 0.5 MG NEB (SCH) NEB ×4 (03:55→20:49)
[2017-11-25] MEDS: AZTREONAM INJ 2,000 MG in SODIUM CHLORIDE 0.9% INJ 100 ML IV SCH (06:10)
[2017-11-25 07:07] LABS: BASOPHIL % 0.1 % (0.0-2.0); EOSINOPHIL % 0.3 % (0.0-4.0); HEMATOCRIT 37.5 % (35.0-46.0); HEMOGLOBIN 13.1 GM/DL (11.6-15.3); LYMPH % 23.7 % (9.0-44.0); LYMPHOCYTE # 3.7 TH/MM3 (1.0-4.8); MEAN CELL VOLUME 88.9 FL (80.0-100.0); MEAN CORPUSCULAR HGB CONC 34.9 % (32.0-36.0); MEAN PLATELET VOLUME 7.7 FL (7.0-11.0); MONO % 5.2 % (0.0-8.0); MONOCYTE # 0.8 TH/MM3 (0-0.9); NEUT % 70.7 % (16.0-70.0); PLATELET COUNT 254 TH/MM3 (150-450); RED BLOOD COUNT 4.22 MIL/MM3 (4.00-5.30); RED CELL DISTRIBUTION WIDTH 13.9 % (11.6-17.2); WHITE BLOOD COUNT 15.6 TH/MM3 (4.0-11.0)
[2017-11-25 07:28] LABS: ALBUMIN 2.9 GM/DL (3.4-5.0); AST (GOT) 28 U/L (15-37); BICARBONATE 25.4 MEQ/L (21.0-32.0); BLOOD UREA NITROGEN 22 MG/DL (7-18); CALCIUM 8.9 MG/DL (8.5-10.1); CHLORIDE 108 MEQ/L (98-107); CREATININE 0.56 MG/DL (0.50-1.00); GLOMERULAR FILTRATION RATE 114 ML/MIN (>89); GLUCOSE,RANDOM 91 MG/DL (74-106); MAGNESIUM 1.7 MG/DL (1.5-2.5); SODIUM (NA) 141 MEQ/L (136-145)
[2017-11-25 07:30] LABS: ALT (GPT) 65 U/L (10-53); PHOSPHORUS 2.7 MG/DL (2.5-4.9)
[2017-11-25 07:32] LABS: ALKALINE PHOSPHATASE 59 U/L (45-117); TOTAL BILIRUBIN ADULT 0.8 MG/DL (0.2-1.0); TOTAL PROTEIN 6.8 GM/DL (6.4-8.2)
[2017-11-25] MEDS: CHLORHEXIDINE 0.12% (ORAL KIT) 15 ML CUP MT SCH ×2 (08:00→20:00)
--- NOTE | 2017-11-25 08:00 | HHI.PR ---
Subjective Remarks Feels very tired, try to ambulate in the room however she fell, some small lacerations on her right knee however is nonpainful. She is able to pressure only. Denies fever or chills. Cough overnight. No wheezing. Objective Vitals Vital Signs Date Time Temp Pulse Resp B/P (MAP) Pulse Ox O2 Delivery O2 Flow Rate FiO2 11/25/17 06:00 112 11/25/17 04:00 120 11/25/17 04:00 98.7 120 23 103/61 (75) 97 11/25/17 02:00 122 11/25/17 00:00 130 11/25/17 00:00 99.0 130 34 113/83 (93) 95 11/24/17 22:00 121 11/24/17 21:14 100 Nasal Cannula 4.00 11/24/17 20:00 111 11/24/17 20:00 99.3 111 27 131/80 (97) 97 11/24/17 18:00 117 11/24/17 17:00 122 11/24/17 16:00 130 11/24/17 16:00 99.1 130 34 134/71 (92) 93 11/24/17 15:00 123 27 114/58 (76) 97 11/24/17 15:00 123 11/24/17 14:00 114 28 102/56 (71) 97 11/24/17 14:00 114 11/24/17 13:00 119 11/24/17 13:00 119 26 136/72 (93) 92 11/24/17 12:00 98.8 124 30 138/78 (98) 97 11/24/17 12:00 124 11/24/17 11:00 127 11/24/17 11:00 127 28 98 11/24/17 10:02 98 Nasal Cannula 2.00 11/24/17 10:00 121 29 138/78 (98) 100 11/24/17 10:00 121 11/24/17 09:00 122 33 141/81 (101) 100 11/24/17 09:00 122 11/24/17 08:00 122 11/24/17 08:00 98.9 122 31 126/72 (90) 97 I/O 11/24/17 11/24/17 11/24/17 11/25/17 11/25/1718 07:00 15:00 23:00 07:00 15:00 23:00 Intake Total 240 ml 440 ml 340 ml Output Total 550 ml 1150 ml Balance 240 ml -110 ml -810 ml Intake Oral 240 ml 240 ml 240 ml IV Total 200 ml 100 ml Output Urine Total 550 ml 1150 ml # Voids 4 3 # Bowel Movements 0 0 0 Result Diagram: 11/25/17 0546 11/25/17 0546 Imaging Last Impressions Chest X-Ray 11/24/17 0600 Signed Impressions: Service Date/Time: November 03:54 - CONCLUSION: Stable appearance with no acute cardiopulmonary disease. Patrice Conley MD CT Angiography 11/13/17 0000 Signed Impressions: Service Date/Time: Monday, November 13, 2017 03:47 - CONCLUSION: 1. Negative for pulmonary embolus. 2. Bilateral airspace disease, predominantly groundglass slight upper lobe predominance with adenopathy. Differential diagnosis includes bronchopneumonia or. Recommend short-term followup to follow adenopathy and ensure resolution. Elieser Villalobos MD Objective Remarks GENERAL: 52 yo F well nourished well developed appears in nad. CARDIOVASCULAR: Sinus tachycardia. no murmurs. RESPIRATORY:Currently on N/C. Clear to auscultation bilaterally GASTROINTESTINAL: Abdomen soft, non-tender, nondistended. EXTREMITIES: No clubbing, cyanosis, or edema. No obvious deformities. NEUROLOGICAL: Alert awake oriented. Movement of extremities x 4, the patient following commands. 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 PEEP to 5, titrate oxygen to keep saturations more than 90% -Extubated 11/20/17, but had to be reintubated in approximately 45 minutes due to respiratory distress -Extubated again 11/21/2017, treated with racemic epinephrine and Decadron on BiPAP improved over the next 24 hours -Pulmonology Dr. Rich. s/p Bronch with BAL 11/14. -Influenza PCR positive on Tamiflu -DuoNeb every 6 hours scheduled and as needed -Off IV steroids. budesonide inhaled -PJP stain negative, serum LDH elevated at 568 -See ID section for ABX CV: -Bedside echo shows normal ejection fraction, 2D Echo EF normal -Resume Metoprolol ER 12.5 mg daily starting 11/24 -DC IV Lasix 20 mg every daily GI: -IV famotidine-change to PO -Clear liquid diet-change to regular diet -Having BM : -Monitor renal function closely. IV Lasix DC today -D/C Machado catheter. Strict I's and O's ID: -Influenza PCR positive, PJP stain negative -Sputum culture with Aspergillus most likely colonization. Neg blood culture, urine for Legionella and pneumococcal antigen. F/U sputum cx 11/20 -Continue broad-spectrum antibiotics with Azactam, Tamiflu. (Zyvox, and Bactrim DCd 11/16, Levaquin discontinued 11/24/2017) -Infectious disease HEME: -Monitor CBC, CMP, coags ENDO: -Mild hyperglycemia secondary to steroids -Sliding scale insulin as needed MSK -Holding methotrexate due to an acute infection -Off IV Solu-Medrol -PT/OT evaluation and treat, OOB PROPH: Bilateral lower extremity SCDs/JESSICA. Lovenox, Famotidine LINES: Utilize peripheral IVs. DC central line Dispo: Discussed with PERSONAL DEVELOPMENT COACH, patient, family [facility] PT and OT Kendra Conner MD Nov 25, 2017 08:00
[2017-11-25] MEDS: NAPHAZOLINE HCL 0.012% OPHT SOLN 15 ML BOTTLE EACH EYE SCH ×4 (09:00→21:00)
[2017-11-25] MEDS: DOCUSATE SODIUM 100 MG/10 ML UDC PO SCH ×2 (09:00→21:12)
[2017-11-25] MEDS: POLYETHYLENE GLYCOL 17 GM PKG PO SCH (09:00)
[2017-11-25] MEDS: FAMOTIDINE 20 MG TAB PO SCH ×2 (09:04→21:12)
[2017-11-25] MEDS: METOPROLOL SUCCINATE 25 MG EXTENDED RELEASE TAB PO SCH (09:04)
[2017-11-25] MEDS: ENOXAPARIN SODIUM 40 MG/0.4 ML SYRINGE SQ SCH (09:04)
[2017-11-25] MEDS: LACTULOSE SYRUP 20 GM/30 ML CUP PO SCH (09:04)
[2017-11-25] MEDS: FOLIC ACID 1 MG TAB PO SCH (09:04)
[2017-11-25] MEDS: SODIUM CHLORIDE 0.9% FLUSH 10 ML FLUSH IV FLUSH SCH ×2 (09:05→21:00)
[2017-11-25] MEDS: RESP: BUDESONIDE 0.5 MG/2 ML NEB NEB SCH ×2 (10:13→20:49)
--- NOTE | 2017-11-25 13:02 | HHI.IDPN ---
Subjective Subjective Remarks Doing better On RA afebrile Growing Aspergilla in one sputum clx has a trasnfer order WBC down to 15 K CXR from yday showed no acute cardiopulmonary disease. Antibiotics Azactam IV Lines Line sites with no e.o infection Past Medical History reviewed Allergies: Coded Allergies: Penicillins (Verified Allergy, Severe, Swelling, 11/13/17) Has tolerated Keflex as outpatient. aspirin (Verified Allergy, Severe, 11/11/17) morphine (Verified Adverse Reaction, Mild, Itching, 11/12/17) Objective . Vital Signs Date Time Temp Pulse Resp B/P (MAP) Pulse Ox O2 Delivery O2 Flow Rate FiO2 11/25/17 11:00 120 11/25/17 10:40 93 11/25/17 10:00 116 11/25/17 09:00 129 11/25/17 08:00 112 11/25/17 08:00 98.8 112 24 120/66 (84) 96 11/25/17 07:00 109 11/25/17 06:00 112 11/25/17 04:00 120 11/25/17 04:00 98.7 120 23 103/61 (75) 97 11/25/17 02:00 122 11/25/17 00:00 130 11/25/17 00:00 99.0 130 34 113/83 (93) 95 11/24/17 22:00 121 11/24/17 21:14 100 Nasal Cannula 4.00 11/24/17 20:00 111 11/24/17 20:00 99.3 111 27 131/80 (97) 97 11/24/17 18:00 117 11/24/17 17:00 122 11/24/17 16:00 130 11/24/17 16:00 99.1 130 34 134/71 (92) 93 11/24/17 15:00 123 27 114/58 (76) 97 11/24/17 15:00 123 11/24/17 14:00 114 28 102/56 (71) 97 11/24/17 14:00 114 11/24/17 13:00 119 11/24/17 13:00 119 26 136/72 (93) 92 . Laboratory Tests Test 11/24/17 04:40 11/25/17 05:46 White Blood Count 20.8 TH/MM3 15.6 TH/MM3 Red Blood Count 4.37 MIL/MM3 4.22 MIL/MM3 Hemoglobin 13.3 GM/DL 13.1 GM/DL Hematocrit 38.8 % 37.5 % Mean Corpuscular Volume 88.8 FL 88.9 FL Mean Corpuscular Hemoglobin 30.4 PG 31.0 PG Mean Corpuscular Hemoglobin Concent 34.2 % 34.9 % Red Cell Distribution Width 13.7 % 13.9 % Platelet Count 283 TH/MM3 254 TH/MM3 Mean Platelet Volume 7.7 FL 7.7 FL Neutrophils (%) (Auto) 76.5 % 70.7 % Lymphocytes (%) (Auto) 15.7 % 23.7 % Monocytes (%) (Auto) 7.7 % 5.2 % Eosinophils (%) (Auto) 0.0 % 0.3 % Basophils (%) (Auto) 0.1 % 0.1 % Neutrophils # (Auto) 15.9 TH/MM3 11.0 TH/MM3 Lymphocytes # (Auto) 3.3 TH/MM3 3.7 TH/MM3 Monocytes # (Auto) 1.6 TH/MM3 0.8 TH/MM3 Eosinophils # (Auto) 0.0 TH/MM3 0.0 TH/MM3 Basophils # (Auto) 0.0 TH/MM3 0.0 TH/MM3 CBC Comment DIFF FINAL DIFF FINAL Differential Comment Laboratory Tests Test 11/24/17 04:40 11/24/17 13:12 11/25/17 05:46 Blood Urea Nitrogen 31 MG/DL 22 MG/DL Creatinine 0.62 MG/DL 0.56 MG/DL Random Glucose 83 MG/DL 91 MG/DL Calcium Level 9.2 MG/DL 8.9 MG/DL Phosphorus Level 1.7 MG/DL 3.6 MG/DL 2.7 MG/DL Magnesium Level 2.0 MG/DL 1.7 MG/DL Sodium Level 142 MEQ/L 141 MEQ/L Potassium Level 2.8 MEQ/L 3.1 MEQ/L 3.5 MEQ/L Chloride Level 107 MEQ/L 108 MEQ/L Carbon Dioxide Level 26.3 MEQ/L 25.4 MEQ/L Anion Gap 9 MEQ/L 8 MEQ/L Estimat Glomerular Filtration Rate 101 ML/MIN 114 ML/MIN Total Protein 6.8 GM/DL Albumin 2.9 GM/DL Alkaline Phosphatase 59 U/L Aspartate Amino Transf (AST/SGOT) 28 U/L Alanine Aminotransferase (ALT/SGPT) 65 U/L Total Bilirubin 0.8 MG/DL Imaging Last Impres Last Impressions Chest X-Ray 11/24/17 0600 Signed Impressions: Service Date/Time: November 03:54 - CONCLUSION: Stable appearance with no acute cardiopulmonary disease. Patrice Conley MD CT Angiography 11/13/17 0000 Signed Impressions: Service Date/Time: Monday, November 13, 2017 03:47 - CONCLUSION: 1. Negative for pulmonary embolus. 2. Bilateral airspace disease, predominantly groundglass slight upper lobe predominance with adenopathy. Differential diagnosis includes bronchopneumonia or. Recommend short-term followup to follow adenopathy and ensure resolution. Elieser Villalobos MD Physical Exam GENERAL: This is a well-nourished, well-developed patient. NAD SKIN: No rashes, ecchymoses or lesions. Cool and dry. HEAD: Atraumatic. Normocephalic. No temporal or scalp tenderness. EYES: Pupils equal round and reactive. Extraocular motions intact. No scleral icterus. No injection or drainage. ENT: NAD NECK: Trachea midline. Supple, nontender, no meningeal signs. CARDIOVASCULAR: HS audible. RESPIRATORY: AE decreased bilaterally. Bilateral rhonchi GASTROINTESTINAL: Abdomen soft, non-tender, nondistended. MUSCULOSKELETAL: Extremities without clubbing, cyanosis, or edema. No joint tenderness, effusion, or edema noted. NEUROLOGICAL: AAOx3, Psych: calm, cooperative IV line sites with no e.o infection. Assessment & Plan Remarks Severe Sepsis present on admission. Pneumonia in an Immune compromised patient. - resolved clinical resp failure and infiltrates Leucocytosis: infection, steroids. Influenza pneumonia: PCR positive. Ground glass opacities of lung: DDX acute infections, Fungal (crypto, histo), PCP, CMV are some other differentials that are being considered. H/o RA, Lupus on MTX and steroids off and on. Immune compromised host Thrombocytopenia: sepsis, meds related. Penicillin Allergy: has tolerated keflex in past. High grade leucocytosis: infection, steroids. Recurrent acute respiratory failure, resp decompensation immediately after extubation Aspergilla in sputum - doubt clin significance Recs: dc Azactam Monitor clinically Sarah Means MD Nov 25, 2017 13:02
--- NOTE | 2017-11-25 18:50 | HHI.PR ---
Subjective Remarks Off the vent and on a N/C 2 L Chest X ray shows improved bilateral infiltrates. Awake and has some leg weakness Objective Vital Signs Date Time Temp Pulse Resp B/P (MAP) Pulse Ox O2 Delivery O2 Flow Rate FiO2 11/25/17 16:00 116 11/25/17 16:00 98.7 116 24 130/83 (99) 11/25/17 15:00 115 11/25/17 14:00 111 11/25/17 13:00 115 11/25/17 12:00 116 11/25/17 12:00 98.8 116 22 126/74 (91) 98 11/25/17 11:00 120 11/25/17 10:40 93 11/25/17 10:00 116 11/25/17 09:00 129 11/25/17 08:00 112 11/25/17 08:00 98.8 112 24 120/66 (84) 96 11/25/17 07:00 109 11/25/17 06:00 112 11/25/17 04:00 120 11/25/17 04:00 98.7 120 23 103/61 (75) 97 11/25/17 02:00 122 11/25/17 00:00 130 11/25/17 00:00 99.0 130 34 113/83 (93) 95 11/24/17 22:00 121 11/24/17 21:14 100 Nasal Cannula 4.00 11/24/17 20:00 111 11/24/17 20:00 99.3 111 27 131/80 (97) 97 I/O 11/24/17 11/24/17 11/24/17 11/25/17 11/25/17 11/25/17 07:00 15:00 23:00 07:00 15:00 23:00 Intake Total 240 ml 440 ml 340 ml Output Total 550 ml 1150 ml Balance 240 ml -110 ml -810 ml Intake Oral 240 ml 240 ml 240 ml IV Total 200 ml 100 ml Output Urine Total 550 ml 1150 ml # Voids 4 3 # Bowel Movements 0 0 0 Result Diagram: 11/25/17 0546 11/25/17 0546 Objective Remarks This is a moderately obese middle-aged lady who is awake HEENT: Head normocephalic. Pupils reactive. Sclerae were clear. Throat clear. Ears and nose have no inflammation. NECK: Supple. No bruits or thyroid enlargement. CHEST: Equal movements with occ wheezes over both lung reese. HEART: Heart sounds are regular S1 and S2. No S3. No murmur. ABDOMEN: The abdomen soft, obese without masses or organomegaly . Bowel sounds are active. EXTREMITIES: No edema. Peripheral pulses are good . Reflexes 1 + SKIN: Dry and cool. Assessment and Plan Assessment and Plan IMPRESSION 1. Acute hypoxemic respiratory failure. 2. ARDS with possible bilateral pneumonia. 3. History of for rheumatoid arthritis with possible interstitial lung disease. 4. Asthmatic bronchitis with exacerbation. 5. Influenza . Plan : 1. Wean Fio2 to Keep sat >92. 2. Nebs q6h , duoneb 3. CXR on Tuesday 4. Continue antibiotics Per ID 5. Transfer to tele 6. BMP in am 7. PT evaluation 8.PFT with Bronchodilator Liz Sam MD Nov 25, 2017 18:50
[2017-11-25] MEDS ORDERED: METOPROLOL TARTRATE 5 MG/5 ML VIAL IV PUSH ONE (20:30)
[2017-11-26] VITALS (33 sets, daily range): BP systolic 108–128; BP diastolic 73–90; PULSE 88–128; RESP 16–17; TEMP 98.3–98.9; O2SAT 90–96
[2017-11-26] MEDS: RESP: ALBUTEROL 2.5 MG/IPRATROPIUM 0.5 MG NEB (SCH) NEB ×4 (03:44→21:18)
[2017-11-26 07:03] LABS: AUTOMATED NEUTROPHIL # 8.4 TH/MM3 (1.8-7.7); BASOPHIL % 0.3 % (0.0-2.0); EOSINOPHIL # 0.1 TH/MM3 (0-0.4); EOSINOPHIL % 0.8 % (0.0-4.0); HEMATOCRIT 36.7 % (35.0-46.0); LYMPH % 27.8 % (9.0-44.0); LYMPHOCYTE # 3.5 TH/MM3 (1.0-4.8); MEAN CELL VOLUME 88.2 FL (80.0-100.0); MEAN CORPUSCULAR HEMOGLOBIN 31.3 PG (27.0-34.0); MEAN CORPUSCULAR HGB CONC 35.5 % (32.0-36.0); MEAN PLATELET VOLUME 7.7 FL (7.0-11.0); MONO % 4.9 % (0.0-8.0); MONOCYTE # 0.6 TH/MM3 (0-0.9); NEUT % 66.2 % (16.0-70.0); PLATELET COUNT 266 TH/MM3 (150-450); RED BLOOD COUNT 4.16 MIL/MM3 (4.00-5.30); RED CELL DISTRIBUTION WIDTH 13.7 % (11.6-17.2); WHITE BLOOD COUNT 12.7 TH/MM3 (4.0-11.0)
[2017-11-26 07:25] LABS: BICARBONATE 26.4 MEQ/L (21.0-32.0); CALCIUM 8.6 MG/DL (8.5-10.1); CREATININE 0.48 MG/DL (0.50-1.00)
[2017-11-26] MEDS: CHLORHEXIDINE 0.12% (ORAL KIT) 15 ML CUP MT SCH ×2 (08:00→20:00)
[2017-11-26] MEDS: POLYETHYLENE GLYCOL 17 GM PKG PO SCH (08:56)
[2017-11-26] MEDS: LACTULOSE SYRUP 20 GM/30 ML CUP PO SCH (08:56)
[2017-11-26] MEDS: DOCUSATE SODIUM 100 MG/10 ML UDC PO SCH ×2 (08:56→21:00)
[2017-11-26] MEDS: FAMOTIDINE 20 MG TAB PO SCH ×2 (09:29→21:06)
[2017-11-26] MEDS: FOLIC ACID 1 MG TAB PO SCH (09:29)
[2017-11-26] MEDS: METOPROLOL SUCCINATE 25 MG EXTENDED RELEASE TAB PO SCH (09:31)
[2017-11-26] MEDS: ENOXAPARIN SODIUM 40 MG/0.4 ML SYRINGE SQ SCH (09:32)
[2017-11-26] MEDS: SODIUM CHLORIDE 0.9% FLUSH 10 ML FLUSH IV FLUSH SCH ×2 (09:42→21:06)
[2017-11-26] MEDS ORDERED: POTASSIUM CHLORIDE 20 MEQ PWD PACKET PO ONE (09:45)
[2017-11-26] MEDS: NAPHAZOLINE HCL 0.012% OPHT SOLN 15 ML BOTTLE EACH EYE SCH ×4 (09:46→21:00)
[2017-11-26] MEDS: RESP: BUDESONIDE 0.5 MG/2 ML NEB NEB SCH ×2 (10:18→21:18)
[2017-11-26] MEDS ORDERED: POTASSIUM CHLORIDE 20 MEQ CONTROLLED RELEASE TAB PO ONE (14:30)
--- NOTE | 2017-11-26 17:46 | HHI.PR ---
Subjective Remarks Respiratory status is improving through time. Patient has no new complaints today. She has tachycardia when she ambulates but she feels she's had this for years. Objective Vital Signs Date Time Temp Pulse Resp B/P (MAP) Pulse Ox O2 Delivery O2 Flow Rate FiO2 11/26/17 15:13 98.5 109 17 116/76 (89) 92 11/26/17 11:33 98.3 105 16 122/84 (97) 93 11/26/17 11:00 108 11/26/17 10:24 96 21 11/26/17 10:00 110 11/26/17 09:08 98.8 107 16 122/83 (96) 94 11/26/17 09:00 118 11/26/17 08:00 96 11/26/17 07:00 93 11/26/17 06:33 105 11/26/17 05:02 105 11/26/17 04:55 109 11/26/17 04:42 98.4 88 113/73 (86) 91 11/26/17 03:46 90 21 11/26/17 03:00 96 11/26/17 02:00 114 11/26/17 01:00 110 11/26/17 00:09 98.9 110 108/73 (85) 92 11/26/17 00:00 112 11/25/17 23:00 104 11/25/17 22:00 114 11/25/17 21:00 122 11/25/17 20:53 90 21 11/25/17 20:00 98.9 121 117/82 (94) 98 11/25/17 20:00 124 11/25/17 19:00 120 11/25/17 18:48 98.6 114 20 123/62 (82) 94 I/O 11/25/17 11/25/17 11/25/17 11/26/17 11/26/17 11/26/17 07:00 15:00 23:00 07:00 15:00 23:00 Intake Total 340 ml 240 ml 480 ml Output Total 1150 ml Balance -810 ml 240 ml 480 ml Intake Oral 240 ml 240 ml 480 ml IV Total 100 ml Output Urine Total 1150 ml # Voids 2 # Bowel Movements 0 2 Result Diagram: 11/26/1762711/26/17627 Objective Remarks GENERAL: NAD, A&Ox3 HEAD: Normocephalic. NECK: Supple, trachea midline. No lymphadenopathy. EYES: No scleral icterus. No injection or drainage. CARDIOVASCULAR: Regular rate and rhythm without murmurs, gallops, or rubs. RESPIRATORY: Breath sounds equal bilaterally. No accessory muscle use. GASTROINTESTINAL: Abdomen soft, non-tender, nondistended. MUSCULOSKELETAL: No cyanosis, or edema. SKIN: Warm and dry. NEURO: No focal neurological deficitis. A/P Problem List: (1) Influenza ICD Code: J11.1 - Influenza due to unidentified influenza virus with other respiratory manifestations (2) Pneumonia ICD Code: J18.9 - Pneumonia, unspecified organism (3) ARDS (adult respiratory distress syndrome) ICD Code: J80 - Acute respiratory distress syndrome Assessment and Plan 52-year-old female admitted secondary to acute respiratory failure with ARDS. 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 anxiety disorder Continue anxiolytics as needed Hyperglycemia Likely steroid effect Follow blood sugars Insulin sliding scale Diabetic diet Generalized weakness Physical therapy Occupational therapy DVT prophylaxis SCDs Will Ferrer MD Nov 26, 2017 17:46
[2017-11-27] VITALS (33 sets, daily range): BP systolic 111–127; BP diastolic 58–85; PULSE 101–136; RESP 16–18; TEMP 98–98.5; O2SAT 93–100
[2017-11-27] MEDS: RESP: ALBUTEROL 2.5 MG/IPRATROPIUM 0.5 MG NEB (SCH) NEB ×5 (03:37→21:38)
[2017-11-27 06:26] LABS: AUTOMATED NEUTROPHIL # 11.3 TH/MM3 (1.8-7.7); BASOPHIL # 0.1 TH/MM3 (0-0.2); BASOPHIL % 0.5 % (0.0-2.0); EOSINOPHIL # 0.1 TH/MM3 (0-0.4); EOSINOPHIL % 0.8 % (0.0-4.0); HEMATOCRIT 40.4 % (35.0-46.0); HEMOGLOBIN 14.2 GM/DL (11.6-15.3); LYMPH % 26.5 % (9.0-44.0); LYMPHOCYTE # 4.4 TH/MM3 (1.0-4.8); MEAN CELL VOLUME 88.7 FL (80.0-100.0); MEAN CORPUSCULAR HEMOGLOBIN 31.3 PG (27.0-34.0); MEAN CORPUSCULAR HGB CONC 35.2 % (32.0-36.0); MEAN PLATELET VOLUME 7.9 FL (7.0-11.0); MONO % 4.8 % (0.0-8.0); MONOCYTE # 0.8 TH/MM3 (0-0.9); NEUT % 67.4 % (16.0-70.0); PLATELET COUNT 326 TH/MM3 (150-450); RED BLOOD COUNT 4.55 MIL/MM3 (4.00-5.30); RED CELL DISTRIBUTION WIDTH 13.8 % (11.6-17.2); WHITE BLOOD COUNT 16.8 TH/MM3 (4.0-11.0)
[2017-11-27 07:17] LABS: ALBUMIN 3.3 GM/DL (3.4-5.0); ALKALINE PHOSPHATASE 59 U/L (45-117); ALT (GPT) 47 U/L (10-53); AST (GOT) 14 U/L (15-37); BICARBONATE 23.8 MEQ/L (21.0-32.0); BLOOD UREA NITROGEN 17 MG/DL (7-18); CALCIUM 9.4 MG/DL (8.5-10.1); CHLORIDE 109 MEQ/L (98-107); CREATININE 0.66 MG/DL (0.50-1.00); GLOMERULAR FILTRATION RATE 94 ML/MIN (>89); GLUCOSE,RANDOM 106 MG/DL (74-106); SODIUM (NA) 141 MEQ/L (136-145); TOTAL BILIRUBIN ADULT 0.6 MG/DL (0.2-1.0); TOTAL PROTEIN 7.4 GM/DL (6.4-8.2)
[2017-11-27] MEDS: NAPHAZOLINE HCL 0.012% OPHT SOLN 15 ML BOTTLE EACH EYE SCH ×4 (09:00→20:30)
[2017-11-27] MEDS: POLYETHYLENE GLYCOL 17 GM PKG PO SCH (09:15)
[2017-11-27] MEDS: LACTULOSE SYRUP 20 GM/30 ML CUP PO SCH (09:15)
[2017-11-27] MEDS: DOCUSATE SODIUM 100 MG/10 ML UDC PO SCH ×2 (09:15→20:30)
[2017-11-27] MEDS: FAMOTIDINE 20 MG TAB PO SCH ×2 (09:16→20:21)
[2017-11-27] MEDS: METOPROLOL SUCCINATE 25 MG EXTENDED RELEASE TAB PO SCH (09:17)
[2017-11-27] MEDS: ENOXAPARIN SODIUM 40 MG/0.4 ML SYRINGE SQ SCH (09:18)
[2017-11-27] MEDS: FOLIC ACID 1 MG TAB PO SCH (09:23)
[2017-11-27] MEDS: SODIUM CHLORIDE 0.9% FLUSH 10 ML FLUSH IV FLUSH SCH ×2 (09:24→20:22)
[2017-11-27] MEDS: CHLORHEXIDINE 0.12% (ORAL KIT) 15 ML CUP MT SCH ×2 (09:26→20:00)
[2017-11-27] MEDS: RESP: BUDESONIDE 0.5 MG/2 ML NEB NEB SCH ×2 (10:40→21:37)
--- NOTE | 2017-11-27 14:34 | HHI.PR ---
Subjective Remarks Respiratory status is nearing baseline, per patient. She has a chest x-ray and pulmonary function test pending. No respiratory distress she is now stable on room air. Objective Vital Signs Date Time Temp Pulse Resp B/P (MAP) Pulse Ox O2 Delivery O2 Flow Rate FiO2 11/27/17 12:00 114 11/27/17 11:45 98.4 113 17 119/68 (85) 93 11/27/17 11:45 93 Room Air 11/27/17 11:00 112 11/27/17 10:46 94 21 11/27/17 10:00 118 11/27/17 09:15 93 Room Air 11/27/17 09:00 120 11/27/17 08:00 113 11/27/17 07:50 98.4 107 16 111/72 (85) 93 11/27/17 07:00 101 11/27/17 06:00 108 11/27/17 05:00 130 11/27/17 04:30 98.5 114 16 114/58 (76) 100 11/27/17 04:00 108 11/27/17 03:00 113 11/27/17 02:00 110 11/27/17 01:00 120 11/27/17 00:29 111 16 127/78 (94) 93 11/27/17 00:00 112 11/26/17 23:00 118 11/26/17 22:00 128 11/26/17 21:21 96 21 11/26/17 21:00 116 11/26/17 20:00 122 11/26/17 19:50 98.5 109 16 128/90 (103) 96 11/26/17 19:00 118 11/26/17 18:00 122 11/26/17 17:00 112 11/26/17 16:00 108 11/26/17 15:13 98.5 109 17 116/76 (89) 92 11/26/17 15:00 112 I/O 11/26/17 11/26/17 11/26/17 11/27/17 11/27/17 11/27/17 07:00 15:00 23:00 07:00 15:00 23:00 Intake Total 480 ml 780 ml 480 ml Balance 480 ml 780 ml 480 ml Intake Oral 480 ml 780 ml 480 ml # Voids 2 4 3 # Bowel Movements 2 1 2 Result Diagram: 11/27/1752411/27/17524 Objective Remarks GENERAL: NAD, A&Ox3 HEAD: Normocephalic. NECK: Supple, trachea midline. No lymphadenopathy. EYES: No scleral icterus. No injection or drainage. CARDIOVASCULAR: Regular rate and rhythm without murmurs, gallops, or rubs. RESPIRATORY: Breath sounds equal bilaterally. No accessory muscle use. GASTROINTESTINAL: Abdomen soft, non-tender, nondistended. MUSCULOSKELETAL: No cyanosis, or edema. SKIN: Warm and dry. NEURO: No focal neurological deficitis. A/P Problem List: (1) Influenza ICD Code: J11.1 - Influenza due to unidentified influenza virus with other respiratory manifestations (2) Pneumonia ICD Code: J18.9 - Pneumonia, unspecified organism (3) ARDS (adult respiratory distress syndrome) ICD Code: J80 - Acute respiratory distress syndrome Assessment and Plan 52-year-old female admitted secondary to acute respiratory failure with ARDS. Chest x-ray ordered. Pulmonary function testing ordered. Monitor for 24 more hours and consider discharge tomorrow if patient continues to be stable and based upon findings on pending studies. 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 anxiety disorder Continue anxiolytics as needed Hyperglycemia Likely steroid effect Follow blood sugars Insulin sliding scale Diabetic diet Generalized weakness Physical therapy Occupational therapy DVT prophylaxis SCDs Will Ferrer MD Nov 27, 2017 14:34
--- NOTE | 2017-11-27 17:15 | RADRPT ---
EXAM DATE/TIME: 11/27/2017 17:06 [facility] COMPARISON: CHEST SINGLE AP, November 24, 2017, 3:54. CHEST PA & LAT, November 11, 2017, 23:33. INDICATIONS : Evaluate pneumonia MEDICAL HISTORY : Rheumatoid arthritis. Lupus. asthma SURGICAL HISTORY : Appendectomy. ENCOUNTER: Subsequent ACUITY: 2 weeks PAIN SCORE: 0/10 LOCATION: chest FINDINGS: PA and lateral views of the chest demonstrate the lungs to be symmetrically aerated without evidence of mass, infiltrate or effusion. The previously noted infiltrates from 11/11/2017 have resolved. The c ardiomediastinal contours are unremarkable. Osseous structures are intact. CONCLUSION: No acute intrathoracic disease. Ian Dickinson MD on November 27, 2017 at 17:13 Board Certified Radiologist. This report was verified electronically.
[2017-11-28] VITALS (12 sets, daily range): BP systolic 108–113; BP diastolic 60–72; PULSE 98–140; RESP 16–19; TEMP 97.7–98.1; O2SAT 98–100
[2017-11-28 06:46] LABS: HEMATOCRIT 38.3 % (35.0-46.0); HEMOGLOBIN 13.3 GM/DL (11.6-15.3); MEAN CELL VOLUME 89.4 FL (80.0-100.0); MEAN CORPUSCULAR HEMOGLOBIN 30.9 PG (27.0-34.0); MEAN CORPUSCULAR HGB CONC 34.6 % (32.0-36.0); MEAN PLATELET VOLUME 7.9 FL (7.0-11.0); PLATELET COUNT 306 TH/MM3 (150-450); RED BLOOD COUNT 4.29 MIL/MM3 (4.00-5.30); RED CELL DISTRIBUTION WIDTH 13.9 % (11.6-17.2); WHITE BLOOD COUNT 10.5 TH/MM3 (4.0-11.0)
[2017-11-28 06:55] LABS: BICARBONATE 24.7 MEQ/L (21.0-32.0); CALCIUM 8.9 MG/DL (8.5-10.1); CREATININE 0.53 MG/DL (0.50-1.00)
[2017-11-28] MEDS: RESP: BUDESONIDE 0.5 MG/2 ML NEB NEB SCH (07:33)
[2017-11-28] MEDS: CHLORHEXIDINE 0.12% (ORAL KIT) 15 ML CUP MT SCH (08:00)
--- NOTE | 2017-11-28 08:15 | HHI.PR ---
Addendum to Inpatient Note Addendum Reason: Additional Documentation Additional Information Chart review documentation. WBC improved off antibiotics and no fevers. Continue to observe off antibiotics. Will sign off please call back if any change in clinical condition or questions. June Pinto MD Nov 28, 2017 08:15
[2017-11-28] MEDS: NAPHAZOLINE HCL 0.012% OPHT SOLN 15 ML BOTTLE EACH EYE SCH (08:53)
[2017-11-28] MEDS: DOCUSATE SODIUM 100 MG/10 ML UDC PO SCH (08:54)
[2017-11-28] MEDS: METOPROLOL SUCCINATE 25 MG EXTENDED RELEASE TAB PO SCH (08:54)
[2017-11-28] MEDS: FOLIC ACID 1 MG TAB PO SCH (08:54)
[2017-11-28] MEDS: FAMOTIDINE 20 MG TAB PO SCH (08:54)
[2017-11-28] MEDS: POLYETHYLENE GLYCOL 17 GM PKG PO SCH (08:55)
[2017-11-28] MEDS: LACTULOSE SYRUP 20 GM/30 ML CUP PO SCH (08:55)
[2017-11-28] MEDS: SODIUM CHLORIDE 0.9% FLUSH 10 ML FLUSH IV FLUSH SCH (08:55)
[2017-11-28] MEDS: ENOXAPARIN SODIUM 40 MG/0.4 ML SYRINGE SQ SCH (08:57)
[2017-11-28] MEDS ORDERED: VENTAER INH (09:05)
[2017-11-28] MEDS ORDERED: CANE/WOOD/LADIE1 MI1 (10:24)
--- NOTE | 2017-11-28 13:17 | HHI.DS ---
Discharge Summary Admission Date Nov 13, 2017 at 17:36 Discharge Date: Nov 28, 2017 Admitting Diagnosis (1) Respiratory failure with hypoxia ICD Code: J96.91 - Respiratory failure, unspecified with hypoxia Diagnosis: Principal (2) Weakness ICD Code: R53.1 - Weakness Diagnosis: Principal (3) Pneumonia ICD Code: J18.9 - Pneumonia, unspecified organism Diagnosis: Principal (4) Influenza ICD Code: J11.1 - Influenza due to unidentified influenza virus with other respiratory manifestations Diagnosis: Principal (5) ARDS (adult respiratory distress syndrome) ICD Code: J80 - Acute respiratory distress syndrome Diagnosis: Principal Procedures Intubation Brief History - From Admission 52-year-old female admitted for sepsis secondary to pneumonia. Patient was in her usual state of health until about a week ago when she began experiencing subjective fevers chills sweats as well as URI symptoms including rhinorrhea. This was associated with increasing shortness of breath and wheezing. The patient states that she has asthma and started taking her albuterol inhaler to no avail. She says that she took some prednisone that she had left over (for her rheumatoid arthritis) 5 mg for 2 days again providing no avail. This she went to the urgent care where she was diagnosed with the flu apparently without getting a flu swab. She was sent home with Tamiflu which she took for the next 3 days but due to the persistence in her symptoms she decided to come to the ER department. She does report having some nausea but no vomiting. In the emergency department to obtain a chest x-ray which I am attempting to review independently but the film was not showing up; radiology read reports patchy infiltrates suggestive of bronchopneumonia. Was reported to have saturations of 89-90% on room air and was placed on oxygen. Patient was started on Levaquin and aztreonam. Received 2 L of normal saline bolus as well as Solu- Medrol. Past medical history includes rheumatoid arthritis and asthma. Social history includes that the patient has been smoking for over 20 years. 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 No significant family history per patient. CBC/BMP: 11/28/17 0543 11/28/17 0543 Significant Findings Laboratory Tests Test 11/26/17 06:28 11/27/17 05:25 11/28/17 05:43 White Blood Count 12.7 TH/MM3 (4.0-11.0) 16.8 TH/MM3 (4.0-11.0) Neutrophils # (Auto) 8.4 TH/MM3 (1.8-7.7) 11.3 TH/MM3 (1.8-7.7) Blood Urea Nitrogen 19 MG/DL (7-18) Creatinine 0.48 MG/DL (0.50-1.00) Potassium Level 3.4 MEQ/L (3.5-5.1) Albumin 3.3 GM/DL (3.4-5.0) Aspartate Amino Transf (AST/SGOT) 14 U/L (15-37) Chloride Level 109 MEQ/L (98-107) 108 MEQ/L (98-107) PE at Discharge GENERAL: 52 yo F well nourished well developed appears in nad. CARDIOVASCULAR: Sinus tachycardia. no murmurs. RESPIRATORY:Currently on N/C. Clear to auscultation bilaterally GASTROINTESTINAL: Abdomen soft, non-tender, nondistended. EXTREMITIES: No clubbing, cyanosis, or edema. No obvious deformities. NEUROLOGICAL: Alert awake oriented. Movement of extremities x 4, the patient following commands. Hospital Course Mrs. Vale is a 52 year old female. She has lupus and rheumatoid arthritis at baseline. She was a smoker. Previous to admit here she had acquired influenza which developed into pneumonia. She came in with pneumonia and sepsis and subsequently developed acute respiratory distress syndrome. She had to be intubated for support. Likely she has improved and is status post extubation. She was monitored for continued improvement and has been working with physical therapy to regain function. At this point she has completed her antibiotic and steroid treatments. She is ambulating well enough with physical therapy to be clear for discharge home without need for home health. Medically stable for discharge home today. Pt Condition on Discharge: Stable Discharge Disposition: Discharge Home Discharge Time: > 30 minutes Discharge Instructions DIET: Follow Instructions for: As Tolerated, No Restrictions Activities you can perform: Regular-No Restrictions Follow up Referrals: PCP Follow-up - 2 Weeks Pulmonology - 2 Weeks New Medications: Albuterol 18 GM Inh (Ventolin Hfa 18 GM Inh) 90 Mcg/Act Aer 2 PUFF INH Q4-6H PRN for SHORTNESS OF BREATH, #1 INHALER 0 Refills Cane/Wood/Ladies Standard (Cane/Wood/Ladies Standard) 1 Mis Mis EA .XX DIRECTED, #1 Continued Medications: Folic Acid (Folic Acid) 0.4 Mg Tab 400 MCG PO DAILY for Nutritional Supplement, TAB 0 Refills Methotrexate (Methotrexate) 2.5 Mg Tab 15 MG PO Q7D, TAB 0 Refills Metoprolol Succinate ER 24 HR (Metoprolol Succinate ER 24 HR) 25 Mg Tab 12.5 MG PO DAILY, #30 TAB 0 Refills Prednisone (Prednisone) 1 Mg Tab 1 MG PO DAILY, TAB 0 Refills Will Wilkinson MD Nov 28, 2017 13:17
== END 2017-11-28 11:11 | disposition home or self-care (01) | DRG 853 ==
LOC: PHEDDLT 02:37 → PH3A 07:36 → HIME 11-13 10:59 → OBSVTOIN 11-13 17:36 → HCIS 11-25 17:40
PROVIDERS: ADMIT Hospitalist; ATTEND Hospitalist
PROC: 5A1955Z Respiratory Ventilation, Greater than 96 Consecutive Hours (ICD-10-PCS; principal; 2017-11-13)
PROC: 0BH17EZ Insertion of Endotracheal Airway into Trachea, Via Natural or Artificial Opening (ICD-10-PCS; 2017-11-13)
PROC: 0T9B70Z Drainage of Bladder with Drainage Device, Via Natural or Artificial Opening (ICD-10-PCS; 2017-11-13)
PROC: 0B9J8ZX Drainage of Left Lower Lung Lobe, Via Natural or Artificial Opening Endoscopic, Diagnostic (ICD-10-PCS; 2017-11-14)
PROC: 0B9C8ZX Drainage of Right Upper Lung Lobe, Via Natural or Artificial Opening Endoscopic, Diagnostic (ICD-10-PCS; 2017-11-14)
PROC: 0B9G8ZX Drainage of Left Upper Lung Lobe, Via Natural or Artificial Opening Endoscopic, Diagnostic (ICD-10-PCS; 2017-11-14)
PROC: 0B9D8ZX Drainage of Right Middle Lung Lobe, Via Natural or Artificial Opening Endoscopic, Diagnostic (ICD-10-PCS; 2017-11-14)
PROC: 0B9F8ZX Drainage of Right Lower Lung Lobe, Via Natural or Artificial Opening Endoscopic, Diagnostic (ICD-10-PCS; 2017-11-14)
PROC: 05H533Z Insertion of Infusion Device into Right Subclavian Vein, Percutaneous Approach (ICD-10-PCS; 2017-11-14)
PROC: 5A1955Z Respiratory Ventilation, Greater than 96 Consecutive Hours (ICD-10-PCS; 2017-11-20)
PROC: 0BH17EZ Insertion of Endotracheal Airway into Trachea, Via Natural or Artificial Opening (ICD-10-PCS; 2017-11-20)
DX: A41.9 Sepsis, unspecified organism (principal); J96.01 Acute respiratory failure with hypoxia; J18.0 Bronchopneumonia, unspecified organism; J09.X1 Influenza due to identified novel influenza A virus with pneumonia; J81.1 Chronic pulmonary edema; E87.2 Acidosis; D69.59 Other secondary thrombocytopenia; J45.901 Unspecified asthma with (acute) exacerbation; E87.70 Fluid overload, unspecified; M06.9 Rheumatoid arthritis, unspecified; I10 Essential (primary) hypertension; F17.210 Nicotine dependence, cigarettes, uncomplicated; Z83.3 Family history of diabetes mellitus; T38.0X5A Adverse effect of glucocorticoids and synthetic analogues, initial encounter; R73.9 Hyperglycemia, unspecified; F41.1 Generalized anxiety disorder; S81.011A Laceration without foreign body, right knee, initial encounter; W18.39XA Other fall on same level, initial encounter; Y93.01 Activity, walking, marching and hiking; Y92.230 Patient room in hospital as the place of occurrence of the external cause; Z79.52 Long term (current) use of systemic steroids; Z88.0 Allergy status to penicillin; R65.20 Severe sepsis without septic shock
CPT/HCPCS: 31500; 31624; 36556; 36600; 36620; 71045; 71046; 71275; 76937; 80048; 80053; 80074; 81001; 82784; 82805; 82948; 83605; 83615; 83735; 83880; 84100; 84132; 84145; 85007; 85025; 85027; 85610; 85730; 86355; 86357; 86359; 86360; 86606; 86612; 86631; 86632; 86703; 86738; 87015; 87040; 87070; 87102; 87116; 87205; 87206; 87385; 87449; 87493; 87633; 87641; 87804; 87899; 88112; 88312; 88341; 88342; 93306; 94002; 94003; 94060; 94640; 94664; 94667; 94668; 96361; 96365; 96375; J0330; J1100; J1120; J1650; J1815; J1885; J1940; J1956; J2020; J2060; J2212; J2250; J2920; J2930; J3010; J3370; J3480; J7030; J7040; J7050; J7060; J7608; J7626; J8610; Q9967